=== PATIENT | male | born 1980 | race Caucasian/White ===

== ENCOUNTER 2022-01-25 00:34 | Observation (INO) | payer MEDICAID, SELFPAY ==
[2022-01-25] VITALS (7 sets, daily range): BP systolic 93–127; BP diastolic 48–79; PULSE 82–114; RESP 15–26; TEMP 36.2–37.5; O2SAT 93–98; BMI 56.1; BMI 56.0
[2022-01-25] MEDS: 0.9% Normal Saline 1,000 ML 1000 ML IV (01:03)
[2022-01-25 01:12] LABS: Absolute Lymphocyte Count 1.44 X10^3/uL (0.83-4.51); Basophil# 0.04 X10^3/uL; Basophil% 0.2 % (0-1); Eosinophil# 0.11 X10^3/uL; Eosinophils% 0.4 % (0-5); Hemoglobin 13.3 g/dL (13.0-16.5); Lymphocyte # 1.44 X10^3/ul (0.83-4.51); Lymphocyte % 5.8 % (19-41); Mean Corp Hgb Conc 31.7 g/dL (32-36); Mean Corpuscular Volume 82.2 fL (80-94); Mean Platelet Vol. 10.1 fl (6.2-12.0); Monocyte% 3.2 % (0-10); NRBC Flagged by Analyzer 0 % (0-5); Neutrophil # 22.03 X10^3/uL (2.7-7.7); Neutrophil % 88.3 % (47-70); POSITIVE DIFFERENTIAL YES; Platelet Count 278 K/mm3 (150-450); RBC Distribution Width CV 14.2 % (11.6-14.6); RBC Distribution Width SD 42.6 fl (35.1-43.9); Red Blood Count 5.11 M/mm3 (4.6-6.2); White Blood Count 24.9 K/mm3 (4.4-11.0)
[2022-01-25 01:17] LABS: Differential Indicated SCAN CRITERIA MET
[2022-01-25] MEDS: Ondansetron 4 MG/2 ML Vial IV (01:21)
[2022-01-25 01:28] LABS: AST(SGOT) 38 U/L (15-37); Alanine Aminotransfer ALT/SGPT 21 U/L (16-61); Albumin, Serum 2.4 g/dL (3.2-5.0); Alkaline Phosphatase 170 U/L (45-117); Anion Gap 9 (5-15); BUN 15 mg/dL (7-18); BUN/Creat Ratio 11.4 RATIO (10-20); Bilirubin, Direct 0.18 mg/dL (0.00-0.30); Calcium,Total 8.5 mg/dL (8.5-10.1); Chloride 96 mmol/L (98-107); Creatinine, Serum 1.32 mg/dL (0.70-1.30); EST Glomerular Filtration Rate 64 mL/min (>60); Est Glom Filt Rate - Afr Amer 77 mL/min (>60); Estimated Creatinine Clearance 80.02 ml/min; Globulin 5.3 g/dL (2.2-4.2); Glucose 154 mg/dL (74-106); Protein, Total 7.7 g/dL (6.4-8.2); Sodium Level 131 mmol/L (136-145)
[2022-01-25 01:37] LABS: Differential Comment SCANNED
[2022-01-25] MEDS: 0.9% Normal Saline 1,000 ML 150 ML IV ×4 (02:15→21:08)
[2022-01-25 05:21] LABS: Color, Urine Yellow (Yellow); Glucose, Dipstick Normal (Normal); Ketone-Dipstick Negative (Negative); Leukocyte Esterase-Dipstick 25 /ul (Negative); Mucous, Urine 0 SEEN /hpf (<or=2+); Nitrite-Dipstick Negative (Negative); Occult Blood-Urine 10 /ul (Negative); Protein-Dipstick 30 mg/dl (Negative); Specific Gravity, Urine 1.015 (1.002-1.030); Urine Clarity Clear (Clear); Urine Urobilinogen 1 mg/dl (Normal)
[2022-01-25 05:23] LABS: Urine Bilirubin Dipstick 1 mg/dL (Negative)
[2022-01-25 05:43] LABS: Bacteria 2+ /hpf (None Seen); Red Blood Cells-Urine 0-5 SEEN /hpf (0-5); Squamous Epithelial Cells - UA 0-5 SEEN /hpf (0-5); White Blood Cells 0-5 SEEN /hpf (0-5)
[2022-01-25] MEDS: 0.9% Saline Lock 10 ML Syringe IV (05:59)
[2022-01-25] MEDS: Acetaminophen 325 MG Tablet 650 MG PO ×2 (05:59→17:59)
[2022-01-25] MEDS: proCHLORPERazine 10 MG/2 ML Vial 5 MG IV (05:59)
[2022-01-25] MEDS: Menthol/Lanolin/Calamine/Znox 113 GM Tube 1 APPLIC TOPICAL ×2 (06:21→21:19)
[2022-01-25] MEDS: Nystatin Powder 15gm Bottle 1 APPLIC TOPICAL ×2 (06:21→21:19)
[2022-01-25 08:20] LABS: Absolute Neutrophil Count 17.9 X10^3/uL (2.0-7.7); Basophil# 0.05 X10^3/uL; Basophil% 0.2 % (0-1); Eosinophil# 0.14 X10^3/uL; Eosinophils% 0.6 % (0-5); Hematocrit 38.8 % (40-54); Hemoglobin 12.1 g/dL (13.0-16.5); Lymphocyte % 11.7 % (19-41); Mean Corp Hgb Conc 31.2 g/dL (32-36); Mean Corpuscular Hgb 25.5 pg (27.0-32.0); Mean Corpuscular Volume 81.9 fL (80-94); Mean Platelet Vol. 9.9 fl (6.2-12.0); Monocyte# 1.27 X10^3/uL; Monocyte% 5.7 % (0-10); NRBC Flagged by Analyzer 0 % (0-5); Neutrophil # 17.94 X10^3/uL (2.7-7.7); Neutrophil % 80.5 % (47-70); Platelet Count 263 K/mm3 (150-450); RBC Distribution Width CV 14.3 % (11.6-14.6); RBC Distribution Width SD 42.7 fl (35.1-43.9); Red Blood Count 4.74 M/mm3 (4.6-6.2); White Blood Count 22.3 K/mm3 (4.4-11.0)
[2022-01-25 08:26] LABS: Anion Gap 6 (5-15); BUN 13 mg/dL (7-18); BUN/Creat Ratio 15.3 RATIO (10-20); Chloride 102 mmol/L (98-107); Creatinine, Serum 0.85 mg/dL (0.70-1.30); EST Glomerular Filtration Rate 106 mL/min (>60); Est Glom Filt Rate - Afr Amer 129 mL/min (>60); Estimated Creatinine Clearance 120.47 ml/min; Glucose 146 mg/dL (74-106); Potassium 3.2 mmol/L (3.5-5.1); Sodium Level 135 mmol/L (136-145)
[2022-01-25] MEDS: Enoxaparin 40 MG/0.4 ML Syringe SC ×2 (08:56→21:28)
[2022-01-26 02:37] VITALS: BP 111/59; PULSE 98; RESP 16; TEMP 37.4; O2SAT 93
[2022-01-26] MEDS: 0.9% Normal Saline 1,000 ML 150 ML IV ×4 (03:34→22:02)
[2022-01-26 06:19] LABS: Absolute Lymphocyte Count 2.37 X10^3/uL (0.83-4.51); Basophil# 0.02 X10^3/uL; Basophil% 0.2 % (0-1); Eosinophil# 0.19 X10^3/uL; Eosinophils% 1.5 % (0-5); Hematocrit 39.2 % (40-54); Lymphocyte # 2.37 X10^3/ul (0.83-4.51); Lymphocyte % 18.7 % (19-41); Mean Corp Hgb Conc 30.6 g/dL (32-36); Mean Corpuscular Hgb 24.9 pg (27.0-32.0); Mean Corpuscular Volume 81.3 fL (80-94); Mean Platelet Vol. 10.3 fl (6.2-12.0); Monocyte# 0.93 X10^3/uL; Monocyte% 7.4 % (0-10); NRBC Flagged by Analyzer 0 % (0-5); Neutrophil # 9.03 X10^3/uL (2.7-7.7); Neutrophil % 71.3 % (47-70); Platelet Count 236 K/mm3 (150-450); RBC Distribution Width CV 14.5 % (11.6-14.6); RBC Distribution Width SD 42.8 fl (35.1-43.9); Red Blood Count 4.82 M/mm3 (4.6-6.2); White Blood Count 12.7 K/mm3 (4.4-11.0)
[2022-01-26 06:50] LABS: Anion Gap 3 (5-15); BUN 12 mg/dL (7-18); BUN/Creat Ratio 18.1 RATIO (10-20); Calcium,Total 7.8 mg/dL (8.5-10.1); Chloride 106 mmol/L (98-107); Creatinine, Serum 0.66 mg/dL (0.70-1.30); EST Glomerular Filtration Rate 142 mL/min (>60); Est Glom Filt Rate - Afr Amer 171 mL/min (>60); Estimated Creatinine Clearance 160.04 ml/min; Glucose 115 mg/dL (74-106); Potassium 3.6 mmol/L (3.5-5.1); Sodium Level 136 mmol/L (136-145)
[2022-01-26 08:05] VITALS: BP 114/68; PULSE 85; RESP 18; TEMP 36.7; O2SAT 98
[2022-01-26] MEDS: Acetaminophen 325 MG Tablet 650 MG PO (08:08)
[2022-01-26] MEDS: Nystatin Powder 15gm Bottle 1 APPLIC TOPICAL ×2 (09:40→20:31)
[2022-01-26] MEDS: Enoxaparin 40 MG/0.4 ML Syringe SC ×2 (09:40→20:31)
[2022-01-26] MEDS: Menthol/Lanolin/Calamine/Znox 113 GM Tube 1 APPLIC TOPICAL ×2 (09:41→20:32)
[2022-01-26 14:26] VITALS: BP 92/57; PULSE 77; RESP 18; TEMP 36.5; O2SAT 95
[2022-01-26 20:15] VITALS: BP 123/84; PULSE 82; RESP 18; TEMP 37.1; O2SAT 94
[2022-01-26] MEDS: Ondansetron 4 MG/2 ML Vial IV (20:31)
[2022-01-26] MEDS: 0.9% Saline Lock 10 ML Syringe IV (20:31)
[2022-01-27 03:01] VITALS: BP 101/58; PULSE 83; RESP 18; TEMP 36.6; O2SAT 95
[2022-01-27] MEDS: 0.9% Normal Saline 1,000 ML 150 ML IV (03:06)
[2022-01-27] MEDS: 0.9% Saline Lock 10 ML Syringe IV (03:06)
[2022-01-27] MEDS: proCHLORPERazine 10 MG/2 ML Vial 5 MG IV (03:06)
[2022-01-27 06:26] LABS: Absolute Lymphocyte Count 2.71 X10^3/uL (0.83-4.51); Absolute Neutrophil Count 4.8 X10^3/uL (2.0-7.7); Basophil# 0.03 X10^3/uL; Basophil% 0.4 % (0-1); Eosinophil# 0.22 X10^3/uL; Eosinophils% 2.6 % (0-5); Hematocrit 41.4 % (40-54); Hemoglobin 12.2 g/dL (13.0-16.5); Lymphocyte # 2.71 X10^3/ul (0.83-4.51); Lymphocyte % 32.2 % (19-41); Mean Corp Hgb Conc 29.5 g/dL (32-36); Mean Corpuscular Hgb 25.1 pg (27.0-32.0); Mean Corpuscular Volume 85.2 fL (80-94); Mean Platelet Vol. 10.8 fl (6.2-12.0); Monocyte# 0.61 X10^3/uL; Monocyte% 7.3 % (0-10); NRBC Flagged by Analyzer 0 % (0-5); Neutrophil # 4.76 X10^3/uL (2.7-7.7); Neutrophil % 56.5 % (47-70); Platelet Count 240 K/mm3 (150-450); RBC Distribution Width CV 14.7 % (11.6-14.6); RBC Distribution Width SD 45.8 fl (35.1-43.9); Red Blood Count 4.86 M/mm3 (4.6-6.2); White Blood Count 8.4 K/mm3 (4.4-11.0)
[2022-01-27 06:41] LABS: Anion Gap 6 (5-15); BUN 8 mg/dL (7-18); BUN/Creat Ratio 13.7 RATIO (10-20); Calcium,Total 7.6 mg/dL (8.5-10.1); Chloride 108 mmol/L (98-107); Creatinine, Serum 0.58 mg/dL (0.70-1.30); EST Glomerular Filtration Rate 164 mL/min (>60); Est Glom Filt Rate - Afr Amer 198 mL/min (>60); Estimated Creatinine Clearance 182.12 ml/min; Glucose 97 mg/dL (74-106); Magnesium 2.3 mg/dL (1.6-2.6); Potassium 3.7 mmol/L (3.5-5.1); Sodium Level 139 mmol/L (136-145)
[2022-01-27 09:00] VITALS: BP 104/67; PULSE 88; RESP 16; TEMP 36.8; O2SAT 92
[2022-01-27] MEDS: Enoxaparin 40 MG/0.4 ML Syringe SC ×2 (10:09→21:59)
[2022-01-27] MEDS: Nystatin Powder 15gm Bottle 1 APPLIC TOPICAL ×2 (10:10→22:01)
[2022-01-27] MEDS: Menthol/Lanolin/Calamine/Znox 113 GM Tube 1 APPLIC TOPICAL ×2 (10:10→22:00)
[2022-01-27 15:53] VITALS: BP 101/71; PULSE 81; RESP 18; TEMP 36.6; O2SAT 92
[2022-01-27 21:56] VITALS: BP 109/62; PULSE 71; RESP 18; TEMP 36.5; O2SAT 97
[2022-01-28 03:09] VITALS: BP 120/82; PULSE 87; RESP 18; TEMP 36.8; O2SAT 99
[2022-01-28] MEDS: 0.9% Saline Lock 10 ML Syringe IV (06:21)
[2022-01-28 07:07] LABS: Absolute Lymphocyte Count 3.07 X10^3/uL (0.83-4.51); Absolute Neutrophil Count 3.6 X10^3/uL (2.0-7.7); Basophil# 0.03 X10^3/uL; Basophil% 0.4 % (0-1); Eosinophil# 0.33 X10^3/uL; Eosinophils% 4.3 % (0-5); Hematocrit 41.4 % (40-54); Hemoglobin 12.6 g/dL (13.0-16.5); Lymphocyte # 3.07 X10^3/ul (0.83-4.51); Lymphocyte % 39.9 % (19-41); Mean Corp Hgb Conc 30.4 g/dL (32-36); Mean Corpuscular Hgb 25.6 pg (27.0-32.0); Monocyte# 0.54 X10^3/uL; NRBC Flagged by Analyzer 0 % (0-5); Neutrophil # 3.64 X10^3/uL (2.7-7.7); Neutrophil % 47.4 % (47-70); Platelet Count 285 K/mm3 (150-450); RBC Distribution Width CV 14.9 % (11.6-14.6); RBC Distribution Width SD 45.3 fl (35.1-43.9); Red Blood Count 4.93 M/mm3 (4.6-6.2); White Blood Count 7.7 K/mm3 (4.4-11.0)
[2022-01-28 07:45] LABS: Anion Gap 5 (5-15); BUN 6 mg/dL (7-18); BUN/Creat Ratio 13.6 RATIO (10-20); Calcium,Total 8.1 mg/dL (8.5-10.1); Chloride 105 mmol/L (98-107); Creatinine, Serum 0.44 mg/dL (0.70-1.30); EST Glomerular Filtration Rate 226 mL/min (>60); Est Glom Filt Rate - Afr Amer 274 mL/min (>60); Estimated Creatinine Clearance 240.07 ml/min; Glucose 91 mg/dL (74-106); Potassium 3.6 mmol/L (3.5-5.1); Sodium Level 140 mmol/L (136-145)
[2022-01-28 08:00] VITALS: BP 128/80; PULSE 89; RESP 16; TEMP 36.7; O2SAT 90
[2022-01-28] MEDS: Menthol/Lanolin/Calamine/Znox 113 GM Tube 1 APPLIC TOPICAL (10:06)
[2022-01-28] MEDS: Nystatin Powder 15gm Bottle 1 APPLIC TOPICAL (10:07)
[2022-01-28] MEDS: Enoxaparin 40 MG/0.4 ML Syringe SC (10:07)
== END 2022-01-28 14:32 | disposition home or self-care (01) ==
LOC: ED 02:26 → MS3 03:40
PROVIDERS: Family Medicine; Internal Medicine; Admitting Provider Hospitalist; Emergency Provider Emergency Medicine; Visit Provider Internal Medicine
DX: L03.115 Cellulitis of right lower limb (principal); Z68.43 Body mass index [BMI] 50.0-59.9, adult; E66.01 Morbid (severe) obesity due to excess calories; L03.116 Cellulitis of left lower limb; B87.0 Cutaneous myiasis; B96.89 Other specified bacterial agents as the cause of diseases classified elsewhere; N28.9 Disorder of kidney and ureter, unspecified
CPT/HCPCS: 36415; 80048; 80076; 81001; 83735; 85025; 87040; 87077; 93005; 96361; 96365; 96366; 96372; 96375; 96376; 97802; 99221; 99283; A4216; G0378; J0295; J2405

== ENCOUNTER 2023-09-23 09:26 | Inpatient (IN) | payer SELFPAY ==
[2023-09-23 09:28] VITALS: BP 151/85; PULSE 100; RESP 22; TEMP 36.2; O2SAT 90
--- NOTE | 2023-09-23 10:09 | VDLE_ITS ---
Reason For Study: Left leg swelling RIGHT LEFT CFV is compressible, spontaneous, phasic, GSV is normal. competent and demonstrates normal CFV is compressible, spontaneous, phasic, augmentation. competent, and demonstrates normal Procedure augmentation. This is a venous duplex using B-mode, color FV is compressible, spontaneous, phasic, flow and spectral Doppler. competent and demonstrates normal Exam performed portable in ED. augmentation. Technically difficult exam due to pt body POP V is compressible, spontaneous, phasic, habitus. competent and demonstrates normal Calfs veins visualized at distal calf. augmentation. A preliminary report was called and/or faxed T/P Trunk is compressible. to Iva TORO. PTV is compressible. FV distal visualized with color only appears patent. PeroV not well visualized. VL/Venous Duplex US, Unilateral Interpretation Summary Deep veins of the left lower extremity are patent and compressible segmentally. There is no evidence of left lower extremity deep vein thrombosis. The left great saphenous vein isrrael ears patent and compressible segmentally. Limited study Ordering Physician: Julisa Storm Performed By: Lay Marie RVT
--- NOTE | 2023-09-23 10:10 | EX.ED.DYSGE1 ---
HPI History of Present Illness Chief Complaint: Edema Informant: patient Onset/Context/Timing Onset: Today Narrative Narrative: Patient presents secondary to increased swelling of the left lower extremity. He has a history of lymphedema but states today he has had increased swelling of the left leg with some difficulty ambulating. He has noted some watery drainage from his leg. No fever or chills. He denies history of DVT or PE. [facility] Medical History Morbid obesity Home Medications amoxicillin 875 mg-potassium clavulanate 125 mg tablet 1 tab PO BID #10 tabs 01/28/22 [Rx Last Taken Unknown] apixaban 2.5 mg tablet (Eliquis) 2.5 mg PO BID #30 tabs 01/28/22 [Rx Last Taken Unknown] Allergy/AdvReac Type Severity Reaction Status Date / Time No Known Allergies Allergy Verified 09/23/23 09:27 Family History Other Obesity Social History Smoking Status: Never smoker ROS ROS ED Constitutional Constitutional ED: Denies chills or fever(s) Eyes Eyes: Denies discharge from eye(s) ENT ENT ED: Denies discharge from eye(s), rhinorrhea or sore throat Cardiovascular Cardiovascular: Denies chest pain or palpitations Respiratory/Chest Respiratory/Chest: Denies cough or dyspnea Gastrointestinal Gastrointestinal: Denies abdominal pain, nausea or vomiting Musculoskeletal Musculoskeletal: Reports extremity pain; Denies back pain Integumentary Reports other Details: Lymphedema changes bilateral lower extremities. ; Denies Abrasions or rash Neurologic Neurologic: Denies headache(s) or weakness Psychiatric Psychiatric: Denies anxiety or depression Allergic/Immunologic Allergic/Immunologic ED: Denies lip swelling or urticaria EXAM Physical Exam Const Vital Signs: 09/23/23 09:28 09/23/23 09:26 Temperature 97.2 F L Temperature Source Temporal Pulse Rate 100 Respiratory Rate 22 H Respiratory Effort Normal Non-Labored Respiratory Pattern Normal Blood Pressure 151/85 H Blood Pressure Mean 107 Pulse Ox 90 Oxygen Delivery Method Room Air Positive obese Nutritional Appearance: obese Eyes EOMs intact bilaterally Chest Wall inspection of chest normal and palpation of chest normal Resp normal respiratory effort and clear to auscultation bilaterally Cardio regular rate and regular rhythm GI non-tender Palpation: soft Extremity Extremity Narrative: Lymphedema bilateral lower extremities. Chronic venous skin changes to the lower extremities with small area of skin sloughing on the left leg with some clear watery discharge. Erythema of the medial left thigh with slight tenderness. No crepitus. Neuro oriented x3 Psych mental status grossly normal MDM MDM MDM Narrative Medical decision making narrative: IV line initiated. Blood cultures will be obtained. Labwork obtained to evaluate for leukocytosis, anemia, and electrolyte derangement. Venous ultrasound of the left lower extremity obtained to evaluate for potential DVT. History & Record Review Discussion w/independent historian: Patient Additional record(s) reviewed:: Prior inpatient record, Prior ED visit and Prior labs Lab Data Attestation: I reviewed the patient's lab results. Labs: Laboratory Results - last 24 hr 09/23/23 10:25 WBC 15.0 H RBC 6.36 H Hgb 15.3 Hct 53.7 MCV 84.4 MCH 24.1 L MCHC 28.5 L RDW Std Deviation 50.3 H RDW Coeff of Benedicto 17.4 H Plt Count 226 MPV 10.5 Immature Gran % (Auto) 1.300 H Neut % (Auto) 77.6 H Lymph % (Auto) 12.4 L [place] % (Auto) 8.3 Eos % (Auto) 0.1 Baso % (Auto) 0.3 Absolute Neuts (auto) 11.6 H Absolute Lymphs (auto) 1.86 Nucleated RBC % 0 Sodium 128 L Potassium 4.3 Chloride 96 L Carbon Dioxide 24.0 Anion Gap 8 BUN 12 Creatinine 0.91 Est GFR (MDRD) Af Amer 118 Est GFR (MDRD) Non-Af 97 BUN/Creatinine Ratio 13.2 Glucose 195 H Calcium 8.7 Treatment and Re-Evaluation :: White blood cell count is elevated at 15.0 with 77% neutrophils. Hemoglobin normal at 15.3. Chemistry studies significant for a sodium of 128. Last lab work available is from 2021 and at that time was normal. Blood cultures have been obtained. Venous ultrasound of the left lower extremity reveals no evidence of DVT. IV fluids initiated. Patient given a dose of Zosyn and I will speak with hospitalist regarding admission for both treatment of his cellulitis as well as his hyponatremia. Discharge Plan Triage Chief Complaint: Edema ED Provider: Julisa Storm Dx/Rx/DC Orders Clinical Impression: Cellulitis, Hyponatremia Prescriptions: No Action amoxicillin-pot clavulanate 875-125 mg tablet 1 tab PO BID Qty: 10 0RF Eliquis 2.5 mg tablet 2.5 mg PO BID Qty: 30 0RF Rx Instructions: for DVT prophylaxis Primary Care Provider: Care Physician,No Primary Referrals: Care Physician,No Primary [Primary Care Provider] - Disposition Disposition: Acute Care Hospital [facility]
[2023-09-23 10:36] LABS: Absolute Lymphocyte Count 1.86 X10^3/uL (0.83-4.51); Absolute Neutrophil Count 11.6 X10^3/uL (2.0-7.7); Basophil# 0.04 X10^3/uL; Basophil% 0.3 % (0-1); Eosinophil# 0.01 X10^3/uL; Eosinophils% 0.1 % (0-5); Hematocrit 53.7 % (40-54); Hemoglobin 15.3 g/dL (13.0-16.5); Lymphocyte # 1.86 X10^3/ul (0.83-4.51); Lymphocyte % 12.4 % (19-41); Mean Corp Hgb Conc 28.5 g/dL (32-36); Mean Corpuscular Hgb 24.1 pg (27.0-32.0); Mean Corpuscular Volume 84.4 fL (80-94); Mean Platelet Vol. 10.5 fl (6.2-12.0); Monocyte# 1.25 X10^3/uL; Monocyte% 8.3 % (0-10); NRBC Flagged by Analyzer 0 % (0-5); Neutrophil # 11.64 X10^3/uL (2.7-7.7); Neutrophil % 77.6 % (47-70); Platelet Count 226 K/mm3 (150-450); RBC Distribution Width CV 17.4 % (11.6-14.6); RBC Distribution Width SD 50.3 fl (35.1-43.9); Red Blood Count 6.36 M/mm3 (4.6-6.2)
[2023-09-23 10:53] LABS: Anion Gap 8 (5-15); BUN 12 mg/dL (7-18); BUN/Creat Ratio 13.2 RATIO (10-20); Calcium,Total 8.7 mg/dL (8.5-10.1); Chloride 96 mmol/L (98-107); Creatinine, Serum 0.91 mg/dL (0.70-1.30); EST Glomerular Filtration Rate 97 mL/min (>60); Est Glom Filt Rate - Afr Amer 118 mL/min (>60); Glucose 195 mg/dL (74-106); Potassium 4.3 mmol/L (3.5-5.1); Sodium Level 128 mmol/L (136-145)
[2023-09-23 11:26] VITALS: BP 135/74; PULSE 95; RESP 20; O2SAT 93
--- NOTE | 2023-09-23 11:26 | PCM.HP.STD ---
HPI - General General Date of Admission: 09/23/23 Date of Service: 09/23/23 Chief Complaint: swelling and redness of LLE HPI Narrative PHILL DWYER, is a 43 M with a PMH as outlined including lymphedema of the lower extremities who presents via ED on 09/23/2023 with a complaint of worsening lower extremity swelling as well as pain with ambulation. He got a GI infection a few days ago, and says he had been drinking a lot of water. He subsequently noted that his lower extremities were much more swollen than usual. He also noted some redness on his left inner thigh that streaked upwards. He denied any fever or chills or palpitations, dizziness, nausea or vomiting or any other symptoms. Review of systems otherwise negative. Vitals in the ED were blood pressure 151/85, pulse rate of 100, respiratory rate of 22 and temperature of 97.2 Fahrenheit. He was saturating at 90% on room air. CBC showed hemoglobin of 15.3 with WBC of 15 and platelets of 226. Chemistry shows sodium of 128 with potassium of 4.3 and bicarb of 24. He has been admitted to be managed for cellulitis of the left lower extremity. [facility] Medical History Morbid obesity Home Medications NK 09/23/23 [History Last Taken Unknown] Allergy/AdvReac Type Severity Reaction Status Date / Time No Known Allergies Allergy Verified 09/23/23 09:27 Family History Other Obesity Social History Smoking Status: Never smoker ROS Review of Systems ROS Unobtainable: Denies due to encephalopathy Constitutional Constitutional: Denies anorexia, chills, fatigue, fever(s), malaise or weakness ENT HEENT: Denies dysphagia, headache(s), sore throat or throat swelling Cardiovascular Cardiovascular: Denies chest pain, edema, orthopnea or paroxysmal nocturnal dyspnea Respiratory/Chest Respiratory/Chest: Denies cough, shortness of breath at rest, shortness of breath with exertion or wheezing Gastrointestinal Gastrointestinal: Denies abdominal pain, diarrhea, nausea or vomiting Musculoskeletal Musculoskeletal: Reports extremity pain Integumentary Integumentary: Reports wounds Neurologic Neurologic: Denies confusion, dizziness or focal weakness Psychiatric Psychiatric: Denies anxiety or depression Endocrine Endocrinology: Denies change in body appearance Vital Signs Vital Signs Vital Signs: 09/23/23 09:28 09/23/23 09:26 Temperature 97.2 F L Temperature Source Temporal Pulse Rate 100 Respiratory Rate 22 H Respiratory Effort Normal Non-Labored Respiratory Pattern Normal Blood Pressure 151/85 H Blood Pressure Mean 107 Pulse Ox 90 Oxygen Delivery Method Room Air Physical Exam Const alert, oriented x3, no apparent distress and well nourished Constitutional Narrative: super morbid obesity General Appearance: cooperative HEENT normocephalic, head/scalp atraumatic, moist oral mucous membranes and oropharynx normal Eyes PERRL and EOMs intact bilaterally Neck no lymphadenopathy and supple Lymph Lymphatic: no lymphadenopathy noted and lymphedema Resp normal respiratory effort, normal air movement and clear to auscultation bilaterally Cardio regular rate, regular rhythm, S1 normal heart sound, S2 normal heart sound and no murmurs GI normal to inspection, nondistended, normoactive bowel sounds, soft to palpation and non-distended Extremity Extremity Narrative: bilateral LE edema; LLE more edematous, marked erythema extending from the foot up to just below the knee, with the erythema streaking up the thigh into the groin. superficial ulcerations on the LLE blackmon, minimal pus General Extremity: no tenderness to palpation of joints or extremities Skin Skin Narrative: as under extremity Neuro CN's II-XII intact bilaterally, no focal motor deficits, no sensory deficits noted and deep tendon reflexes 2+ bilaterally Motor Exam: strength 5/5 throughout and general weakness Psych thought process normal, cooperative and affect normal Appearance: appropriate Results Lab / Micro Data 09/23/23 10:25 09/23/23 10:25 Labs: Laboratory Results - last 24 hr 09/23/23 10:25: WBC 15.0 H, RBC 6.36 H, Hgb 15.3, Hct 53.7, MCV 84.4, MCH 24.1 L, MCHC 28.5 L, RDW Std Deviation 50.3 H, RDW Coeff of Benedicto 17.4 H, Plt Count 226, MPV 10.5, Immature Gran % (Auto) 1.300 H, Neut % (Auto) 77.6 H, Lymph % (Auto) 12.4 L, [place] % (Auto) 8.3, Eos % (Auto) 0.1, Baso % (Auto) 0.3, Absolute Neuts (auto) 11.6 H, Absolute Lymphs (auto) 1.86, Nucleated RBC % 0, Sodium 128 L, Potassium 4.3, Chloride 96 L, Carbon Dioxide 24.0, Anion Gap 8, BUN 12, Creatinine 0.91, Est GFR (MDRD) Af Amer 118, Est GFR (MDRD) Non-Af 97, BUN/Creatinine Ratio 13.2, Glucose 195 H, Calcium 8.7 Assessment & Plan Assessment/Plan (1) Cellulitis: (2) Hyponatremia: PLAN: Plan #Cellulitis of the LLE Admit to PCU. WBC is 15. He has bilateral lower extremity lymphedema but noted that the swelling in his lower legs had worsened recently. He denies any trauma to his leg or any insect bites or scratches. WBC is 15. Started on IV vancomycin and Zosyn as he is noted to have a pocket of pus on the blackmon of the left lower extremity. Consult wound care. Get blood and wound cultures. Check A1c. #Hyponatremia: Sodium is 128. States he has not been eating or drinking well and he also had a GI infection recently and had some diarrhea which could contribute to his symptoms. Hydrate with IV fluids and trend. #History of bilateral lower extremity lymphedema: Does not follow with any PCP or office services specialist about this. Will benefit from referral to wound care on outpatient basis. DVT prophylaxis: Lovenox 40 mg twice daily. Charges/Coding Visit Charges Inpatient E&M: 04799 Init Hosp L3
[2023-09-23 12:18] VITALS: BMI 62.5
[2023-09-23] MEDS: Piperacil/Tazobactam 3.375 GM in 0.9% Normal Saline (50mL MB+) 50 ML IV ×2 (12:19→20:31)
[2023-09-23] MEDS: 0.9% Normal Saline (1000mL) 1,000 ML 150 ML IV (12:19)
[2023-09-23 12:37] VITALS: BP 118/63; PULSE 75; RESP 20; TEMP 36.4; O2SAT 92
[2023-09-23 12:54] VITALS: BMI 62.7
[2023-09-23] MEDS: Vancomycin HCl 2,000 MG in 0.9% Normal Saline (500mL Bag) 500 ML 175 MG IV (14:25)
[2023-09-23] MEDS: 0.9% Normal Saline (1000mL) 1,000 ML 100 ML IV (14:28)
--- NOTE | 2023-09-23 14:32 | PHA.PHARE_ITS ---
Consult Antibiotic Management Pharmacy has been consulted to manage selected antibiotic: Vancomycin Type of Intervention Type of Consult: New start Suspected Infection Suspected Infection: Skin/Soft tissue Prior Doses of Antibiotics Prior Doses of Antibiotics Received/Current Regimen: Vancomycin 2000 mg IV x 1 given 09/23/23 @ 1425, patient is also on piperacillin/ tazobactam 3.375 grams Q8H Labs Labs: Sodium 128 mmol/L (136-145) L 09/23/23 10:25 Potassium 4.3 mmol/L (3.5-5.1) 09/23/23 10:25 Chloride 96 mmol/L (98-107) L 09/23/23 10:25 Carbon Dioxide 24.0 mmol/L (21.0-32.0) 09/23/23 10:25 Anion Gap 8 (5-15) 09/23/23 10:25 BUN 12 mg/dL (7-18) 09/23/23 10:25 Creatinine 0.91 mg/dL (0.70-1.30) 09/23/23 10:25 Est GFR (MDRD) Af Amer 118 mL/min (>60) 09/23/23 10:25 Est GFR (MDRD) Non-Af 97 mL/min (>60) 09/23/23 10:25 BUN/Creatinine Ratio 13.2 RATIO (10-20) 09/23/23 10:25 Glucose 195 mg/dL (74-106) H 09/23/23 10:25 Dosing Weight Weight used for dosin kg Estimated Creatinine Clearance Estimated Creatinine Clearance: ~190 Goal Trough Goal Trough: 15-20 mcg/mL Pharmacy Plan for Drug Dosing Pharmacy Plan for Drug Dosing: Vancomycin 2000 mg IV loading dose x 1, followed by 1500 mg IV Q8H with a trough prior to the 4th total dose. Pharmacy Service will continue to monitor and adjust dosing as required. Follow-Up Labs Follow-Up Labs: Trough: Vancomycin Date/Time Labs Ordered Labs to be done on [date and time ordered]: 09/24/23 @ 1430
--- NOTE | 2023-09-23 14:49 | WOUNDNOTE ---
wound photo: left lower leg
--- NOTE | 2023-09-23 14:49 | WOUNDNOTE ---
wound photo: left lateral lower leg
--- NOTE | 2023-09-23 14:50 | WOUNDNOTE ---
wound photo: bilateral lower legs
[2023-09-23 15:00] VITALS: BP 130/76; PULSE 100; RESP 18; TEMP 37.8; O2SAT 96
[2023-09-23] MEDS: oxyCODONE 5 MG Tablet 10 MG PO (16:37)
[2023-09-23] MEDS: Acetaminophen 325 MG Tablet 650 MG PO (16:38)
[2023-09-23 21:15] VITALS: BP 117/74; PULSE 110; RESP 18; TEMP 36.8; O2SAT 98
[2023-09-23] MEDS: Enoxaparin 40 MG/0.4 ML Syringe SC (21:21)
[2023-09-23 22:25] VITALS: O2SAT 96
[2023-09-24] MEDS: Vancomycin HCl 1,500 MG in 0.9% Normal Saline (500mL Bag) 500 ML 250 MG IV ×3 (01:13→16:10)
[2023-09-24 03:30] VITALS: BP 131/60; PULSE 100; RESP 20; TEMP 37.1; O2SAT 96
[2023-09-24] MEDS: Acetaminophen 325 MG Tablet 650 MG PO (03:34)
[2023-09-24] MEDS: oxyCODONE 5 MG Tablet 10 MG PO ×2 (03:34→09:46)
[2023-09-24] MEDS: 0.9% Normal Saline (1000mL) 1,000 ML 100 ML IV (06:00)
[2023-09-24] MEDS: Piperacil/Tazobactam 3.375 GM in 0.9% Normal Saline (50mL MB+) 50 ML IV ×3 (06:00→21:18)
[2023-09-24 08:04] LABS: Absolute Lymphocyte Count 2.57 X10^3/uL (0.83-4.51); Basophil# 0.09 X10^3/uL; Basophil% 0.5 % (0-1); Eosinophil# 0.01 X10^3/uL; Eosinophils% 0.1 % (0-5); Hemoglobin 15.4 g/dL (13.0-16.5); Lymphocyte # 2.57 X10^3/ul (0.83-4.51); Mean Corpuscular Hgb 23.8 pg (27.0-32.0); Mean Platelet Vol. 10.6 fl (6.2-12.0); Monocyte# 1.51 X10^3/uL; Monocyte% 8.2 % (0-10); NRBC Flagged by Analyzer 0 % (0-5); Neutrophil # 13.97 X10^3/uL (2.7-7.7); Neutrophil % 76.1 % (47-70); POSITIVE DIFFERENTIAL YES; Platelet Count 245 K/mm3 (150-450); RBC Distribution Width CV 17.7 % (11.6-14.6); RBC Distribution Width SD 50.6 fl (35.1-43.9); Red Blood Count 6.47 M/mm3 (4.6-6.2); White Blood Count 18.4 K/mm3 (4.4-11.0)
[2023-09-24 08:17] LABS: Differential Indicated SCAN CRITERIA MET
[2023-09-24 08:31] LABS: Anion Gap 7 (5-15); BUN 16 mg/dL (7-18); BUN/Creat Ratio 13.6 RATIO (10-20); Calcium,Total 8.7 mg/dL (8.5-10.1); Chloride 96 mmol/L (98-107); Creatinine, Serum 1.18 mg/dL (0.70-1.30); EST Glomerular Filtration Rate 72 mL/min (>60); Est Glom Filt Rate - Afr Amer 87 mL/min (>60); Estimated Creatinine Clearance 147.74 ml/min; Glucose 203 mg/dL (74-106); Potassium 4.2 mmol/L (3.5-5.1); Sodium Level 129 mmol/L (136-145)
[2023-09-24 09:30] VITALS: BP 109/66; PULSE 89; RESP 16; TEMP 36.6; O2SAT 93
[2023-09-24] MEDS: Enoxaparin 40 MG/0.4 ML Syringe SC ×2 (09:46→21:18)
--- NOTE | 2023-09-24 09:56 | PN_ITS ---
Subjective Subjective Patient seen and examined. He had no active complaints. He denied any pain in his lower extremity. He denied any fever or chills or any other symptoms. Review of systems otherwise negative. Objective Data Objective Data Vital Signs: Vital Signs Temp Pulse Resp BP Pulse Ox O2 Del Method O2 Flow Rate 98.7 F 100 20 H 131/60 H 96 Nasal Cannula 2 09/24/23 03:30 09/24/23 03:30 09/24/23 03:30 09/24/23 03:30 09/24/23 03:30 09/24/23 07:00 09/24/23 07:00 Oxygen Flow Rate (L/min) 2 Oxygen Delivery Method Nasal Cannula Weight: 449 lb 12.8 oz Body Mass Index (BMI) 62.7 Intake & Output: Intake and Output for Last 24 Hours 09/22/23 09/23/23 09/24/23 23:59 23:59 23:59 Intake Total 1939 1166.67 / 1166.67 Balance 1939 1166.67 / 1166.67 Lab / Micro Data 09/24/23 07:14 09/24/23 07:14 Labs: Laboratory Results - last 24 hr 09/23/23 10:25: WBC 15.0 H, RBC 6.36 H, Hgb 15.3, Hct 53.7, MCV 84.4, MCH 24.1 L , MCHC 28.5 L, RDW Std Deviation 50.3 H, RDW Coeff of Benedicto 17.4 H, Plt Count 226, MPV 10.5, Immature Gran % (Auto) 1.300 H, Neut % (Auto) 77.6 H, Lymph % (Auto) 12.4 L, [place] % (Auto) 8.3, Eos % (Auto) 0.1, Baso % (Auto) 0.3, Absolute Neuts (auto) 11.6 H, Absolute Lymphs (auto) 1.86, Nucleated RBC % 0, Sodium 128 L, Potassium 4.3, Chloride 96 L, Carbon Dioxide 24.0, Anion Gap 8, BUN 12, Creatinine 0.91, Est GFR (MDRD) Af Amer 118, Est GFR (MDRD) Non-Af 97, BUN/Creatinine Ratio 13.2, Glucose 195 H, Calcium 8.7 09/24/23 07:14: WBC 18.4 H, RBC 6.47 H, Hgb 15.4, Hct 55.0 H, MCV 85.0, MCH 23.8 L, MCHC 28.0 L, RDW Std Deviation 50.6 H, RDW Coeff of Benedicto 17.7 H, Plt Count 245, MPV 10.6, Immature Gran % (Auto) 1.100 H, Neut % (Auto) 76.1 H, Lymph % (Auto) 14.0 L, [place] % (Auto) 8.2, Eos % (Auto) 0.1, Baso % (Auto) 0.5, Absolute Neuts (auto) 14.0 H, Absolute Lymphs (auto) 2.57, Nucleated RBC % 0, Sodium 129 L, Potassium 4.2, Chloride 96 L, Carbon Dioxide 26.0, Anion Gap 7, BUN 16, Creatinine 1.18, Estim Creat Clear Calc 147.74, Est GFR (MDRD) Af Amer 87, Est GFR (MDRD) Non-Af 72, BUN/Creatinine Ratio 13.6, Glucose 203 H, Calcium 8.7 Radiography Diagnostic Testing: Radiology Impression Venous Doppler Study 09/23/23 10:09 Interpretation Summary Deep veins of the left lower extremity are patent and compressible segmentally. There is no evidence of left lower extremity deep vein thrombosis. The left great saphenous vein appears patent and compressible segmentally. Limited study Ordering Physician: Julisa Storm Performed By: Lay Marie RVT Physical Exam Const alert, oriented x3, no apparent distress and well nourished Constitutional Narrative: super morbid obesity General Appearance: cooperative HEENT normocephalic, head/scalp atraumatic, moist oral mucous membranes and oropharynx normal Eyes PERRL and EOMs intact bilaterally Neck no lymphadenopathy and supple Lymph Lymphatic: no lymphadenopathy noted and lymphedema Resp Resp Narrative: Mildly diminished breath sounds bibasilarly. No wheezes or crackles. On 2 L of oxygen. Cardio regular rate, regular rhythm, S1 normal heart sound, S2 normal heart sound and no murmurs GI normal to inspection, nondistended, normoactive bowel sounds, soft to palpation and non-distended Extremity Extremity Narrative: Both lower extremities wrapped in bandage. General Extremity: no tenderness to palpation of joints or extremities Skin Skin Narrative: as under extremity Neuro CN's II-XII intact bilaterally, no focal motor deficits, no sensory deficits noted and deep tendon reflexes 2+ bilaterally Motor Exam: strength 5/5 throughout and general weakness Psych thought process normal, cooperative and affect normal Appearance: appropriate Assessment & Plan Assessment/Plan (1) Cellulitis: (2) Hyponatremia: PLAN: Plan #Cellulitis of the LLE * WBC is up to 18.4 today. He has bilateral lower extremity lymphedema but noted that the swelling in his lower legs had worsened recently. * He denies any trauma to his leg or any insect bites or scratches. WBC is 15. * on IV vancomycin and Zosyn as he is noted to have a pocket of pus on the blackmon of the left lower extremity. * Consult wound care. Get blood and wound cultures. * Check A1c. * Duplex was negative for any evidence of DVT. * #Hyponatremia: * Sodium is up to 129 today from 128 yesterday * continue gentle hydration with IVF and monitor. . States he has not been eating or drinking well and he also had a GI infection recently and had some diarrhea which could contribute to his symptoms. * * #History of bilateral lower extremity lymphedema: Does not follow with any PCP or systems software specialist about this. Will benefit from referral to wound care on outpatient basis. DVT prophylaxis: Lovenox 40 mg twice daily. Charges/Coding Visit Charges Inpatient E&M: 83506 Subs Hosp L2
[2023-09-24 10:23] VITALS: O2SAT 85
--- NOTE | 2023-09-24 10:30 | CASEMGMT ---
RN?CM?COLOR SPECIALIST?CM?to room to meet with patient for initial transition planning/care coordination?assessment.?RN?CM?introduced self and role at [facility].? Pt voices understanding and consents to?assessment?at this time.? Pt sitting up in chair in no distress at this time.? Pt is A/O at this time and answers all questions appropriately.?? Care providers, pharmacy, and demographics verified/updated at this time. PCP: No PCP Specialists: none [facility]erred [facility] Insurance: No insurance. Prescription Benefit:?none Living Will/HPOA:?Pt does not currently have LW/HCPOA and declines info at this time.? Pt made aware that he can contact as an out-pt and make appt in the future if he decides he would like to talk with someone about this or would like to utilize [facility] social work for advanced directive completion.? LNOK: 2 half-sisters. One of them is Mindy Walker. Pt has no children and parents are not living. Living Arrangements: Lives alone in one-story home w/2 steps to enter. Pt states when he is at his baseline, he has no difficulty w/stairs, but with the infection and pain to LLE, it will be more difficult. Pt is independent w/ADL's, IADL's, manages his own medications, and works full-time. Transportation:?Pt states drives self and states no transportation concerns at this time. He states he is not sure who will be available to take him home @ discharge but states he has people he can call and will be able to find someone. DME: ? Denies using any DME and denies needs.? Noted WW in pt's room and he states therapy had him use a WW this morning when working w/him. He states it did help alleviate the pain some when he used it. Pt states he does not have a walker at home, but he does not want one and does not want CM to get one for him to have @ discharge. He states, If I need one, I'm pretty sure I can get one. Offered to get a quote/vazquez-check for a WW and declines even wanting to know how much they cost. HHC/SNF: No hx of either. Pt denies wanting/needing HHC. Pt wishes to return home and states the only help he may need is for someone to wrap my leg. He states he has friends that he can ask to do this. RN CM inquired if he would have someone available every day and he states, probably. CM?to follow for any further discharge planning/needs.? Pt voices no further concerns/needs at this time.? Advised pt to ask for?CM?if any further questions/concerns/needs arise.? Voices understanding. PLAN:??Home CM to follow. Pt to be provided w[facility]financial resources and [facility] Ruthie MARROQUINN?RN?CM
[2023-09-24 10:42] LABS: Differential Comment SCANNED
--- NOTE | 2023-09-24 11:03 | CASEMGMT ---
Provided pt printed information on [facility] as well as a local healthcare directory pamphlet. Pt denies any further needs currently.
[2023-09-24] MEDS: Ondansetron 4 MG/2 ML Vial IV (14:38)
[2023-09-24 15:00] VITALS: BP 121/76; PULSE 88; RESP 18; TEMP 36.3; O2SAT 93
--- NOTE | 2023-09-24 15:10 | CASEMGMT ---
Social Work SW gave pt resources, as pt is listed as self pay. SW gave pt information on [employer], [facility] assist, 211, em[employer] R[employer] card, and prescription assistance programs. Pt did see Terri from [employer] today, and CM gave pt information on [facility]. No further social service needs anticipated at this time. ALEKSANDR Terry
--- NOTE | 2023-09-24 15:50 | PCM.RX.CS ---
Consult Antibiotic Management Pharmacy has been consulted to manage selected antibiotic: Vancomycin Type of Intervention Type of Consult: Follow-up Labs Labs: Sodium 129 mmol/L (136-145) L 09/24/23 07:14 Potassium 4.2 mmol/L (3.5-5.1) 09/24/23 07:14 Chloride 96 mmol/L (98-107) L 09/24/23 07:14 Carbon Dioxide 26.0 mmol/L (21.0-32.0) 09/24/23 07:14 Anion Gap 7 (5-15) 09/24/23 07:14 BUN 16 mg/dL (7-18) 09/24/23 07:14 Creatinine 1.18 mg/dL (0.70-1.30) 09/24/23 07:14 Est GFR (MDRD) Af Amer 87 mL/min (>60) 09/24/23 07:14 Est GFR (MDRD) Non-Af 72 mL/min (>60) 09/24/23 07:14 BUN/Creatinine Ratio 13.6 RATIO (10-20) 09/24/23 07:14 Glucose 203 mg/dL (74-106) H 09/24/23 07:14 Microbiology Microbiology: Microbiology 09/23/23 14:00 Wound - Leg, Left Gram Stain - Final 09/23/23 14:00 Wound - Leg, Left Wound Culture - Preliminary Beta streptococcus Gram negative mo Gram negative mo#2 Staphylococcus species Goal Trough Goal Trough: 15-20 mcg/mL Pharmacy Plan for Drug Dosing Pharmacy Plan for Drug Dosing: DAILY ASSESSMENT Current Vancomycin Dose: 1500mg IV Q8h Number of Doses Received: loading dose of 2g, 1 dose of 1500mg Current Renal Function: 1.18 Renal Function Trend: stable Lab/Micro: wcx growing multiple organisms, including staph spp Any Change in Vanc Plan: While patient was getting 1500mg IV dose early this morning, patient lost IV access. Discussed case with nursing, it is estimated patient got maybe 1/2 of that dose. Patient had to get a PICC line placed today. Vancomycin 1500mg IV Q8h is now able to be started. Will retime regimen to start 09/24/23 @1600, now that pt has regained IV access. Pending Level: 09/25/23 @1530. Timing this after patient gets 3 doses of retimed regimen since patient has not gotten a full dose of vancomycin in ~15hrs due to lack of IV access. This will allow us to mechanics supervisor if this regimen is adequate. Pharmacy Service will continue to monitor and adjust dosing as required.
--- NOTE | 2023-09-24 16:24 | PRO.PCM_ITS ---
Procedure Report Date of Procedure: 09/24/23 Assessment & Plan Assessment/Plan (1) Cellulitis: QUALIFIERS: Site of cellulitis: unspecified site Qualified Code(s): L03.90 - Cellulitis, unspecified Procedures Radiology Radiology Access Procedures: PICC Procedure Time Out Time Out Informed consent given: Yes Consent signed: Yes Time out checklist: patient, procedure, site marked/identified, positioning of patient, supplies available and allergies confirmed Time out verified: Yes Time out date: 09/24/23 Time out time: 13:35 PICC Line Consent Screening tool completed:: Yes Consent obtained:: Yes Consent given by (patient or responsible libertarian):: patient Line successful (if no, document why in comments):: Yes Insertion Reason for Insertion: Poor Venous Access Date of Insertion: 09/24/23 Ok to use: Yes Type of PICC inserted: Single Power PICC PICC Lot #: [id number] PICC Reference #: [id number] Microintroducer Used: Yes (in kit) Ultrasound/Equipment Used: Probe Cover Kit Trimmed Length (cm): 48 Insertion Length (cm): 0 Exposed Length (cm): 39 Tip Placement: Caval Atrial Junction Placement Confirmation: 3CG Insertion Vein: Right Basilic Insertion Attempts: 1 Local Anesthesia Used: Lidocaine 1% (in kit) Dressing Applied: Statlock and Tegaderm CHG Arm Measurement above site (in cm): 39 Patient Tolerated Procedure: Well Threading Difficulties: No Comments Comment: Patient identity was verified with two patient identifiers. Informed consent was obtained and time-out was completed. Hands were sanitized. The patient was positioned supine with right arm at 90 degrees. The patient's upper arm vasculature was assessed using ultrasound. Patency of the right basilic vein was confirmed and the vein was externally marked. An external measurement was obtained of 48 cm. External leads were applied to the patient's right upper chest and laterally and inferior of the umbilicus on the mid axillary line. Cap, mask, and prep gloves were donned. The underdrape was placed under the patient's arm. The site was prepped with chlorhexidine, and tourniquet was l oosely applied. Prep gloves were discarded, and hands were sanitized. The sterile kit was opened with additional supplies dropped in. Sterile gown and gloves were donned, and the patient was draped. The sterile kit was assembled with needle, introducer, needless connector, and catheter lumen flushed with sterile normal saline. The marked site of insertion was anesthetized with 1% lidocaine from the kit. Patient tolerated well. The right basilic vein was then accessed using ultrasound guidance and guidewire was inserted to safety devin. The tourniquet was released. The access needle was removed while securing the guidewire in place. The site was again anesthetized with 1% lidocaine, prior to insertion of introducer sheath and dilator. Patient tolerated the insertion well. The catheter was trimmed to a length of 48 cm. Using 3C guidance, the catheter was then inserted through the introducer sheath, slowly. There was no resistance on insertion. The catheter followed the expected course of the vessel using 3CG tracking. The introducer sheath was retracted and peeled away, incrementally, while keeping the catheter secured. Maximal p-wave, without deflection, confirming placement in the cavoatrial junction, was obtained at an insertion length of 48 cm, leaving 0 cm external. The stylet was removed. A flushed needleless connector was attached to the lumen. Aspiration of the lumen was performed to remove any air and confirm blood return. Blood return was verified and the lumen was flushed with 10 ml of sterile normal saline in a pulsatile fashion. The lumen was clamped with the last pulsed flush. Total sterile flushes used for the insertion was 6 10 ml syringes, 2 from the kit. Finally, the insertion site was cleaned with chlorhexidine, and the catheter was secured using a StatLock. The site was covered with a Tegaderm CHG Dressing and disinfecting caps were applied. Baseline arm circumference was obtained at the insertion site and measured 39 cm. The patient was provided with a patient education handout on PICC line care and verbalized understanding of infection prevention, heavy lifting restriction, maintaining mobility, and watching for any signs of infection. The charge nurse is aware that the PICC line is ready for use.
[2023-09-24 17:54] LABS: Hemoglobin A1c 10.1 % (3.8-5.6)
[2023-09-24] MEDS: LORazepam 1 MG Tablet PO (18:08)
[2023-09-24 21:00] VITALS: BP 146/90; PULSE 92; RESP 18; TEMP 36.6; O2SAT 93
[2023-09-24 22:00] VITALS: RESP 18; O2SAT 79
[2023-09-25] VITALS (13 sets, daily range): BP systolic 113–131; BP diastolic 69–99; PULSE 73–93; RESP 14–20; TEMP 36.2–36.8; O2SAT 76–97
[2023-09-25] MEDS: Vancomycin HCl 1,500 MG in 0.9% Normal Saline (500mL Bag) 500 ML 250 MG IV ×2 (00:34→08:25)
[2023-09-25] MEDS: Piperacil/Tazobactam 3.375 GM in 0.9% Normal Saline (50mL MB+) 50 ML IV ×3 (06:04→21:38)
[2023-09-25 06:24] LABS: Absolute Lymphocyte Count 1.11 X10^3/uL (0.83-4.51); Absolute Neutrophil Count 19.6 X10^3/uL (2.0-7.7); Basophil# 0.19 X10^3/uL; Basophil% 0.8 % (0-1); Eosinophil# 0.01 X10^3/uL; Hemoglobin 15.3 g/dL (13.0-16.5); Lymphocyte # 1.11 X10^3/ul (0.83-4.51); Lymphocyte % 4.9 % (19-41); Mean Corpuscular Hgb 23.6 pg (27.0-32.0); Mean Corpuscular Volume 90.6 fL (80-94); Mean Platelet Vol. 10.7 fl (6.2-12.0); Monocyte# 1.29 X10^3/uL; Monocyte% 5.7 % (0-10); NRBC Flagged by Analyzer 0.1 % (0-5); Neutrophil # 19.56 X10^3/uL (2.7-7.7); Neutrophil % 86.7 % (47-70); Platelet Count 241 K/mm3 (150-450); RBC Distribution Width CV 17.3 % (11.6-14.6); RBC Distribution Width SD 54.6 fl (35.1-43.9); Red Blood Count 6.49 M/mm3 (4.6-6.2); White Blood Count 22.6 K/mm3 (4.4-11.0)
[2023-09-25 06:29] LABS: Hematocrit 58.8 % (40-54)
[2023-09-25] MEDS: Enoxaparin 40 MG/0.4 ML Syringe SC ×2 (08:27→21:37)
[2023-09-25 08:30] LABS: Anion Gap 6 (5-15); BUN 27 mg/dL (7-18); BUN/Creat Ratio 12.4 RATIO (10-20); Calcium,Total 8.6 mg/dL (8.5-10.1); Chloride 94 mmol/L (98-107); Creatinine, Serum 2.18 mg/dL (0.70-1.30); EST Glomerular Filtration Rate 36 mL/min (>60); Est Glom Filt Rate - Afr Amer 43 mL/min (>60); Estimated Creatinine Clearance 79.97 ml/min; Glucose 203 mg/dL (74-106); Potassium 5.3 mmol/L (3.5-5.1); Sodium Level 126 mmol/L (136-145)
--- NOTE | 2023-09-25 12:42 | CT_ITS ---
EXAM: CT Left Lower Extremity Without Intravenous Contrast, Tibia and Fibula CLINICAL INDICATION: 43 years old, Male; LLE swelling -- Please do WITHOUT contrast only TECHNIQUE: Helically acquired images were obtained of the left tibia and fibula without intravenous contrast. 2-D reformats were performed by the technologist. This CT exam was performed using one or more of the following dose reduction techniques: automated exposure control, adjustment of the mA and/or kV according to patient size, and/or use of iterative reconstruction technique. RADIATION DOSE: CTDIvol = 16.09 mGy, DLP = 974.04 mGy-cm COMPARISON: No relevant prior studies available. FINDINGS: Bones/joints: No evidence of acute fracture. Mild to moderate degenerative arthrosis of the left knee. No sclerotic or destructive changes. Soft tissues: Diffuse soft tissue swelling and edema extending from the distal thigh to the foot. Mild fluid on the medial aspect of the ankle. No evidence of abnormal fluid collection or drainable abscess. No evidence of gas in the soft tissues. No demonstrated foreign body. CT/Extremity Lower without Contra IMPRESSION: 1. Diffuse soft tissue swelling and edema of the left lower leg. 2. No evidence of gas in the soft tissues or drainable abscess. 3. No evidence of destructive bony process or acute fracture. Electronically Signed: Eric Dumont MD at 14:38 EDT ,
--- NOTE | 2023-09-25 12:46 | PN_ITS ---
Subjective Subjective Patient seen and examined. He had no active complaints. Review of systems is otherwise negative. He has remained hemodynamically stable. WBC is up to 22.6 and hb is 15.3 and platelets of 241. Cr has also trended upwards to 2.18. Objective Data Objective Data Vital Signs: Vital Signs Temp Pulse Resp BP Pulse Ox O2 Del Method O2 Flow Rate 97.5 F L 83 18 127/69 H 87 Nasal Cannula 2 09/25/23 08:23 09/25/23 08:23 09/25/23 08:23 09/25/23 08:23 09/25/23 10:28 09/25/23 10:08 09/25/23 10:08 Oxygen Flow Rate (L/min) 2 Oxygen Delivery Method Nasal Cannula Weight: 449 lb 12.8 oz Body Mass Index (BMI) 62.7 Intake & Output: Intake and Output for Last 24 Hours 09/23/23 09/24/23 09/25/23 23:59 23:59 23:59 Intake Total 1939 2246.67 / 2296.67 1160 / 1160 Balance 1939 / 1939 2246.67 / 2296.67 1160 / 1160 Lab / Micro Data 09/25/23 06:17 09/25/23 08:10 Labs: Laboratory Results - last 24 hr 09/24/23 07:14: Hemoglobin A1c 10.1 H 09/25/23 06:17: WBC 22.6 H, RBC 6.49 H, Hgb 15.3, Hct 58.8 H, MCV 90.6 D, MCH 23.6 L, MCHC 26.0 L D, RDW Std Deviation 54.6 H, RDW Coeff of Benedicto 17.3 H, Plt Co unt 241, MPV 10.7, Immature Gran % (Auto) 1.900 H, Neut % (Auto) 86.7 H, Lymph % (Auto) 4.9 L, Lawrence % (Auto) 5.7, Eos % (Auto) 0.0, Baso % (Auto) 0.8, Absolute Neuts (auto) 19.6 H, Absolute Lymphs (auto) 1.11, Nucleated RBC % 0.1, Sodium Cancelled, Potassium Cancelled, Chloride Cancelled, Carbon Dioxide Cancelled, Anion Gap Cancelled, BUN Cancelled, Creatinine Cancelled, Estim Creat Clear Calc Cancelled, Est GFR (MDRD) Af Amer Cancelled, Est GFR (MDRD) Non-Af Cancelled, BUN/Creatinine Ratio Cancelled, Glucose Cancelled, Calcium Cancelled 09/25/23 07:40: Sodium Cancelled, Potassium Cancelled, Chloride Cancelled, Carbon Dioxide Cancelled, Anion Gap Cancelled, BUN Cancelled, Creatinine Cancelled, Estim Creat Clear Calc Cancelled, Est GFR (MDRD) Af Amer Cancelled, Est GFR (MDRD) Non-Af Cancelled, BUN/Creatinine Ratio Cancelled, Glucose Cancelled, Calcium Cancelled 09/25/23 08:10: Sodium 126 L, Potassium 5.3 H, Chloride 94 L, Carbon Dioxide 26.0, Anion Gap 6, BUN 27 H, Creatinine 2.18 H, Estim Creat Clear Calc 79.97, Est GFR (MDRD) Af Amer 43 L, Est GFR (MDRD) Non-Af 36 L, BUN/Creatinine Ratio 12.4, Glucose 203 H, Calcium 8.6 Micro: Microbiology 09/23/23 14:00 Wound - Leg, Left Gram Stain - Final 09/23/23 14:00 Wound - Leg, Left Wound Culture - Preliminary Beta streptococcus Gram negative mo Gram negative mo#2 Staphylococcus aureus Physical Exam Const alert, oriented x3, no apparent distress and well nourished Constitutional Narrative: super morbid obesity General Appearance: cooperative HEENT normocephalic, head/scalp atraumatic, moist oral mucous membranes and oropharynx normal Eyes PERRL and EOMs intact bilaterally Neck no lymphadenopathy and supple Lymph Lymphatic: no lymphadenopathy noted and lymphedema Resp normal respiratory effort, normal air movement and clear to auscultation bilaterally Resp Narrative: Mildly diminished breath sounds bibasilarly. No wheezes or crackles. On 2 L of oxygen. Cardio regular rate, regular rhythm, S1 normal heart sound, S2 normal heart sound and no murmurs GI normal to inspection, nondistended, normoactive bowel sounds, soft to palpation and non-distended Extremity Extremity Narrative: Both lower extremities wrapped in bandage. General Extremity: no tenderness to palpation of joints or extremities Skin Skin Narrative: as under extremity Neuro CN's II-XII intact bilaterally, no focal motor deficits, no sensory deficits noted and deep tendon reflexes 2+ bilaterally Motor Exam: strength 5/5 throughout and general weakness Psych thought process normal, cooperative and affect normal Appearance: appropriate Assessment & Plan Assessment/Plan (1) Cellulitis: QUALIFIERS: Site of cellulitis: unspecified site Qualified Code(s): L03.90 - Cellulitis, unspecified (2) Hyponatremia: PLAN: Plan #Cellulitis of the LLE * WBC continues to trend up and is 22.8. He has bilateral lower extremity lymphedema but noted that the swelling in his lower legs had worsened recently. * on IV vancomycin and zosyn * will get CT of the LLE to rule out an abscess as his wbc is persistently high * wound care on baord * Wound cultures growing beta Streptococcus, gram-negative mo and Staphylococcus aureus. Speciation is pending for the gram-negative rods. * Continue IV vancomycin and Zosyn. Blood cultures pending. * A1c is 10.1. * Duplex was negative for any evidence of DVT. * #Hyponatremia: * Sodium today is 126. Will continue hydration with IV fluids. Check serum osmolality and urine osmolality as well as urine sodium. * continue gentle hydration with IVF and monitor. . States he has not been e ating or drinking well and he also had a GI infection recently and had some diarrhea which could contribute to his symptoms. * #Hyperkalemia: Potassium was 5.3. Will hold all nephrotoxic meds and give Kayexalate 30 mg x 1. Trend potassium #Type 2 diabetes mellitus: A1c is 10.1. Not a known diabetic. Will start patient on Lantus 10 units twice daily. Insulin sliding scale. Accu-Cheks ACHS. Sart on metformin when kidney function improves * #History of bilateral lower extremity lymphedema: Does not follow with any PCP or home staging specialist about this. Will benefit from referral to wound care on outpatient basis. DVT prophylaxis: Lovenox 40 mg twice daily. Charges/Coding Visit Charges Inpatient E&M: [id number] [facility] Hosp L3
[2023-09-25 13:18] LABS: CPK Total, Creatine Kinase 46 U/L (39-308)
[2023-09-25] MEDS: 0.9% Normal Saline (1000mL) 1,000 ML 150 ML IV ×2 (14:31→22:53)
[2023-09-25] MEDS: Sodium Polystyrene Sulfonate 15 GM/60 ML UDC 30 GM PO (14:38)
[2023-09-25] MEDS: Insulin Glargine-YFGN 100 UNIT/ML Pen 10 UNIT SC (14:46)
[2023-09-25 15:08] LABS: Bedside Glucose 236 mg/dL (74-106)
[2023-09-25 15:40] LABS: Vancomycin, Trough Level 42.1 ug/mL (5.0-15.0)
--- NOTE | 2023-09-25 15:48 | PCM.RX.CS ---
Consult Antibiotic Management Pharmacy has been consulted to manage selected antibiotic: Vancomycin Type of Intervention Type of Consult: Follow-up Suspected Infection Suspected Infection: Skin/Soft tissue Prior Doses of Antibiotics Prior Doses of Antibiotics Received/Current Regimen: current dose is vanc 1500mg IV q8h Labs Labs: Sodium 126 mmol/L (136-145) L 09/25/23 08:10 Potassium 5.3 mmol/L (3.5-5.1) H 09/25/23 08:10 Chloride 94 mmol/L (98-107) L 09/25/23 08:10 Carbon Dioxide 26.0 mmol/L (21.0-32.0) 09/25/23 08:10 Anion Gap 6 (5-15) 09/25/23 08:10 BUN 27 mg/dL (7-18) H 09/25/23 08:10 Creatinine 2.18 mg/dL (0.70-1.30) H 09/25/23 08:10 Est GFR (MDRD) Af Amer 43 mL/min (>60) L 09/25/23 08:10 Est GFR (MDRD) Non-Af 36 mL/min (>60) L 09/25/23 08:10 BUN/Creatinine Ratio 12.4 RATIO (10-20) 09/25/23 08:10 Glucose 203 mg/dL (74-106) H 09/25/23 08:10 Vancomycin Trough 42.1 ug/mL (5.0-15.0) H 09/25/23 15:00 Microbiology Microbiology: Microbiology 09/23/23 13:45 Blood Culture (Wb) - Anticubital Right Blood Culture - Preliminary No growth in 48 hours. 09/23/23 11:40 Blood Culture (Wb) - Anticubital Right Blood Culture - Preliminary No growth in 48 hours. 09/23/23 10:25 Blood Culture (Wb) - Arm Left Blood Culture - Preliminary No growth in 48 hours. 09/23/23 14:00 Wound - Leg, Left Gram Stain - Final 09/23/23 14:00 Wound - Leg, Left Wound Culture - Preliminary Beta streptococcus Gram negative mo Gram negative mo#2 Staphylococcus aureus Dosing Weight Weight used for dosin kg Estimated Creatinine Clearance Estimated Creatinine Clearance: 80ml/min Goal Trough Goal Trough: 15-20 mcg/mL Pharmacy Plan for Drug Dosing Pharmacy Plan for Drug Dosing: The vanc trough drawn at 15:00 today was 42.1. It was drawn at only 6.5 hours after the previous dose and would have been a little lower if drawn closer to the 7.5-8 hour devin after the previous dose. However, since it is very high at 42.1, will discontinue the current dose. Will hold further dosing pending the result of a vanc random level that will be ordered to be drawn tomorrow 24 hours after the level today. Of note, the patient's SCr increased to 2.18 today from 1.18 yesterday and 0.91 two days ago so renal function is unstable at this time. Pharmacy Service will continue to monitor and adjust dosing as required. Follow-Up Labs Follow-Up Labs: Trough: Vancomycin (random) Date/Time Labs Ordered Labs to be done on [date and time ordered]: 09/26/23 15:00
[2023-09-25] MEDS: Insulin Lispro 100 UNIT/ML INSULN.PEN SC ×2 (16:04→21:44)
[2023-09-25 16:19] LABS: Osmolality, Serum 291 mOsm/KG (275-295)
[2023-09-25 16:46] LABS: Bedside Glucose 262 mg/dL (74-106)
[2023-09-25 22:05] LABS: Bedside Glucose 253 mg/dL (74-106)
--- NOTE | 2023-09-25 22:44 | PCM.HOSP.N ---
Hospitalist Note Staff is reporting that patient is a little bit more lethargic although still interactive, to be cautious will obtain ABG. Patient currently with set up for trending pulse ox given suspected underlying sleep apnea.
[2023-09-25 23:40] LABS: Urine Sodium 38 mmol/L (Not Establ.)
[2023-09-26] VITALS (42 sets, daily range): BP systolic 77–115; BP diastolic 47–79; PULSE 58–85; RESP 12–25; TEMP 36.9–37.6; O2SAT 90–100
[2023-09-26] MEDS: Ondansetron 4 MG/2 ML Vial IV (00:08)
[2023-09-26 00:10] LABS: Allen Test Positive; Base Excess -4 mmol/L (-2 to +2); Bicarbonate 25.7 mmol/L (22-26); Blood Gas Specimen Type ART; Mode Not entered; O2 Delivery Device Cannula; PO2 64 mmHG (75-100); SITE L Radial; SO2 81 % (95-99); Total Carbon Dioxide 28 mmol/L; pCO2 86.1 mmHg (35-45); pH 7.08 (7.35-7.45)
[2023-09-26 00:27] LABS: Osmolality, Urine 311 mOsm/KG
--- NOTE | 2023-09-26 01:47 | NURSING ---
Pt took his bipap off. When i got to his room. Po 68% on ra. Bipap mask reappilied.
[2023-09-26 02:23] LABS: Allen Test Positive; Base Excess -4 mmol/L (-2 to +2); Bicarbonate 25.2 mmol/L (22-26); Blood Gas Specimen Type ART; Mode Not entered; O2 Delivery Device BiPAP; PEEP 10; PO2 63 mmHG (75-100); RR 12; SITE L Radial; SO2 81 % (95-99); Total Carbon Dioxide 28 mmol/L; pCO2 79.7 mmHg (35-45); pH 7.11 (7.35-7.45)
--- NOTE | 2023-09-26 03:08 | CPS ---
After repeat ABG results still reflect hypercarbia BIPAP rate increased to 20
--- NOTE | 2023-09-26 03:23 | NURSING ---
0250: new order rcvd from Dr Pastrana to transfer patient to ICU #3. repeat ABG's are not reflecting much improvement on bipap x 2 hours.
[2023-09-26] MEDS: 0.9% Normal Saline (1000mL) 1,000 ML 150 ML IV (03:46)
[2023-09-26 04:26] LABS: Anion Gap 9 (5-15); BUN 39 mg/dL (7-18); BUN/Creat Ratio 10.9 RATIO (10-20); Calcium,Total 7.9 mg/dL (8.5-10.1); Chloride 92 mmol/L (98-107); Creatinine, Serum 3.57 mg/dL (0.70-1.30); EST Glomerular Filtration Rate 20 mL/min (>60); Est Glom Filt Rate - Afr Amer 24 mL/min (>60); Estimated Creatinine Clearance 48.83 ml/min; Glucose 236 mg/dL (74-106); Potassium 5.1 mmol/L (3.5-5.1); Sodium Level 126 mmol/L (136-145)
[2023-09-26 04:35] LABS: Absolute Neutrophil Count 17.1 X10^3/uL (2.0-7.7); Basophil# 0.09 X10^3/uL; Basophil% 0.4 % (0-1); Hematocrit 52.2 % (40-54); Hemoglobin 14.3 g/dL (13.0-16.5); Lymphocyte % 7.4 % (19-41); Mean Corp Hgb Conc 27.4 g/dL (32-36); Mean Corpuscular Hgb 24.1 pg (27.0-32.0); Mean Platelet Vol. 10.5 fl (6.2-12.0); Monocyte# 1.12 X10^3/uL; Monocyte% 5.5 % (0-10); NRBC Flagged by Analyzer 0.1 % (0-5); Neutrophil # 17.09 X10^3/uL (2.7-7.7); Neutrophil % 84.1 % (47-70); Platelet Count 309 K/mm3 (150-450); RBC Distribution Width CV 16.4 % (11.6-14.6); RBC Distribution Width SD 52.5 fl (35.1-43.9); Red Blood Count 5.93 M/mm3 (4.6-6.2); White Blood Count 20.3 K/mm3 (4.4-11.0)
[2023-09-26] MEDS: Nystatin Powder 15gm Bottle 1 APPLIC TOPICAL ×3 (05:11→20:17)
[2023-09-26] MEDS: Piperacil/Tazobactam 3.375 GM in 0.9% Normal Saline (50mL MB+) 50 ML IV (05:12)
[2023-09-26 05:15] LABS: Allen Test Positive; Base Excess -4 mmol/L (-2 to +2); Blood Gas Specimen Type ART; Mode Not entered; O2 Delivery Device BiPAP; PEEP 10; PO2 64 mmHG (75-100); RR 20; SITE L Radial; SO2 82 % (95-99); Total Carbon Dioxide 27 mmol/L; pCO2 77.3 mmHg (35-45); pH 7.12 (7.35-7.45)
--- NOTE | 2023-09-26 05:21 | RAD_ITS ---
INDICATION: To confirm ET placement -- Call wet read to MD EXAMINATION/TECHNIQUE: X-RAY - XR Chest 1 View COMPARISON: None. FINDINGS: Exam significantly limited due to underpenetration, likely secondary to portable technique and patient''s body habitus. LINES/DEVICES: Endotracheal tube tip approximately 2.4 cm from the shamir. Enteric tube side-port and distal tip are distal to the GE junction likely within the proximal stomach. LUNGS: No evidence of consolidation. No evidence of a pleural effusion or a pneumothorax. MEDIASTINUM AND CARDIOVASCULAR STRUCTURES: Cardiac silhouette not well-visualized. Mediastinum is unremarkable. BONES AND SOFT TISSUES: No acute abnormality. RAD/Chest 1 View (Portable) IMPRESSION: 1. Limited exam due to underpenetration, likely secondary to portable technique and patient''s body habitus. No evidence of acute cardiopulmonary disease. Evaluation is limited for evaluation of interstitial edema or a subtle pneumothorax. 2. Endotracheal tube tip approximately 2.4 cm from the shamir. Electronically Signed: Jonathan Davies DO at 7:12 EDT ,
--- NOTE | 2023-09-26 05:23 | PN.HOSP_ITS ---
Hospitalist Note Despite BiPAP setting changes patient has had minimal ABG improvements and is more encephalopathic, frequently attempting to pull off the BiPAP. Intubation Note: Patient with evidence of worsening respiratory status. Medications administered: Versed, etomidate, succinylcholine. ETT size: 8.0 Patient intubated in standard fashion with visualization of the vocal cords and passage of the ETT. Positioning verified with auscultation. Post-intubation CXR requested. Will initiate on IV propofol and fentanyl drip. [employer] Technician team consulted. Procedures Hospitalists Procedures: [id number] Insert Emergency Airway
[2023-09-26] MEDS: Midazolam 5 MG/ML Syringe 4 MG IV (05:38)
[2023-09-26] MEDS: Etomidate 20 MG/10 ML Vial IV (05:39)
[2023-09-26] MEDS: Succinylcholine Chloride 200 MG/10 ML SYRINGE 100 MG IV (05:40)
[2023-09-26] MEDS: fentaNYL drip 100 ML 2.5 MCG CONT INF (05:45)
[2023-09-26] MEDS: Propofol 10MG/Ml 1,000 MG/100 ML Bottle 12.2 MG CONT INF (05:45)
[2023-09-26] MEDS: 0.9% Normal Saline (1000mL) 1,000 ML 60 ML IV (05:59)
--- NOTE | 2023-09-26 06:00 | RAD_ITS ---
INDICATION: Confirm OG placement -- Prior to admin of any med,fluid,flush,enteral feed EXAMINATION/TECHNIQUE: X-RAY - Supine AP view of the upper abdomen. COMPARISON: None FINDINGS/ RAD/Abdomen Single View (Portable) IMPRESSION: Enteric tube side-port and distal tip are not well visualized secondary to underpenetration from portable technique and patient''s body habitus. The side-port and distal tip are distal to the GE junction. Electronically Signed: Jonathan Davies DO at 7:13 EDT ,
--- NOTE | 2023-09-26 06:50 | PCM.HOSP.N ---
Hospitalist Note BP decreased, MAP < 65, will attempt to decrease sedation as able otherwise will start levophed.
[2023-09-26] MEDS: Albuterol 2.5 MG/3 ML VIAL.NEB. INHALATION (07:15)
[2023-09-26] MEDS: Budesonide Respules 0.5 MG/2 ML AMPUL.NEB. INHALATION ×2 (07:15→19:13)
[2023-09-26 07:17] LABS: Bedside Glucose 217 mg/dL (74-106)
[2023-09-26 07:23] LABS: Allen Test Positive; Base Excess -3 mmol/L (-2 to +2); Bicarbonate 23.9 mmol/L (22-26); Blood Gas Specimen Type ART; Mode AC; O2 Delivery Device Adult Vent; PEEP 5; PO2 114 mmHG (75-100); RR 16; SITE L Radial; SO2 98 % (95-99); Total Carbon Dioxide 26 mmol/L; pH 7.25 (7.35-7.45)
[2023-09-26] MEDS: Norepinephrine 8 MG in 0.9% Normal Saline (250mL Bag) 242 ML 9.4 MG CONT INF (07:28)
[2023-09-26] MEDS: Insulin Lispro 100 UNIT/ML INSULN.PEN SC ×3 (07:29→17:15)
--- NOTE | 2023-09-26 07:41 | NURSING ---
0530- Dr. Pastrana is at bedside assessing patient. Due to patient's ABG not improving the decision was made to intubate. RT and RN at bedside preparing for intubation. 0538- Versed 2mg IVP given 0539- Etomidate 20mg IVP given 0540- Succ 100mg IVP given 0542- Patient successfully intubated. 8.0mm ETT, 24cm @ the lip. Positive color change noted and bilateral breath sounds auscultated. OG placed. Chest x-ray ordered for confirmation.
[2023-09-26] MEDS: Chlorhexidine 15 ML PO ×2 (07:50→20:06)
--- NOTE | 2023-09-26 07:53 | NURSING ---
0745- This RN called and spoke with patient's sister Mindy. This RN updated her on the patient's change in condition and how he needed intubated this morning. Consent was also obtained for central line placement.
[2023-09-26 08:17] LABS: CPK Total, Creatine Kinase 42 U/L (39-308); Triglycerides 162 mg/dL
--- NOTE | 2023-09-26 09:15 | PCMCONS.TICU ---
HPI Consult Data Date of Consult: 09/26/23 HPI Narrative Reason for Consultation: Septic shock; respiratory failure HPI Narrative: 43M PMH super morbid obesity (BMI >60) and chronic lymphedema of the lower extremities who was initially admitted on 09/22 with worsening lower extremity swelling as well as pain with ambulation. He was admitted for cellulitis and started on treatment with IV Abx but his hospital course cb worsening leukocytosis despite treatment, WINDY & hyponatremia. CT LE with diffuse soft tissue swelling and edema but no evidence of gas or drainable abscess. LE US limited study but neg for DVT. Overnight patient also developed worsening encephalopathy with findings of hypercapnic acidosis on blood gas prompting transfer to the ICU for NIV +/- Precedex but ultimately he required intubation for on-going support. Pulmonary/Critical care consult requested this morning for additional recommendations and management. Prop @ 20 Fent @ 125 NEpi @ 5 NS @ 60 16 500 5 50 [facility] Medical History (Updated 09/26/23 @ 13:[address] Harvey Leung MD) Cellulitis Lymphedema Morbid obesity Home Medications NK 09/23/23 [History Last Taken Unknown] Allergy/AdvReac Type Severity Reaction Status Date / Time No Known Allergies Allergy Verified 09/23/23 09:27 Family History Other Obesity Surgical History no surgical history Social History Smoking Status: Never smoker ROS ROS Narrative Unable to obtain due to clinical condition. Objective Data Objective Data Vital Signs: Vital Signs Last response Temperature 36.9 C 09/26/23 05:00 Temperature Source Temporal 09/26/23 05:00 Pulse Rate 67 09/26/23 08:00 Pulse Strength Normal (2+) 09/26/23 07:43 Respiratory Rate 16 09/26/23 08:00 Respiratory Effort Short of Breath 09/26/23 04:00 Respiratory Depth Shallow 09/26/23 04:00 Respiratory Pattern Normal 09/26/23 07:35 Blood Pressure 107/63 09/26/23 08:45 Blood Pressure Mean 77 09/26/23 08:45 Blood Pressure Source Monitor 09/26/23 04:00 Blood Pressure Position Semi-Fowlers 09/26/23 04:00 Blood Pressure Location Left Arm 09/26/23 04:00 Pulse Ox 98 09/26/23 08:00 Oxygen Delivery Method Mechanical Ventilator 09/26/23 08:00 Oxygen Flow Rate (L/min) 3 09/26/23 00:01 Fraction of Inspired Oxygen (FIO2) 50 09/26/23 08:00 I&O: I&O Last 24 Hours 09/25/23 09/25/23 09/26/23 11:59 23:59 11:59 Intake Total 1160 / 3310 2150 / 3310 1132.87 / 1132.87 Balance 1160 / 3310 2150 / 3310 1132.87 / 1132.87 I&O: Total Stay 09/23/23 09:26 thru 09/26/23 08:45 Intake Total 8629.54 Balance 8629.54 Current Meds Ordered / Administered: Current meds ordered / Administered Generic Name Dose Route Start Last Admin Trade Name Freq PRN Reason Stop Dose Admin Acetaminophen 650 mg 09/23/23 13:14 09/24/23 03:34 Acetaminophen 325 Mg Tablet PO 650 mg Q6H PRN PRN Administration Pain 1-10 Or Fever >100.7 Albuterol Sulfate 2.5 mg 09/26/23 05:21 09/26/23 07:15 Albuterol 2.5 Mg/3 Ml Vial.Neb. INHALATION 2.5 mg Q2H PRN PRN Administration Dyspnea, wheezing Budesonide 0.5 mg 09/26/23 05:30 09/26/23 07:15 Budesonide Respules 0.5 Mg/2 Ml Ampul.Neb. INHALATION 0.5 mg BID.RT TRENT Administration Chlorhexidine Gluconate 15 ml 09/26/23 10:00 09/26/23 07:50 Chlorhexidine 15 Ml PO 15 ml BID TRENT Administration Dextrose 0 gm 09/25/23 12:51 Dextrose 50%-Water 25 Gm/50 Ml Disp.Syrin IV X1 PRN Hypoglycemia Protocol Enoxaparin Sodium 40 mg 09/23/23 22:00 09/25/23 21:37 Enoxaparin 40 Mg/0.4 Ml Syringe SC 40 mg BID TRENT Administration Glucagon 1 mg 09/25/23 12:51 Glucagon 1 Mg/Ml Syringe IM X1 PRN Hypoglycemia Vancomycin IV-PHARMACY TO DOSE 500 mls @ 250 mls/hr 09/23/23 13:14 1 each/ Sodium Chloride IV PRN PRN Rx to Dose Protocol Piperacillin Sod/Tazobactam 50 mls @ 100 mls/hr 09/24/23 15:00 09/26/23 05:12 Sod 3.375 gm/ Sodium Chloride IV 12.5 mls/hr Q8 TRENT Administration Propofol 1,000 mg in 100 mls @ 12.242 mls/hr 09/26/23 05:20 09/26/23 08:30 Diprivan CONT INF 20 mcg/kg/min .[id number] TRENT 24.5 mls/hr Titration Protocol 10 MCG/KG/MIN Fentanyl 100 mls @ 2.5 mls/hr 09/26/23 05:20 09/26/23 08:30 CONT INF 125 mcg/hr UD TRENT 12.5 mls/hr Titration Protocol 25 MCG/HR Sodium Chloride 1,000 mls @ 60 mls/hr 09/26/23 05:25 09/26/23 05:59 IV 60 mls/hr .[id number] TRENT Administration Norepinephrine Bitartrate 8 mg 250 mls @ 9.375 mls/hr 09/26/23 07:00 09/26/23 08:45 / Sodium Chloride CONT INF 5 mcg/min .[id number] TRENT 9.4 mls/hr Titration Protocol 5 MCG/MIN Insulin Glargine 10 unit 09/25/23 13:00 09/25/23 14:46 Insulin Glargine-Yfgn 100 Unit/Ml Pen SC 10 unit DAILY TRENT Administration Insulin Human Lispro 0 unit 09/26/23 06:00 09/26/23 07:29 Insulin Lispro 100 Unit/Ml Insuln.Pen SC 2 units Q6 TRENT Administration Protocol Morphine Sulfate 2 - 4 mg 09/23/23 13:14 Morphine 2 Mg/Ml Syringe IV Q3H PRN PRN Pain Score 6-10 Nystatin 1 applic 09/25/23 22:00 09/26/23 05:11 Nystatin Powder 15gm Bottle TOPICAL 1 applic TID TRENT Administration Protocol Ondansetron HCl 4 mg 09/23/23 13:14 09/26/23 00:08 Ondansetron 4 Mg/2 Ml Vial IV 4 mg Q8H PRN PRN Administration NAUSEA/VOMITING Oxycodone HCl 10 mg 09/23/23 13:14 09/24/23 09:46 Oxycodone 5 Mg Tablet PO 10 mg Q4H PRN PRN Administration Pain Score 4-10 Sodium Chloride 5 ml 09/26/23 05:20 Sodium Cl For Inhalation 15 Ml Vial.Neb. INHALATION Q5M PRN Suctioning Vancomycin Protocol 1 lab 09/26/23 13:00 Vancomycin Trough/Random Due MC 09/26/23 17:00 DAILY [facility] Lab / Micro Data 09/26/23 04:30 09/26/23 03:45 Labs: Laboratory Results - last 24 hr 09/25/23 08:10: Total Creatine Kinase 46 09/25/23 14:45: POC Glucose 236 H 09/25/23 15:00: Serum Osmolality 291, Vancomycin Trough 42.1 H 09/25/23 16:01: POC Glucose 262 H 09/25/23 21:43: POC Glucose 253 H 09/25/23 23:20: Urine Osmolality 311, Ur Random Sodium 38 09/26/23 03:45: WBC Cancelled, Corrected WBC Cancelled, RBC Cancelled, Hgb Cancelled, Hct Cancelled, MCV Cancelled, MCH Cancelled, MCHC Cancelled, RDW Std Deviation Cancelled, RDW Coeff of Benedicto Cancelled, Plt Count Cancelled, MPV Cancelled, Immature Gran % (Auto) Cancelled, Neut % (Auto) Cancelled, Lymph % (Auto) Cancelled, [place] % (Auto) Cancelled, Eos % (Auto) Cancelled, Baso % (Auto) Cancelled, Absolute Neuts (auto) Cancelled, Absolute Lymphs (auto) Cancelled, Total Counted Cancelled, Neutrophils % (Manual) Cancelled, Band Neutrophils % Cancelled, Lymphocytes % (Manual) Cancelled, Monocytes % (Manual) Cancelled, Eosinophils % (Manual) Cancelled, Basophils % (Manual) Cancelled, Metamyelocytes % Cancelled, Myelocytes % Cancelled, Promyelocytes % Cancelled, Blast Cells % Cancelled, Plasma Cell % (Manual) Cancelled, Other Cells % Cancelled, Nucleated RBC % Cancelled, Nucleated RBCs/100 WBC Cancelled, Differential Comment Cancelled, Diff Path Review Cancelled, Hypersegmented Neuts Cancelled, Atypical Lymphocytes Cancelled, Reactive Lymphocytes Cancelled, Smudge Cells Cancelled, Toxic Granulation Cancelled, Toxic Vacuolation Cancelled, Dohle Bodies Cancelled, Erinn Rods Cancelled, Platelet Estimate Cancelled, Plt Morphology Comment Cancelled, RBC Morphology Cancelled 09/26/23 03:45: RBC Morphology Cancelled, Polychromasia Cancelled, Hypochromasia Cancelled, Basophilic Stippling Cancelled, Anisocytosis Cancelled, Microcytosis Cancelled, Macrocytosis Cancelled, Spherocytes Cancelled, Sickle Cells Cancelled, Target Cells Cancelled, Tear Drop Cells Cancelled, Ovalocytes Cancelled, Stomatocytes Cancelled, [place] Addition Bodies Cancelled, Lucero Cells Cancelled, Bite Cells Cancelled, Crenated Cell Cancelled, Acanthocytes (Spur) Cancelled, Rouleaux Cancelled, Schistocytes Cancelled, Sodium 126 L, Potassium 5.1, Chloride 92 L, Carbon Dioxide 25.0, Anion Gap 9, BUN 39 H, Creatinine 3.57 H, Estim Creat Clear Calc 48.83, Est GFR (MDRD) Af Amer 24 L, Est GFR (MDRD) Non-Af 20 L, BUN/Creatinine Ratio 10.9, Glucose 236 H, Calcium 7.9 L, Total Creatine Kinase 42, Triglycerides 162 09/26/23 04:30: WBC 20.3 H, RBC 5.93, Hgb 14.3, Hct 52.2, MCV 88.0, MCH 24.1 L, MCHC 27.4 L D, RDW Std Deviation 52.5 H, RDW Coeff of Benedicto 16.4 H, Plt Count 309, MPV 10.5, Immature Gran % (Auto) 2.600 H, Neut % (Auto) 84.1 H, Lymph % (Auto) 7.4 L, [place] % (Auto) 5.5, Eos % (Auto) 0.0, Baso % (Auto) 0.4, Absolute Neuts (auto) 17.1 H, Absolute Lymphs (auto) 1.50, Nucleated RBC % 0.1 09/26/23 06:55: POC Glucose 217 H Micro: Microbiology 09/23/23 13:45 Blood Culture (Wb) - Anticubital Right Blood Culture - Preliminary No growth in 48 hours. 09/23/23 11:40 Blood Culture (Wb) - Anticubital Right Blood Culture - Preliminary No growth in 48 hours. 09/23/23 10:25 Blood Culture (Wb) - Arm Left Blood Culture - Preliminary No growth in 48 hours. 09/23/23 14:00 Wound - Leg, Left Gram Stain - Final 09/23/23 14:00 Wound - Leg, Left Wound Culture - Preliminary Beta streptococcus Gram negative mo Gram negative mo#2 Staphylococcus aureus ABG Data ABG results: ABG 09/26/23 09/26/23 09/26/23 00:02 02:18 05:10 Specimen Type ART ART ART Sample Site L Radial L Radial L Radial pH 7.08 L* 7.11 L* 7.12 L* Bicarbonate Actual 25.7 25.2 25.0 Total CO2 28 28 27 Base Excess -4 L -4 L -4 L O2 Saturation 81 L 81 L 82 L O2 % 3.0 30.0 30.0 ABG pCO2 86.1 H* 79.7 H* 77.3 H* ABG pO2 64 L 63 L 64 L Cleve Test Positive Positive Positive Respiration Rate 12 20 O2 Delivery Device Cannula BiPAP BiPAP Vent Mode Not entered Not entered Not entered Tidal Volume 500.0 500.0 POC PEEP 10 10 Crit Call To/Read Back Yes Yes Yes Blood Gas Notified Whom dr marita kirkland Blood Gas Notified Time 00:04:51 02:20:27 05:12:14 09/26/23 07:19 Specimen Type ART Sample Site L Radial pH 7.25 L Bicarbonate Actual 23.9 Total CO2 26 Base Excess -3 L O2 Saturation 98 O2 % 50.0 ABG pCO2 55.0 H ABG pO2 114 H Cleve Test Positive Respiration Rate 16 O2 Delivery Device Adult Vent Vent Mode AC Tidal Volume 500.0 POC PEEP 5 Crit Call To/Read Back Blood Gas Notified Whom Blood Gas Notified Time Imaging Radiology Impression Lower Extremity CT 09/25/23 12:42 IMPRESSION: 1. Diffuse soft tissue swelling and edema of the left lower leg. 2. No evidence of gas in the soft tissues or drainable abscess. 3. No evidence of destructive bony process or acute fracture. Electronically Signed: Eric Dumont MD at 14:38 EDT , Chest X-Ray 09/26/23 05:21 IMPRESSION: 1. Limited exam due to underpenetration, likely secondary to portable technique and patient''s body habitus. No evidence of acute cardiopulmonary disease. Evaluation is limited for evaluation of interstitial edema or a subtle pneumothorax. 2. Endotracheal tube tip approximately 2.4 cm from the shamir. Electronically Signed: Jonathan Davies DO at 7:12 EDT , KUB X-Ray 09/26/23 06:00 IMPRESSION: Enteric tube side-port and distal tip are not well visualized secondary to underpenetration from portable technique and patient''s body habitus. The side-port and distal tip are distal to the GE junction. Electronically Signed: Jonathan Davies DO at 7:13 EDT , Assessment and Plan . Assessment and plan: PE: General: Well developed, super morbid obesity, + MV HEENT: anicteric Sclera; + ETT, nl nose; supple neck, no masses Cardiovascular: Regular Rate and Rhythm; No murmurs, rubs, gallops; no displaced PMI Respiratory: diminished; no crackles, wheezes, or rhonchi Abdominal: Non-tender; Non distended; hypoBS x 4; No Hepatosplenomegaly Extremities: Warm, erythematous LEs; No clubbing, cyanosis; capillary refill > 2 sec Neurological: sedated A/P: #Acute hypoxmic hypercapnic respiratory failure #Septic shock #BL cellulitis #WINDY #Hyponatremia #Acute encephalopathy -Cont MV; settings reviewed/adjusted; F/U CXR/ABG -Cont NEpi to keep MAP > 65; F/U TTE -Cont broad emp IV ABx- vanc/Merrem; WBC trending down; monitor temp curve/bandemia + F/U Cx -Cont strict I/Os, IVF, nephrology consulted -Monitor Na per nephro NPO LMWH Poor prognosis CCT: 60 min The entirety of the encounter was completed via telemedicine Critical Care Time: 60 min The entirety of this encounter was done via Telemedicine
[2023-09-26] MEDS: fentaNYL drip 100 ML 12.5 MCG CONT INF ×2 (12:16→20:19)
[2023-09-26] MEDS: Propofol 10MG/Ml 1,000 MG/100 ML Bottle 24.5 MG CONT INF ×2 (12:30→16:46)
--- NOTE | 2023-09-26 13:37 | PN_ITS ---
Subjective Subjective Patient seen and examined. Patient became acutely confused last night and ABG done showed hypercapnia. Due to concerns about patient being able to maintain his airway he was urgently intubated after being transferred to the ICU. Patient seen and examined this morning. He remains intubated. RASS score was - 4. He has remained hemodynamically stable on the ventilator. Objective Data Objective Data Vital Signs: Vital Signs Temp Pulse Resp BP Pulse Ox O2 Del Method O2 Flow Rate 98.6 F 70 16 103/55 L 98 Mechanical Ventilator 3 09/26/23 12:00 09/26/23 12:00 09/26/23 12:00 09/26/23 12:00 09/26/23 12:00 09/26/23 12:00 09/26/23 00:01 FiO2 50 09/26/23 12:00 Oxygen Flow Rate (L/min) 3 Oxygen Delivery Method Mechanical Ventilator Weight: 449 lb 12.8 oz Body Mass Index (BMI) 62.7 Intake & Output: Intake and Output for Last 24 Hours 09/24/23 09/25/23 09/26/23 23:59 23:59 23:59 Intake Total 2246.67 / 2296.67 3310 / 3310 1377.53 / 1377.53 Output Total 5 / 5 Balance 2246.67 / 2296.67 3310 / 3310 1372.53 / 1372.53 Lab / Micro Data 09/26/23 04:30 09/26/23 03:45 Labs: Laboratory Results - last 24 hr 09/25/23 14:45: POC Glucose 236 H 09/25/23 15:00: Serum Osmolality 291, Vancomycin Trough 42.1 H 09/25/23 16:01: POC Glucose 262 H 09/25/23 21:43: POC Glucose 253 H 09/25/23 23:20: Urine Osmolality 311, Ur Random Sodium 38 09/26/23 03:45: WBC Cancelled, Corrected WBC Cancelled, RBC Cancelled, Hgb Cancelled, Hct Cancelled, MCV Cancelled, MCH Cancelled, MCHC Cancelled, RDW Std Deviation Cancelled, RDW Coeff of Benedicto Cancelled, Plt Count Cancelled, MPV Cancelled, Immature Gran % (Auto) Cancelled, Neut % (Auto) Cancelled, Lymph % (Auto) Cancelled, [place] % (Auto) Cancelled, Eos % (Auto) Cancelled, Baso % (Auto) Cancelled, Absolute Neuts (auto) Cancelled, Absolute Lymphs (auto) Cancelled, Total Counted Cancelled, Neutrophils % (Manual) Cancelled, Band Neutrophils % Cancelled, Lymphocytes % (Manual) Cancelled, Monocytes % (Manual) Cancelled, Eosinophils % (Manual) Cancelled, Basophils % (Manual) Cancelled, Metamyelocytes % Cancelled, Myelocytes % Cancelled, Promyelocytes % Cancelled, Blast Cells % Cancelled, Plasma Cell % (Manual) Cancelled, Other Cells % Cancelled, Nucleated RBC % Cancelled, Nucleated RBCs/100 WBC Cancelled, Differential Comment Cancelled, Diff Path Review Cancelled, Hypersegmented Neuts Cancelled, Atypical Lymphocytes Cancelled, Reactive Lymphocytes Cancelled, Smudge Cells Cancelled, Toxic Granulation Cancelled, Toxic Vacuolation Cancelled, Dohle Bodies Canc elled, Erinn Rods Cancelled, Platelet Estimate Cancelled, Plt Morphology Comment Cancelled, RBC Morphology Cancelled 09/26/23 03:45: RBC Morphology Cancelled, Polychromasia Cancelled, Hypochromasia Cancelled, Basophilic Stippling Cancelled, Anisocytosis Cancelled, Microcytosis Cancelled, Macrocytosis Cancelled, Spherocytes Cancelled, Sickle Cells Cancelled, Target Cells Cancelled, Tear Drop Cells Cancelled, Ovalocytes Cancelled, Stomatocytes Cancelled, [place] Bodies Cancelled, Lucero Cells Cancelled, Bite Cells Cancelled, Crenated Cell Cancelled, Acanthocytes (Spur) C ancelled, Rouleaux Cancelled, Schistocytes Cancelled, Sodium 126 L, Potassium 5.1, Chloride 92 L, Carbon Dioxide 25.0, Anion Gap 9, BUN 39 H, Creatinine 3.57 H, Estim Creat Clear Calc 48.83, Est GFR (MDRD) Af Amer 24 L, Est GFR (MDRD) Non-Af 20 L, BUN/Creatinine Ratio 10.9, Glucose 236 H, Calcium 7.9 L, Total Creatine Kinase 42, Triglycerides 162 09/26/23 04:30: WBC 20.3 H, RBC 5.93, Hgb 14.3, Hct 52.2, MCV 88.0, MCH 24.1 L, MCHC 27.4 L D, RDW Std Deviation 52.5 H, RDW Coeff of Benedicto 16.4 H, Plt Count 309, MPV 10.5, Immature Gran % (Auto) 2.600 H, Neut % (Auto) 84.1 H, Lymph % (Auto) 7.4 L, [place] % (Auto) 5.5, Eos % (Auto) 0.0, Baso % (Auto) 0.4, Absolute Neuts (auto) 17.1 H, Absolute Lymphs (auto) 1.50, Nucleated RBC % 0.1 09/26/23 06:55: POC Glucose 217 H Micro: Microbiology 09/23/23 14:00 Wound - Leg, Left Gram Stain - Final 09/23/23 14:00 Wound - Leg, Left Wound Culture - Preliminary Streptococcus dysgalactiae equ Proteus hauseri Alcaligenes faecalis ssp faeca Staphylococcus aureus 09/23/23 13:45 Blood Culture (Wb) - Anticubital Right Blood Culture - Preliminary No growth in 48 hours. 09/23/23 11:40 Blood Culture (Wb) - Anticubital Right Blood Culture - Preliminary No growth in 48 hours. 09/23/23 10:25 Blood Culture (Wb) - Arm Left Blood Culture - Preliminary No growth in 48 hours. ABG Data ABG results: ABG 09/26/23 09/26/23 09/26/23 00:02 02:18 05:10 Specimen Type ART ART ART Sample Site L Radial L Radial L Radial pH 7.08 L* 7.11 L* 7.12 L* Bicarbonate Actual 25.7 25.2 25.0 Total CO2 28 28 27 Base Excess -4 L -4 L -4 L O2 Saturation 81 L 81 L 82 L O2 % 3.0 30.0 30.0 ABG pCO2 86.1 H* 79.7 H* 77.3 H* ABG pO2 64 L 63 L 64 L Cleve Test Positive Positive Positive Respiration Rate 12 20 O2 Delivery Device Cannula BiPAP BiPAP Vent Mode Not entered Not entered Not entered Tidal Volume 500.0 500.0 POC PEEP 10 10 Crit Call To/Read Back Yes Yes Yes Blood Gas Notified Whom dr marita kirkland Blood Gas Notified Time 00:04:51 02:20:27 05:12:14 09/26/23 07:19 Specimen Type ART Sample Site L Radial pH 7.25 L Bicarbonate Actual 23.9 Total CO2 26 Base Excess -3 L O2 Saturation 98 O2 % 50.0 ABG pCO2 55.0 H ABG pO2 114 H Cleve Test Positive Respiration Rate 16 O2 Delivery Device Adult Vent Vent Mode AC Tidal Volume 500.0 POC PEEP 5 Crit Call To/Read Back Blood Gas Notified Whom Blood Gas Notified Time Radiography Diagnostic Testing: Radiology Impression Lower Extremity CT 09/25/23 12:42 IMPRESSION: 1. Diffuse soft tissue swelling and edema of the left lower leg. 2. No evidence of gas in the soft tissues or drainable abscess. 3. No evidence of destructive bony process or acute fracture. Electronically Signed: Eric Dumont MD at 14:38 EDT , Chest X-Ray 09/26/23 05:21 IMPRESSION: 1. Limited exam due to underpenetration, likely secondary to portable technique and patient''s body habitus. No evidence of acute cardiopulmonary disease. Evaluation is limited for evaluation of interstitial edema or a subtle pneumothorax. 2. Endotracheal tube tip approximately 2.4 cm from the shamir. Electronically Signed: Jonathan Davies DO at 7:12 EDT , KUB X-Ray 09/26/23 06:00 IMPRESSION: Enteric tube side-port and distal tip are not well visualized secondary to underpenetration from portable technique and patient''s body habitus. The side-port and distal tip are distal to the GE junction. Electronically Signed: Jonathan Davies DO at 7:13 EDT , Physical Exam Const Constitutional Narrative: Intubated, sedated. HEENT normocephalic, head/scalp atraumatic, moist oral mucous membranes and oropharynx normal Eyes PERRL and EOMs intact bilaterally Neck no lymphadenopathy and supple Lymph Lymphatic: no lymphadenopathy noted and lymphedema Resp Resp Narrative: Intubated, sedated, RASS goal is -4 Cardio regular rate, regular rhythm, S1 normal heart sound, S2 normal heart sound and no murmurs GI normal to inspection, nondistended, normoactive bowel sounds, soft to palpation and non-distended Extremity Extremity Narrative: Both lower extremities wrapped in bandage. General Extremity: no tenderness to palpation of joints or extremities Skin Skin Narrative: as under extremity Neuro CN's II-XII intact bilaterally, no focal motor deficits, no sensory deficits noted and deep tendon reflexes 2+ bilaterally Motor Exam: general weakness Psych Psych Narrative: Intubated and sedated. Assessment & Plan Assessment/Plan (1) Cellulitis: QUALIFIERS: Site of cellulitis: unspecified site Qualified Code(s): L03.90 - Cellulitis, unspecified (2) Hyponatremia: PLAN: Plan #Acute hypercapnic respiratory failure * Likely due to OHS and SUNG. Patient not compliant with CPAP at home. * ABG done overnight on account of patient being acutely confused showed hypercapnia. Patient was emergently intubated and sedated. * Critical care on board. * Vent management as per critical care. #Cellulitis of the LLE * WBC today slightly down to 20. * CT Of the LLE was negative for any evidence of abscess * wound care on board. * on IV zosyn; vancomycin was discontinued due to WINDY and elevated vanc trough * Wound cultures growing beta Streptococcus, Proteus hauseri, Alcaligenes faecalis and Staphylococcus aureus. * Continue IV vancomycin and Zosyn. blood cultures negative after 48 hours * ID consulted; will see tomorrow * A1c is 10.1. * Duplex was negative for any evidence of DVT. * #Septic shock due to cellulitis of the left lower extremity * WBC is trending downwards but patient had to be started on norepinephrine. Titrate to maintain MAP more than 65 * ID consulted and critical care on board. * Continue IV Zosyn. Vancomycin on hold due to WINDY and elevated vanc trough. * will broaden antibiotics to IV meropenem * #Hyponatremia: * Sodium continues to remain low at 126. Hyponatremia was thought to be due to recent diarrhea. However the hyponatremia has persisted. This may also be related to his worsening kidney function. * Nephrology consulted. Await recs. Continue gentle hydration with IV fluids. * #WINDY: * Creatinine is up to 3.57 from 2.18 on admission. * Baseline is around 0.9. * Vanc trough markedly elevated so vancomycin discontinued. * WINDY is likely due to nephrotoxicity from vancomycin. Nephrology consulted. Await recs. * #Hyperkalemia: Improving. Potassium is down to 5.1. #Type 2 diabetes mellitus: * A1c is 10.1. Not a known diabetic. * patient started on Lantus 10 units twice daily. Insulin sliding scale. Accu- Cheks ACHS. * Consider starting on metformin when kidney function improves * #History of bilateral lower extremity lymphedema: * Does not follow with any PCP or engine specialist about this. * Will benefit from referral to wound care on outpatient basis. DVT prophylaxis: Lovenox 40 mg twice daily. Charges/Coding Visit Charges Inpatient E&M: [id number] [facility] L3
[2023-09-26] MEDS: Enoxaparin 40 MG/0.4 ML Syringe SC ×2 (13:45→20:06)
[2023-09-26] MEDS: Insulin Glargine-YFGN 100 UNIT/ML Pen 10 UNIT SC (13:46)
--- NOTE | 2023-09-26 13:56 | CON.PCM.RE_ITS ---
Assessment & Plan Assessment/Plan (1) WINDY (acute kidney injury): PLAN: Baseline creatinine was normal but that was before admission. Worsening creatinine. Anuric. Unable to obtain urine analysis. Waters catheter indwelling, signs of obstruction are low. Currently hypotensive despite IV fluids, low-dose pressors. Was on vancomycin, levels are on higher side. Most likely ATN in the setting of sepsis. No acute indications for renal replacement therapy today. Continue low-dose IV fluids. Discussed with primary hospitalist HPI Consult Data Date of Consult: 09/26/23 HPI Narrative HPI Narrative: PHILL DWYER, is a 43 M who presents to the hospital with extremity cellulitis. Nephrology on consultation in view of acute renal failure. Previous baseline creatinine was normal. Overnight he had respiratory decompensation, worsening encephalopathy. Blood gas was consistent with respiratory acidosis, intubated this morning. Creatinine has been worsening and now up to 3.5. Urine output has been minimal since this morning. Currently he is in ICU, intubated, hypotensive on low-dose pressors. Received IV fluid boluses. Currently on normal saline at 60 cc/h. Chest x-ray without any evidence of fluid overload. Unable to obtain review of systems [facility] Medical History (Updated 09/26/23 @ 13:[address] Harvey Leung MD) Cellulitis Lymphedema Morbid obesity Home Medications NK 09/23/23 [History Last Taken Unknown] Allergy/AdvReac Type Severity Reaction Status Date / Time No Known Allergies Allergy Verified 09/23/23 09:27 Family History Other Obesity Surgical History no surgical history Social History Smoking Status: Never smoker Physical Exam Narrative Intubated, sedated Pallor present S1-S2 Bilateral air entry Abdomen is nondistended Extensive erythema over the lower extremities extending into the thighs and groin area, likely chronic lymphedema as well Waters catheter indwelling Lab / Micro Data 09/26/23 04:30 09/26/23 03:45 Labs: Laboratory Results - last 24 hr 09/25/23 14:45: POC Glucose 236 H 09/25/23 15:00: Serum Osmolality 291, Vancomycin Trough 42.1 H 09/25/23 16:01: POC Glucose 262 H 09/25/23 21:43: POC Glucose 253 H 09/25/23 23:20: Urine Osmolality 311, Ur Random Sodium 38 09/26/23 03:45: WBC Cancelled, Corrected WBC Cancelled, RBC Cancelled, Hgb Cancelled, Hct Cancelled, MCV Cancelled, MCH Cancelled, MCHC Cancelled, RDW Std Deviation Cancelled, RDW Coeff of Benedicto Cancelled, Plt Count Cancelled, MPV Cancelled, Immature Gran % (Auto) Cancelled, Neut % (Auto) Cancelled, Lymph % (Auto) Cancelled, [place]ver[place] % (Auto) Cancelled, Eos % (Auto) Cancelled, Baso % (Auto) Cancelled, Absolute Neuts (auto) Cancelled, Absolute Lymphs (auto) Cancelled, Total Counted Cancelled, Neutrophils % (Manual) Cancelled, Band Neutrophils % Cancelled, Lymphocytes % (Manual) Cancelled, Monocytes % (Manual) Cancelled, Eosinophils % (Manual) Cancelled, Basophils % (Manual) Cancelled, Metamyelocytes % Cancelled, Myelocytes % Cancelled, Promyelocytes % Cancelled, Blast Cells % Cancelled, Plasma Cell % (Manual) Cancelled, Other Cells % Cancelled, Nucleated RBC % Cancelled, Nucleated RBCs/100 WBC Cancelled, Differential Comment Cancelled, Diff Path Review Cancelled, Hypersegmented Neuts Cancelled, Atypical Lymphocytes Cancelled, Reactive Lymphocytes Cancelled, Smudge Cells Cancelled, Toxic Granulation Cancelled, Toxic Vacuolation Cancelled, Dohle Bodies Cancelled, Erinn Rods Cancelled, Platelet Estimate Cancelled, Plt Morphology Comment Cancelled, RBC Morphology Cancelled 09/26/23 03:45: RBC Morphology Cancelled, Polychromasia Cancelled, Hypochromasia Cancelled, Basophilic Stippling Cancelled, Anisocytosis Cancelled, Microcytosis Cancelled, Macrocytosis Cancelled, Spherocytes Cancelled, Sickle Cells Cancelled, Target Cells Cancelled, Tear Drop Cells Cancelled, Ovalocytes Cancell ed, Stomatocytes Cancelled, [place] Bodies Cancelled, Lucero Cells Cancelled, Bite Cells Cancelled, Crenated Cell Cancelled, Acanthocytes (Spur) Cancelled, Rouleaux Cancelled, Schistocytes Cancelled, Sodium 126 L, Potassium 5.1, Chloride 92 L, Carbon Dioxide 25.0, Anion Gap 9, BUN 39 H, Creatinine 3.57 H, Estim Creat Clear Calc 48.83, Est GFR (MDRD) Af Amer 24 L, Est GFR (MDRD) Non-Af 20 L, BUN/Creatinine Ratio 10.9, Glucose 236 H, Calcium 7.9 L, Total Creatine Kinase 42, Triglycerides 162 09/26/23 04:30: WBC 20.3 H, RBC 5.93, Hgb 14.3, Hct 52.2, MCV 88.0, MCH 24.1 L, MCHC 27.4 L D, RDW Std Deviation 52.5 H, RDW Coeff of Benedicto 16.4 H, Plt Count 309, MPV 10.5, Immature Gran % (Auto) 2.600 H, Neut % (Auto) 84.1 H, Lymph % (Auto) 7.4 L, [place] % (Auto) 5.5, Eos % (Auto) 0.0, Baso % (Auto) 0.4, Absolute Neuts (auto) 17.1 H, Absolute Lymphs (auto) 1.50, Nucleated RBC % 0.1 09/26/23 06:55: POC Glucose 217 H Micro: Microbiology 09/23/23 14:00 Wound - Leg, Left Gram Stain - Final 09/23/23 14:00 Wound - Leg, Left Wound Culture - Preliminary Streptococcus dysgalactiae equ Proteus hauseri Alcaligenes faecalis ssp faeca Staphylococcus aureus 09/23/23 13:45 Blood Culture (Wb) - Anticubital Right Blood Culture - Preliminary No growth in 48 hours. 09/23/23 11:40 Blood Culture (Wb) - Anticubital Right Blood Culture - Preliminary No growth in 48 hours. 09/23/23 10:25 Blood Culture (Wb) - Arm Left Blood Culture - Preliminary No growth in 48 hours. ABG Data ABG results: ABG 09/26/23 09/26/23 09/26/23 00:02 02:18 05:10 Specimen Type ART ART ART Sample Site L Radial L Radial L Radial pH 7.08 L* 7.11 L* 7.12 L* Bicarbonate Actual 25.7 25.2 25.0 Total CO2 28 28 27 Base Excess -4 L -4 L -4 L O2 Saturation 81 L 81 L 82 L O2 % 3.0 30.0 30.0 ABG pCO2 86.1 H* 79.7 H* 77.3 H* ABG pO2 64 L 63 L 64 L Cleve Test Positive Positive Positive Respiration Rate 12 20 O2 Delivery Device Cannula BiPAP BiPAP Vent Mode Not entered Not entered Not entered Tidal Volume 500.0 500.0 POC PEEP 10 10 Crit Call To/Read Back Yes Yes Yes Blood Gas Notified Whom dr marita kirkland Blood Gas Notified Time 00:04:51 02:20:27 05:12:14 09/26/23 07:19 Specimen Type ART Sample Site L Radial pH 7.25 L Bicarbonate Actual 23.9 Total CO2 26 Base Excess -3 L O2 Saturation 98 O2 % 50.0 ABG pCO2 55.0 H ABG pO2 114 H Cleve Test Positive Respiration Rate 16 O2 Delivery Device Adult Vent Vent Mode AC Tidal Volume 500.0 POC PEEP 5 Crit Call To/Read Back Blood Gas Notified Whom Blood Gas Notified Time Imaging Radiology Impression Lower Extremity CT 09/25/23 12:42 IMPRESSION: 1. Diffuse soft tissue swelling and edema of the left lower leg. 2. No evidence of gas in the soft tissues or drainable abscess. 3. No evidence of destructive bony process or acute fracture. Electronically Signed: Eric Dumont MD at 14:38 EDT , Chest X-Ray 09/26/23 05:21 IMPRESSION: 1. Limited exam due to underpenetration, likely secondary to portable technique and patient''s body habitus. No evidence of acute cardiopulmonary disease. Evaluation is limited for evaluation of interstitial edema or a subtle pneumothorax. 2. Endotracheal tube tip approximately 2.4 cm from the shamir. Electronically Signed: Jonathan Davies DO at 7:12 EDT , KUB X-Ray 09/26/23 06:00 IMPRESSION: Enteric tube side-port and distal tip are not well visualized secondary to underpenetration from portable technique and patient''s body habitus. The side-port and distal tip are distal to the GE junction. Electronically Signed: Jonathan Davies DO at 7:13 EDT ,
[2023-09-26] MEDS: Vancomycin Trough/Random Due 1 LAB MC (14:03)
[2023-09-26 14:57] LABS: Bedside Glucose 183 mg/dL (74-106)
[2023-09-26] MEDS: Meropenem 1 GM in 0.9% Normal Saline (100mL MB+) 100 ML IV ×2 (15:19→20:06)
[2023-09-26 17:37] LABS: Bedside Glucose 194 mg/dL (74-106)
[2023-09-26 18:27] LABS: Vancomycin, Random Level 30.5 ug/mL (0.0-15.0)
--- NOTE | 2023-09-26 18:36 | PCM.RX.CS ---
Consult Antibiotic Management Pharmacy has been consulted to manage selected antibiotic: Vancomycin Type of Intervention Type of Consult: Follow-up Prior Doses of Antibiotics Prior Doses of Antibiotics Received/Current Regimen: no current scheduled dose Labs Labs: Sodium 126 mmol/L (136-145) L 09/26/23 03:45 Potassium 5.1 mmol/L (3.5-5.1) 09/26/23 03:45 Chloride 92 mmol/L (98-107) L 09/26/23 03:45 Carbon Dioxide 25.0 mmol/L (21.0-32.0) 09/26/23 03:45 Anion Gap 9 (5-15) 09/26/23 03:45 BUN 39 mg/dL (7-18) H 09/26/23 03:45 Creatinine 3.57 mg/dL (0.70-1.30) H 09/26/23 03:45 Est GFR (MDRD) Af Amer 24 mL/min (>60) L 09/26/23 03:45 Est GFR (MDRD) Non-Af 20 mL/min (>60) L 09/26/23 03:45 BUN/Creatinine Ratio 10.9 RATIO (10-20) 09/26/23 03:45 Glucose 236 mg/dL (74-106) H 09/26/23 03:45 Vancomycin Trough 42.1 ug/mL (5.0-15.0) H 09/25/23 15:00 Random Vancomycin 30.5 ug/mL (0.0-15.0) H 09/26/23 18:00 Microbiology Microbiology: Microbiology 09/23/23 14:00 Wound - Leg, Left Gram Stain - Final 09/23/23 14:00 Wound - Leg, Left Wound Culture - Preliminary Streptococcus dysgalactiae equ Proteus hauseri Alcaligenes faecalis ssp faeca Staphylococcus aureus 09/23/23 13:45 Blood Culture (Wb) - Anticubital Right Blood Culture - Preliminary No growth in 48 hours. 09/23/23 11:40 Blood Culture (Wb) - Anticubital Right Blood Culture - Preliminary No growth in 48 hours. 09/23/23 10:25 Blood Culture (Wb) - Arm Left Blood Culture - Preliminary No growth in 48 hours. Dosing Weight Weight used for dosin kg Estimated Creatinine Clearance Estimated Creatinine Clearance: 49 ml/min Goal Trough Goal Trough: 15-20 mcg/mL Pharmacy Plan for Drug Dosing Pharmacy Plan for Drug Dosing: The vanc random level drawn at 18:00 tonight was 30.5. Since it is still way above 20, no dose will be given today. Will repeat a random level in approx 36 hours with AM labs on 09/28/23. Of note, the patient's SCr taisha to 3.57 today from 2.18 yesterday and 1.18 two days ago Pharmacy Service will continue to monitor and adjust dosing as required. Follow-Up Labs Follow-Up Labs: Trough: Vancomycin (RANDOM) Date/Time Labs Ordered Labs to be done on [date and time ordered]: 09/28/23 06:00
[2023-09-26] MEDS: Propofol 10MG/Ml 1,000 MG/100 ML Bottle 36.7 MG CONT INF ×2 (20:20→22:18)
[2023-09-27] VITALS (56 sets, daily range): BP systolic 87–116; BP diastolic 50–72; PULSE 56–84; RESP 12–22; TEMP 36.6–37.3; O2SAT 91–98; BMI 66.3
[2023-09-27] MEDS: Propofol 10MG/Ml 1,000 MG/100 ML Bottle 36.7 MG CONT INF ×3 (00:37→07:52)
[2023-09-27] MEDS: Insulin Lispro 100 UNIT/ML INSULN.PEN SC ×6 (00:53→22:24)
[2023-09-27] MEDS: 0.9% Normal Saline (1000mL) 1,000 ML 60 ML IV (03:28)
[2023-09-27 03:37] LABS: Absolute Lymphocyte Count 2.55 X10^3/uL (0.83-4.51); Absolute Neutrophil Count 9.2 X10^3/uL (2.0-7.7); Basophil# 0.08 X10^3/uL; Basophil% 0.6 % (0-1); Eosinophil# 0.11 X10^3/uL; Eosinophils% 0.8 % (0-5); Hematocrit 43.8 % (40-54); Hemoglobin 13.5 g/dL (13.0-16.5); Lymphocyte # 2.55 X10^3/ul (0.83-4.51); Lymphocyte % 19.1 % (19-41); Mean Corp Hgb Conc 30.8 g/dL (32-36); Mean Corpuscular Hgb 24.2 pg (27.0-32.0); Mean Corpuscular Volume 78.6 fL (80-94); Mean Platelet Vol. 9.8 fl (6.2-12.0); Monocyte# 0.83 X10^3/uL; Monocyte% 6.2 % (0-10); NRBC Flagged by Analyzer 0 % (0-5); Neutrophil # 9.16 X10^3/uL (2.7-7.7); Neutrophil % 68.5 % (47-70); Platelet Count 351 K/mm3 (150-450); RBC Distribution Width CV 16.3 % (11.6-14.6); RBC Distribution Width SD 45.6 fl (35.1-43.9); Red Blood Count 5.57 M/mm3 (4.6-6.2); White Blood Count 13.4 K/mm3 (4.4-11.0)
[2023-09-27 03:57] LABS: Anion Gap 12 (5-15); BUN 53 mg/dL (7-18); BUN/Creat Ratio 10.6 RATIO (10-20); Calcium,Total 7.7 mg/dL (8.5-10.1); Chloride 94 mmol/L (98-107); Creatinine, Serum 5.01 mg/dL (0.70-1.30); EST Glomerular Filtration Rate 14 mL/min (>60); Est Glom Filt Rate - Afr Amer 16 mL/min (>60); Glucose 170 mg/dL (74-106); Potassium 3.8 mmol/L (3.5-5.1); Sodium Level 129 mmol/L (136-145)
[2023-09-27 04:57] LABS: Bedside Glucose 168 mg/dL (74-106)
[2023-09-27] MEDS: Heparin Injection (Vial) 5,000 UNIT/ML VIAL 5000 UNIT SC (05:14)
[2023-09-27] MEDS: Nystatin Powder 15gm Bottle 1 APPLIC TOPICAL ×3 (05:14→20:36)
[2023-09-27 06:41] LABS: Base Excess -4 mmol/L (-2 to +2); Bicarbonate 23.2 mmol/L (22-26); Blood Gas Specimen Type ART; Mode AC/PC; O2 Delivery Device Adult Vent; PO2 85 mmHG (75-100); SITE L Radial; SO2 95 % (95-99); Total Carbon Dioxide 25 mmol/L; pCO2 51.4 mmHg (35-45); pH 7.26 (7.35-7.45)
[2023-09-27] MEDS: Budesonide Respules 0.5 MG/2 ML AMPUL.NEB. INHALATION ×2 (06:52→18:51)
--- NOTE | 2023-09-27 06:53 | CPS ---
Per Dr. Duarte , ABG was gone by this RT. Placed pt back on AC/VC and turned RR down to 14 Per
[2023-09-27] MEDS: fentaNYL drip 100 ML 12.5 MCG CONT INF ×2 (06:55→15:26)
--- NOTE | 2023-09-27 07:32 | PCM.PN.INT ---
Assessment & Plan Assessment/Plan (1) Cellulitis: QUALIFIERS: Site of cellulitis: unspecified site Qualified Code(s): L03.90 - Cellulitis, unspecified (2) Septic shock: (3) WINDY (acute kidney injury): (4) Acute on chronic respiratory failure with hypoxia and hypercapnia: PLAN: Plan RECOMMENDATIONS: 1. Reinitiate mechanical ventilation 2. Hold heparin pending nephrology evaluation 3. Continue empiric antibiotics. Await ID recommendations 4. Decrease respiratory rate 5. Aggressive control of blood sugars IMPRESSIONS: 1. Acute on chronic combined respiratory failure Unclear etiology. Patient may have an element of OHS at baseline and has been noncompliant with CPAP therapy. Patient with continued CO2 retention and acidosis on ABG this morning following spontaneous breathing trial. Patient does not have wheezing on exam. Unclear if patient truly has obstructive lung disease. Will hold off on systemic steroids at this time as this could exacerbate patient's blood sugar control. Will attempt to address kidney function and see if respiratory status improves. Room air ABG without opiate would be necessary to confirm suspicion of obesity hypoventilation. 2. Septic shock secondary to cellulitis of left lower extremity Patient significantly acidotic on ABG. Renal function continues to worsen and patient is currently in oliguric renal failure. Patient was seen by nephrology yesterday and was given low IV fluids. Patient does not appear to be responding appropriately. Await nephrology evaluation, but will hold heparin as patient may require intervention for dialysis line. 3. Acute kidney injury secondary to problem #2 and vancomycin Clinical suspicion for multifactorial etiology. Patient likely has a prerenal etiology secondary to hypotension. Patient also has supratherapeutic vancomycin levels noted. Patient does have an element of diabetes that appears to be poorly controlled given elevated hemoglobin A1c. Patient does have a Waters in place, so postobstructive etiology would be unlikely. Patient's BUN to creatinine ratio is suggestive of ATN. Patient may require CVVHD 4. Diabetes mellitus type 2 Patient with poor control prior to presentation. Patient appears to be doing okay at this time. Okay to continue with tube feeds. Will have to watch blood sugars closely. If patient is initiated on steroids, this will likely require an increase in basal insulin. 5. Morbid obesity/poor compliance/poor insight Complicates care, management, recovery and prognosis. Patient's hemoglobin A1c was significantly elevated. Patient with significant lower extremity changes consistent with chronic lymphedema. Patient is a full code. TIME: 35 minutes critical care time spent addressing patient's respiratory failure, septic shock, acute kidney injury, review of all data and collaboration with care team Subjective Subjective Patient did okay overnight and was able to be placed on a spontaneous breathing trial this morning. Patient was interactive during my evaluation as he was on a trial. Patient did not reported any dyspnea or pain. Patient was able to complete an hour and a spontaneous breathing trial, but ABG showed continued CO2 retention. Patient does remain on Levophed. Patient was transitioned from Lovenox to heparin yesterday, but no bleeding complications have been reported. Urine output has been marginal overnight. Objective Data Objective Data Vital Signs: Vital Signs Temp Pulse Resp BP Pulse Ox O2 Del Method O2 Flow Rate 36.7 C 70 14 109/67 98 Mechanical Ventilator 3 09/27/23 07:00 09/27/23 07:00 09/27/23 07:00 09/27/23 07:00 09/27/23 07:00 09/27/23 07:00 09/26/23 00:01 FiO2 30 09/27/23 07:00 Oxygen Flow Rate (L/min) 3 Oxygen Delivery Method Mechanical Ventilator Weight: 215.8 kg Body Mass Index (BMI) 66.3 Intake & Output: Intake and Output for Last 24 Hours 09/25/23 09/26/23 09/27/23 23:59 23:59 23:59 Intake Total 3310 / 3310 2163.91 / 2214.06 1138.86 / 1138.86 Output Total 255 / 255 430 / 430 Balance 3310 / 3310 1908.91 / 1959.06 708.86 / 708.86 Lab / Micro Data Attestation: I reviewed the patient's lab results. 09/27/23 03:25 09/27/23 03:25 Labs: Laboratory Results - last 24 hr 09/26/23 03:45: Total Creatine Kinase 42, Triglycerides 162 09/26/23 13:44: POC Glucose 183 H 09/26/23 17:14: POC Glucose 194 H 09/26/23 18:00: Random Vancomycin 30.5 H 09/27/23 00:21: POC Glucose 168 H 09/27/23 03:25: WBC 13.4 H, RBC 5.57, Hgb 13.5, Hct 43.8, MCV 78.6 L D, MCH 24.2 L, MCHC 30.8 L D, RDW Std Deviation 45.6 H, RDW Coeff of Benedicto 16.3 H, Plt Count 351, MPV 9.8, Immature Gran % (Auto) 4.800 H, Neut % (Auto) 68.5, Lymph % (Auto) 19.1, [place] % (Auto) 6.2, Eos % (Auto) 0.8, Baso % (Auto) 0.6, Absolute Neuts (auto) 9.2 H, Absolute Lymphs (auto) 2.55, Nucleated RBC % 0, Sodium 129 L, Potassium 3.8, Chloride 94 L, Carbon Dioxide 23.0, Anion Gap 12, BUN 53 H, Creatinine 5.01 H, Estim Creat Clear Calc 34.80, Est GFR (MDRD) Af Amer 16 L, Est GFR (MDRD) Non-Af 14 L, BUN/Creatinine Ratio 10.6, Glucose 170 H, Calcium 7.7 L Micro: Microbiology 09/23/23 14:00 Wound - Leg, Left Gram Stain - Final 09/23/23 14:00 Wound - Leg, Left Wound Culture - Preliminary Streptococcus dysgalactiae equ Proteus hauseri Alcaligenes faecalis ssp faeca Staphylococcus aureus 09/23/23 13:45 Blood Culture (Wb) - Anticubital Right Blood Culture - Preliminary No growth in 48 hours. 09/23/23 11:40 Blood Culture (Wb) - Anticubital Right Blood Culture - Preliminary No growth in 48 hours. 09/23/23 10:25 Blood Culture (Wb) - Arm Left Blood Culture - Preliminary No growth in 48 hours. ABG Data ABG results: ABG 09/27/23 06:38 Specimen Type ART Sample Site L Radial pH 7.26 L Bicarbonate Actual 23.2 Total CO2 25 Base Excess -4 L O2 Saturation 95 O2 % 35.0 ABG pCO2 51.4 H ABG pO2 85 O2 Delivery Device Adult Vent Vent Mode AC/PC Attestation: I personally reviewed and interpreted this ABG as follows: (Acute respiratory acidosis with increased AA gradient) Rhythm Strip Rhythm Strip: Sinus Rhythm Rate: 79 Physical Exam Const alert Constitutional Narrative: Morbidly obese General Appearance: patient mechanically ventilated HEENT normocephalic, head/scalp atraumatic and moist oral mucous membranes HEENT Narrative: Darker secretions noted from OG Mouth: endotracheal tube in place and OG tube in place Eyes PERRL and EOMs intact bilaterally Neck no lymphadenopathy and supple Lymph Lymphatic: lymphedema Resp Resp Narrative: Distant breath sounds given body habitus Auscultation: diminished lung sounds; Negative for rales, rhonchi or wheezes Cardio regular rate, regular rhythm, S1 normal heart sound, S2 normal heart sound and no murmurs Cardio Narrative: Distant heart sounds GI normal to inspection, nondistended, normoactive bowel sounds, soft to palpation and non-distended Extremity Extremity Narrative: Both lower extremities wrapped in bandage. General Extremity: no tenderness to palpation of joints or extremities Skin Skin Narrative: Significant erythema noted bilateral lower extremities Neuro CN's II-XII intact bilaterally, no focal motor deficits and no sensory deficits noted Psych Psych Narrative: Patient awake, calm and interactive during my evaluation on spontaneous breathing trial Charges/Coding Procedures Hospitalists Procedures: [id number] Critical Care 1st Hr
[2023-09-27] MEDS: Chlorhexidine 15 ML PO ×2 (08:04→20:34)
[2023-09-27] MEDS: Pantoprazole Sodium 40 MG in 0.9% Normal Saline (100mL MB+) 100 ML 330 MG IV (09:44)
[2023-09-27] MEDS: Meropenem 1 GM in 0.9% Normal Saline (100mL MB+) 100 ML IV ×2 (10:03→20:34)
[2023-09-27] MEDS: Propofol 10MG/Ml 1,000 MG/100 ML Bottle 32.4 MG CONT INF (10:03)
--- NOTE | 2023-09-27 11:28 | PCM.PN.REN ---
Subjective Subjective Remains intubated. Currently on low-dose of Levophed. Urine output still on the lower side. Creatinine significantly higher. Objective Data Objective Data Vital Signs: Vital Signs Temp Pulse Resp BP Pulse Ox O2 Del Method O2 Flow Rate 98.1 F 65 14 101/52 L 97 Mechanical Ventilator 3 09/27/23 10:00 09/27/23 11:00 09/27/23 11:00 09/27/23 11:00 09/27/23 11:00 09/27/23 11:00 09/26/23 00:01 FiO2 35 09/27/23 11:00 Oxygen Flow Rate (L/min) 3 Oxygen Delivery Method Mechanical Ventilator Weight: 215.8 kg Body Mass Index (BMI) 66.3 Intake & Output: Intake and Output for Last 24 Hours 09/25/23 09/26/23 09/27/23 23:59 23:59 23:59 Intake Total 3310 / 3310 2163.91 / 2214.06 1431.28 / 1431.28 Output Total 255 / 255 430 / 430 Balance 3310 / 3310 1908.91 / 1959.06 1001.28 / 1001.28 Lab / Micro Data 09/27/23 03:25 09/27/23 03:25 Labs: Laboratory Results - last 24 hr 09/26/23 13:44: POC Glucose 183 H 09/26/23 17:14: POC Glucose 194 H 09/26/23 18:00: Random Vancomycin 30.5 H 09/27/23 00:21: POC Glucose 168 H 09/27/23 03:25: WBC 13.4 H, RBC 5.57, Hgb 13.5, Hct 43.8, MCV 78.6 L D, MCH 24.2 L, MCHC 30.8 L D, RDW Std Deviation 45.6 H, RDW Coeff of Benedicto 16.3 H, Plt Count 351, MPV 9.8, Immature Gran % (Auto) 4.800 H, Neut % (Auto) 68.5, Lymph % (Auto) 19.1, [place] % (Auto) 6.2, Eos % (Auto) 0.8, Baso % (Auto) 0.6, Absolute Neuts (auto) 9.2 H, Absolute Lymphs (auto) 2.55, Nucleated RBC % 0, Sodium 129 L, Potassium 3.8, Chloride 94 L, Carbon Dioxide 23.0, Anion Gap 12, BUN 53 H, Creatinine 5.01 H, Estim Creat Clear Calc 34.80, Est GFR (MDRD) Af Amer 16 L, Est GFR (MDRD) Non-Af 14 L, BUN/Creatinine Ratio 10.6, Glucose 170 H, Calcium 7.7 L Micro: Microbiology 09/23/23 14:00 Wound - Leg, Left Gram Stain - Final 09/23/23 14:00 Wound - Leg, Left Wound Culture - Final Streptococcus dysgalactiae equ Proteus hauseri Alcaligenes faecalis ssp faeca Staphylococcus aureus 09/23/23 13:45 Blood Culture (Wb) - Anticubital Right Blood Culture - Preliminary No growth in 48 hours. 09/23/23 11:40 Blood Culture (Wb) - Anticubital Right Blood Culture - Preliminary No growth in 48 hours. 09/23/23 10:25 Blood Culture (Wb) - Arm Left Blood Culture - Preliminary No growth in 48 hours. ABG Data ABG results: ABG 09/27/23 06:38 Specimen Type ART Sample Site L Radial pH 7.26 L Bicarbonate Actual 23.2 Total CO2 25 Base Excess -4 L O2 Saturation 95 O2 % 35.0 ABG pCO2 51.4 H ABG pO2 85 O2 Delivery Device Adult Vent Vent Mode AC/PC Rhythm Strip Rhythm Strip: Sinus Rhythm Rate: 79 Physical Exam Narrative Intubated, sedated Pallor present S1-S2 Bilateral air entry Abdomen is nondistended Extensive erythema over the lower extremities extending into the thighs and groin area, likely chronic lymphedema as well Waters catheter indwelling Assessment & Plan Assessment/Plan (1) WINDY (acute kidney injury): PLAN: Baseline creatinine was normal but that was before admission. Urine analysis not impressive Vancomycin level was elevated Septic shock. Somewhat better clinically today. Fever spikes have improved. WBC is better. Pressor requirements are better. Some urine output. No acute indications for renal replacement therapy today. Continue supportive therapy 1 more day. If no improvement by tomorrow, he may need renal replacement therapy. Discussed with ICU attending. Overall he does have significant edema. Oxygenation is not an issue right now.
[2023-09-27] MEDS: Insulin Glargine-YFGN 100 UNIT/ML Pen 20 UNIT SC (11:36)
--- NOTE | 2023-09-27 11:41 | PCM.PN.HOSP ---
Reason for Visit Reason for Visit: Diagnoses Hypo-osmolality and hyponatremia (09/23/23) Cellulitis, unspecified (09/23/23) Acute kidney failure, unspecified (09/23/23) Subjective Subjective Patient initially presented on 09/22 with worsening left lower extremity swelling and pain with ambulation. Has history of super morbid obesity with BMI around 60, history of bilateral lower extremity lymphedema. Noted to have elevated WBC count on admission, otherwise was hemodynamically stable. Noted to have a pocket of pus on the blackmon of the left lower extremity; cultures were obtained and he was started on broad-spectrum antibiotics. Found to have an A1c of 10.1% consistent with newly diagnosed diabetes. Hospital course unfortunately was complicated by worsening leukocytosis despite treatment, WINDY and hyponatremia. Overnight on 09/24 patient developed worsening encephalopathy, was found to have hypercapnic acidosis and he ultimately required intubation for ongoing support. Patient currently intubated and sedated in the ICU. Helper Coordinator following, suspected that patient's worsened respiratory status was primarily due to SUNG with CPAP nonadherence plus or minus OHS in the setting of his super morbid obesity. Has low ventilation requirements. He unfortunately has now developed significantly worsening WINDY. Nephrology following, suspects WINDY secondary to ATN from shock and vancomycin. Patient noted to have significant edema, not urgently requiring renal replacement therapy but is being monitored closely for this. Patient seen at bedside this morning. Intubated and sedated, not following commands. Objective Data Objective Data Vital Signs: Vital Signs Temp Pulse Resp BP Pulse Ox O2 Del Method O2 Flow Rate 98.1 F 67 14 101/52 L 96 Mechanical Ventilator 3 09/27/23 10:00 09/27/23 11:31 09/27/23 11:31 09/27/23 11:00 09/27/23 11:31 09/27/23 11:00 09/26/23 00:01 FiO2 35 09/27/23 11:31 Oxygen Flow Rate (L/min) 3 Oxygen Delivery Method Mechanical Ventilator Weight: 215.8 kg Body Mass Index (BMI) 66.3 Intake & Output: Intake and Output for Last 24 Hours 09/25/23 09/26/23 09/27/23 23:59 23:59 23:59 Intake Total 3310 / 3310 2163.91 / 2214.06 1431.28 / 1431.28 Output Total 255 / 255 430 / 430 Balance 3310 / 3310 1908.91 / 1959.06 1001.28 / 1001.28 Lab / Micro Data 09/27/23 03:25 09/27/23 03:25 Labs: Laboratory Results - last 24 hr 09/26/23 13:44: POC Glucose 183 H 09/26/23 17:14: POC Glucose 194 H 09/26/23 18:00: Random Vancomycin 30.5 H 09/27/23 00:21: POC Glucose 168 H 09/27/23 03:25: WBC 13.4 H, RBC 5.57, Hgb 13.5, Hct 43.8, MCV 78.6 L D, MCH 24.2 L, MCHC 30.8 L D, RDW Std Deviation 45.6 H, RDW Coeff of Benedicto 16.3 H, Plt Count 351, MPV 9.8, Immature Gran % (Auto) 4.800 H, Neut % (Auto) 68.5, Lymph % (Auto) 19.1, Billings % (Auto) 6.2, Eos % (Auto) 0.8, Baso % (Auto) 0.6, Absolute Neuts (auto) 9.2 H, Absolute Lymphs (auto) 2.55, Nucleated RBC % 0, Sodium 129 L, Potassium 3.8, Chloride 94 L, Carbon Dioxide 23.0, Anion Gap 12, BUN 53 H, Creatinine 5.01 H, Estim Creat Clear Calc 34.80, Est GFR (MDRD) Af Amer 16 L, Est GFR (MDRD) Non-Af 14 L, BUN/Creatinine Ratio 10.6, Glucose 170 H, Calcium 7.7 L Micro: Microbiology 09/23/23 14:00 Wound - Leg, Left Gram Stain - Final 09/23/23 14:00 Wound - Leg, Left Wound Culture - Final Streptococcus dysgalactiae equ Proteus hauseri Alcaligenes faecalis ssp faeca Staphylococcus aureus 09/23/23 13:45 Blood Culture (Wb) - Anticubital Right Blood Culture - Preliminary No growth in 48 hours. 09/23/23 11:40 Blood Culture (Wb) - Anticubital Right Blood Culture - Preliminary No growth in 48 hours. 09/23/23 10:25 Blood Culture (Wb) - Arm Left Blood Culture - Preliminary No growth in 48 hours. ABG Data ABG results: ABG 09/27/23 06:38 Specimen Type ART Sample Site L Radial pH 7.26 L Bicarbonate Actual 23.2 Total CO2 25 Base Excess -4 L O2 Saturation 95 O2 % 35.0 ABG pCO2 51.4 H ABG pO2 85 O2 Delivery Device Adult Vent Vent Mode AC/PC Rhythm Strip Rhythm Strip: Sinus Rhythm Rate: 79 Physical Exam Const Constitutional Narrative: Super morbid obesity. Intubated and sedated. Not following commands. HEENT normocephalic, head/scalp atraumatic and nasal mucous membranes and turbinates normal Chest inspection of chest normal Resp normal respiratory effort and no use of accessory muscles Resp Narrative: Mild to moderately decreased breath sounds throughout bilaterally, no wheezing or crackles noted but notably difficult to auscultate given body habitus. Cardio regular rate, regular rhythm, no murmurs and peripheral pulses 2+ throughout GI normal to inspection, nondistended, normoactive bowel sounds, soft to palpation, non-tender and non-distended Extremity Extremity Narrative: Bilateral lower extremities with Mono wrap up to the knees noted. Assessment & Plan Assessment/Plan (1) Acute on chronic respiratory failure with hypoxia and hypercapnia: (2) Septic shock: (3) WINDY (acute kidney injury): PLAN: Plan Patient is a 43-year-old male who presented to [facility] ED on 09/23/2023 with worsening left lower extremity swelling and pain with ambulation. 1. Acute on chronic combined respiratory failure, history of SUNG with CPAP nonadherence ? Helper Coordinator following. Has known history of SUNG with CPAP nonadherence. Suspected to have underlying OHS as well. Severe hypercapnia noted overnight on 09/24, did not improve much with and required intubation with mechanical ventilation. Currently intubated and sedated. Low vent settings. However, per time motion analyst we are holding on trial extubation given worsening volume overload in setting of severe WINDY as noted below. Further recs per time motion analyst. 2. Septic shock secondary to left lower extremity cellulitis, chronic lower extremity lipedema ? Helper Coordinator following as above. Infectious disease consulted. Wound cultures from left lower extremity on 09/22 grew Strep dysgalactiae, Proteus, Staph aureus and Alcalignenes. Initially treated with vancomycin and meropenem, however vancomycin discontinued due to elevated troughs and severe WINDY as noted below. Patient has had improvement in WBC count, he is hemodynamically stable and has been afebrile for last 24 hours or so. Blood cultures from 09/22 negative x 2, repeat blood cultures from 09/25 pending. Continue meropenem for now, appreciate ID recs. Wound care following for bilateral lower extremity wounds, worse on left. Currently on low-dose Levophed, wean as able. 3. Severe WINDY ? Nephrology following. Creatinine 0.91 on admission, likely baseline. Has now had significant uptrend of creatinine with minimal urine output, most recent creatinine 5.01 on 09/26. Does have significant edema but oxygenation not an issue at this point. No acute renal replacement therapy needs but if no improvement by tomorrow, per nephro he may need HEAVY EQUIPMENT OPERATOR/PAVER. Continue to monitor daily BMP and urine output. 4. Type 2 diabetes mellitus ? A1c 10.1% on admit. Not on any home diabetic medications. Unclear if patient was previously diagnosed with diabetes or not. Continue Lantus 20 units at night, sliding scale insulin with tube feeds every 4 hours as needed for now. 5. Hyponatremia ? Nephrology following as above. Sodium 128 on admit, has remained fairly steady between 126 and 129 despite attempts at fluid resuscitation with normal saline. Holding on further fluids for now, monitor daily sodium. 6. Super morbid obesity ? BMI 66 on admit. Complicates hospital course, care and prognosis. DVT prophylaxis: Heparin subcu CODE STATUS: Full code, verified Expected disposition: TBD Total clinical time spent by myself addressing the patient's medical issues, reviewing all the data, and collaborating with patient's care team: 50 minutes. Charges/Coding Visit Charges Inpatient E&M: 08897 [facility] Hosp L3
[2023-09-27] MEDS: Vital High Protein 1,000 ML 25 ML GT (11:44)
[2023-09-27 11:58] LABS: Bedside Glucose 186 mg/dL (74-106)
[2023-09-27] MEDS: Propofol 10MG/Ml 1,000 MG/100 ML Bottle 19.4 MG CONT INF (13:41)
--- NOTE | 2023-09-27 14:13 | CASEMGMT ---
Addendum entered by Doris Moncada 09/27/23 17:06: Social Work SW sent an email to [employer] inquiring about pt, to verify if pt had completed the Medicaid application last week, pt had informed SW spoke w/[employer] last week. SW will continue to follow. ALEKSANDR Terry Original Note: Social Work SW participated in ICU rounds this morning, pt remains on the ventilator. Pt's sister Mindy came in this afternoon, asked to speak w/OMI or CM. SW spoke w/Mindy who is by the bedside. Mindy and her sister are pt's only next of kin, their parents have , pt is not and does not have children. Mindy states that she is 15 years older than pt, and helped raise him for his first 3 years as their mother was a single parent and worked all the time. She states once she was 20 she moved out. Mindy explains their mother in 2008, she thinks pt could use some counseling around this. Mindy asked about resources for pt as she was concerned pt does not have insurance, especially around medication coverage and cost. SW explained did give pt resources, and will follow up w/pt again once extubated in regard to diabetic education, resources, and Medicaid. We also spoke about talking w/pt to complete LW/POA papers once off the ventilator. Pt's sister in agreement this may be a good idea. SW will continue to follow to assist w/discharge needs when appropriate. ALEKSANDR Terry
[2023-09-27 14:32] LABS: Bedside Glucose 162 mg/dL (74-106)
[2023-09-27] MEDS: Propofol 10MG/Ml 1,000 MG/100 ML Bottle 25.9 MG CONT INF ×2 (18:14→22:00)
[2023-09-27 18:27] LABS: Bedside Glucose 151 mg/dL (74-106)
[2023-09-27 22:45] LABS: Bedside Glucose 200 mg/dL (74-106)
[2023-09-27] MEDS: fentaNYL drip 100 ML 7.5 MCG CONT INF (23:30)
[2023-09-28] VITALS (51 sets, daily range): BP systolic 97–256; BP diastolic 56–80; PULSE 62–81; RESP 12–21; TEMP 36.4–37.1; O2SAT 86–100; BMI 66.9; BMI 67.1; BMI 66.3
[2023-09-28] MEDS: Albuterol 2.5 MG/3 ML VIAL.NEB. INHALATION (01:21)
[2023-09-28 03:56] LABS: Hematocrit 46.5 % (40-54); Hemoglobin 13.9 g/dL (13.0-16.5); Mean Corp Hgb Conc 29.9 g/dL (32-36); Mean Corpuscular Hgb 24.2 pg (27.0-32.0); Mean Corpuscular Volume 80.9 fL (80-94); Mean Platelet Vol. 9.5 fl (6.2-12.0); Platelet Count 325 K/mm3 (150-450); RBC Distribution Width CV 16.5 % (11.6-14.6); RBC Distribution Width SD 47.8 fl (35.1-43.9); Red Blood Count 5.75 M/mm3 (4.6-6.2)
[2023-09-28 04:20] LABS: Anion Gap 10 (5-15); BUN 63 mg/dL (7-18); BUN/Creat Ratio 9.8 RATIO (10-20); Calcium,Total 7.7 mg/dL (8.5-10.1); Chloride 96 mmol/L (98-107); Creatinine, Serum 6.41 mg/dL (0.70-1.30); EST Glomerular Filtration Rate 10 mL/min (>60); Est Glom Filt Rate - Afr Amer 12 mL/min (>60); Estimated Creatinine Clearance 28.21 ml/min; Glucose 182 mg/dL (74-106); Potassium 4.7 mmol/L (3.5-5.1); Sodium Level 129 mmol/L (136-145)
[2023-09-28 05:07] LABS: Allen Test Positive; Base Excess -6 mmol/L (-2 to +2); Bicarbonate 21.1 mmol/L (22-26); Blood Gas Specimen Type ART; Mode CPAP/PS; O2 Delivery Device Adult Vent; PEEP 5; PO2 72 mmHG (75-100); SITE R Radial; SO2 92 % (95-99); Total Carbon Dioxide 23 mmol/L; pCO2 47.1 mmHg (35-45); pH 7.26 (7.35-7.45)
[2023-09-28] MEDS: Propofol 10MG/Ml 1,000 MG/100 ML Bottle 12.9 MG CONT INF (05:33)
[2023-09-28] MEDS: Nystatin Powder 15gm Bottle 1 APPLIC TOPICAL ×3 (05:35→20:57)
[2023-09-28] MEDS: CHLORHEXIDINE GLUC 2% CLOTH 1 EACH TOWELETTE TOPICAL (05:35)
[2023-09-28] MEDS: Insulin Lispro 100 UNIT/ML INSULN.PEN SC ×2 (05:36→11:13)
[2023-09-28] MEDS: Budesonide Respules 0.5 MG/2 ML AMPUL.NEB. INHALATION ×2 (06:47→19:25)
--- NOTE | 2023-09-28 06:47 | PN.CC_ITS ---
Assessment & Plan Assessment/Plan (1) Cellulitis: QUALIFIERS: Site of cellulitis: unspecified site Qualified Code(s): L03.90 - Cellulitis, unspecified (2) Septic shock: (3) WINDY (acute kidney injury): (4) Acute on chronic respiratory failure with hypoxia and hypercapnia: PLAN: Plan RECOMMENDATIONS: 1. Reinitiate mechanical ventilation 2. Anticipate need for dialysis today. Defer to nephrology. 3. Continue empiric antibiotics. 4. Continue spontaneous breathing and awakening trials per protocol 5. Aggressive control of blood sugars IMPRESSIONS: 1. Acute on chronic combined respiratory failure Unclear etiology. Patient may have an element of OHS at baseline and has been noncompliant with CPAP therapy. Patient with continued CO2 retention and acidosis on ABG this morning following spontaneous breathing trial. Patient does not have wheezing on exam. Unclear if patient truly has obstructive lung disease. Will hold off on systemic steroids at this time as this could exacerbate patient's blood sugar control. Will attempt to address kidney function and see if respiratory status improves. ABG is showing a predominantly metabolic acidosis at this time. Patient may improve following dialysis 2. Septic shock secondary to cellulitis of left lower extremity Patient significantly acidotic on ABG. Patient off of pressors. Renal function continues to worsen and patient is currently in oliguric renal failure. Patient was seen by nephrology yesterday and elected to watch patient for another 24 hours. Patient does not appear to be responding appropriately. Clinical suspicion is patient will need a dialysis line, but may be able to tolerate conventional dialysis 3. Acute kidney injury secondary to problem #2 and vancomycin Clinical suspicion for multifactorial etiology. Patient likely has a prerenal etiology secondary to hypotension. Patient also has supratherapeutic vancomycin levels noted. Patient does have an element of diabetes that appears to be poorly controlled given elevated hemoglobin A1c. Patient does have a Waters in place, so postobstructive etiology would be unlikely. Patient's BUN to creatinine ratio is suggestive of ATN. Patient may actually tolerate conventional dialysis. Await nephrology recommendations. 4. Diabetes mellitus type 2 Patient with poor control prior to presentation. Patient blood sugars appears to be doing okay at this time. Okay to continue with tube feeds. Will have to watch blood sugars closely. If patient is initiated on steroids, this will likely require an increase in basal insulin. 5. Morbid obesity/poor compliance/poor insight Complicates care, management, recovery and prognosis. Patient's hemoglobin A1c was significantly elevated. Patient with significant lower extremity changes consistent with chronic lymphedema. Patient is a full code. TIME: 33 minutes critical care time spent addressing patient's respiratory failure, septic shock, acute kidney injury, review of all data and collaboration with care team Subjective Subjective Patient did okay overnight. Patient has been off of Levophed, but once again had to be placed back on mechanical ventilation secondary to persistent acidosi s. Patient with minimal urine output overnight. Objective Data Objective Data Vital Signs: Vital Signs Temp Pulse Resp BP Pulse Ox O2 Del Method O2 Flow Rate 36.8 C 71 14 102/63 94 Mechanical Ventilator 3 09/28/23 06:00 09/28/23 06:00 09/28/23 06:00 09/28/23 06:00 09/28/23 06:00 09/28/23 06:00 09/26/23 00:01 FiO2 30 09/28/23 06:00 Oxygen Flow Rate (L/min) 3 Oxygen Delivery Method Mechanical Ventilator Weight: 217.5 kg Body Mass Index (BMI) 66.9 Intake & Output: Intake and Output for Last 24 Hours 09/26/23 09/27/23 09/28/23 23:59 23:59 23:59 Intake Total 2163.91 / 2214.06 3096.31 / 3103.29 586.88 / 586.88 Output Total 255 / 255 468 / 468 2 / 2 Balance 1908.91 / 1959.06 2628.31 / 2635.29 584.88 / 584.88 Lab / Micro Data Attestation: I reviewed the patient's lab results. 09/28/23 03:45 09/28/23 03:45 Labs: Laboratory Results - last 24 hr 09/27/23 11:35: POC Glucose 186 H 09/27/23 14:10: POC Glucose 162 H 09/27/23 18:05: POC Glucose 151 H 09/27/23 22:23: POC Glucose 200 H 09/28/23 03:45: WBC 10.0, RBC 5.75, Hgb 13.9, Hct 46.5, MCV 80.9, MCH 24.2 L, MCHC 29.9 L, RDW Std Deviation 47.8 H, RDW Coeff of Benedicto 16.5 H, Plt Count 325, MPV 9.5, Sodium 129 L, Potassium 4.7, Chloride 96 L, Carbon Dioxide 23.0, Anion Gap 10, BUN 63 H, Creatinine 6.41 H, Estim Creat Clear Calc 28.21, Est GFR (MDRD) Af Amer 12 L, Est GFR (MDRD) Non-Af 10 L, BUN/Creatinine Ratio 9.8 L, Glucose 182 H, Calcium 7.7 L Micro: Microbiology 09/26/23 07:35 Sputum, Induced/Lukens Gram Stain - Final 09/23/23 14:00 Wound - Leg, Left Gram Stain - Final 09/23/23 14:00 Wound - Leg, Left Wound Culture - Final Streptococcus dysgalactiae equ Proteus hauseri Alcaligenes faecalis ssp faeca Staphylococcus aureus 09/23/23 13:45 Blood Culture (Wb) - Anticubital Right Blood Culture - Preliminary No growth in 48 hours. 09/23/23 11:40 Blood Culture (Wb) - Anticubital Right Blood Culture - Preliminary No growth in 48 hours. 09/23/23 10:25 Blood Culture (Wb) - Arm Left Blood Culture - Preliminary No growth in 48 hours. ABG Data ABG results: ABG 09/28/23 05:04 Specimen Type ART Sample Site R Radial pH 7.26 L Bicarbonate Actual 21.1 L Total CO2 23 Base Excess -6 L O2 Saturation 92 L O2 % 25.0 ABG pCO2 47.1 H ABG pO2 72 L Cleve Test Positive O2 Delivery Device Adult Vent Vent Mode CPAP/PS POC PEEP 5 Rhythm Strip Rhythm Strip: Sinus Rhythm Rate: 81 Physical Exam Const alert Constitutional Narrative: Morbidly obese. Tearful at need for continued mechanical ventilation General Appearance: patient mechanically ventilated HEENT normocephalic, head/scalp atraumatic and moist oral mucous membranes Mouth: endotracheal tube in place and OG tube in place Eyes PERRL and EOMs intact bilaterally Eyes Narrative: Slight injection noted. Neck no lymphadenopathy and supple Lymph Lymphatic: lymphedema Resp Resp Narrative: Distant breath sounds given body habitus Auscultation: diminished lung sounds; Negative for rales, rhonchi or wheezes Cardio regular rate, regular rhythm, S1 normal heart sound, S2 normal heart sound and no murmurs Cardio Narrative: Distant heart sounds GI normal to inspection, nondistended, normoactive bowel sounds, soft to palpation and non-distended Extremity Extremity Narrative: Both lower extremities wrapped in bandage. General Extremity: no tenderness to palpation of joints or extremities Skin Skin Narrative: Significant erythema noted bilateral lower extremities Neuro CN's II-XII intact bilaterally, no focal motor deficits and no sensory deficits noted Psych Mood & Affect: flat affect Charges/Coding Procedures Hospitalists Procedures: 39148 Critical Care 1st Hr
[2023-09-28] MEDS: Chlorhexidine 15 ML PO ×2 (07:43→20:56)
[2023-09-28] MEDS: Pantoprazole Sodium 40 MG in 0.9% Normal Saline (100mL MB+) 100 ML 330 MG IV (07:48)
[2023-09-28 09:23] LABS: Pathologist Review Reviewed
[2023-09-28] MEDS: Meropenem 1 GM in 0.9% Normal Saline (100mL MB+) 100 ML IV ×2 (09:24→20:56)
--- NOTE | 2023-09-28 10:18 | CASEMGMT ---
Social Work SW reached out to [employer] regarding pt's Medicaid application. Pt was over income, but now that pt is still here and not able to work he may qualify. SW will follow up w/pt in regard to this once extubated. SW participated in ICU rounds this morning, pt is still on the ventilator. Pt's sisters Alanna and Mindy here, SW and CM spoke with pt's sisters after rounds. We spoke about options at discharge, including possible SNF, vs outpt therapies for pt's wounds. We also spoke about assisting w/medications through the hospital program if pt is able to go home, explained pt can get assist from the hospital just one time per year. SW explained that if pt does qualify for Medicaid, it would be pending at this time and it would be difficult to get home health. Should pt need to go to a fpc however, there are facilities that would take someone w/pending Medicaid. Pt's sister Alanna also asked about housing and the free clinic, asked about income guidelines. SW explained can get them additional information on both. SW did bring them information on [employer] and [employer] along with information on the income guidelines. SW explained will continue to follow along w/CM, will work to get pt what he needs for an appropriate discharge. ALEKSANDR Terry
[2023-09-28] MEDS: Senna/Docusate Sodium 1 Tablet 2 TABLET GT ×2 (10:28→20:57)
[2023-09-28] MEDS: Insulin Glargine-YFGN 100 UNIT/ML Pen 20 UNIT SC (11:13)
[2023-09-28] MEDS: Propofol 10MG/Ml 1,000 MG/100 ML Bottle 13.1 MG CONT INF ×3 (11:13→23:47)
[2023-09-28] MEDS: Vital High Protein 1,000 ML 40 ML GT (11:13)
--- NOTE | 2023-09-28 11:42 | PCM.PN.HOSP ---
Reason for Visit Reason for Visit: Diagnoses Sepsis, unspecified organism (09/23/23) Hypo-osmolality and hyponatremia (09/23/23) Acute and chronic respiratory failure with hypoxia (09/23/23) Acute and chronic respiratory failure with hypercapnia (09/23/23) Cellulitis, unspecified (09/23/23) Acute kidney failure, unspecified (09/23/23) Severe sepsis with septic shock (09/23/23) Subjective Subjective No acute events overnight. Patient seen at bedside this morning, 2 sisters present. Patient remains intubated and sedated, not following commands. ICU team had just rounded with the sisters shortly before my arrival and they noted that their primary questions were answered at that time. Objective Data Objective Data Vital Signs: Vital Signs Temp Pulse Resp BP Pulse Ox O2 Del Method O2 Flow Rate 98.7 F 69 14 99/63 99 Mechanical Ventilator 65 09/28/23 10:00 09/28/23 11:00 09/28/23 11:00 09/28/23 11:00 09/28/23 11:00 09/28/23 11:00 09/28/23 10:26 FiO2 30 09/28/23 11:00 Oxygen Flow Rate (L/min) 65 Oxygen Delivery Method Mechanical Ventilator Weight: 217.5 kg Body Mass Index (BMI) 66.9 Intake & Output: Intake and Output for Last 24 Hours 09/26/23 09/27/23 09/28/23 23:59 23:59 23:59 Intake Total 2163.91 / 2214.06 3096.31 / 3103.29 1103.32 / 1103.32 Output Total 255 / 255 468 / 468 72 / 72 Balance 1908.91 / 1959.06 2628.31 / 2635.29 1031.32 / 1031.32 Lab / Micro Data 09/28/23 03:45 09/28/23 03:45 Labs: Laboratory Results - last 24 hr 09/24/23 07:14: Diff Path Review Reviewed 09/27/23 11:35: POC Glucose 186 H 09/27/23 14:10: POC Glucose 162 H 09/27/23 18:05: POC Glucose 151 H 09/27/23 22:23: POC Glucose 200 H 09/28/23 03:45: WBC 10.0, RBC 5.75, Hgb 13.9, Hct 46.5, MCV 80.9, MCH 24.2 L, MCHC 29.9 L, RDW Std Deviation 47.8 H, RDW Coeff of Benedicto 16.5 H, Plt Count 325, MPV 9.5, Sodium 129 L, Potassium 4.7, Chloride 96 L, Carbon Dioxide 23.0, Anion Gap 10, BUN 63 H, Creatinine 6.41 H, Estim Creat Clear Calc 28.21, Est GFR (MDRD) Af Amer 12 L, Est GFR (MDRD) Non-Af 10 L, BUN/Creatinine Ratio 9.8 L, Glucose 182 H, Calcium 7.7 L Micro: Microbiology 09/23/23 10:25 Blood Culture (Wb) - Arm Left Blood Culture - Final No growth in 5 days. 09/26/23 14:55 Blood Culture (Wb) - Pic Blood Culture - Preliminary No growth in 48 hours. 09/26/23 14:55 Blood Culture (Wb) - Pic Blood Culture - Preliminary No growth in 48 hours. 09/26/23 07:35 Sputum, Induced/Lukens Gram Stain - Final 09/26/23 07:35 Sputum, Induced/Lukens Respiratory Culture - Final Culture exhibits no growth. 09/23/23 14:00 Wound - Leg, Left Gram Stain - Final 09/23/23 14:00 Wound - Leg, Left Wound Culture - Final Streptococcus dysgalactiae equ Proteus hauseri Alcaligenes faecalis ssp faeca Staphylococcus aureus 09/23/23 13:45 Blood Culture (Wb) - Anticubital Right Blood Culture - Preliminary No growth in 48 hours. 09/23/23 11:40 Blood Culture (Wb) - Anticubital Right Blood Culture - Preliminary No growth in 48 hours. ABG Data ABG results: ABG 09/28/23 05:04 Specimen Type ART Sample Site R Radial pH 7.26 L Bicarbonate Actual 21.1 L Total CO2 23 Base Excess -6 L O2 Saturation 92 L O2 % 25.0 ABG pCO2 47.1 H ABG pO2 72 L Cleve Test Positive O2 Delivery Device Adult Vent Vent Mode CPAP/PS POC PEEP 5 Rhythm Strip Rhythm Strip: Sinus Rhythm Rate: 81 Physical Exam Const Constitutional Narrative: Super morbid obesity. Intubated and sedated. Not following commands. HEENT normocephalic, head/scalp atraumatic and nasal mucous membranes and turbinates normal Chest inspection of chest normal Resp normal respiratory effort and no use of accessory muscles Resp Narrative: Mild to moderately decreased breath sounds throughout bilaterally, no wheezing or crackles noted but notably difficult to auscultate given body habitus. Cardio regular rate, regular rhythm, no murmurs and peripheral pulses 2+ throughout GI normal to inspection, nondistended, normoactive bowel sounds, soft to palpation, non-tender and non-distended Extremity Extremity Narrative: Bilateral lower extremities with Mono wrap up to the knees noted. Significant lower extremity edema noted. Assessment & Plan Assessment/Plan (1) Acute on chronic respiratory failure with hypoxia and hypercapnia: (2) Septic shock: (3) WINDY (acute kidney injury): PLAN: Plan Patient is a 43-year-old male who presented to [facility] ED on 09/23/2023 with worsening left lower extremity swelling and pain with ambulation. 1. Acute on chronic combined respiratory failure, history of SUNG with CPAP nonadherence ? [employer] following. Has known history of SUNG with CPAP nonadherence. Suspected to have underlying OHS as well. Severe hypercapnia noted overnight on 09/24, did not improve much with and required intubation with mechanical ventilation. Currently intubated and sedated. Low vent settings. However, per casing crew we are holding on trial extubation given worsening volume overload in setting of severe WINDY as noted below. Further recs per casing crew. 2. Septic shock secondary to left lower extremity cellulitis, chronic lower extremity lipedema ? [employer] following as above. Infectious disease consulted. Wound cultures from left lower extremity on 09/22 grew Strep dysgalactiae, Proteus, Staph aureus and Alcalignenes. Initially treated with vancomycin and meropenem, however vancomycin discontinued due to elevated troughs and severe WINDY as noted below. Patient has had improvement in WBC count, he is hemodynamically stable and has been afebrile for last 24 hours or so. Blood cultures from 09/22 negative x 2, repeat blood cultures from 09/25 again with no growth after 48 hours. Continue meropenem for now, appreciate ID recs. Wound care following for bilateral lower extremity wounds, worse on left. Continue Levophed as needed to maintain MAP greater than 65. 3. Severe WINDY ? Nephrology following. Creatinine 0.91 on admission, likely baseline. Has now had significant uptrend of creatinine with minimal urine output, most recent creatinine 6.41 on 09/27. Does have significant edema but oxygenation not an issue at this point. However, given worsening renal function and very minimal urine output, likely planning to initiate either HD versus CRRT this afternoon. Appreciate further recommendations from nephrology. 4. Type 2 diabetes mellitus ? A1c 10.1% on admit. Not on any home diabetic medications. Unclear if patient was previously diagnosed with diabetes or not. Continue Lantus 20 units at night, sliding scale insulin with tube feeds every 4 hours as needed for now. 5. Hyponatremia, stable ? Nephrology following as above. Sodium 128 on admit, has remained fairly steady between 126 and 129 despite attempts at fluid resuscitation with normal saline. Monitor daily sodium. 6. Super morbid obesity ? BMI 66 on admit. Complicates hospital course, care and prognosis. DVT prophylaxis: Heparin subcu CODE STATUS: Full code, verified Expected disposition: TBD Total clinical time spent by myself addressing the patient's medical issues, reviewing all the data, and collaborating with patient's care team: 35 minutes. Charges/Coding Visit Charges Inpatient E&M: 95583 Subs Hosp L2
[2023-09-28 11:46] LABS: Bedside Glucose 160 mg/dL (74-106)
[2023-09-28] MEDS: Heparin 10,000 UNITS/10 ML Vial 2600 UNITS IV (12:36)
--- NOTE | 2023-09-28 12:40 | RAD_ITS ---
STUDY: X-RAY CHEST REASON FOR EXAM: Male, 43 years old. Line placement TECHNIQUE: Single AP portable view of the chest. COMPARISON: Comparison is made with prior study dated September 26, 2023. FINDINGS: An endotracheal tube is in situ. The tip is at 3.4 cm proximal to the shamir. Endogastric tube is seen with the tip below the left hemidiaphragm. A right-sided internal jugular venous catheter has been placed with the tip in the right atrium. Mild vascular congestion. There is no demonstrated pleural abnormality. There is borderline cardiomegaly. Normal mediastinum and cirilo. Normal visualized pulmonary arteries. Normal visualized aortic arch and descending thoracic aorta. Normal visualized thoracic spine. Normal visualized ribs, clavicles, and shoulders. There is no demonstrated abnormality of the visualized soft tissue structures of the upper abdomen. RAD/CXR for Line Placement IMPRESSION: The tip of the right internal jugular venous catheter is in the right atrium. The endotracheal tube is at 3.4 cm proximal to the shamir. Findings suggestive of mild vascular congestion. Electronically Signed: Gregg Allen MD at 12:57 EDT ,
[2023-09-28] MEDS: fentaNYL drip 100 ML 7.5 MCG CONT INF (13:25)
[2023-09-28] MEDS: PureFlow B 2K Dialysis Soln 1 BAG 6 BAG PF (14:26)
[2023-09-28] MEDS: 0.9% Normal Saline 1,000 ML IV.SOLN. 1000 ML OPERA.SITE (14:26)
--- NOTE | 2023-09-28 15:17 | PCM.CONS.GEN ---
Assessment & Plan Assessment/Plan (1) Septic shock: PLAN: Wbc improved, BP improved. Remains on vent. Now on HD. Wound cx with strep, MSSA, proteus, alcaligenes. Cont sheila. Will follow, thank you (2) WINDY (acute kidney injury): (3) Cellulitis: QUALIFIERS: Site of cellulitis: unspecified site Qualified Code(s): L03.90 - Cellulitis, unspecified (4) Acute on chronic respiratory failure with hypoxia and hypercapnia: HPI Consult Data Date of Consult: 09/28/23 HPI Narrative Reason for Consultation: septic shock HPI Narrative: PHILL DWYER, is a 43 M with chronic lymphedema, presented to ED 09/22 with several days worsening BLE swelling, redness, warmth. Pain worse with walking. LLE worse than R. Admitted on vanc/zosyn, required transfer to icu, pressors, intubation. Now with WINDY starting HD. Abx now with meropenem. Feeling ok, awake on vent. C/o pain in legs. Full ROS performed and neg except as noted above. [facility] Medical History Cellulitis Lymphedema Morbid obesity Home Medications NK 09/23/23 [History Last Taken Unknown] Allergy/AdvReac Type Severity Reaction Status Date / Time No Known Allergies Allergy Verified 09/23/23 09:27 Family History Other Obesity Surgical History no surgical history Social History Smoking Status: Never smoker Physical Exam Const alert and no apparent distress Constitutional Narrative: on vent General Appearance: cooperative HEENT normocephalic and head/scalp atraumatic HEENT Narrative: ETT in place Eyes PERRL and EOMs intact bilaterally Neck supple and No nodes Resp normal air movement and clear to auscultation bilaterally Cardio Rate: tachycardic GI soft to palpation, non-tender and non-distended Extremity General Extremity: edema Skin Skin Narrative: BLE redness, warmth, tenderness Neuro CN's II-XII intact bilaterally Lab / Micro Data Attestation: I reviewed the patient's lab results. 09/28/23 03:45 09/28/23 03:45 Labs: Laboratory Results - last 24 hr 09/24/23 07:14: Diff Path Review Reviewed 09/27/23 18:05: POC Glucose 151 H 09/27/23 22:23: POC Glucose 200 H 09/28/23 03:45: WBC 10.0, RBC 5.75, Hgb 13.9, Hct 46.5, MCV 80.9, MCH 24.2 L, MCHC 29.9 L, RDW Std Deviation 47.8 H, RDW Coeff of Benedicto 16.5 H, Plt Count 325, MPV 9.5, Sodium 129 L, Potassium 4.7, Chloride 96 L, Carbon Dioxide 23.0, Anion Gap 10, BUN 63 H, Creatinine 6.41 H, Estim Creat Clear Calc 28.21, Est GFR (MDRD) Af Amer 12 L, Est GFR (MDRD) Non-Af 10 L, BUN/Creatinine Ratio 9.8 L, Glucose 182 H, Calcium 7.7 L 09/28/23 11:12: POC Glucose 160 H Micro: Microbiology 09/23/23 13:45 Blood Culture (Wb) - Anticubital Right Blood Culture - Final No growth in 5 days. 09/23/23 11:40 Blood Culture (Wb) - Anticubital Right Blood Culture - Final No growth in 5 days. 09/23/23 10:25 Blood Culture (Wb) - Arm Left Blood Culture - Final No growth in 5 days. 09/26/23 14:55 Blood Culture (Wb) - Pic Blood Culture - Preliminary No growth in 48 hours. 09/26/23 14:55 Blood Culture (Wb) - Pic Blood Culture - Preliminary No growth in 48 hours. 09/26/23 07:35 Sputum, Induced/Lukens Gram Stain - Final 09/26/23 07:35 Sputum, Induced/Lukens Respiratory Culture - Final Culture exhibits no growth. ABG Data ABG results: ABG 09/28/23 05:04 Specimen Type ART Sample Site R Radial pH 7.26 L Bicarbonate Actual 21.1 L Total CO2 23 Base Excess -6 L O2 Saturation 92 L O2 % 25.0 ABG pCO2 47.1 H ABG pO2 72 L Cleve Test Positive O2 Delivery Device Adult Vent Vent Mode CPAP/PS POC PEEP 5 Rhythm Strip Rhythm Strip: Sinus Rhythm Rate: 81 Imaging Radiology Impression Chest X-Ray 09/28/23 12:40 IMPRESSION: The tip of the right internal jugular venous catheter is in the right atrium. The endotracheal tube is at 3.4 cm proximal to the shamir. Findings suggestive of mild vascular congestion. Electronically Signed: Gregg Allen MD at 12:57 EDT ,
--- NOTE | 2023-09-28 15:36 | NUR.TO.PHY ---
Discussed this dialysis session w/ Dr. Leung & Dr. Duarte. Dr. Duarte discussed hopeful to remove pt from mechanical ventilation if acidosis can be corrected with dialysis. Dr. Leung amended order to 3 hours, 300 blood flow, 8L therapy fluid. This RN discussed that pt is tolerating fluid removal so well in 1st hour, so fluid rate increased per nephrology
[2023-09-28 16:48] LABS: Hepatitis B Surface Antigen Non-Reactive (Nonreactive)
[2023-09-28] MEDS: Heparin 10,000 UNITS/10 ML Vial IV (16:49)
[2023-09-28 17:42] LABS: Bedside Glucose 139 mg/dL (74-106)
--- NOTE | 2023-09-28 18:00 | PCM.PN.REN ---
Subjective Subjective Intubated. At the time of my examination, he was off sedation, able to answer all questions. Urine output remains low. Significantly volume overloaded. I asked him about dialysis and he said okay for it. Objective Data Objective Data Vital Signs: Vital Signs Temp Pulse Resp BP Pulse Ox O2 Del Method O2 Flow Rate 97.7 F L 67 15 117/70 93 Mechanical Ventilator 65 09/28/23 17:00 09/28/23 17:28 09/28/23 17:28 09/28/23 17:00 09/28/23 17:28 09/28/23 17:00 09/28/23 10:26 FiO2 30 09/28/23 17:28 Oxygen Flow Rate (L/min) 65 Oxygen Delivery Method Mechanical Ventilator Weight: 215 kg Body Mass Index (BMI) 66.3 Intake & Output: Intake and Output for Last 24 Hours 09/26/23 09/27/23 09/28/23 23:59 23:59 23:59 Intake Total 2163.91 / 2214.06 3096.31 / 3103.29 1551.61 / 1551.61 Output Total 255 / 255 468 / 468 2632 / 2632 Balance 1908.91 / 1959.06 2628.31 / 2635.29 -1080.39 / -1080.39 Lab / Micro Data 09/28/23 03:45 09/28/23 03:45 Labs: Laboratory Results - last 24 hr 09/24/23 07:14: Diff Path Review Reviewed 09/27/23 18:05: POC Glucose 151 H 09/27/23 22:23: POC Glucose 200 H 09/28/23 03:45: WBC 10.0, RBC 5.75, Hgb 13.9, Hct 46.5, MCV 80.9, MCH 24.2 L, MCHC 29.9 L, RDW Std Deviation 47.8 H, RDW Coeff of Benedicto 16.5 H, Plt Count 325, MPV 9.5, Sodium 129 L, Potassium 4.7, Chloride 96 L, Carbon Dioxide 23.0, Anion Gap 10, BUN 63 H, Creatinine 6.41 H, Estim Creat Clear Calc 28.21, Est GFR (MDRD) Af Amer 12 L, Est GFR (MDRD) Non-Af 10 L, BUN/Creatinine Ratio 9.8 L, Glucose 182 H, Calcium 7.7 L 09/28/23 11:12: POC Glucose 160 H 09/28/23 17:03: POC Glucose 139 H 09/28/23 : Hep Bs Antigen Non-Reactive Micro: Microbiology 09/23/23 13:45 Blood Culture (Wb) - Anticubital Right Blood Culture - Final No growth in 5 days. 09/23/23 11:40 Blood Culture (Wb) - Anticubital Right Blood Culture - Final No growth in 5 days. 09/23/23 10:25 Blood Culture (Wb) - Arm Left Blood Culture - Final No growth in 5 days. 09/26/23 14:55 Blood Culture (Wb) - Pic Blood Culture - Preliminary No growth in 48 hours. 09/26/23 14:55 Blood Culture (Wb) - Pic Blood Culture - Preliminary No growth in 48 hours. 09/26/23 07:35 Sputum, Induced/Lukens Gram Stain - Final 09/26/23 07:35 Sputum, Induced/Lukens Respiratory Culture - Final Culture exhibits no growth. 09/23/23 14:00 Wound - Leg, Left Gram Stain - Final 09/23/23 14:00 Wound - Leg, Left Wound Culture - Final Streptococcus dysgalactiae equ Proteus hauseri Alcaligenes faecalis ssp faeca Staphylococcus aureus ABG Data ABG results: ABG 09/28/23 05:04 Specimen Type ART Sample Site R Radial pH 7.26 L Bicarbonate Actual 21.1 L Total CO2 23 Base Excess -6 L O2 Saturation 92 L O2 % 25.0 ABG pCO2 47.1 H ABG pO2 72 L Cleve Test Positive O2 Delivery Device Adult Vent Vent Mode CPAP/PS POC PEEP 5 Radiography Diagnostic Testing: Radiology Impression Chest X-Ray 09/28/23 12:40 IMPRESSION: The tip of the right internal jugular venous catheter is in the right atrium. The endotracheal tube is at 3.4 cm proximal to the shamir. Findings suggestive of mild vascular congestion. Electronically Signed: Gregg Allen MD at 12:57 EDT , Rhythm Strip Rhythm Strip: Sinus Rhythm Rate: 81 Physical Exam Narrative Intubated, sedated Pallor present S1-S2 Bilateral air entry Abdomen is nondistended Extensive erythema over the lower extremities extending into the thighs and groin area, likely chronic lymphedema as well Waters catheter indwelling Assessment & Plan Assessment/Plan (1) WINDY (acute kidney injury): PLAN: Baseline creatinine was normal but that was before admission. Urine analysis not impressive Vancomycin level was elevated Septic shock. Oliguric. Significantly volume overloaded. Acidosis. Hyponatremia which is hypervolemic. Needs dialysis. Discussed with ICU attending. Patient also consented for dialysis orally. Dialysis catheter placed at bedside. See procedure note separately. We will plan for dialysis today. Currently he is on 1 mcg of Levophed. Should tolerate dialysis without need for CRRT.
--- NOTE | 2023-09-28 18:02 | PRO.PCM_ITS ---
Procedure Report Date of Procedure: 09/28/23 Dialysis catheter placement. Under ultrasound guidance, right IJ was visualized, compressible. Under sterile precautions, local site was prepared. Local anesthesia obtained with 1% lidocaine. He was already on sedation for ventilator status. Under ultrasound guidance, right IJ was cannulated. Initially there was some difficulty advancing the guidewire, second attempt was made. Able to successfully cannulate the IJ in advance serial dilators. 16 cm, 12 Armenian, 2 lumen curved tip dialysis catheter was placed. Sutures applied. Sterile dressing applied. Postprocedure x-ray reviewed. Plan for dialysis today and likely tomorrow.
[2023-09-28] MEDS: Heparin Injection (Vial) 5,000 UNIT/ML VIAL 5000 UNIT SC (20:57)
[2023-09-28] MEDS: fentaNYL drip 100 ML 10 MCG CONT INF (23:54)
[2023-09-29] VITALS (41 sets, daily range): BP systolic 91–269; BP diastolic 46–77; PULSE 57–94; RESP 11–18; TEMP 36.9–37.3; O2SAT 88–98; BMI 67.1; BMI 66.0
[2023-09-29 00:10] LABS: Bedside Glucose 137 mg/dL (74-106)
[2023-09-29 03:43] LABS: Hematocrit 46.2 % (40-54); Hemoglobin 13.4 g/dL (13.0-16.5); Mean Corpuscular Hgb 23.7 pg (27.0-32.0); Mean Corpuscular Volume 81.6 fL (80-94); Mean Platelet Vol. 9.8 fl (6.2-12.0); Platelet Count 288 K/mm3 (150-450); RBC Distribution Width CV 16.2 % (11.6-14.6); RBC Distribution Width SD 47.9 fl (35.1-43.9); Red Blood Count 5.66 M/mm3 (4.6-6.2); White Blood Count 10.3 K/mm3 (4.4-11.0)
[2023-09-29] MEDS: CHLORHEXIDINE GLUC 2% CLOTH 1 EACH TOWELETTE TOPICAL (04:15)
[2023-09-29] MEDS: TITRATION PARAMETER CHANGE 1 EACH IV (04:15)
[2023-09-29] MEDS: Nystatin Powder 15gm Bottle 1 APPLIC TOPICAL ×3 (04:15→20:33)
[2023-09-29 04:16] LABS: Anion Gap 11 (5-15); BUN 64 mg/dL (7-18); BUN/Creat Ratio 9.7 RATIO (10-20); Calcium,Total 7.6 mg/dL (8.5-10.1); Chloride 97 mmol/L (98-107); Creatinine, Serum 6.62 mg/dL (0.70-1.30); EST Glomerular Filtration Rate 10 mL/min (>60); Est Glom Filt Rate - Afr Amer 12 mL/min (>60); Estimated Creatinine Clearance 27.45 ml/min; Glucose 150 mg/dL (74-106); Potassium 4.5 mmol/L (3.5-5.1); Sodium Level 130 mmol/L (136-145)
[2023-09-29] MEDS: Heparin Injection (Vial) 5,000 UNIT/ML VIAL 5000 UNIT SC ×3 (04:22→20:22)
[2023-09-29] MEDS: 0.9% Saline Lock 10 ML Syringe IV (05:02)
[2023-09-29] MEDS: Insulin Lispro 100 UNIT/ML INSULN.PEN SC (05:02)
[2023-09-29 05:24] LABS: Bedside Glucose 160 mg/dL (74-106)
[2023-09-29 06:09] LABS: Allen Test Positive; Base Excess -4 mmol/L (-2 to +2); Bicarbonate 22.7 mmol/L (22-26); Blood Gas Specimen Type ART; Mode CPAP/PS; O2 Delivery Device Adult Vent; PEEP 5; PO2 148 mmHG (75-100); SITE L Radial; SO2 99 % (95-99); Total Carbon Dioxide 24 mmol/L; pCO2 49.4 mmHg (35-45); pH 7.27 (7.35-7.45)
[2023-09-29] MEDS: Vital High Protein 1,000 ML 55 ML GT (06:28)
--- NOTE | 2023-09-29 06:28 | NURSING ---
Per Dr. Duarte, pt failed SBT due to persistent acidosis. Respiratory switched vent back to AC, propofol restarted for pt comfort.
[2023-09-29] MEDS: Budesonide Respules 0.5 MG/2 ML AMPUL.NEB. INHALATION ×2 (06:40→19:13)
--- NOTE | 2023-09-29 07:15 | PCM.PN.INT ---
Assessment & Plan Assessment/Plan (1) Cellulitis: QUALIFIERS: Site of cellulitis: unspecified site Qualified Code(s): L03.90 - Cellulitis, unspecified (2) Septic shock: (3) WINDY (acute kidney injury): (4) Acute on chronic respiratory failure with hypoxia and hypercapnia: PLAN: Plan RECOMMENDATIONS: 1. Reinitiate mechanical ventilation. Continue spontaneous breathing and awakening trials with ABG 2. Anticipate need for dialysis today. Defer to nephrology. 3. Continue antibiotics per ID. 4. Continue spontaneous breathing and awakening trials per protocol 5. Aggressive control of blood sugars IMPRESSIONS: 1. Acute on chronic combined respiratory failure Unclear etiology. Patient may have an element of OHS at baseline and has been noncompliant with CPAP therapy. Patient with continued CO2 retention and acidosis on ABG this morning following spontaneous breathing trial. Clinical suspicion is patient is volume overloaded, but oxygenation is not an issue. Patient has baseline OHS and not able to tolerate. Will continue with dialysis to help with metabolic acidosis. 2. Septic shock secondary to cellulitis of left lower extremity Patient still significantly acidotic on ABG. Patient off of pressors. Renal function continues to worsen and patient is currently in oliguric renal failure, requiring dialysis. Blood pressures have been doing well at this time. 3. Acute kidney injury secondary to problem #2 and vancomycin Clinical suspicion for multifactorial etiology. Patient likely has a prerenal etiology secondary to hypotension. Patient also has supratherapeutic vancomycin levels noted. Patient does have an element of diabetes that appears to be poorly controlled given elevated hemoglobin A1c. Patient does have a Waters in place, so postobstructive etiology would be unlikely. Patient's BUN to creatinine ratio is suggestive of ATN. Patient able to tolerate conventional dialysis. Anticipate daily dialysis in the short-term 4. Diabetes mellitus type 2 Patient with poor control prior to presentation. Patient blood sugars appears to be doing okay at this time. Okay to continue with tube feeds. Will have to watch blood sugars closely. If patient is initiated on steroids, this will likely require an increase in basal insulin. 5. Morbid obesity/poor compliance/poor insight Complicates care, management, recovery and prognosis. Patient's hemoglobin A1c was significantly elevated. Patient with significant lower extremity changes consistent with chronic lymphedema. Patient is a full code. Patient has not had a bowel movement in some time. Aggressive bowel measures will be taken. TIME: 32 minutes critical care time spent addressing patient's respiratory failure, septic shock, acute kidney injury, review of all data and collaboration with care team Subjective Subjective Patient did well overnight from a hemodynamic standpoint. Patient once again tolerate a spontaneous breathing trial this morning, but remains significantly acidotic. Patient did have dialysis yesterday with removal of 2.5 L of fluid and tolerated this well. No hypotension has been noted, subsequently pressors or boluses were not needed. Objective Data Objective Data Vital Signs: Vital Signs Temp Pulse Resp BP Pulse Ox O2 Del Method O2 Flow Rate 36.9 C 59 L 14 105/67 93 Mechanical Ventilator 65 09/29/23 06:00 09/29/23 06:41 09/29/23 06:41 09/29/23 06:00 09/29/23 06:41 09/29/23 06:41 09/28/23 10:26 FiO2 55 09/29/23 06:41 Oxygen Flow Rate (L/min) 65 Oxygen Delivery Method Mechanical Ventilator Weight: 217.5 kg Body Mass Index (BMI) 67.1 Intake & Output: Intake and Output for Last 24 Hours 09/27/23 09/28/23 09/29/23 23:59 23:59 23:59 Intake Total 3096.31 / 3103.29 1782.94 / 1861.78 1233.85 / 1233.85 Output Total 468 / 468 2682 / 2682 50 / 50 Balance 2628.31 / 2635.29 -899.06 / -820.22 1183.85 / 1183.85 Lab / Micro Data Attestation: I reviewed the patient's lab results. 09/29/23 03:35 09/29/23 03:35 Labs: Laboratory Results - last 24 hr 09/24/23 07:14: Diff Path Review Reviewed 09/28/23 11:12: POC Glucose 160 H 09/28/23 17:03: POC Glucose 139 H 09/28/23 23:44: POC Glucose 137 H 09/28/23 : Hep Bs Antigen Non-Reactive 09/29/23 03:35: WBC 10.3, RBC 5.66, Hgb 13.4, Hct 46.2, MCV 81.6, MCH 23.7 L, MCHC 29.0 L, RDW Std Deviation 47.9 H, RDW Coeff of Benedicto 16.2 H, Plt Count 288, MPV 9.8, Sodium 130 L, Potassium 4.5, Chloride 97 L, Carbon Dioxide 22.0, Anion Gap 11, BUN 64 H, Creatinine 6.62 H, Estim Creat Clear Calc 27.45, Est GFR (MDRD) Af Amer 12 L, Est GFR (MDRD) Non-Af 10 L, BUN/Creatinine Ratio 9.7 L, Glucose 150 H, Calcium 7.6 L 09/29/23 05:01: POC Glucose 160 H Micro: Microbiology 09/23/23 13:45 Blood Culture (Wb) - Anticubital Right Blood Culture - Final No growth in 5 days. 09/23/23 11:40 Blood Culture (Wb) - Anticubital Right Blood Culture - Final No growth in 5 days. 09/23/23 10:25 Blood Culture (Wb) - Arm Left Blood Culture - Final No growth in 5 days. 09/26/23 14:55 Blood Culture (Wb) - Pic Blood Culture - Preliminary No growth in 48 hours. 09/26/23 14:55 Blood Culture (Wb) - Pic Blood Culture - Preliminary No growth in 48 hours. 09/26/23 07:35 Sputum, Induced/Lukens Gram Stain - Final 09/26/23 07:35 Sputum, Induced/Lukens Respiratory Culture - Final Culture exhibits no growth. 09/23/23 14:00 Wound - Leg, Left Gram Stain - Final 09/23/23 14:00 Wound - Leg, Left Wound Culture - Final Streptococcus dysgalactiae equ Proteus hauseri Alcaligenes faecalis ssp faeca Staphylococcus aureus ABG Data ABG results: ABG 09/29/23 06:05 Specimen Type ART Sample Site L Radial pH 7.27 L Bicarbonate Actual 22.7 Total CO2 24 Base Excess -4 L O2 Saturation 99 O2 % 40.0 ABG pCO2 49.4 H ABG pO2 148 H Cleve Test Positive O2 Delivery Device Adult Vent Vent Mode CPAP/PS POC PEEP 5 Attestation: I personally reviewed and interpreted this ABG as follows: (Acute on chronic respiratory acidosis with increased AA gradient) Radiography Diagnostic Testing: Radiology Impression Chest X-Ray 09/28/23 12:40 IMPRESSION: The tip of the right internal jugular venous catheter is in the right atrium. The endotracheal tube is at 3.4 cm proximal to the shamir. Findings suggestive of mild vascular congestion. Electronically Signed: Gregg Allen MD at 12:57 EDT , Rhythm Strip Rhythm Strip: Sinus Rhythm Rate: 73 Physical Exam Const alert, oriented x3 and no apparent distress Constitutional Narrative: Morbidly obese. Good ventilator synchrony General Appearance: patient mechanically ventilated HEENT normocephalic, head/scalp atraumatic and moist oral mucous membranes Mouth: endotracheal tube in place and OG tube in place Eyes PERRL and EOMs intact bilaterally Eyes Narrative: Slight injection noted. Neck no lymphadenopathy and supple Lymph Lymphatic: lymphedema Resp Resp Narrative: Distant breath sounds given body habitus Auscultation: diminished lung sounds; Negative for rales, rhonchi or wheezes Cardio regular rate, regular rhythm, S1 normal heart sound, S2 normal heart sound and no murmurs Cardio Narrative: Distant heart sounds GI normal to inspection, nondistended, normoactive bowel sounds, soft to palpation and non-distended Extremity Extremity Narrative: Both lower extremities wrapped in bandage. General Extremity: no tenderness to palpation of joints or extremities Skin Skin Narrative: Significant erythema noted bilateral lower extremities appears to be improving slowly Neuro CN's II-XII intact bilaterally, no focal motor deficits and no sensory deficits noted Psych Mood & Affect: flat affect Charges/Coding Procedures Hospitalists Procedures: 63431 Critical Care 1st Hr
[2023-09-29] MEDS: Propofol 10MG/Ml 1,000 MG/100 ML Bottle 13.1 MG CONT INF ×3 (08:33→18:54)
[2023-09-29] MEDS: Senna/Docusate Sodium 1 Tablet 2 TABLET GT ×2 (09:57→20:22)
[2023-09-29] MEDS: Polyethylene Glycol 3350 17 GM PACKET GT (09:57)
[2023-09-29] MEDS: Pantoprazole Sodium 40 MG in 0.9% Normal Saline (100mL MB+) 100 ML 330 MG IV (09:58)
[2023-09-29] MEDS: Chlorhexidine 15 ML PO ×2 (09:58→20:22)
--- NOTE | 2023-09-29 11:24 | PCM.PN.HOSP ---
Reason for Visit Reason for Visit: Diagnoses Sepsis, unspecified organism (09/23/23) Hypo-osmolality and hyponatremia (09/23/23) Acute and chronic respiratory failure with hypoxia (09/23/23) Acute and chronic respiratory failure with hypercapnia (09/23/23) Cellulitis, unspecified (09/23/23) Acute kidney failure, unspecified (09/23/23) Severe sepsis with septic shock (09/23/23) Subjective Subjective Patient had first HD session done yesterday and tolerated this without issue. Has been on low sedation requirements since yesterday, following commands and appears to be understanding conversation. Shakes his head no when asked about having any acute pain or discomfort. No other acute concerns this morning. Objective Data Objective Data Vital Signs: Vital Signs Temp Pulse Resp BP Pulse Ox O2 Del Method O2 Flow Rate 98.9 F 71 14 109/68 91 Mechanical Ventilator 65 09/29/23 09:00 09/29/23 09:34 09/29/23 09:34 09/29/23 09:00 09/29/23 09:34 09/29/23 09:00 09/28/23 10:26 FiO2 45 09/29/23 09:34 Oxygen Flow Rate (L/min) 65 Oxygen Delivery Method Mechanical Ventilator Weight: 217.5 kg Body Mass Index (BMI) 67.1 Intake & Output: Intake and Output for Last 24 Hours 09/27/23 09/28/23 09/29/23 23:59 23:59 23:59 Intake Total 3096.31 / 3103.29 1782.94 / 1861.78 1445.71 / 1445.71 Output Total 468 / 468 2682 / 2682 50 / 50 Balance 2628.31 / 2635.29 -899.06 / -820.22 1395.71 / 1395.71 Lab / Micro Data 09/29/23 03:35 09/29/23 03:35 Labs: Laboratory Results - last 24 hr 09/28/23 11:12: POC Glucose 160 H 09/28/23 17:03: POC Glucose 139 H 09/28/23 23:44: POC Glucose 137 H 09/28/23 : Hep Bs Antigen Non-Reactive 09/29/23 03:35: WBC 10.3, RBC 5.66, Hgb 13.4, Hct 46.2, MCV 81.6, MCH 23.7 L, MCHC 29.0 L, RDW Std Deviation 47.9 H, RDW Coeff of Benedicto 16.2 H, Plt Count 288, MPV 9.8, Sodium 130 L, Potassium 4.5, Chloride 97 L, Carbon Dioxide 22.0, Anion Gap 11, BUN 64 H, Creatinine 6.62 H, Estim Creat Clear Calc 27.45, Est GFR (MDRD) Af Amer 12 L, Est GFR (MDRD) Non-Af 10 L, BUN/Creatinine Ratio 9.7 L, Glucose 150 H, Calcium 7.6 L 09/29/23 05:01: POC Glucose 160 H Micro: Microbiology 09/23/23 13:45 Blood Culture (Wb) - Anticubital Right Blood Culture - Final No growth in 5 days. 09/23/23 11:40 Blood Culture (Wb) - Anticubital Right Blood Culture - Final No growth in 5 days. 09/23/23 10:25 Blood Culture (Wb) - Arm Left Blood Culture - Final No growth in 5 days. 09/26/23 14:55 Blood Culture (Wb) - Pic Blood Culture - Preliminary No growth in 48 hours. 09/26/23 14:55 Blood Culture (Wb) - Pic Blood Culture - Preliminary No growth in 48 hours. 09/26/23 07:35 Sputum, Induced/Lukens Gram Stain - Final 09/26/23 07:35 Sputum, Induced/Lukens Respiratory Culture - Final Culture exhibits no growth. 09/23/23 14:00 Wound - Leg, Left Gram Stain - Final 09/23/23 14:00 Wound - Leg, Left Wound Culture - Final Streptococcus dysgalactiae equ Proteus hauseri Alcaligenes faecalis ssp faeca Staphylococcus aureus ABG Data ABG results: ABG 09/29/23 06:05 Specimen Type ART Sample Site L Radial pH 7.27 L Bicarbonate Actual 22.7 Total CO2 24 Base Excess -4 L O2 Saturation 99 O2 % 40.0 ABG pCO2 49.4 H ABG pO2 148 H Cleve Test Positive O2 Delivery Device Adult Vent Vent Mode CPAP/PS POC PEEP 5 Radiography Diagnostic Testing: Radiology Impression Chest X-Ray 09/28/23 12:40 IMPRESSION: The tip of the right internal jugular venous catheter is in the right atrium. The endotracheal tube is at 3.4 cm proximal to the shamir. Findings suggestive of mild vascular congestion. Electronically Signed: Gregg Allen MD at 12:57 EDT , Rhythm Strip Rhythm Strip: Sinus Rhythm Rate: 73 Physical Exam Const Constitutional Narrative: Super morbid obesity. Intubated and mildly sedated. Following commands and appears to be understanding conversation with him. HEENT normocephalic, head/scalp atraumatic and nasal mucous membranes and turbinates normal Eyes PERRL, EOMs intact bilaterally and conjunctivae normal Chest inspection of chest normal Resp normal respiratory effort and no use of accessory muscles Resp Narrative: Mild to moderately decreased breath sounds throughout bilaterally, no wheezing or crackles noted but notably difficult to auscultate given body habitus. Cardio regular rate, regular rhythm, no murmurs and peripheral pulses 2+ throughout GI normal to inspection, nondistended, normoactive bowel sounds, soft to palpation, non-tender and non-distended Extremity Extremity Narrative: Bilateral lower extremities with Mono wrap up to the knees noted. Significant lower extremity edema noted. Neuro moves all extremities Sensorium / Orientation: awake and alert Assessment & Plan Assessment/Plan (1) Acute on chronic respiratory failure with hypoxia and hypercapnia: (2) Septic shock: (3) WINDY (acute kidney injury): PLAN: Plan Patient is a 43-year-old male who presented to [facility] ED on 09/23/2023 with worsening left lower extremity swelling and pain with ambulation. 1. Acute on chronic combined respiratory failure, history of SUNG with CPAP nonadherence ? Industrial Relations Manager following. Has known history of SUNG with CPAP nonadherence. Suspected to have underlying OHS as well. Severe hypercapnia noted overnight on 09/24, did not improve much with and required intubation with mechanical ventilation. Currently intubated and mildly sedated, following commands and understanding conversation as of 09/27. Low vent settings. However on 09/28, failed SBT due to continued CO2 retention and acidosis on ABG. Planning to complete third dialysis session tomorrow, hopeful that removing volume will assist in his being able to effectively breathe off CO2. Appreciate leather cutter recs for further SAT/SBT trials. 2. Septic shock secondary to left lower extremity cellulitis, chronic lower extremity lipedema ? Industrial Relations Manager following as above. Infectious disease consulted. Wound cultures from left lower extremity on 09/22 grew Strep dysgalactiae, Proteus, Staph aureus and Alcalignenes. Initially treated with vancomycin and meropenem, however vancomycin discontinued due to elevated troughs and severe WINDY as noted below. Patient has had improvement in WBC count, he is hemodynamically stable and has been afebrile. Blood cultures from 09/22 negative x 2, repeat blood cultures from 09/25 again with no growth after 48 hours. Continue meropenem for now, appreciate ID recs. Wound care following for bilateral lower extremity wounds, worse on left. Continue Levophed as needed to maintain MAP greater than 65. 3. Severe WINDY ? Nephrology following. Creatinine 0.91 on admission, likely baseline. Had significant uptrend in creatinine with very minimal urine output for first several days admission. Given patient's worsening volume overload and minimal urine output, decision was made to initiate dialysis on 09/27. Completed first HD session on 09/27, second session scheduled for 09/28 and third session for 09/29. Monitoring daily labs. Appreciate further nephrology recs. 4. Type 2 diabetes mellitus ? A1c 10.1% on admit. Not on any home diabetic medications. Unclear if patient was previously diagnosed with diabetes or not. Continue Lantus 20 units at night, sliding scale insulin with tube feeds every 4 hours as needed for now. 5. Hyponatremia, stable ? Nephrology following as above. Sodium 128 on admit, has remained fairly steady between 126 and 129 despite attempts at fluid resuscitation with normal saline. Monitor daily sodium. 6. Super morbid obesity ? BMI 66 on admit. Complicates hospital course, care and prognosis. DVT prophylaxis: Heparin subcu CODE STATUS: Full code, verified Expected disposition: TBD Total clinical time spent by myself addressing the patient's medical issues, reviewing all the data, and collaborating with patient's care team: 35 minutes. Charges/Coding Visit Charges Inpatient E&M: 32057 Subs Hosp L2
[2023-09-29] MEDS: Alteplase 2 MG/2 ML Vial IV (11:54)
--- NOTE | 2023-09-29 11:54 | NUR.TO.PHY ---
temp dialysis line has difficult pull. push easy bilat. attempted dialysis after multiple attempts to reposition pt. could not achieve blood flow greater than 200ml/min from either port. blood returned at 1145 & order received from nephrology to give cathflo. will attempt dialysis once cathflo has dwelled for 45min
[2023-09-29] MEDS: Insulin Glargine-YFGN 100 UNIT/ML Pen 20 UNIT SC (12:52)
--- NOTE | 2023-09-29 13:00 | RAD_ITS ---
STUDY: X-RAY CHEST REASON FOR EXAM: Male, 43 years old. Dialysis catheter placement TECHNIQUE: Single AP portable view of the chest. COMPARISON: Comparison is made with prior study dated September 28, 2023. FINDINGS: An endotracheal tube is in situ with the tip at 2.8 cm proximal to the shamir. A right-sided central venous catheter has been placed with the tip in the midportion of the superior vena cava. An orogastric tube is seen with the tip below the left hemidiaphragm. The lungs are clear and expanded. There is no demonstrated pleural abnormality. Normal size heart. Normal mediastinum and cirilo. Normal visualized pulmonary arteries. Normal visualized aortic arch and descending thoracic aorta. Normal visualized thoracic spine. Normal visualized ribs, clavicles, and shoulders. There is no demonstrated abnormality of the visualized soft tissue structures of the upper abdomen. RAD/CXR for Line Placement IMPRESSION: A right-sided internal jugular venous catheter has been placed with the tip in the midportion of the superior vena cava. The remainder of the examination is unchanged. Electronically Signed: Gregg Allen MD at 13:17 EDT ,
[2023-09-29 13:04] LABS: Bedside Glucose 144 mg/dL (74-106)
--- NOTE | 2023-09-29 13:07 | NUR.TO.PHY ---
Withdrew cathflo after 1hr dwell time. neither side of cath has adequate pull. notified Dr. Leung & discussed with automation qa lead. chest xray ordered by Dr. Duarte
--- NOTE | 2023-09-29 13:14 | PCM.PN.REN ---
Subjective Subjective Intubated, off sedation is alert awake responds to all questions. Blood pressure is low normal but better than before. No pressors today. Some urine output, better than before. Tolerated dialysis well yesterday. Objective Data Objective Data Vital Signs: Vital Signs Temp Pulse Resp BP Pulse Ox O2 Del Method O2 Flow Rate 99.0 F 64 14 104/60 91 Mechanical Ventilator 65 09/29/23 11:00 09/29/23 12:07 09/29/23 12:07 09/29/23 11:00 09/29/23 12:07 09/29/23 11:00 09/28/23 10:26 FiO2 50 09/29/23 12:07 Oxygen Flow Rate (L/min) 65 Oxygen Delivery Method Mechanical Ventilator Weight: 217.5 kg Body Mass Index (BMI) 67.1 Intake & Output: Intake and Output for Last 24 Hours 09/27/23 09/28/23 09/29/23 23:59 23:59 23:59 Intake Total 3096.31 / 3103.29 1782.94 / 1861.78 1502.82 / 1502.82 Output Total 468 / 468 2682 / 2682 50 / 50 Balance 2628.31 / 2635.29 -899.06 / -820.22 1452.82 / 1452.82 Lab / Micro Data 09/29/23 03:35 09/29/23 03:35 Labs: Laboratory Results - last 24 hr 09/28/23 17:03: POC Glucose 139 H 09/28/23 23:44: POC Glucose 137 H 09/28/23 : Hep Bs Antigen Non-Reactive 09/29/23 03:35: WBC 10.3, RBC 5.66, Hgb 13.4, Hct 46.2, MCV 81.6, MCH 23.7 L, MCHC 29.0 L, RDW Std Deviation 47.9 H, RDW Coeff of Benedicto 16.2 H, Plt Count 288, MPV 9.8, Sodium 130 L, Potassium 4.5, Chloride 97 L, Carbon Dioxide 22.0, Anion Gap 11, BUN 64 H, Creatinine 6.62 H, Estim Creat Clear Calc 27.45, Est GFR (MDRD) Af Amer 12 L, Est GFR (MDRD) Non-Af 10 L, BUN/Creatinine Ratio 9.7 L, Glucose 150 H, Calcium 7.6 L 09/29/23 05:01: POC Glucose 160 H 09/29/23 12:45: POC Glucose 144 H Micro: Microbiology 09/23/23 13:45 Blood Culture (Wb) - Anticubital Right Blood Culture - Final No growth in 5 days. 09/23/23 11:40 Blood Culture (Wb) - Anticubital Right Blood Culture - Final No growth in 5 days. 09/23/23 10:25 Blood Culture (Wb) - Arm Left Blood Culture - Final No growth in 5 days. 09/26/23 14:55 Blood Culture (Wb) - Pic Blood Culture - Preliminary No growth in 48 hours. 09/26/23 14:55 Blood Culture (Wb) - Pic Blood Culture - Preliminary No growth in 48 hours. 09/26/23 07:35 Sputum, Induced/Lukens Gram Stain - Final 09/26/23 07:35 Sputum, Induced/Lukens Respiratory Culture - Final Culture exhibits no growth. 09/23/23 14:00 Wound - Leg, Left Gram Stain - Final 09/23/23 14:00 Wound - Leg, Left Wound Culture - Final Streptococcus dysgalactiae equ Proteus hauseri Alcaligenes faecalis ssp faeca Staphylococcus aureus ABG Data ABG results: ABG 09/29/23 06:05 Specimen Type ART Sample Site L Radial pH 7.27 L Bicarbonate Actual 22.7 Total CO2 24 Base Excess -4 L O2 Saturation 99 O2 % 40.0 ABG pCO2 49.4 H ABG pO2 148 H Cleve Test Positive O2 Delivery Device Adult Vent Vent Mode CPAP/PS POC PEEP 5 Rhythm Strip Rhythm Strip: Sinus Rhythm Rate: 73 Physical Exam Narrative Intubated, sedated Pallor present S1-S2 Bilateral air entry Abdomen is nondistended Extensive erythema over the lower extremities extending into the thighs and groin area, likely chronic lymphedema as well Waters catheter indwelling Assessment & Plan Assessment/Plan (1) WINDY (acute kidney injury): PLAN: Baseline creatinine was normal but that was before admission. Urine analysis not impressive Vancomycin level was elevated Septic shock. Started on dialysis yesterday. Repeat dialysis today. We will aim for fluid removal again. Discussed with family friend at bedside. Discussed with ICU team.
--- NOTE | 2023-09-29 13:45 | RAD_ITS ---
STUDY: X-RAY CHEST REASON FOR EXAM: Male, 43 years old. Dialysis catheter replaced TECHNIQUE: Single AP portable view of the chest. COMPARISON: Comparison is made with prior study done earlier today at 12:56 PM. FINDINGS: The right-sided dialysis catheter is at the junction of the superior vena cava and right atrium. The tip of the endotracheal tube is at 2.5 cm proximal to the shamir. RAD/Chest 1 View (Portable) IMPRESSION: The right-sided dialysis catheter is at the junction of the superior vena cava and right atrium. The tip of the endotracheal tube is at 2.5 cm proximal to the shamir. Electronically Signed: Gregg Allen MD at 14:11 EDT ,
[2023-09-29] MEDS: PureFlow B 2K Dialysis Soln 1 BAG 6 BAG PF (15:32)
--- NOTE | 2023-09-29 15:43 | NUR.TO.PHY ---
new temp dialysis cath placed & attempted to use for dialysis today. adequate pull was intermittent from both lumens. both lumens pushed with ease. pt received @1.5hrs of dialysis with multiple alarms. multiple attempts to flush lumens & reposition patient did not resolve adequacy. at 1530, unable to get adequate pull from either lumen, blood returned & dialysis treatment discontinued. Was able to remove 1400ml of fluid during treatment. financial recruiter & splitter tender notified.
--- NOTE | 2023-09-29 16:05 | PCM.PN.ID ---
Physical Exam Narrative HD today, no fever Const no apparent distress Resp normal air movement and clear to auscultation bilaterally Cardio regular rate and regular rhythm GI soft to palpation, non-tender and non-distended Skin Skin Narrative: LLE less red ID ID: Route of nutrition/ use of supplements: [] Nutritional Intake: [] IV Site: [] Waters Catheter: [] Assessment & Plan Assessment/Plan (1) Septic shock: PLAN: Wbc improved, BP improved. Remains on vent. Now on HD. Wound cx with strep, MSSA, proteus, alcaligenes. Cont sheila. Leg less red. Will follow (2) WINDY (acute kidney injury): (3) Cellulitis: QUALIFIERS: Site of cellulitis: unspecified site Qualified Code(s): L03.90 - Cellulitis, unspecified (4) Acute on chronic respiratory failure with hypoxia and hypercapnia:
[2023-09-29] MEDS: Meropenem 1 GM in 0.9% Normal Saline (100mL MB+) 100 ML IV (16:36)
[2023-09-29] MEDS: fentaNYL drip 100 ML 5 MCG CONT INF (16:36)
[2023-09-29 20:05] LABS: Bedside Glucose 137 mg/dL (74-106)
[2023-09-29] MEDS: Propofol 10MG/Ml 1,000 MG/100 ML Bottle 26.1 MG CONT INF (22:50)
[2023-09-29 23:11] LABS: Bedside Glucose 146 mg/dL (74-106)
[2023-09-30] VITALS (46 sets, daily range): BP systolic 96–298; BP diastolic 48–82; PULSE 40–80; RESP 14–20; TEMP 36.4–37.3; O2SAT 92–100; BMI 67.3; BMI 66.3
[2023-09-30] MEDS: Vital High Protein 1,000 ML 55 ML GT ×2 (00:48→18:15)
[2023-09-30] MEDS: Propofol 10MG/Ml 1,000 MG/100 ML Bottle 26.1 MG CONT INF (02:19)
[2023-09-30 03:12] LABS: Hemoglobin 13.5 g/dL (13.0-16.5); Mean Corp Hgb Conc 29.3 g/dL (32-36); Mean Corpuscular Hgb 23.9 pg (27.0-32.0); Mean Corpuscular Volume 81.3 fL (80-94); Mean Platelet Vol. 9.4 fl (6.2-12.0); Platelet Count 305 K/mm3 (150-450); RBC Distribution Width CV 16.3 % (11.6-14.6); Red Blood Count 5.66 M/mm3 (4.6-6.2); White Blood Count 10.8 K/mm3 (4.4-11.0)
[2023-09-30 03:37] LABS: Anion Gap 13 (5-15); BUN 74 mg/dL (7-18); BUN/Creat Ratio 9.9 RATIO (10-20); Calcium,Total 7.6 mg/dL (8.5-10.1); Chloride 96 mmol/L (98-107); Creatinine, Serum 7.45 mg/dL (0.70-1.30); EST Glomerular Filtration Rate 9 mL/min (>60); Est Glom Filt Rate - Afr Amer 10 mL/min (>60); Estimated Creatinine Clearance 24.14 ml/min; Glucose 129 mg/dL (74-106); Potassium 4.3 mmol/L (3.5-5.1); Sodium Level 131 mmol/L (136-145)
[2023-09-30 05:03] LABS: Bedside Glucose 140 mg/dL (74-106)
[2023-09-30] MEDS: Menthol/Lanolin/Calamine/Znox 113 GM Tube 1 APPLIC TOPICAL ×3 (05:37→22:16)
[2023-09-30] MEDS: CHLORHEXIDINE GLUC 2% CLOTH 1 EACH TOWELETTE TOPICAL (05:37)
[2023-09-30] MEDS: Nystatin Powder 15gm Bottle 1 APPLIC TOPICAL ×3 (05:38→22:17)
[2023-09-30] MEDS: Heparin Injection (Vial) 5,000 UNIT/ML VIAL 5000 UNIT SC ×3 (05:38→22:17)
[2023-09-30] MEDS: 0.9% Saline Lock 10 ML Syringe IV (05:38)
[2023-09-30] MEDS: TITRATION PARAMETER CHANGE 1 EACH IV (05:38)
--- NOTE | 2023-09-30 05:42 | PCM.OP.PRO ---
Procedure Report Date of Procedure: 09/29/23 Late entry -patient having difficulty with dialysis catheter working. A chest x-ray was obtained showing significant retraction into the SVC. Examination of the skin showed that it was still intact and the skin. The decision was made to change it over a guidewire. The patient was prepped in a sterile fashion. The right IJ line was then removed over a guidewire. A new line was placed without difficulty and sutured in place. Chest x-ray showed appropriate position without complication following the procedure. Estimated blood loss of 30 cc. Assessment & Plan Assessment/Plan (1) WINDY (acute kidney injury): Procedures Hospitalists Procedures: 22128 Insert Non-tunnel CV Cath
[2023-09-30] MEDS: fentaNYL drip 100 ML 7.5 MCG CONT INF ×2 (06:00→18:15)
[2023-09-30] MEDS: Propofol 10MG/Ml 1,000 MG/100 ML Bottle 26.2 MG CONT INF ×5 (06:02→20:00)
[2023-09-30] MEDS: Budesonide Respules 0.5 MG/2 ML AMPUL.NEB. INHALATION ×2 (06:59→19:32)
--- NOTE | 2023-09-30 07:41 | PCM.PN.INT ---
Assessment & Plan Assessment/Plan (1) Cellulitis: QUALIFIERS: Site of cellulitis: unspecified site Qualified Code(s): L03.90 - Cellulitis, unspecified (2) Septic shock: (3) WINDY (acute kidney injury): (4) Acute on chronic respiratory failure with hypoxia and hypercapnia: PLAN: Plan RECOMMENDATIONS: 1. Continue mechanical ventilation. Continue spontaneous breathing and awakening trials with ABG 2. Anticipate need for dialysis today. Defer to nephrology. 3. Continue antibiotics per ID. 4. Continue spontaneous breathing and awakening trials per protocol 5. Discontinue old hemodialysis line. Reinsert line later today IMPRESSIONS: 1. Acute on chronic combined respiratory failure Unclear etiology. Patient may have an element of OHS at baseline and has been noncompliant with CPAP therapy. Patient unable to have spontaneous breathing trial this morning, likely secondary to volume overload. Clinical suspicion is patient is volume overloaded, but oxygenation is not an issue. Patient has baseline OHS and not able to tolerate. Will replace hemodialysis line to help with volume removal 2. Septic shock secondary to cellulitis of left lower extremity Patient still significantly acidotic on ABG. Patient off of pressors. Renal function continues to worsen and patient is currently in oliguric renal failure, requiring dialysis. Blood pressures have been doing well at this time. Infectious diseases following 3. Acute kidney injury secondary to problem #2 and vancomycin Clinical suspicion for multifactorial etiology. Patient likely has a prerenal etiology secondary to hypotension. Patient also has supratherapeutic vancomycin levels noted. Patient does have an element of diabetes that appears to be poorly controlled given elevated hemoglobin A1c. Patient does have a Waters in place, so postobstructive etiology would be unlikely. Patient's BUN to creatinine ratio is suggestive of ATN. Patient able to tolerate conventional dialysis. Anticipate daily dialysis in the short-term 4. Diabetes mellitus type 2 Patient with poor control prior to presentation. Patient blood sugars appears to be doing okay at this time. Okay to continue with tube feeds. Will have to watch blood sugars closely. 5. Morbid obesity/poor compliance/poor insight Complicates care, management, recovery and prognosis. Patient's hemoglobin A1c was significantly elevated. Patient with significant lower extremity changes consistent with chronic lymphedema. Patient is a full code. Patient has had multiple bowel movements. Aggressive bowel measures will be taken. TIME: 34 minutes critical care time spent addressing patient's respiratory failure, septic shock, acute kidney injury, review of all data and collaboration with care team Subjective Subjective Patient did okay overnight. No acute issues were reported. Patient has had 3 bowel movements over the last 24 hours. Patient had trouble with dialysis yesterday. Catheter exchange was unsuccessful as he continued to have flow issues and only had 1.4 L removed. Patient was unable to have a spontaneous breathing trial this morning secondary to oxygen demands. Objective Data Objective Data Vital Signs: Vital Signs Temp Pulse Resp BP Pulse Ox O2 Del Method O2 Flow Rate 37.0 C 69 14 101/59 L 92 Mechanical Ventilator 65 09/30/23 07:00 09/30/23 07:00 09/30/23 07:00 09/30/23 07:00 09/30/23 07:00 09/30/23 07:00 09/28/23 10:26 FiO2 55 09/30/23 07:00 Oxygen Flow Rate (L/min) 65 Oxygen Delivery Method Mechanical Ventilator Weight: 218.4 kg Body Mass Index (BMI) 67.3 Intake & Output: Intake and Output for Last 24 Hours 09/28/23 09/29/23 09/30/23 23:59 23:59 23:59 Intake Total 1782.94 / 1861.78 2212.51 / 2246.11 1344.00 / 1344.00 Output Total 2682 / 2682 1700 / 1700 125 / 125 Balance -899.06 / -820.22 512.51 / 546.11 1219.00 / 1219.00 Lab / Micro Data Attestation: I reviewed the patient's lab results. 09/30/23 03:05 09/30/23 03:05 Labs: Laboratory Results - last 24 hr 09/29/23 12:45: POC Glucose 144 H 09/29/23 18:51: POC Glucose 137 H 09/29/23 22:53: POC Glucose 146 H 09/30/23 03:05: WBC 10.8, RBC 5.66, Hgb 13.5, Hct 46.0, MCV 81.3, MCH 23.9 L, MCHC 29.3 L, RDW Std Deviation 48.0 H, RDW Coeff of Benedicto 16.3 H, Plt Count 305, MPV 9.4, Sodium 131 L, Potassium 4.3, Chloride 96 L, Carbon Dioxide 22.0, Anion Gap 13, BUN 74 H, Creatinine 7.45 H*, Estim Creat Clear Calc 24.14, Est GFR (MDRD) Af Amer 10 L, Est GFR (MDRD) Non-Af 9 L, BUN/Creatinine Ratio 9.9 L, Glucose 129 H, Calcium 7.6 L 09/30/23 04:44: POC Glucose 140 H Micro: Microbiology 09/23/23 13:45 Blood Culture (Wb) - Anticubital Right Blood Culture - Final No growth in 5 days. 09/23/23 11:40 Blood Culture (Wb) - Anticubital Right Blood Culture - Final No growth in 5 days. 09/23/23 10:25 Blood Culture (Wb) - Arm Left Blood Culture - Final No growth in 5 days. 09/26/23 14:55 Blood Culture (Wb) - Pic Blood Culture - Preliminary No growth in 48 hours. 09/26/23 14:55 Blood Culture (Wb) - Pic Blood Culture - Preliminary No growth in 48 hours. 09/26/23 07:35 Sputum, Induced/Lukens Gram Stain - Final 09/26/23 07:35 Sputum, Induced/Lukens Respiratory Culture - Final Culture exhibits no growth. 09/23/23 14:00 Wound - Leg, Left Gram Stain - Final 09/23/23 14:00 Wound - Leg, Left Wound Culture - Final Streptococcus dysgalactiae equ Proteus hauseri Alcaligenes faecalis ssp faeca Staphylococcus aureus Radiography Diagnostic Testing: Radiology Impression Chest X-Ray 09/29/23 13:00 IMPRESSION: A right-sided internal jugular venous catheter has been placed with the tip in the midportion of the superior vena cava. The remainder of the examination is unchanged. Electronically Signed: Gregg Allen MD at 13:17 EDT , Chest X-Ray 09/29/23 13:45 IMPRESSION: The right-sided dialysis catheter is at the junction of the superior vena cava and right atrium. The tip of the endotracheal tube is at 2.5 cm proximal to the shamir. Electronically Signed: Gregg Allen MD at 14:11 EDT , Rhythm Strip Rhythm Strip: Sinus Rhythm Rate: 79 Physical Exam Const alert, oriented x3 and no apparent distress Constitutional Narrative: Morbidly obese. Good ventilator synchrony General Appearance: patient mechanically ventilated HEENT normocephalic, head/scalp atraumatic and moist oral mucous membranes Mouth: endotracheal tube in place and OG tube in place Eyes PERRL and EOMs intact bilaterally Neck no lymphadenopathy and supple Lymph Lymphatic: lymphedema Resp Resp Narrative: Distant breath sounds given body habitus Auscultation: diminished lung sounds; Negative for rales, rhonchi or wheezes Cardio regular rate, regular rhythm, S1 normal heart sound, S2 normal heart sound and no murmurs Cardio Narrative: Distant heart sounds GI normal to inspection, nondistended, normoactive bowel sounds, soft to palpation and non-distended Extremity Extremity Narrative: Both lower extremities wrapped in bandage. General Extremity: no tenderness to palpation of joints or extremities Skin Skin Narrative: Significant erythema noted bilateral lower extremities appears to be improving slowly Neuro CN's II-XII intact bilaterally, no focal motor deficits and no sensory deficits noted Psych Mood & Affect: flat affect Charges/Coding Procedures Hospitalists Procedures: 57755 Critical Care 1st Hr
[2023-09-30] MEDS: Chlorhexidine 15 ML PO ×2 (08:04→22:17)
[2023-09-30] MEDS: Pantoprazole Sodium 40 MG in 0.9% Normal Saline (100mL MB+) 100 ML 330 MG IV (09:19)
[2023-09-30 10:26] LABS: International Normalized Ratio 1.1; Prothrombin Time (Protime)PT. 14.1 SECONDS (11.7-14.9)
[2023-09-30 10:27] LABS: Partial Thromboplast Time 29.7 Seconds (24.1-36.2)
--- NOTE | 2023-09-30 10:44 | PCM.PN.ID ---
Physical Exam Narrative On vent, no fever Const no apparent distress Resp normal air movement and clear to auscultation bilaterally Cardio regular rate and regular rhythm GI soft to palpation, non-tender and non-distended Skin Skin Narrative: LLE less red ID ID: Route of nutrition/ use of supplements: [] Nutritional Intake: [] IV Site: [] Waters Catheter: [] Assessment & Plan Assessment/Plan (1) Septic shock: PLAN: Wbc improved, BP improved. Remains on vent. Now on HD. Wound cx with strep, MSSA, proteus, alcaligenes. Cont sheila. Leg cont to improve Will follow (2) WINDY (acute kidney injury): (3) Cellulitis: QUALIFIERS: Site of cellulitis: unspecified site Qualified Code(s): L03.90 - Cellulitis, unspecified (4) Acute on chronic respiratory failure with hypoxia and hypercapnia:
[2023-09-30] MEDS: Insulin Glargine-YFGN 100 UNIT/ML Pen 20 UNIT SC (10:54)
--- NOTE | 2023-09-30 10:55 | PN.RENAL_ITS ---
Subjective Subjective Intubated. No overnight events. Objective Data Objective Data Vital Signs: Vital Signs Temp Pulse Resp BP Pulse Ox O2 Del Method O2 Flow Rate 98.3 F 72 14 103/59 L 95 Mechanical Ventilator 65 09/30/23 10:00 09/30/23 10:00 09/30/23 10:00 09/30/23 10:00 09/30/23 10:00 09/30/23 10:00 09/28/23 10:26 FiO2 55 09/30/23 10:00 Oxygen Flow Rate (L/min) 65 Oxygen Delivery Method Mechanical Ventilator Weight: 218.4 kg Body Mass Index (BMI) 67.3 Intake & Output: Intake and Output for Last 24 Hours 09/28/23 09/29/23 09/30/23 23:59 23:59 23:59 Intake Total 1782.94 / 1861.78 2212.51 / 2246.11 1628.35 / 1628.35 Output Total 2682 / 2682 1700 / 1700 125 / 125 Balance -899.06 / -820.22 512.51 / 546.11 1503.35 / 1503.35 Lab / Micro Data 09/30/23 03:05 09/30/23 03:05 Labs: Laboratory Results - last 24 hr 09/29/23 12:45: POC Glucose 144 H 09/29/23 18:51: POC Glucose 137 H 09/29/23 22:53: POC Glucose 146 H 09/30/23 03:05: WBC 10.8, RBC 5.66, Hgb 13.5, Hct 46.0, MCV 81.3, MCH 23.9 L, MCHC 29.3 L, RDW Std Deviation 48.0 H, RDW Coeff of Benedicto 16.3 H, Plt Count 305, MPV 9.4, Sodium 131 L, Potassium 4.3, Chloride 96 L, Carbon Dioxide 22.0, Anion Gap 13, BUN 74 H, Creatinine 7.45 H*, Estim Creat Clear Calc 24.14, Est GFR (MDRD) Af Amer 10 L, Est GFR (MDRD) Non-Af 9 L, BUN/Creatinine Ratio 9.9 L, Glucose 129 H, Calcium 7.6 L 09/30/23 04:44: POC Glucose 140 H 09/30/23 09:52: PT 14.1, INR 1.1, APTT 29.7 Micro: Microbiology 09/23/23 13:45 Blood Culture (Wb) - Anticubital Right Blood Culture - Final No growth in 5 days. 09/23/23 11:40 Blood Culture (Wb) - Anticubital Right Blood Culture - Final No growth in 5 days. 09/23/23 10:25 Blood Culture (Wb) - Arm Left Blood Culture - Final No growth in 5 days. 09/26/23 14:55 Blood Culture (Wb) - Pic Blood Culture - Preliminary No growth in 48 hours. 09/26/23 14:55 Blood Culture (Wb) - Pic Blood Culture - Preliminary No growth in 48 hours. 09/26/23 07:35 Sputum, Induced/Lukens Gram Stain - Final 09/26/23 07:35 Sputum, Induced/Lukens Respiratory Culture - Final Culture exhibits no growth. 09/23/23 14:00 Wound - Leg, Left Gram Stain - Final 09/23/23 14:00 Wound - Leg, Left Wound Culture - Final Streptococcus dysgalactiae equ Proteus hauseri Alcaligenes faecalis ssp faeca Staphylococcus aureus Radiography Diagnostic Testing: Radiology Impression Chest X-Ray 09/29/23 13:00 IMPRESSION: A right-sided internal jugular venous catheter has been placed with the tip in the midportion of the superior vena cava. The remainder of the examination is unchanged. Electronically Signed: Gregg Allen MD at 13:17 EDT , Chest X-Ray 09/29/23 13:45 IMPRESSION: The right-sided dialysis catheter is at the junction of the superior vena cava and right atrium. The tip of the endotracheal tube is at 2.5 cm proximal to the shamir. Electronically Signed: Gregg Allen MD at 14:11 EDT , Rhythm Strip Rhythm Strip: Sinus Rhythm Rate: 79 Physical Exam Narrative Intubated, sedated Pallor present S1-S2 Lung sounds clear anteriorly Abdomen is nondistended Extensive erythema over the lower extremities extending into the thighs and groin area, likely chronic lymphedema Waters catheter indwelling with scant urine in bag Assessment & Plan Assessment/Plan (1) WINDY (acute kidney injury): PLAN: 43-year-old male with past medical history significant for morbid obesity, lymphedema who presented to [place] emergency room on 09/22 with complaints of worsening swelling and redness to his lower extremities. Admitted for cellulitis. Nephrology consulted for rising serum creatinine. - WINDY likely now ischemic ATN secondary to sepsis, shock, and possible component from supratherapeutic vanco levels. Baseline creatinine was normal before admission. Urine analysis not impressive. Serum creatinine rising daily. Patient started hemodialysis via non-tunneled temporary HD catheter on 09/27 for 3hrs. Underwent HD again 09/28 for only about 2 hours as had issues with temporary HD catheter. Temporary line has been pulled. New line placed which was pulled this morning and apparently had some kinking at end of catheter. Today SCr 7.45mg/dl, potassium and bicarb normal today, urine output 125ml. No n oted renal recovery and therefore will continue with dialysis. Patient likely will need a tunneled HD catheter. discussed with surgery. Weight 218kg - Acute respiratory failure; patient had been on BiPAP, then intubated 09/25. Oxygenation requirements increased overnight. Discussed with ICU team.
[2023-09-30 11:12] LABS: Bedside Glucose 140 mg/dL (74-106)
--- NOTE | 2023-09-30 11:39 | CON.PCM.SX_ITS ---
Assessment & Plan Assessment/Plan (1) WINDY (acute kidney injury): (2) Acute on chronic respiratory failure with hypoxia and hypercapnia: (3) Cellulitis: QUALIFIERS: Site of cellulitis: unspecified site Qualified Code(s): L03.90 - Cellulitis, unspecified (4) Morbid obesity: PLAN: Plan Discussed with nephrology recommend patient have another temporary line placed as he is 481 pounds currently still on the vent, last blood pressure 98/56-will discuss with Dr. Duarte as well. Will plan to place a tunneled line once aziza pimentel is more stable/off the vent in the OR. Mary Jane Hunter M.D. Pager: [phone] [facility] [address] [place] [address], [facility], [address] [place] [address] Office: [phone] HPI Consult Data Date of Consult: 09/30/23 HPI Narrative Reason for Consultation: Tunneled dialysis catheter HPI Narrative: PHILL DWYER, is a 43 M who admitted due to respiratory failure, cellulitis bilateral lower extremities, hypotension, acute kidney injury. Patient is currently on the ventilator. Patient did have dialysis catheter temporary placed in the right IJ this did end up in the SVC and did not work well thus it was changed over a wire however that one did not work as well either thus it was removed and found to have a kink at the end. Nephrology thinks patient may need tunneled dialysis catheter prior to discharge. [facility] Medical History (Updated 09/30/23 @ 11:[address] Mary Jane Hunter MD) Cellulitis Lymphedema Morbid obesity Home Medications NK 09/23/23 [History Last Taken Unknown] Allergy/AdvReac Type Severity Reaction Status Date / Time No Known Allergies Allergy Verified 09/23/23 09:27 Family History Other Obesity Surgical History no surgical history Social History Smoking Status: Never smoker ROS Review of Systems ROS Unobtainable: due to endotracheal tube Physical Exam Narrative Intubated/sedated on a ventilator HEENT HEENT Narrative: ET tube in place Neck supple Cardio Rate: regular rate GI soft to palpation Inspection: central obesity Bladder / Kidney Exam: catheter in place Extremity Extremity Narrative: Erythema of the lower extremities bilaterally, below the knees Mono wrapped bilaterally, erythema is improved from previous marked line on the right upper thigh Lab / Micro Data 09/30/23 03:05 09/30/23 03:05 Labs: Laboratory Results - last 24 hr 09/29/23 12:45: POC Glucose 144 H 09/29/23 18:51: POC Glucose 137 H 09/29/23 22:53: POC Glucose 146 H 09/30/23 03:05: WBC 10.8, RBC 5.66, Hgb 13.5, Hct 46.0, MCV 81.3, MCH 23.9 L, MCHC 29.3 L, RDW Std Deviation 48.0 H, RDW Coeff of Benedicto 16.3 H, Plt Count 305, MPV 9.4, Sodium 131 L, Potassium 4.3, Chloride 96 L, Carbon Dioxide 22.0, Anion Gap 13, BUN 74 H, Creatinine 7.45 H*, Estim Creat Clear Calc 24.14, Est GFR (MDRD) Af Amer 10 L, Est GFR (MDRD) Non-Af 9 L, BUN/Creatinine Ratio 9.9 L, Glucose 129 H, Calcium 7.6 L 09/30/23 04:44: POC Glucose 140 H 09/30/23 09:52: PT 14.1, INR 1.1, APTT 29.7 09/30/23 10:53: POC Glucose 140 H Rhythm Strip Rhythm Strip: Sinus Rhythm Rate: 79 Imaging Radiology Impression Chest X-Ray 09/29/23 13:00 IMPRESSION: A right-sided internal jugular venous catheter has been placed with the tip in the midportion of the superior vena cava. The remainder of the examination is unchanged. Electronically Signed: Gregg Allen MD at 13:17 EDT , Chest X-Ray 09/29/23 13:45 IMPRESSION: The right-sided dialysis catheter is at the junction of the superior vena cava and right atrium. The tip of the endotracheal tube is at 2.5 cm proximal to the shamir. Electronically Signed: Gregg Allen MD at 14:11 EDT , Charges/Coding Visit Charges Inpatient E&M: 72581 Init Hosp L3
--- NOTE | 2023-09-30 13:21 | PN.HOSP_ITS ---
Reason for Visit Reason for Visit: Diagnoses Sepsis, unspecified organism (09/23/23) Hypo-osmolality and hyponatremia (09/23/23) Acute and chronic respiratory failure with hypoxia (09/23/23) Acute and chronic respiratory failure with hypercapnia (09/23/23) Cellulitis, unspecified (09/23/23) Acute kidney failure, unspecified (09/23/23) Severe sepsis with septic shock (09/23/23) Subjective Subjective No acute events overnight. Patient seen at bedside this morning. Remains intubated and mildly sedated but opening eyes and following commands similar to yesterday. Shakes his head when asked if he has any pain or discomfort. Objective Data Objective Data Vital Signs: Vital Signs Temp Pulse Resp BP Pulse Ox O2 Del Method O2 Flow Rate 98.5 F 70 14 102/55 L 95 Mechanical Ventilator 65 09/30/23 12:00 09/30/23 12:00 09/30/23 12:00 09/30/23 12:00 09/30/23 12:00 09/30/23 12:00 09/28/23 10:26 FiO2 30 09/30/23 12:00 Oxygen Flow Rate (L/min) 65 Oxygen Delivery Method Mechanical Ventilator Weight: 218.4 kg Body Mass Index (BMI) 67.3 Intake & Output: Intake and Output for Last 24 Hours 09/28/23 09/29/23 09/30/23 23:59 23:59 23:59 Intake Total 1782.94 / 1861.78 2212.51 / 2246.11 1737.05 / 1737.05 Output Total 2682 / 2682 1700 / 1700 125 / 125 Balance -899.06 / -820.22 512.51 / 546.11 1612.05 / 1612.05 Lab / Micro Data 09/30/23 03:05 09/30/23 03:05 Labs: Laboratory Results - last 24 hr 09/29/23 18:51: POC Glucose 137 H 09/29/23 22:53: POC Glucose 146 H 09/30/23 03:05: WBC 10.8, RBC 5.66, Hgb 13.5, Hct 46.0, MCV 81.3, MCH 23.9 L, MCHC 29.3 L, RDW Std Deviation 48.0 H, RDW Coeff of Benedicto 16.3 H, Plt Count 305, MPV 9.4, Sodium 131 L, Potassium 4.3, Chloride 96 L, Carbon Dioxide 22.0, Anion Gap 13, BUN 74 H, Creatinine 7.45 H*, Estim Creat Clear Calc 24.14, Est GFR (MDRD) Af Amer 10 L, Est GFR (MDRD) Non-Af 9 L, BUN/Creatinine Ratio 9.9 L, Glucose 129 H, Calcium 7.6 L 09/30/23 04:44: POC Glucose 140 H 09/30/23 09:52: PT 14.1, INR 1.1, APTT 29.7 09/30/23 10:53: POC Glucose 140 H Micro: Microbiology 09/23/23 13:45 Blood Culture (Wb) - Anticubital Right Blood Culture - Final No growth in 5 days. 09/23/23 11:40 Blood Culture (Wb) - Anticubital Right Blood Culture - Final No growth in 5 days. 09/23/23 10:25 Blood Culture (Wb) - Arm Left Blood Culture - Final No growth in 5 days. 09/26/23 14:55 Blood Culture (Wb) - Pic Blood Culture - Preliminary No growth in 48 hours. 09/26/23 14:55 Blood Culture (Wb) - Pic Blood Culture - Preliminary No growth in 48 hours. 09/26/23 07:35 Sputum, Induced/Lukens Gram Stain - Final 09/26/23 07:35 Sputum, Induced/Lukens Respiratory Culture - Final Culture exhibits no growth. 09/23/23 14:00 Wound - Leg, Left Gram Stain - Final 09/23/23 14:00 Wound - Leg, Left Wound Culture - Final Streptococcus dysgalactiae equ Proteus hauseri Alcaligenes faecalis ssp faeca Staphylococcus aureus Radiography Diagnostic Testing: Radiology Impression Chest X-Ray 09/29/23 13:45 IMPRESSION: The right-sided dialysis catheter is at the junction of the superior vena cava and right atrium. The tip of the endotracheal tube is at 2.5 cm proximal to the shamir. Electronically Signed: Gregg Allen MD at 14:11 EDT , Rhythm Strip Rhythm Strip: Sinus Rhythm Rate: 79 Physical Exam Const Constitutional Narrative: Super morbid obesity. Intubated and mildly sedated. Following commands and understanding conversation. HEENT normocephalic, head/scalp atraumatic and nasal mucous membranes and turbinates normal Eyes PERRL, EOMs intact bilaterally and conjunctivae normal Chest inspection of chest normal Resp normal respiratory effort and no use of accessory muscles Resp Narrative: Mild to moderately decreased breath sounds throughout bilaterally, no wheezing or crackles noted but notably difficult to auscultate given body habitus. Cardio regular rate, regular rhythm, no murmurs and peripheral pulses 2+ throughout GI normal to inspection, nondistended, normoactive bowel sounds, soft to palpation, non-tender and non-distended Extremity Extremity Narrative: Bilateral lower extremities with Mono wrap up to the knees noted. Lower extremity edema improving and erythema of left leg much improved from admission. Neuro moves all extremities Sensorium / Orientation: awake and alert Assessment & Plan Assessment/Plan (1) Acute on chronic respiratory failure with hypoxia and hypercapnia: (2) Septic shock: (3) WINDY (acute kidney injury): PLAN: Plan Patient is a 43-year-old male who presented to [facility] ED on 09/23/2023 with worsening left lower extremity swelling and pain with ambulation. 1. Acute on chronic combined respiratory failure, history of SUNG with CPAP nonadherence ? Has known history of SUNG with CPAP nonadherence. Suspected to have underlying OHS as well. Severe hypercapnia noted overnight on 09/24, did not improve much with and required intubation with mechanical ventilation. ? Cloth Trimmer Hand following. Remains intubated and mildly sedated but following commands and understanding conversation as of 09/27. Low vent settings. However, has failed SBT for last few days due to CO2 retention and acidosis. ? Will complete third HD session on 09/29. Hopeful for extubation in the next few days, appreciate machine molder squeeze recs. 2. Septic shock secondary to left lower extremity cellulitis, chronic lower e xtremity lipedema ? Cloth Trimmer Hand and infectious disease following. Wound care following. ? Wound cultures from left lower extremity on 09/22 grew Strep dysgalactiae, Proteus, Staph aureus and Alcalignenes. Blood cultures from 09/22 negative x 2, repeat blood cultures from 09/25 again with no growth after 48 hours. ? Initially treated with vancomycin and meropenem, however vancomycin discontinued due to elevated troughs and severe WINDY as noted below. Continue meropenem for now, appreciate ID recs. Patient notably has had significant improvement in left lower extremity cellulitis. ? Has now been stable off pressors since 09/27. 3. Severe WINDY ? Creatinine 0.91 on admission, likely baseline. Had significant uptrend in creatinine with very minimal urine output for first several days admission. Given patient's worsening volume overload and minimal urine output, decision was made to initiate dialysis on 09/27. ? Completed HD sessions on 09/27 and 09/28. Third HD session planned for 09/29. HD being run through right IJ HD catheter currently. ? Surgery consulted. Plan is for tunneled HD catheter placement prior to discharge. ? Nephrology following. Appreciate recs. 4. Type 2 diabetes mellitus ? A1c 10.1% on admit. Not on any home diabetic medications. Unclear if patient was previously diagnosed with diabetes or not. Continue Lantus 20 units at night, sliding scale insulin with tube feeds every 4 hours as needed for now. 5. Hyponatremia, stable ? Nephrology following as above. Sodium 128 on admit, remained stable around 126-129 for several days. Now slowly improving with volume removal with hemodialysis. Continue to monitor BMP daily. 6. Super morbid obesity ? BMI 66 on admit. Complicates hospital course, care and prognosis. DVT prophylaxis: Heparin subcu CODE STATUS: Full code, verified Expected disposition: TBD Total clinical time spent by myself addressing the patient's medical issues, reviewing all the data, and collaborating with patient's care team: 35 minutes. Charges/Coding Visit Charges Inpatient E&M: 04795 Subs Hosp L2
[2023-09-30] MEDS: Meropenem 1 GM in 0.9% Normal Saline (100mL MB+) 100 ML IV (14:32)
--- NOTE | 2023-09-30 15:35 | RAD_ITS ---
STUDY: X-RAY CHEST REASON FOR EXAM: Male, 43 years old. line placement TECHNIQUE: AP portable COMPARISON: September 29, 2023 FINDINGS: Diffuse bilateral perihilar infiltrates or pulmonary edema.. There is no demonstrated pleural abnormality. Central line placement on the right with tip in distal 3 vena cava without evidence for pneumothorax [Cardiomegaly. Normal mediastinum and cirilo. Normal visualized pulmonary arteries. Normal visualized aortic arch and descending thoracic aorta. Endotracheal tube noted with tip approximately 4.8 cm proximal to shamir. Dorsal spine demonstrates degenerative change. Normal visualized ribs, clavicles, and shoulders. Nasogastric tube is observed below the diaphragm although the tip is not visualized. There is no demonstrated abnormality of the visualized soft tissue structures of the upper abdomen. RAD/Chest 1 View (Portable) IMPRESSION: Bilateral perihilar interstitial infiltrates or pulmonary edema. . No evidence for pneumothorax status post right central line placement with tip in distal superior vena cava Electronically Signed: Jonathan Perdue MD at 16:53 EDT ,
--- NOTE | 2023-09-30 15:50 | PCM.OP.BLANK ---
Problems Associated Problem List Diagnoses (1) WINDY (acute kidney injury): (2) Septic shock: Operative Report Date of Procedure: 09/30/23 Temporary hemodialysis catheter line placement procedure note Indication: Hemodialysis Procedure: A time-out was completed to verify correct patient, indication, medication allergies, procedure, coagulation studies, informed consent signed, and equipment needed. The patient was placed in the supine position for a central line placement to the rt IJ vein. The patients rt neck was prepped using chlorhexidine and a full body sterile drape was applied. 1% lidocaine was used to anesthetize the surrounding skin. A 12fr 16 cm temporary hemodialysis catheter introduced into the internal jugular femoral vein using the modified seldinger technique with the assistance of ultrasound. The site was dilated up twice in a stepwise fashion. The catheter was threaded smoothly over the guidewire, the guidewire was removed easily, nonpulsatile blood returned. All ports were aspirated of air and flushed with sterile saline, hemodialysis nurse here to begin hemodialysis immediately after chest x-ray confirmation. Therefore, did not lock with heparin. The catheter was sutured in place and covered with an occlusive dressing impregnated with chlorhexidine. Post-procedure: The patient tolerated the procedure well. Vital signs remained stable. EBL 7 cc. No complications. Chest X Ray confirmed tip placement and the absence of pneumothorax. Procedures Hospitalists Procedures: 65124 Insert Non-tunnel CV Cath
[2023-09-30] MEDS: 0.9 % NaCl (Sterile) Posiflush 10 mL IV ×2 (16:09→18:31)
[2023-09-30] MEDS: PureFlow B 2K Dialysis Soln 1 BAG 6 BAG PF (16:09)
[2023-09-30] MEDS: 0.9% Normal Saline 1,000 ML IV.SOLN. 1000 ML OPERA.SITE (16:09)
[2023-09-30 18:13] LABS: Bedside Glucose 102 mg/dL (74-106)
[2023-09-30] MEDS: Heparin 10,000 UNITS/10 ML Vial IV (18:31)
[2023-10-01] VITALS (46 sets, daily range): BP systolic 54–256; BP diastolic 46–78; PULSE 69–91; RESP 12–22; TEMP 37.1–37.6; O2SAT 88–100; BMI 66.4; BMI 65.2
[2023-10-01] MEDS: Propofol 10MG/Ml 1,000 MG/100 ML Bottle 13.1 MG CONT INF ×3 (00:51→18:48)
[2023-10-01 01:11] LABS: Bedside Glucose 124 mg/dL (74-106)
[2023-10-01 03:07] LABS: Hematocrit 42.9 % (40-54); Hemoglobin 13.1 g/dL (13.0-16.5); Mean Corp Hgb Conc 30.5 g/dL (32-36); Mean Corpuscular Volume 81.7 fL (80-94); Mean Platelet Vol. 9.5 fl (6.2-12.0); Platelet Count 310 K/mm3 (150-450); RBC Distribution Width CV 16.4 % (11.6-14.6); RBC Distribution Width SD 48.4 fl (35.1-43.9); Red Blood Count 5.25 M/mm3 (4.6-6.2); White Blood Count 10.9 K/mm3 (4.4-11.0)
[2023-10-01 03:28] LABS: Anion Gap 11 (5-15); BUN 71 mg/dL (7-18); BUN/Creat Ratio 9.5 RATIO (10-20); Calcium,Total 7.8 mg/dL (8.5-10.1); Chloride 97 mmol/L (98-107); Creatinine, Serum 7.45 mg/dL (0.70-1.30); EST Glomerular Filtration Rate 9 mL/min (>60); Est Glom Filt Rate - Afr Amer 10 mL/min (>60); Glucose 145 mg/dL (74-106); Potassium 4.5 mmol/L (3.5-5.1); Sodium Level 130 mmol/L (136-145)
[2023-10-01] MEDS: Nystatin Powder 15gm Bottle 1 APPLIC TOPICAL ×3 (06:15→21:45)
[2023-10-01] MEDS: 0.9% Saline Lock 10 ML Syringe IV (06:15)
[2023-10-01] MEDS: Heparin Injection (Vial) 5,000 UNIT/ML VIAL 5000 UNIT SC ×3 (06:15→21:47)
[2023-10-01] MEDS: Budesonide Respules 0.5 MG/2 ML AMPUL.NEB. INHALATION ×2 (06:56→19:02)
--- NOTE | 2023-10-01 07:18 | PCM.PN.INT ---
Assessment & Plan Assessment/Plan (1) Cellulitis: QUALIFIERS: Site of cellulitis: unspecified site Qualified Code(s): L03.90 - Cellulitis, unspecified (2) Septic shock: (3) WINDY (acute kidney injury): (4) Acute on chronic respiratory failure with hypoxia and hypercapnia: PLAN: Plan RECOMMENDATIONS: 1. Continue mechanical ventilation. Continue spontaneous breathing and awakening trials with ABG 2. Anticipate need for dialysis today. Defer to nephrology. 3. Continue antibiotics per ID. 4. Potential extubation pending blood gas 5. Patient will need a tunneled hemodialysis line if current line fails IMPRESSIONS: 1. Acute on chronic combined respiratory failure Unclear etiology. Patient may have an element of OHS at baseline and has been noncompliant with CPAP therapy. Patient unable to have spontaneous breathing trial this morning, likely secondary to volume overload. Clinical suspicion is patient is volume overloaded, but oxygenation is not an issue. Patient has baseline OHS and not able to tolerate. Patient with significant volume removal yesterday. Patient tolerating spontaneous breathing trial, but remains acidotic previously. Patient has had some slightly increased secretions, but may proceed with extubation as he does have a strong cough 2. Septic shock secondary to cellulitis of left lower extremity Patient still significantly acidotic on ABG. Patient off of pressors. Renal function continues to worsen and patient is currently in oliguric renal failure, requiring dialysis. Blood pressures have been doing well at this time. Infectious diseases following 3. Acute kidney injury secondary to problem #2 and vancomycin Clinical suspicion for multifactorial etiology. Patient likely has a prerenal etiology secondary to hypotension. Patient also has supratherapeutic vancomycin levels noted. Patient does have an element of diabetes that appears to be poorly controlled given elevated hemoglobin A1c. Patient does have a Waters in place, so postobstructive etiology would be unlikely. Patient's BUN to creatinine ratio is suggestive of ATN. Patient able to tolerate conventional dialysis. Patient has had significant difficulties with temporary hemodialysis line migration secondary to body habitus. If current temporary dialysis line fails, evaluation for tunneled hemodialysis line will need to be made. Continue bowel regimen 4. Diabetes mellitus type 2 Patient with poor control prior to presentation. Patient blood sugars appears to be doing okay at this time. Okay to continue with tube feeds. Will have to watch blood sugars closely. 5. Morbid obesity/poor compliance/poor insight Complicates care, management, recovery and prognosis. Patient's hemoglobin A1c was significantly elevated. Patient with significant lower extremity changes consistent with chronic lymphedema. Patient is a full code. Patient has had multiple bowel movements. Continue bowel regimen TIME: 32 minutes critical care time spent addressing patient's respiratory failure, septic shock, acute kidney injury, review of all data and collaboration with care team Subjective Subjective Patient did well overnight. Patient did have to have a new hemodialysis line placed yesterday and successfully had almost 4 L removed with dialysis. Nursing and respiratory have reported increased secretions overnight. Patient tolerating spontaneous breathing trial at this time, but ABG is still pending. Patient tolerating tube feeds. Patient has had bowel movements. Objective Data Objective Data Vital Signs: Vital Signs Temp Pulse Resp BP Pulse Ox O2 Del Method O2 Flow Rate 37.3 C H 80 17 105/63 96 Mechanical Ventilator 65 10/01/23 06:00 10/01/23 07:00 10/01/23 07:00 10/01/23 07:00 10/01/23 07:00 10/01/23 07:00 09/28/23 10:26 FiO2 40 10/01/23 07:00 Oxygen Flow Rate (L/min) 65 Oxygen Delivery Method Mechanical Ventilator Weight: 215.4 kg Body Mass Index (BMI) 66.4 Intake & Output: Intake and Output for Last 24 Hours 09/29/23 09/30/23 10/01/23 23:59 23:59 23:59 Intake Total 2212.51 / 2246.11 3643.56 / 3735.89 456.99 / 456.99 Output Total 1700 / 1700 4225 / 4225 100 / 100 Balance 512.51 / 546.11 -581.44 / -489.11 356.99 / 356.99 Lab / Micro Data Attestation: I reviewed the patient's lab results. 10/01/23 03:00 10/01/23 03:00 Labs: Laboratory Results - last 24 hr 09/30/23 09:52: PT 14.1, INR 1.1, APTT 29.7 09/30/23 10:53: POC Glucose 140 H 09/30/23 17:55: POC Glucose 102 10/01/23 00:50: POC Glucose 124 H 10/01/23 03:00: WBC 10.9, RBC 5.25, Hgb 13.1, Hct 42.9, MCV 81.7, MCH 25.0 L, MCHC 30.5 L, RDW Std Deviation 48.4 H, RDW Coeff of Benedicto 16.4 H, Plt Count 310, MPV 9.5, Sodium 130 L, Potassium 4.5, Chloride 97 L, Carbon Dioxide 22.0, Anion Gap 11, BUN 71 H, Creatinine 7.45 H*, Estim Creat Clear Calc 24.20, Est GFR (MDRD) Af Amer 10 L, Est GFR (MDRD) Non-Af 9 L, BUN/Creatinine Ratio 9.5 L, Glucose 145 H, Calcium 7.8 L Micro: Microbiology 09/23/23 13:45 Blood Culture (Wb) - Anticubital Right Blood Culture - Final No growth in 5 days. 09/23/23 11:40 Blood Culture (Wb) - Anticubital Right Blood Culture - Final No growth in 5 days. 09/23/23 10:25 Blood Culture (Wb) - Arm Left Blood Culture - Final No growth in 5 days. 09/26/23 14:55 Blood Culture (Wb) - Pic Blood Culture - Preliminary No growth in 48 hours. 09/26/23 14:55 Blood Culture (Wb) - Pic Blood Culture - Preliminary No growth in 48 hours. 09/26/23 07:35 Sputum, Induced/Lukens Gram Stain - Final 09/26/23 07:35 Sputum, Induced/Lukens Respiratory Culture - Final Culture exhibits no growth. 09/23/23 14:00 Wound - Leg, Left Gram Stain - Final 09/23/23 14:00 Wound - Leg, Left Wound Culture - Final Streptococcus dysgalactiae equ Proteus hauseri Alcaligenes faecalis ssp faeca Staphylococcus aureus Radiography Diagnostic Testing: Radiology Impression Chest X-Ray 09/30/23 15:35 IMPRESSION: Bilateral perihilar interstitial infiltrates or pulmonary edema. . No evidence for pneumothorax status post right central line placement with tip in distal superior vena cava Electronically Signed: Jonathan Perdue MD at 16:53 EDT , Rhythm Strip Rhythm Strip: Sinus Rhythm Rate: 78 Physical Exam Const alert, oriented x3 and no apparent distress Constitutional Narrative: Morbidly obese. Good ventilator synchrony General Appearance: patient mechanically ventilated HEENT normocephalic, head/scalp atraumatic and moist oral mucous membranes Mouth: endotracheal tube in place and OG tube in place Eyes PERRL and EOMs intact bilaterally Neck no lymphadenopathy and supple Lymph Lymphatic: lymphedema Resp Resp Narrative: Distant breath sounds given body habitus Auscultation: diminished lung sounds; Negative for rales, rhonchi or wheezes Cardio regular rate, regular rhythm, S1 normal heart sound, S2 normal heart sound and no murmurs Cardio Narrative: Distant heart sounds GI normal to inspection, nondistended, normoactive bowel sounds, soft to palpation and non-distended Extremity Extremity Narrative: Both lower extremities wrapped in bandage. General Extremity: no tenderness to palpation of joints or extremities Skin Skin Narrative: Significant erythema noted bilateral lower extremities appears to be improving slowly Neuro CN's II-XII intact bilaterally, no focal motor deficits and no sensory deficits noted Psych Mood & Affect: flat affect Charges/Coding Procedures Hospitalists Procedures: 63208 Critical Care 1st Hr
[2023-10-01 07:33] LABS: Allen Test Positive; Base Excess -5 mmol/L (-2 to +2); Bicarbonate 22.6 mmol/L (22-26); Blood Gas Specimen Type ART; Mode CPAP/PS; O2 Delivery Device Adult Vent; PEEP 5; PO2 100 mmHG (75-100); SITE R Radial; SO2 96 % (95-99); Total Carbon Dioxide 24 mmol/L; pCO2 53.9 mmHg (35-45); pH 7.23 (7.35-7.45)
--- NOTE | 2023-10-01 09:37 | WOUNDNOTE ---
RADHA wraps intact to bilateral lower legs. will leave dressing in place. orders for every other day changes and this nurse changed the dressings yesterday.
[2023-10-01] MEDS: Pantoprazole Sodium 40 MG in 0.9% Normal Saline (100mL MB+) 100 ML 330 MG IV (10:03)
[2023-10-01] MEDS: Chlorhexidine 15 ML PO ×2 (10:03→21:45)
[2023-10-01] MEDS: Insulin Glargine-YFGN 100 UNIT/ML Pen 20 UNIT SC (10:04)
[2023-10-01] MEDS: Menthol/Lanolin/Calamine/Znox 113 GM Tube 1 APPLIC TOPICAL ×2 (10:04→21:46)
[2023-10-01] MEDS: CHLORHEXIDINE GLUC 2% CLOTH 1 EACH TOWELETTE TOPICAL (10:04)
[2023-10-01 12:52] LABS: Bedside Glucose 135 mg/dL (74-106)
[2023-10-01] MEDS: PureFlow B 2K Dialysis Soln 1 BAG 6 BAG PF (12:54)
[2023-10-01] MEDS: 0.9% Normal Saline 1,000 ML IV.SOLN. 1000 ML OPERA.SITE (12:54)
[2023-10-01] MEDS: 0.9 % NaCl (Sterile) Posiflush 10 mL IV (12:56)
--- NOTE | 2023-10-01 13:06 | PCM.PN.REN ---
Subjective Subjective Intubated but currently alert, does respond to questions. Off sedation. Objective Data Objective Data Vital Signs: Vital Signs Temp Pulse Resp BP Pulse Ox O2 Del Method O2 Flow Rate 99.5 F H 78 14 113/66 91 Mechanical Ventilator 65 10/01/23 11:15 10/01/23 12:45 10/01/23 12:45 10/01/23 12:45 10/01/23 12:45 10/01/23 12:45 09/28/23 10:26 FiO2 40 10/01/23 12:45 Oxygen Flow Rate (L/min) 65 Oxygen Delivery Method Mechanical Ventilator Weight: 215.4 kg Body Mass Index (BMI) 66.4 Intake & Output: Intake and Output for Last 24 Hours 09/29/23 09/30/23 10/01/23 23:59 23:59 23:59 Intake Total 2212.51 / 2246.11 3643.56 / 3735.89 611.62 / 611.62 Output Total 1700 / 1700 4225 / 4225 100 / 100 Balance 512.51 / 546.11 -581.44 / -489.11 511.62 / 511.62 Lab / Micro Data 10/01/23 03:00 10/01/23 03:00 Labs: Laboratory Results - last 24 hr 09/30/23 17:55: POC Glucose 102 10/01/23 00:50: POC Glucose 124 H 10/01/23 03:00: WBC 10.9, RBC 5.25, Hgb 13.1, Hct 42.9, MCV 81.7, MCH 25.0 L, MCHC 30.5 L, RDW Std Deviation 48.4 H, RDW Coeff of Benedicto 16.4 H, Plt Count 310, MPV 9.5, Sodium 130 L, Potassium 4.5, Chloride 97 L, Carbon Dioxide 22.0, Anion Gap 11, BUN 71 H, Creatinine 7.45 H*, Estim Creat Clear Calc 24.20, Est GFR (MDRD) Af Amer 10 L, Est GFR (MDRD) Non-Af 9 L, BUN/Creatinine Ratio 9.5 L, Glucose 145 H, Calcium 7.8 L 10/01/23 12:32: POC Glucose 135 H Micro: Microbiology 09/23/23 13:45 Blood Culture (Wb) - Anticubital Right Blood Culture - Final No growth in 5 days. 09/23/23 11:40 Blood Culture (Wb) - Anticubital Right Blood Culture - Final No growth in 5 days. 09/23/23 10:25 Blood Culture (Wb) - Arm Left Blood Culture - Final No growth in 5 days. 09/26/23 14:55 Blood Culture (Wb) - Pic Blood Culture - Preliminary No growth in 48 hours. 09/26/23 14:55 Blood Culture (Wb) - Pic Blood Culture - Preliminary No growth in 48 hours. 09/26/23 07:35 Sputum, Induced/Lukens Gram Stain - Final 09/26/23 07:35 Sputum, Induced/Lukens Respiratory Culture - Final Culture exhibits no growth. 09/23/23 14:00 Wound - Leg, Left Gram Stain - Final 09/23/23 14:00 Wound - Leg, Left Wound Culture - Final Streptococcus dysgalactiae equ Proteus hauseri Alcaligenes faecalis ssp faeca Staphylococcus aureus ABG Data ABG results: ABG 10/01/23 07:29 Specimen Type ART Sample Site R Radial pH 7.23 L Bicarbonate Actual 22.6 Total CO2 24 Base Excess -5 L O2 Saturation 96 O2 % 40.0 ABG pCO2 53.9 H ABG pO2 100 Cleve Test Positive O2 Delivery Device Adult Vent Vent Mode CPAP/PS POC PEEP 5 Radiography Diagnostic Testing: Radiology Impression Chest X-Ray 09/30/23 15:35 IMPRESSION: Bilateral perihilar interstitial infiltrates or pulmonary edema. . No evidence for pneumothorax status post right central line placement with tip in distal superior vena cava Electronically Signed: Jonathan Perdue MD at 16:53 EDT , Rhythm Strip Rhythm Strip: Sinus Rhythm Rate: 78 Physical Exam Narrative Intubated, sedated Pallor present S1-S2 Lung sounds clear anteriorly Abdomen is nondistended Extensive erythema over the lower extremities extending into the thighs and groin area, likely chronic lymphedema Waters catheter indwelling with scant urine in bag Assessment & Plan Assessment/Plan (1) WINDY (acute kidney injury): PLAN: 43-year-old male with past medical history significant for morbid obesity, lymphedema who presented to [place] emergency room on 09/22 with complaints of worsening swelling and redness to his lower extremities. Admitted for cellulitis. Nephrology consulted for rising serum creatinine. - WINDY likely now ischemic ATN secondary to sepsis, shock, and possible component from supratherapeutic vanco levels. Baseline creatinine was normal before admission. Urine analysis not impressive. Started on dialysis 09/27. Issues with dialysis catheter. Currently has third catheter, 3 catheters in 3 days. I think issue might be his body habitus. Femoral lines are likely to be even worse. Fortunately urine output is better. We will plan for dialysis today with current catheter. If he still needs dialysis by next week, he might benefit from a tunneled dialysis catheter. Fluid removal as tolerated in dialysis. - Acute respiratory failure; patient had been on BiPAP, then intubated 09/25.
[2023-10-01] MEDS: Heparin 10,000 UNITS/10 ML Vial IV (14:57)
--- NOTE | 2023-10-01 15:01 | PCM.PN.ID ---
Physical Exam Narrative Feeling better, awake, communicating on vent, leg less sore, no fever Const alert and no apparent distress Resp normal air movement and clear to auscultation bilaterally Cardio regular rate and regular rhythm GI soft to palpation, non-tender and non-distended Skin Skin Narrative: fading LLE redness ID ID: Route of nutrition/ use of supplements: [] Nutritional Intake: [] IV Site: [] Waters Catheter: [] Assessment & Plan Assessment/Plan (1) Septic shock: PLAN: Wbc improved, BP improved. Remains on vent. Now on HD. Wound cx with strep, MSSA, proteus, alcaligenes. Cont sheila. Leg cont to improve. Plan on stopping abx tomorrow to complete 10 days total of abx. Will follow (2) WINDY (acute kidney injury): (3) Cellulitis: QUALIFIERS: Site of cellulitis: unspecified site Qualified Code(s): L03.90 - Cellulitis, unspecified (4) Acute on chronic respiratory failure with hypoxia and hypercapnia:
[2023-10-01] MEDS: Meropenem 1 GM in 0.9% Normal Saline (100mL MB+) 100 ML IV (15:10)
--- NOTE | 2023-10-01 15:50 | PCM.PN.SRG ---
Subjective Subjective Pt currently getting dialysis- temp. line occasionally being an issue, maybe extubated tomorrow. Objective Data Objective Data Vital Signs: Vital Signs Temp Pulse Resp BP Pulse Ox O2 Del Method O2 Flow Rate 99.2 F H 79 14 109/60 93 Mechanical Ventilator 65 10/01/23 15:00 10/01/23 15:48 10/01/23 15:48 10/01/23 15:01 10/01/23 15:48 10/01/23 15:01 09/28/23 10:26 FiO2 40 10/01/23 15:00 Oxygen Flow Rate (L/min) 65 Oxygen Delivery Method Mechanical Ventilator Weight: 466 lb 7.97 oz Body Mass Index (BMI) 65.2 Intake & Output: Intake and Output for Last 24 Hours 09/29/23 09/30/23 10/01/23 23:59 23:59 23:59 Intake Total 2212.51 / 2246.11 3643.56 / 3735.89 652.51 / 652.51 Output Total 1700 / 1700 4225 / 4225 4100 / 4100 Balance 512.51 / 546.11 -581.44 / -489.11 -3447.49 / -3447.49 Lab / Micro Data 10/01/23 03:00 10/01/23 03:00 Labs: Laboratory Results - last 24 hr 09/30/23 17:55: POC Glucose 102 10/01/23 00:50: POC Glucose 124 H 10/01/23 03:00: WBC 10.9, RBC 5.25, Hgb 13.1, Hct 42.9, MCV 81.7, MCH 25.0 L, MCHC 30.5 L, RDW Std Deviation 48.4 H, RDW Coeff of Benedicto 16.4 H, Plt Count 310, MPV 9.5, Sodium 130 L, Potassium 4.5, Chloride 97 L, Carbon Dioxide 22.0, Anion Gap 11, BUN 71 H, Creatinine 7.45 H*, Estim Creat Clear Calc 24.20, Est GFR (MDRD) Af Amer 10 L, Est GFR (MDRD) Non-Af 9 L, BUN/Creatinine Ratio 9.5 L, Glucose 145 H, Calcium 7.8 L 10/01/23 12:32: POC Glucose 135 H Micro: Microbiology 09/26/23 14:55 Blood Culture (Wb) - Pic Blood Culture - Final No growth in 5 days. 09/26/23 14:55 Blood Culture (Wb) - Pic Blood Culture - Final No growth in 5 days. 09/23/23 13:45 Blood Culture (Wb) - Anticubital Right Blood Culture - Final No growth in 5 days. 09/23/23 11:40 Blood Culture (Wb) - Anticubital Right Blood Culture - Final No growth in 5 days. 09/23/23 10:25 Blood Culture (Wb) - Arm Left Blood Culture - Final No growth in 5 days. 09/26/23 07:35 Sputum, Induced/Lukens Gram Stain - Final 09/26/23 07:35 Sputum, Induced/Lukens Respiratory Culture - Final Culture exhibits no growth. 09/23/23 14:00 Wound - Leg, Left Gram Stain - Final 09/23/23 14:00 Wound - Leg, Left Wound Culture - Final Streptococcus dysgalactiae equ Proteus hauseri Alcaligenes faecalis ssp faeca Staphylococcus aureus ABG Data ABG results: ABG 10/01/23 07:29 Specimen Type ART Sample Site R Radial pH 7.23 L Bicarbonate Actual 22.6 Total CO2 24 Base Excess -5 L O2 Saturation 96 O2 % 40.0 ABG pCO2 53.9 H ABG pO2 100 Cleve Test Positive O2 Delivery Device Adult Vent Vent Mode CPAP/PS POC PEEP 5 Radiography Diagnostic Testing: Radiology Impression Chest X-Ray 09/30/23 15:35 IMPRESSION: Bilateral perihilar interstitial infiltrates or pulmonary edema. . No evidence for pneumothorax status post right central line placement with tip in distal superior vena cava Electronically Signed: Jonathan Perdue MD at 16:53 EDT , Rhythm Strip Rhythm Strip: Sinus Rhythm Rate: 78 Physical Exam Narrative right temp IJ dialysis catheter in place Const Constitutional Narrative: alert, nodds appropriately- ETT in place Assessment & Plan Assessment/Plan (1) WINDY (acute kidney injury): (2) Acute on chronic respiratory failure with hypoxia and hypercapnia: (3) Cellulitis: QUALIFIERS: Site of cellulitis: unspecified site Qualified Code(s): L03.90 - Cellulitis, unspecified (4) Morbid obesity: PLAN: Plan Pt is on OR schedule for Wednesday afternoon for tunnelled dialysis catheter RIJ possible left-- will plan to pull temp on Wednesday. Dr. Maradiaga will be covering the weekend. Mary Jane Hunter M.D. Pager: [phone] [facility] [address] [place] [address], [address] [place] [address] Office: [phone]
[2023-10-01] MEDS: fentaNYL drip 100 ML 2.5 MCG CONT INF (16:28)
[2023-10-01 18:31] LABS: Bedside Glucose 116 mg/dL (74-106)
--- NOTE | 2023-10-01 18:55 | PN.HOSP_ITS ---
Reason for Visit Reason for Visit: Diagnoses Sepsis, unspecified organism (09/23/23) Morbid (severe) obesity due to excess calories (09/23/23) Hypo-osmolality and hyponatremia (09/23/23) Acute and chronic respiratory failure with hypoxia (09/23/23) Acute and chronic respiratory failure with hypercapnia (09/23/23) Cellulitis, unspecified (09/23/23) Acute kidney failure, unspecified (09/23/23) Severe sepsis with septic shock (09/23/23) Subjective Subjective Seen and examined today, he remains sedated on the ventilator. Patient's white blood cell count today was 10.9., Creatinine was 7.45 and BUN was 71. Objective Data Objective Data Vital Signs: Vital Signs Temp Pulse Resp BP Pulse Ox O2 Del Method O2 Flow Rate 99.2 F H 75 14 107/59 L 91 Mechanical Ventilator 65 10/01/23 15:00 10/01/23 16:00 10/01/23 16:00 10/01/23 16:00 10/01/23 16:00 10/01/23 16:00 09/28/23 10:26 FiO2 40 10/01/23 16:00 Oxygen Flow Rate (L/min) 65 Oxygen Delivery Method Mechanical Ventilator Weight: 211.6 kg Body Mass Index (BMI) 65.2 Intake & Output: Intake and Output for Last 24 Hours 09/29/23 09/30/23 10/01/23 23:59 23:59 23:59 Intake Total 2212.51 / 2246.11 3643.56 / 3735.89 825.41 / 825.41 Output Total 1700 / 1700 4225 / 4225 4100 / 4100 Balance 512.51 / 546.11 -581.44 / -489.11 -3274.59 / -3274.59 Lab / Micro Data 10/01/23 03:00 10/01/23 03:00 Labs: Laboratory Results - last 24 hr 10/01/23 00:50: POC Glucose 124 H 10/01/23 03:00: WBC 10.9, RBC 5.25, Hgb 13.1, Hct 42.9, MCV 81.7, MCH 25.0 L, MCHC 30.5 L, RDW Std Deviation 48.4 H, RDW Coeff of Benedicto 16.4 H, Plt Count 310, MPV 9.5, Sodium 130 L, Potassium 4.5, Chloride 97 L, Carbon Dioxide 22.0, Anion Gap 11, BUN 71 H, Creatinine 7.45 H*, Estim Creat Clear Calc 24.20, Est GFR (MDRD) Af Amer 10 L, Est GFR (MDRD) Non-Af 9 L, BUN/Creatinine Ratio 9.5 L, Glucose 145 H, Calcium 7.8 L 10/01/23 12:32: POC Glucose 135 H 10/01/23 18:13: POC Glucose 116 H Micro: Microbiology 09/26/23 14:55 Blood Culture (Wb) - Pic Blood Culture - Final No growth in 5 days. 09/26/23 14:55 Blood Culture (Wb) - Pic Blood Culture - Final No growth in 5 days. 09/23/23 13:45 Blood Culture (Wb) - Anticubital Right Blood Culture - Final No growth in 5 days. 09/23/23 11:40 Blood Culture (Wb) - Anticubital Right Blood Culture - Final No growth in 5 days. 09/23/23 10:25 Blood Culture (Wb) - Arm Left Blood Culture - Final No growth in 5 days. 09/26/23 07:35 Sputum, Induced/Lukens Gram Stain - Final 09/26/23 07:35 Sputum, Induced/Lukens Respiratory Culture - Final Culture exhibits no growth. 09/23/23 14:00 Wound - Leg, Left Gram Stain - Final 09/23/23 14:00 Wound - Leg, Left Wound Culture - Final Streptococcus dysgalactiae equ Proteus hauseri Alcaligenes faecalis ssp faeca Staphylococcus aureus ABG Data ABG results: ABG 10/01/23 07:29 Specimen Type ART Sample Site R Radial pH 7.23 L Bicarbonate Actual 22.6 Total CO2 24 Base Excess -5 L O2 Saturation 96 O2 % 40.0 ABG pCO2 53.9 H ABG pO2 100 Cleve Test Positive O2 Delivery Device Adult Vent Vent Mode CPAP/PS POC PEEP 5 Rhythm Strip Rhythm Strip: Sinus Rhythm Rate: 78 Physical Exam Const Constitutional Narrative: Patient is morbidly obese, he appears older than his stated age HEENT normocephalic, head/scalp atraumatic and moist oral mucous membranes Eyes conjunctivae normal Neck no JVD and thyroid normal General: trachea midline Resp normal respiratory effort, no retractions, no use of accessory muscles and clear to auscultation bilaterally Auscultation: Negative for rales, rhonchi or wheezes Cardio regular rate, regular rhythm, S1 normal heart sound, S2 normal heart sound, no murmurs, no rub and no gallops GI normal to inspection, nondistended, normoactive bowel sounds, soft to palpation, non-tender and non-distended Extremity no clubbing, cyanosis or edema Skin no rashes or lesions noted General Skin Exam: no breakdown Neuro Neuro Narrative: Patient is sedated and on the ventilator Psych Psych Narrative: Patient is sedated and on the ventilator Assessment & Plan Assessment/Plan (1) Acute on chronic respiratory failure with hypoxia and hypercapnia: PLAN: Plan 1. Acute on chronic combined respiratory failure-etiology unclear, critical care is participating in his care, patient remains on the ventilator at this time and under sedation #2 acute kidney injury-most likely secondary to ischemic ATN secondary to sepsis shock and vancomycin administration-patient is being seen by nephrology and is undergoing dialysis #3 sepsis secondary to acute cellulitis of the left lower extremity-patient's antibiotics are being managed by infectious diseases #4 type 2 diabetes-blood sugars will be monitored, sliding scale insulin will be administered as needed #5 morbid obesity-complicates care, management, recovery, and prognosis Total clinical time spent by myself addressing the patient's medical issues, reviewing all of his data, and collaborating with patient's care team: 50 minutes Charges/Coding Visit Charges Inpatient E&M: [id number] [place] [id number]
[2023-10-01] MEDS: Vital High Protein 1,000 ML 55 ML GT (18:56)
[2023-10-02] VITALS (35 sets, daily range): BP systolic 95–120; BP diastolic 52–80; PULSE 69–82; RESP 11–19; TEMP 36.8–37.6; O2SAT 90–100; BMI 67.3
[2023-10-02 01:20] LABS: Bedside Glucose 121 mg/dL (74-106)
[2023-10-02] MEDS: Propofol 10MG/Ml 1,000 MG/100 ML Bottle 13.1 MG CONT INF ×2 (02:15→13:03)
[2023-10-02] MEDS: Heparin Injection (Vial) 5,000 UNIT/ML VIAL 5000 UNIT SC ×3 (05:34→21:04)
[2023-10-02] MEDS: Nystatin Powder 15gm Bottle 1 APPLIC TOPICAL ×3 (05:34→21:04)
[2023-10-02] MEDS: Budesonide Respules 0.5 MG/2 ML AMPUL.NEB. INHALATION ×2 (07:05→19:23)
--- NOTE | 2023-10-02 09:14 | PCM.PN.BLA ---
Progress Note No changes overnight. Plan is for Dr. Hunter to take the patient on Wednesday for a tunneled dialysis catheter. I have asked the ICU staff to remove the temporary catheter either today or tomorrow depending on if they are going to dialyze again.
[2023-10-02] MEDS: Menthol/Lanolin/Calamine/Znox 113 GM Tube 1 APPLIC TOPICAL ×2 (10:48→21:04)
[2023-10-02] MEDS: Pantoprazole Sodium 40 MG in 0.9% Normal Saline (100mL MB+) 100 ML 330 MG IV (10:48)
[2023-10-02] MEDS: CHLORHEXIDINE GLUC 2% CLOTH 1 EACH TOWELETTE TOPICAL (10:48)
[2023-10-02] MEDS: Chlorhexidine 15 ML PO ×2 (10:53→21:04)
--- NOTE | 2023-10-02 11:06 | PCM.PN.HOSP ---
Reason for Visit Reason for Visit: Diagnoses Sepsis, unspecified organism (09/23/23) Morbid (severe) obesity due to excess calories (09/23/23) Hypo-osmolality and hyponatremia (09/23/23) Acute and chronic respiratory failure with hypoxia (09/23/23) Acute and chronic respiratory failure with hypercapnia (09/23/23) Cellulitis, unspecified (09/23/23) Acute kidney failure, unspecified (09/23/23) Severe sepsis with septic shock (09/23/23) Subjective Subjective Patient was seen and examined today, he is under light sedation, I reviewed his CBC and a BMP on him today, it is unknown whether he is going to be dialyzed today. Patient does follow commands according to nursing. Objective Data Objective Data Vital Signs: Vital Signs Temp Pulse Resp BP Pulse Ox O2 Del Method O2 Flow Rate 98.8 F 70 11 L 115/74 98 Mechanical Ventilator 65 10/02/23 09:00 10/02/23 09:11 10/02/23 09:11 10/02/23 09:00 10/02/23 09:11 10/02/23 09:00 09/28/23 10:26 FiO2 40 10/02/23 09:00 Oxygen Flow Rate (L/min) 65 Oxygen Delivery Method Mechanical Ventilator Weight: 218.4 kg Body Mass Index (BMI) 67.3 Intake & Output: Intake and Output for Last 24 Hours 09/30/23 10/01/23 10/02/23 23:59 23:59 23:59 Intake Total 3643.56 / 3735.89 1559.35 / 1579.95 920.16 / 920.16 Output Total 4225 / 4225 4500 / 4500 250 / 250 Balance -581.44 / -489.11 -2940.65 / -2920.05 670.16 / 670.16 Lab / Micro Data 10/01/23 03:00 10/01/23 03:00 Labs: Laboratory Results - last 24 hr 10/01/23 12:32: POC Glucose 135 H 10/01/23 18:13: POC Glucose 116 H 10/02/23 01:03: POC Glucose 121 H Micro: Microbiology 09/26/23 14:55 Blood Culture (Wb) - Pic Blood Culture - Final No growth in 5 days. 09/26/23 14:55 Blood Culture (Wb) - Pic Blood Culture - Final No growth in 5 days. 09/23/23 13:45 Blood Culture (Wb) - Anticubital Right Blood Culture - Final No growth in 5 days. 09/23/23 11:40 Blood Culture (Wb) - Anticubital Right Blood Culture - Final No growth in 5 days. 09/23/23 10:25 Blood Culture (Wb) - Arm Left Blood Culture - Final No growth in 5 days. 09/26/23 07:35 Sputum, Induced/Lukens Gram Stain - Final 09/26/23 07:35 Sputum, Induced/Lukens Respiratory Culture - Final Culture exhibits no growth. 09/23/23 14:00 Wound - Leg, Left Gram Stain - Final 09/23/23 14:00 Wound - Leg, Left Wound Culture - Final Streptococcus dysgalactiae equ Proteus hauseri Alcaligenes faecalis ssp faeca Staphylococcus aureus Rhythm Strip Rhythm Strip: Sinus Rhythm Rate: 78 Physical Exam Narrative Constitutional Narrative: Patient is morbidly obese, he appears older than his stated age HEENT normocephalic, head/scalp atraumatic and moist oral mucous membranes Eyes conjunctivae normal Neck no JVD and thyroid normal General: trachea midline Resp normal respiratory effort, no retractions, no use of accessory muscles and clear to auscultation bilaterally Auscultation: Negative for rales, rhonchi or wheezes Cardio regular rate, regular rhythm, S1 normal heart sound, S2 normal heart sound, no murmurs, no rub and no gallops GI normal to inspection, nondistended, normoactive bowel sounds, soft to palpation, non-tender and non-distended Extremity no clubbing, cyanosis or edema Skin no rashes or lesions noted General Skin Exam: no breakdown Neuro Neuro Narrative: Patient is under light sedation on the ventilator, he does follow commands Psych Psych Narrative: Patient is under light sedation and on the ventilator, patient follows commands Assessment & Plan Assessment/Plan (1) Acute on chronic respiratory failure with hypoxia and hypercapnia: PLAN: Plan 1. Acute on chronic combined respiratory failure-etiology unclear, critical care is participating in his care, patient remains on the ventilator at this time, the telemetry any commodity sales deliverer service has not seen him today yet #2 acute kidney injury-most likely secondary to ischemic ATN secondary to sepsis shock and vancomycin administration-patient is being seen by nephrology and may undergo dialysis today #3 sepsis secondary to acute cellulitis of the left lower extremity-patient's antibiotics are being managed by infectious diseases #4 type 2 diabetes-blood sugars will be monitored, sliding scale insulin will be administered as needed #5 morbid obesity-complicates care, management, recovery, and prognosis Total clinical time spent by myself addressing the patient's medical issues, reviewing all of his data, and collaborating with patient's care team: 35 minutes Charges/Coding Visit Charges Inpatient E&M: [id number] Subs Hosp L2
--- NOTE | 2023-10-02 11:27 | PCM.PN.TICU ---
Objective Data Objective Data Vital Signs: Vital Signs Last response Temperature 37.1 C 10/02/23 09:00 Temperature Source Core 10/02/23 09:00 Pulse Rate 78 10/02/23 11:21 Pulse Strength Weak (1+) 10/01/23 20:09 Respiratory Rate 18 10/02/23 11:21 Respiratory Effort Mechanically Ventilated 10/02/23 08:00 Respiratory Depth Normal 10/02/23 08:00 Respiratory Pattern Normal 10/02/23 11:21 Blood Pressure 115/74 10/02/23 09:00 Blood Pressure Mean 87 10/02/23 09:00 Blood Pressure Source Monitor 10/02/23 09:00 Blood Pressure Position Semi-Fowlers 10/02/23 09:00 Blood Pressure Location Right Forearm 10/02/23 09:00 Pulse Ox 92 10/02/23 11:21 Oxygen Delivery Method Mechanical Ventilator 10/02/23 09:00 Oxygen Flow Rate (L/min) 65 09/28/23 10:26 Fraction of Inspired Oxygen (FIO2) 40 10/02/23 09:00 I&O: I&O Last 24 Hours 10/01/23 10/01/23 10/02/23 11:59 23:59 11:59 Intake Total 590.11 / 1579.95 969.24 / 1579.95 920.16 / 920.16 Output Total 100 / 4500 4400 / 4500 250 / 250 Balance 490.11 / -2920.05 -3430.76 / -2920.05 670.16 / 670.16 I&O: Total Stay 09/23/23 09:26 thru 10/02/23 09:12 Intake Total 01802.41 Output Total 51617 Balance 8795.41 Current Meds Ordered / Administered: Current meds ordered / Administered Generic Name Dose Route Start Last Admin Trade Name Freq PRN Reason Stop Dose Admin Acetaminophen 650 mg 09/23/23 13:14 09/24/23 03:34 Acetaminophen 325 Mg Tablet PO 650 mg Q6H PRN PRN Administration Pain 1-10 Or Fever >100.7 Albuterol Sulfate 2.5 mg 09/26/23 05:21 09/28/23 01:21 Albuterol 2.5 Mg/3 Ml Vial.Neb. INHALATION 2.5 mg Q2H PRN PRN Administration Dyspnea, wheezing Budesonide 0.5 mg 09/26/23 05:30 10/02/23 07:05 Budesonide Respules 0.5 Mg/2 Ml Ampul.Neb. INHALATION 0.5 mg BID.RT TRENT Administration Calamine/Phenol 1 applic 09/30/23 10:00 10/02/23 10:48 Menthol/Lanolin/Calamine/Znox 113 Gm Tube TOPICAL 1 applic BID TRENT Administration Protocol Chlorhexidine Gluconate 15 ml 09/26/23 10:00 10/02/23 10:53 Chlorhexidine 15 Ml PO 15 ml BID TRENT Administration Chlorhexidine Gluconate 1 each 09/27/23 10:00 10/02/23 10:48 Chlorhexidine Gluc 2% Cloth 1 Each Towelette TOPICAL 1 each DAILY TRENT Administration Dextrose 0 gm 09/25/23 12:51 Dextrose 50%-Water 25 Gm/50 Ml Disp.Syrin IV X1 PRN Hypoglycemia Protocol Glucagon 1 mg 09/25/23 12:51 Glucagon 1 Mg/Ml Syringe IM X1 PRN Hypoglycemia Heparin Sodium (Beef Lung) 50 units 09/29/23 04:17 Heparin Pf Lock 10 Units/Ml 50 Units/5 Ml Syringe IV UD PRN PICC Line Heparin Flush Heparin Sodium (Porcine) 5,000 unit 09/27/23 06:00 10/02/23 05:34 Heparin Injection (Vial) 5,000 Unit/Ml Vial SC 5,000 unit Q8 TRENT Administration Propofol 1,000 mg in 100 mls @ 13.104 mls/hr 09/26/23 05:20 10/02/23 09:34 Diprivan CONT INF Not Given .[id number] TRENT Protocol 10 MCG/KG/MIN Fentanyl 100 mls @ 2.5 mls/hr 09/26/23 05:20 10/02/23 09:28 CONT INF Not Given UD TRENT Protocol 25 MCG/HR Pantoprazole Sodium 40 mg/ 110 mls @ 330 mls/hr 09/27/23 10:00 10/02/23 10:48 Sodium Chloride IV 330 mls/hr Q24 TRENT Administration Enteral Nutritional Formula 1,000 mls @ 55 mls/hr 09/27/23 10:45 10/02/23 05:53 Vital High Protein GT 55 mls/hr .[id number] TRENT Infusion Sodium Chloride 250 mls @ 15 mls/hr 09/29/23 04:17 IV .[id number] PRN Additional IVPB Infusion Sodium Chloride 250 mls @ 15 mls/hr 09/29/23 04:17 IV .[id number] PRN Saline Flush Meropenem 1 gm/ Sodium 120 mls @ 33 mls/hr 09/29/23 14:00 10/01/23 18:50 Chloride IV 10/02/23 12:00 Infused Q24H TRENT Infusion Insulin Glargine 20 unit 09/27/23 10:00 10/01/23 10:04 Insulin Glargine-Yfgn 100 Unit/Ml Pen SC 20 unit DAILY TRENT Administration Insulin Human Lispro 0 unit 09/28/23 06:00 10/02/23 05:34 Insulin Lispro 100 Unit/Ml Insuln.Pen SC Not Given Q6H [facility] Protocol Nystatin 1 applic 09/25/23 22:00 10/02/23 05:34 Nystatin Powder 15gm Bottle TOPICAL 1 applic TID TRENT Administration Protocol Ondansetron HCl 4 mg 09/23/23 13:14 09/26/23 00:08 Ondansetron 4 Mg/2 Ml Vial IV 4 mg Q8H PRN PRN Administration NAUSEA/VOMITING Polyethylene Glycol 17 gm 10/01/23 10:00 10/02/23 09:28 Polyethylene Glycol 3350 17 Gm Packet GT Not Given DAILY TRENT Senna/Docusate Sodium 2 tablet 10/01/23 10:00 10/02/23 09:28 Senna/Docusate Sodium 1 Tablet GT Not Given DAILY TRENT Sodium Chloride 5 ml 09/26/23 05:20 Sodium Cl For Inhalation 15 Ml Vial.Neb. INHALATION Q5M PRN Suctioning Sodium Chloride 10 - 40 ml 09/29/23 04:17 10/01/23 12:56 0.9 % Nacl (Sterile) Posiflush 10 Ml IV 20 ml UD PRN Administration Port access or dressing change Sodium Chloride 10 - 40 ml 09/29/23 04:17 10/01/23 06:15 0.9% Saline Lock 10 Ml Syringe IV 20 ml UD PRN Administration Open End PICC Flush Sodium Chloride 10 - 40 ml 09/29/23 04:17 0.9% Saline Lock 10 Ml Syringe IV UD PRN SALINE FLUSH Lab / Micro Data 10/02/23 11:45 10/02/23 11:45 Labs: Laboratory Results - last 24 hr 10/01/23 12:32: POC Glucose 135 H 10/01/23 18:13: POC Glucose 116 H 10/02/23 01:03: POC Glucose 121 H Micro: Microbiology 09/26/23 14:55 Blood Culture (Wb) - Pic Blood Culture - Final No growth in 5 days. 09/26/23 14:55 Blood Culture (Wb) - Pic Blood Culture - Final No growth in 5 days. Rhythm Strip Rhythm Strip: Sinus Rhythm Rate: 78 Assessment and Plan . Assessment and plan: Patient seen and examined Chart and data reviewed He is awake and responsive despite sedatives MV 8-9 LPM on PSV, O2 0.4, RR 10-12 BPM HD yesterday - I am told he will not receive DJANGO DEVELOPER until at least Wednesday No lab or ABG done today Recent ABG reveals pH 7.23 w/ pCO2 54 EXAM GEN NAD VS as above HEENT BRIGITTE NECK obese COR RRR CHEST decreased ABD obese EXT pitting edema SKIN w/d APRIL NF ASSESSMENT 1. Acute and chronic respiratory failure requiring MV support 2. Morbid obesity w/ likely Pickwickian syndrome 3. Renal insufficiency requiring DJANGO DEVELOPER 4. (?) LE cellulitis TREATMENT PLAN -MV support -sedation -enteral nutrition -receiving ABX -needs DJANGO DEVELOPER w/ serum HCO3- much higher to compensate for his obligate and chronic respiratory acidosis related to habitus -I would not extubate him until he is able to receive DJANGO DEVELOPER and has appropriate metabolic compensation Critical Care Time: 50 min The entirety of this encounter was done via Telemedicine
[2023-10-02] MEDS: Insulin Glargine-YFGN 100 UNIT/ML Pen 20 UNIT SC (11:45)
[2023-10-02 12:01] LABS: Absolute Lymphocyte Count 1.22 X10^3/uL (0.83-4.51); Absolute Neutrophil Count 9.6 X10^3/uL (2.0-7.7); Basophil# 0.03 X10^3/uL; Basophil% 0.2 % (0-1); Eosinophil# 0.17 X10^3/uL; Eosinophils% 1.4 % (0-5); Hematocrit 41.5 % (40-54); Hemoglobin 12.8 g/dL (13.0-16.5); Lymphocyte # 1.22 X10^3/ul (0.83-4.51); Lymphocyte % 9.9 % (19-41); Mean Corp Hgb Conc 30.8 g/dL (32-36); Mean Corpuscular Hgb 24.7 pg (27.0-32.0); Mean Platelet Vol. 9.3 fl (6.2-12.0); Monocyte# 1.09 X10^3/uL; Monocyte% 8.8 % (0-10); NRBC Flagged by Analyzer 0 % (0-5); Neutrophil # 9.55 X10^3/uL (2.7-7.7); Neutrophil % 77.5 % (47-70); Platelet Count 287 K/mm3 (150-450); RBC Distribution Width CV 16.2 % (11.6-14.6); RBC Distribution Width SD 46.9 fl (35.1-43.9); Red Blood Count 5.19 M/mm3 (4.6-6.2); White Blood Count 12.3 K/mm3 (4.4-11.0)
[2023-10-02 12:20] LABS: Anion Gap 12 (5-15); BUN 81 mg/dL (7-18); BUN/Creat Ratio 9.7 RATIO (10-20); Calcium,Total 7.4 mg/dL (8.5-10.1); Chloride 98 mmol/L (98-107); Creatinine, Serum 8.34 mg/dL (0.70-1.30); EST Glomerular Filtration Rate 8 mL/min (>60); Est Glom Filt Rate - Afr Amer 9 mL/min (>60); Estimated Creatinine Clearance 21.85 ml/min; Glucose 132 mg/dL (74-106); Potassium 4.4 mmol/L (3.5-5.1); Sodium Level 131 mmol/L (136-145)
[2023-10-02] MEDS: fentaNYL drip 100 ML 5 MCG CONT INF (13:03)
[2023-10-02] MEDS: Vital High Protein 1,000 ML 55 ML GT (17:10)
[2023-10-02] MEDS: Propofol 10MG/Ml 1,000 MG/100 ML Bottle 19.7 MG CONT INF ×2 (17:12→22:27)
[2023-10-02 17:33] LABS: Bedside Glucose 130 mg/dL (74-106)
[2023-10-02 18:08] LABS: Bedside Glucose 125 mg/dL (74-106)
[2023-10-02] MEDS: Albuterol 2.5 MG/3 ML VIAL.NEB. INHALATION (19:23)
[2023-10-02] MEDS: 0.9 % NaCl (Sterile) Posiflush 10 mL IV (21:05)
[2023-10-02] MEDS: fentaNYL drip 100 ML 10 MCG CONT INF (23:39)
[2023-10-03] VITALS (34 sets, daily range): BP systolic 90–153; BP diastolic 48–128; PULSE 65–82; RESP 14–21; TEMP 36.7–37.4; O2SAT 87–100; BMI 65.6
[2023-10-03 00:02] LABS: Bedside Glucose 113 mg/dL (74-106)
[2023-10-03] MEDS: Propofol 10MG/Ml 1,000 MG/100 ML Bottle 19.7 MG CONT INF ×4 (03:00→18:50)
[2023-10-03] MEDS: CHLORHEXIDINE GLUC 2% CLOTH 1 EACH TOWELETTE TOPICAL (03:08)
[2023-10-03 05:14] LABS: Allen Test Positive; Base Excess -8 mmol/L (-2 to +2); Bicarbonate 19.3 mmol/L (22-26); Blood Gas Specimen Type ART; Mode AC; O2 Delivery Device Adult Vent; PEEP 5; PO2 113 mmHG (75-100); RR 14; SITE R Radial; SO2 98 % (95-99); Total Carbon Dioxide 21 mmol/L; pH 7.26 (7.35-7.45)
[2023-10-03] MEDS: Nystatin Powder 15gm Bottle 1 APPLIC TOPICAL ×3 (05:38→21:04)
[2023-10-03] MEDS: Heparin Injection (Vial) 5,000 UNIT/ML VIAL 5000 UNIT SC ×3 (05:38→21:03)
--- NOTE | 2023-10-03 05:42 | RAD_ITS ---
EXAM: XR CHEST, 1 VIEW CLINICAL INDICATION: arf TECHNIQUE: Frontal view of the chest. COMPARISON: 09.30.23 FINDINGS: LUNGS AND PLEURAL SPACES: Diffuse bilateral infiltrates worse in the left side. This may represent pulmonary edema. No pneumothorax. No effusion. HEART: Enlarged heart. MEDIASTINUM: Central airways and mediastinal contour are unremarkable. BONES/JOINTS: Unremarkable. No acute fracture. SOFT TISSUES: Unremarkable. VASCULATURE: Right internal jugular line. Tip in the superior vena cava. TUBES, LINES AND DEVICES: ET tube and NG tube remain in place. Left PICC line. Tip in the superior vena cava. UPPER ABDOMEN: Elevated right hemidiaphragm. RAD/Chest 1 View (Portable) IMPRESSION: Diffuse bilateral infiltrates worse in the left side. This may represent pulmonary edema. Electronically Signed: Devante Morales MD at 16:55 EDT ,
[2023-10-03 06:05] LABS: Absolute Lymphocyte Count 1.45 X10^3/uL (0.83-4.51); Absolute Neutrophil Count 8.1 X10^3/uL (2.0-7.7); Basophil# 0.03 X10^3/uL; Basophil% 0.3 % (0-1); Eosinophil# 0.19 X10^3/uL; Eosinophils% 1.7 % (0-5); Hematocrit 41.9 % (40-54); Hemoglobin 12.7 g/dL (13.0-16.5); Lymphocyte # 1.45 X10^3/ul (0.83-4.51); Lymphocyte % 13.2 % (19-41); Mean Corp Hgb Conc 30.3 g/dL (32-36); Mean Corpuscular Hgb 24.2 pg (27.0-32.0); Mean Platelet Vol. 9.2 fl (6.2-12.0); Monocyte# 1.04 X10^3/uL; Monocyte% 9.4 % (0-10); NRBC Flagged by Analyzer 0 % (0-5); Neutrophil # 8.06 X10^3/uL (2.7-7.7); Neutrophil % 73.1 % (47-70); Platelet Count 289 K/mm3 (150-450); RBC Distribution Width CV 16.2 % (11.6-14.6); RBC Distribution Width SD 47.3 fl (35.1-43.9); Red Blood Count 5.24 M/mm3 (4.6-6.2)
[2023-10-03 06:48] LABS: ALB/GLOB Ratio 0.3 RATIO (0.9-2.4); AST(SGOT) 42 U/L (15-37); Alanine Aminotransfer ALT/SGPT 12 U/L (16-61); Albumin, Serum 1.8 g/dL (3.2-5.0); Alkaline Phosphatase 96 U/L (45-117); Anion Gap 13 (5-15); BUN 94 mg/dL (7-18); BUN/Creat Ratio 10.6 RATIO (10-20); Calcium,Total 7.3 mg/dL (8.5-10.1); Chloride 98 mmol/L (98-107); EST Glomerular Filtration Rate 7 mL/min (>60); Est Glom Filt Rate - Afr Amer 9 mL/min (>60); Estimated Creatinine Clearance 20.12 ml/min; Globulin 5.6 g/dL (2.2-4.2); Glucose 147 mg/dL (74-106); Potassium 4.6 mmol/L (3.5-5.1); Protein, Total 7.4 g/dL (6.4-8.2); Sodium Level 131 mmol/L (136-145)
[2023-10-03] MEDS: Budesonide Respules 0.5 MG/2 ML AMPUL.NEB. INHALATION ×2 (07:14→19:23)
--- NOTE | 2023-10-03 07:42 | PN.HOSP_ITS ---
Reason for Visit Reason for Visit: Diagnoses Sepsis, unspecified organism (09/23/23) Morbid (severe) obesity due to excess calories (09/23/23) Hypo-osmolality and hyponatremia (09/23/23) Acute and chronic respiratory failure with hypoxia (09/23/23) Acute and chronic respiratory failure with hypercapnia (09/23/23) Cellulitis, unspecified (09/23/23) Acute kidney failure, unspecified (09/23/23) Severe sepsis with septic shock (09/23/23) Subjective Subjective Patient was seen and examined today, his temporary dialysis catheter will be removed today, he will have a tunneled dialysis catheter inserted tomorrow. Patient remains sedated and on the ventilator at this time. Objective Data Objective Data Vital Signs: Vital Signs Temp Pulse Resp BP Pulse Ox O2 Del Method O2 Flow Rate 99 F 80 14 102/54 L 93 Mechanical Ventilator 65 10/03/23 07:00 10/03/23 07:14 10/03/23 07:14 10/03/23 07:00 10/03/23 07:14 10/03/23 07:00 09/28/23 10:26 FiO2 40 10/03/23 07:14 Oxygen Flow Rate (L/min) 65 Oxygen Delivery Method Mechanical Ventilator Weight: 212.6 kg Body Mass Index (BMI) 65.6 Intake & Output: Intake and Output for Last 24 Hours 10/01/23 10/02/23 10/03/23 23:59 23:59 23:59 Intake Total 1559.35 / 1579.95 1893.27 / 1991.47 1089.85 / 1089.85 Output Total 4500 / 4500 600 / 850 550 / 550 Balance -2940.65 / -2920.05 1293.27 / 1141.47 539.85 / 539.85 Lab / Micro Data 10/03/23 05:50 10/03/23 05:50 Labs: Laboratory Results - last 24 hr 10/02/23 11:44: POC Glucose 130 H 10/02/23 11:45: WBC 12.3 H, RBC 5.19, Hgb 12.8 L, Hct 41.5, MCV 80.0, MCH 24.7 L , MCHC 30.8 L, RDW Std Deviation 46.9 H, RDW Coeff of Benedicto 16.2 H, Plt Count 287, MPV 9.3, Immature Gran % (Auto) 2.200 H, Neut % (Auto) 77.5 H, Lymph % (Auto) 9.9 L, [place] % (Auto) 8.8, Eos % (Auto) 1.4, Baso % (Auto) 0.2, Absolute Neuts (auto) 9.6 H, Absolute Lymphs (auto) 1.22, Nucleated RBC % 0, Sodium 131 L, Potassium 4.4, Chloride 98, Carbon Dioxide 21.0, Anion Gap 12, BUN 81 H, Creatinine 8.34 H*, Estim Creat Clear Calc 21.85, Est GFR (MDRD) Af Amer 9 L, Est GFR (MDRD) Non-Af 8 L, BUN/Creatinine Ratio 9.7 L, Glucose 132 H, Calcium 7.4 L 10/02/23 17:18: POC Glucose 125 H 10/02/23 23:41: POC Glucose 113 H 10/03/23 05:50: WBC 11.0, RBC 5.24, Hgb 12.7 L, Hct 41.9, MCV 80.0, MCH 24.2 L, MCHC 30.3 L, RDW Std Deviation 47.3 H, RDW Coeff of Benedicto 16.2 H, Plt Count 289, MPV 9.2, Immature Gran % (Auto) 2.300 H, Neut % (Auto) 73.1 H, Lymph % (Auto) 13.2 L, [place] % (Auto) 9.4, Eos % (Auto) 1.7, Baso % (Auto) 0.3, Absolute Neuts (auto) 8.1 H, Absolute Lymphs (auto) 1.45, Nucleated RBC % 0, Sodium 131 L, Potassium 4.6, Chloride 98, Carbon Dioxide 20.0 L, Anion Gap 13, BUN 94 H, Creatinine 8.90 H*, Estim Creat Clear Calc 20.12, Est GFR (MDRD) Af Amer 9 L, Est GFR (MDRD) Non-Af 7 L, BUN/Creatinine Ratio 10.6, Glucose 147 H, Calcium 7.3 L, Total Bilirubin 0.60, AST 42 H, ALT 12 L, Alkaline Phosphatase 96, Total Protein 7.4, Albumin 1.8 L, Globulin 5.6 H, Albumin/Globulin Ratio 0.3 L Micro: Microbiology 09/26/23 14:55 Blood Culture (Wb) - Pic Blood Culture - Final No growth in 5 days. 09/26/23 14:55 Blood Culture (Wb) - Pic Blood Culture - Final No growth in 5 days. 09/23/23 13:45 Blood Culture (Wb) - Anticubital Right Blood Culture - Final No growth in 5 days. 09/23/23 11:40 Blood Culture (Wb) - Anticubital Right Blood Culture - Final No growth in 5 days. 09/23/23 10:25 Blood Culture (Wb) - Arm Left Blood Culture - Final No growth in 5 days. 09/26/23 07:35 Sputum, Induced/Lukens Gram Stain - Final 09/26/23 07:35 Sputum, Induced/Lukens Respiratory Culture - Final Culture exhibits no growth. 09/23/23 14:00 Wound - Leg, Left Gram Stain - Final 09/23/23 14:00 Wound - Leg, Left Wound Culture - Final Streptococcus dysgalactiae equ Proteus hauseri Alcaligenes faecalis ssp faeca Staphylococcus aureus ABG Data ABG results: ABG 10/03/23 05:11 Specimen Type ART Sample Site R Radial pH 7.26 L Bicarbonate Actual 19.3 L Total CO2 21 Base Excess -8 L O2 Saturation 98 O2 % 40.0 ABG pCO2 43.0 ABG pO2 113 H Cleve Test Positive Respiration Rate 14 O2 Delivery Device Adult Vent Vent Mode AC Tidal Volume 500.0 POC PEEP 5 Rhythm Strip Rhythm Strip: Sinus Rhythm Rate: 78 Physical Exam Narrative Constitutional Narrative: Patient is morbidly obese, he appears older than his stated age HEENT normocephalic, head/scalp atraumatic and moist oral mucous membranes Eyes conjunctivae normal Neck no JVD and thyroid normal General: trachea midline Resp normal respiratory effort, no retractions, no use of accessory muscles and clear to auscultation bilaterally Auscultation: Negative for rales, rhonchi or wheezes Cardio regular rate, regular rhythm, S1 normal heart sound, S2 normal heart sound, no murmurs, no rub and no gallops GI normal to inspection, nondistended, normoactive bowel sounds, soft to palpation, non-tender and non-distended Extremity no clubbing, cyanosis or edema Skin no rashes or lesions noted General Skin Exam: no breakdown Neuro Neuro Narrative: Patient is under light sedation on the ventilator, he does follow commands Psych Psych Narrative: Patient is under light sedation and on the ventilator, patient follows commands Assessment & Plan Assessment/Plan (1) Acute on chronic respiratory failure with hypoxia and hypercapnia: PLAN: Plan 1. Acute on chronic combined respiratory failure-etiology unclear, critical care is participating in his care, patient remains on the ventilator at this time, the telemetry manager of human resources service has not seen him today yet #2 acute kidney injury-most likely secondary to ischemic ATN secondary to sepsis shock and vancomycin administration-patient is being seen by nephrology and may undergo dialysis today #3 sepsis secondary to acute cellulitis of the left lower extremity-patient's antibiotics are being managed by infectious diseases #4 type 2 diabetes-blood sugars will be monitored, sliding scale insulin will be administered as needed #5 morbid obesity-complicates care, management, recovery, and prognosis Total clinical time spent by myself addressing the patient's medical issues, reviewing all of his data, and collaborating with patient's care team: 35 minutes Charges/Coding Visit Charges Inpatient E&M: [id number] Subs Hosp L2
--- NOTE | 2023-10-03 08:33 | PCM.PN.BLA ---
Progress Note Patient was seen this morning. He is having a temporary dialysis catheter removed today. I have asked the ICU nurses to stop his tube feeds at midnight and hold his morning heparin. I spoke with the hospitalist team yesterday and they plan to keep him intubated for his procedure as I do not believe he will be able to lay flat without being intubated. Murray Maradiaga MD Pager: [facility] [address] [place] [address] [address] [place] [address] Office:
--- NOTE | 2023-10-03 10:08 | PN.RENAL_ITS ---
Subjective Subjective Follow-up on acute kidney injury secondary to ischemic ATN requiring renal replacement therapy. Currently has been experiencing issues with dialysis catheter with the poor flow. The dialysis catheter has been replaced, last dialysis session over the slow blood flow was day before yesterday. In spite of increasing creatinine his urine output has picked up, and fluid balance has been negative currently. Objective Data Objective Data Vital Signs: Vital Signs Temp Pulse Resp BP Pulse Ox O2 Del Method O2 Flow Rate 99.1 F 79 17 103/59 L 93 Mechanical Ventilator 65 10/03/23 09:00 10/03/23 09:14 10/03/23 09:14 10/03/23 09:00 10/03/23 09:14 10/03/23 09:00 09/28/23 10:26 FiO2 35 10/03/23 09:00 Oxygen Flow Rate (L/min) 65 Oxygen Delivery Method Mechanical Ventilator Weight: 212.6 kg Body Mass Index (BMI) 65.6 Intake & Output: Intake and Output for Last 24 Hours 10/01/23 10/02/23 10/03/23 23:59 23:59 23:59 Intake Total 1559.35 / 1579.95 1893.27 / 1991.47 1186.05 / 1186.05 Output Total 4500 / 4500 600 / 850 550 / 550 Balance -2940.65 / -2920.05 1293.27 / 1141.47 636.05 / 636.05 Lab / Micro Data Attestation: I reviewed the patient's lab results. 10/03/23 05:50 10/03/23 05:50 Labs: Laboratory Results - last 24 hr 10/02/23 11:44: POC Glucose 130 H 10/02/23 11:45: WBC 12.3 H, RBC 5.19, Hgb 12.8 L, Hct 41.5, MCV 80.0, MCH 24.7 L , MCHC 30.8 L, RDW Std Deviation 46.9 H, RDW Coeff of Benedicto 16.2 H, Plt Count 287, MPV 9.3, Immature Gran % (Auto) 2.200 H, Neut % (Auto) 77.5 H, Lymph % (Auto) 9.9 L, [place] % (Auto) 8.8, Eos % (Auto) 1.4, Baso % (Auto) 0.2, Absolute Neuts (auto) 9.6 H, Absolute Lymphs (auto) 1.22, Nucleated RBC % 0, Sodium 131 L, Potassium 4.4, Chloride 98, Carbon Dioxide 21.0, Anion Gap 12, BUN 81 H, Creatinine 8.34 H*, Estim Creat Clear Calc 21.85, Est GFR (MDRD) Af Amer 9 L, Est GFR (MDRD) Non-Af 8 L, BUN/Creatinine Ratio 9.7 L, Glucose 132 H, Calcium 7.4 L 10/02/23 17:18: POC Glucose 125 H 10/02/23 23:41: POC Glucose 113 H 10/03/23 05:50: WBC 11.0, RBC 5.24, Hgb 12.7 L, Hct 41.9, MCV 80.0, MCH 24.2 L, MCHC 30.3 L, RDW Std Deviation 47.3 H, RDW Coeff of Benedicto 16.2 H, Plt Count 289, MPV 9.2, Immature Gran % (Auto) 2.300 H, Neut % (Auto) 73.1 H, Lymph % (Auto) 13.2 L, [place] % (Auto) 9.4, Eos % (Auto) 1.7, Baso % (Auto) 0.3, Absolute Neuts (auto) 8.1 H, Absolute Lymphs (auto) 1.45, Nucleated RBC % 0, Sodium 131 L, Potassium 4.6, Chloride 98, Carbon Dioxide 20.0 L, Anion Gap 13, BUN 94 H, Creatinine 8.90 H*, Estim Creat Clear Calc 20.12, Est GFR (MDRD) Af Amer 9 L, Est GFR (MDRD) Non-Af 7 L, BUN/Creatinine Ratio 10.6, Glucose 147 H, Calcium 7.3 L, Total Bilirubin 0.60, AST 42 H, ALT 12 L, Alkaline Phosphatase 96, Total Protein 7.4, Albumin 1.8 L, Globulin 5.6 H, Albumin/Globulin Ratio 0.3 L Micro: Microbiology 09/26/23 14:55 Blood Culture (Wb) - Pic Blood Culture - Final No growth in 5 days. 09/26/23 14:55 Blood Culture (Wb) - Pic Blood Culture - Final No growth in 5 days. 09/23/23 13:45 Blood Culture (Wb) - Anticubital Right Blood Culture - Final No growth in 5 days. 09/23/23 11:40 Blood Culture (Wb) - Anticubital Right Blood Culture - Final No growth in 5 days. 09/23/23 10:25 Blood Culture (Wb) - Arm Left Blood Culture - Final No growth in 5 days. 09/26/23 07:35 Sputum, Induced/Lukens Gram Stain - Final 09/26/23 07:35 Sputum, Induced/Lukens Respiratory Culture - Final Culture exhibits no growth. 09/23/23 14:00 Wound - Leg, Left Gram Stain - Final 09/23/23 14:00 Wound - Leg, Left Wound Culture - Final Streptococcus dysgalactiae equ Proteus hauseri Alcaligenes faecalis ssp faeca Staphylococcus aureus ABG Data ABG results: ABG 10/03/23 05:11 Specimen Type ART Sample Site R Radial pH 7.26 L Bicarbonate Actual 19.3 L Total CO2 21 Base Excess -8 L O2 Saturation 98 O2 % 40.0 ABG pCO2 43.0 ABG pO2 113 H Cleve Test Positive Respiration Rate 14 O2 Delivery Device Adult Vent Vent Mode AC Tidal Volume 500.0 POC PEEP 5 Attestation: I personally reviewed and interpreted this ABG as follows: Rhythm Strip Rhythm Strip: Sinus Rhythm Rate: 78 Physical Exam Const General Appearance: patient mechanically ventilated Nutritional Appearance: morbidly obese HEENT normocephalic Head and Scalp: atraumatic Neck no lymphadenopathy Resp Auscultation: rhonchi Cardio regular rate and no murmurs GI non-tender Auscultation: normoactive bowel sounds Palpation: soft Bladder / Kidney Exam: catheter in place Skin no rashes or lesions noted Neuro Neuro Narrative: Wakes up and moves all 4 extremities Assessment & Plan Assessment/Plan (1) WINDY (acute kidney injury): PLAN: Patient has ischemic ATN and has been attempted to dialyze on several occasions with mild functional dialysis catheter, most likely due to body habitus. In spite of his increasing creatinine his urine output is picking up and I believe that his creatinine is probably reaching plateau. He is not requiring any pressors and blood pressure is soft, but stable. Minimal ventilatory support with FiO2 40% and 5 of PEEP. He is definitely fluid overloaded on physical exam Plan Will attempt to diurese
[2023-10-03] MEDS: Menthol/Lanolin/Calamine/Znox 113 GM Tube 1 APPLIC TOPICAL ×2 (11:01→21:03)
[2023-10-03] MEDS: fentaNYL drip 100 ML 10 MCG CONT INF ×2 (11:01→21:13)
[2023-10-03] MEDS: Pantoprazole Sodium 40 MG in 0.9% Normal Saline (100mL MB+) 100 ML 330 MG IV (11:01)
[2023-10-03] MEDS: Chlorhexidine 15 ML PO ×2 (11:02→21:03)
[2023-10-03] MEDS: Insulin Glargine-YFGN 100 UNIT/ML Pen 20 UNIT SC (11:16)
[2023-10-03 11:47] LABS: Bedside Glucose 119 mg/dL (74-106)
--- NOTE | 2023-10-03 11:52 | PN.CC_ITS ---
Objective Data Objective Data Vital Signs: Vital Signs Last response Temperature 37.3 C 10/03/23 09:00 Temperature Source Core 10/03/23 09:00 Pulse Rate 79 10/03/23 09:57 Pulse Strength Weak (1+) 10/02/23 22:00 Respiratory Rate 20 H 10/03/23 09:57 Respiratory Effort Mechanically Ventilated 10/03/23 08:00 Respiratory Depth Normal 10/03/23 08:00 Respiratory Pattern Normal 10/03/23 09:57 Blood Pressure 103/59 L 10/03/23 09:00 Blood Pressure Mean 73 10/03/23 09:00 Blood Pressure Source Monitor 10/03/23 09:00 Blood Pressure Position Semi-Fowlers 10/03/23 09:00 Blood Pressure Location Right Forearm 10/03/23 09:00 Pulse Ox 96 10/03/23 09:57 Oxygen Delivery Method Mechanical Ventilator 10/03/23 09:00 Oxygen Flow Rate (L/min) 65 09/28/23 10:26 Fraction of Inspired Oxygen (FIO2) 40 10/03/23 09:57 I&O: I&O Last 24 Hours 10/02/23 10/02/23 10/03/23 11:59 23:59 11:59 Intake Total 1159.00 / 1990.47 734.27 / 1991.47 1212.38 / 1212.38 Output Total 250 / 850 350 / 850 550 / 550 Balance 909.00 / 1141.47 384.27 / 1141.47 662.38 / 662.38 I&O: Total Stay 09/23/23 09:26 thru 10/03/23 11:01 Intake Total 90343.90 Output Total 15811 Balance 25226.90 Current Meds Ordered / Administered: Current meds ordered / Administered Generic Name Dose Route Start Last Admin Trade Name Freq PRN Reason Stop Dose Admin Acetaminophen 650 mg 09/23/23 13:14 09/24/23 03:34 Acetaminophen 325 Mg Tablet PO 650 mg Q6H PRN PRN Administration Pain 1-10 Or Fever >100.7 Albuterol Sulfate 2.5 mg 09/26/23 05:21 10/02/23 19:23 Albuterol 2.5 Mg/3 Ml Vial.Neb. INHALATION 2.5 mg Q2H PRN PRN Administration Dyspnea, wheezing Budesonide 0.5 mg 09/26/23 05:30 10/03/23 07:14 Budesonide Respules 0.5 Mg/2 Ml Ampul.Neb. INHALATION 0.5 mg BID.RT TRENT Administration Calamine/Phenol 1 applic 09/30/23 10:00 10/03/23 11:01 Menthol/Lanolin/Calamine/Znox 113 Gm Tube TOPICAL 1 applic BID TRENT Administration Protocol Chlorhexidine Gluconate 15 ml 09/26/23 10:00 10/03/23 11:02 Chlorhexidine 15 Ml PO 15 ml BID TRENT Administration Chlorhexidine Gluconate 1 each 09/27/23 10:00 10/03/23 03:08 Chlorhexidine Gluc 2% Cloth 1 Each Towelette TOPICAL 1 each DAILY TRENT Administration Dextrose 0 gm 09/25/23 12:51 Dextrose 50%-Water 25 Gm/50 Ml Disp.Syrin IV X1 PRN Hypoglycemia Protocol Furosemide 40 mg 10/03/23 14:00 Furosemide 40 Mg/4 Ml Vial IV Q8 TRENT Protocol Glucagon 1 mg 09/25/23 12:51 Glucagon 1 Mg/Ml Syringe IM X1 PRN Hypoglycemia Heparin Sodium (Beef Lung) 50 units 09/29/23 04:17 Heparin Pf Lock 10 Units/Ml 50 Units/5 Ml Syringe IV UD PRN PICC Line Heparin Flush Heparin Sodium (Porcine) 5,000 unit 09/27/23 06:00 10/03/23 05:38 Heparin Injection (Vial) 5,000 Unit/Ml Vial SC 5,000 unit Q8 TRENT Administration Propofol 1,000 mg in 100 mls @ 13.104 mls/hr 09/26/23 05:20 10/03/23 08:45 Diprivan CONT INF 15 mcg/kg/min .[id number] TRENT 19.7 mls/hr Administration Protocol 10 MCG/KG/MIN Fentanyl 100 mls @ 2.5 mls/hr 09/26/23 05:20 10/03/23 11:01 CONT INF 100 mcg/hr UD TRENT 10 mls/hr Administration Protocol 25 MCG/HR Pantoprazole Sodium 40 mg/ 110 mls @ 330 mls/hr 09/27/23 10:00 10/03/23 11:01 Sodium Chloride IV 330 mls/hr Q24 TRENT Administration Enteral Nutritional Formula 1,000 mls @ 55 mls/hr 09/27/23 10:45 10/03/23 06:03 Vital High Protein GT 55 mls/hr .[id number] TRENT Infusion Sodium Chloride 250 mls @ 15 mls/hr 09/29/23 04:17 IV .[id number] PRN Additional IVPB Infusion Sodium Chloride 250 mls @ 15 mls/hr 09/29/23 04:17 IV .[id number] PRN Saline Flush Insulin Glargine 20 unit 09/27/23 10:00 10/03/23 11:16 Insulin Glargine-Yfgn 100 Unit/Ml Pen SC 20 unit DAILY TRENT Administration Insulin Human Lispro 0 unit 09/28/23 06:00 10/03/23 11:17 Insulin Lispro 100 Unit/Ml Insuln.Pen SC Not Given Q6H [facility] Protocol Nystatin 1 applic 09/25/23 22:00 10/03/23 05:38 Nystatin Powder 15gm Bottle TOPICAL 1 applic TID TRENT Administration Protocol Ondansetron HCl 4 mg 09/23/23 13:14 09/26/23 00:08 Ondansetron 4 Mg/2 Ml Vial IV 4 mg Q8H PRN PRN Administration NAUSEA/VOMITING Polyethylene Glycol 17 gm 10/01/23 10:00 10/03/23 11:03 Polyethylene Glycol 3350 17 Gm Packet GT Not Given DAILY TRENT Senna/Docusate Sodium 2 tablet 10/01/23 10:00 10/03/23 11:03 Senna/Docusate Sodium 1 Tablet GT Not Given DAILY TRENT Sodium Chloride 5 ml 09/26/23 05:20 Sodium Cl For Inhalation 15 Ml Vial.Neb. INHALATION Q5M PRN Suctioning Sodium Chloride 10 - 40 ml 09/29/23 04:17 10/02/23 21:05 0.9 % Nacl (Sterile) Posiflush 10 Ml IV 30 ml UD PRN Administration Port access or dressing change Sodium Chloride 10 - 40 ml 09/29/23 04:17 10/01/23 06:15 0.9% Saline Lock 10 Ml Syringe IV 20 ml UD PRN Administration Open End PICC Flush Sodium Chloride 10 - 40 ml 09/29/23 04:17 0.9% Saline Lock 10 Ml Syringe IV UD PRN SALINE FLUSH Lab / Micro Data 10/04/23 04:25 10/04/23 04:25 Labs: Laboratory Results - last 24 hr 10/02/23 11:44: POC Glucose 130 H 10/02/23 11:45: WBC 12.3 H, RBC 5.19, Hgb 12.8 L, Hct 41.5, MCV 80.0, MCH 24.7 L , MCHC 30.8 L, RDW Std Deviation 46.9 H, RDW Coeff of Benedicto 16.2 H, Plt Count 287, MPV 9.3, Immature Gran % (Auto) 2.200 H, Neut % (Auto) 77.5 H, Lymph % (Auto) 9.9 L, [place] % (Auto) 8.8, Eos % (Auto) 1.4, Baso % (Auto) 0.2, Absolute Neuts (auto) 9.6 H, Absolute Lymphs (auto) 1.22, Nucleated RBC % 0, Sodium 131 L, Potassium 4.4, Chloride 98, Carbon Dioxide 21.0, Anion Gap 12, BUN 81 H, Creatinine 8.34 H*, Estim Creat Clear Calc 21.85, Est GFR (MDRD) Af Amer 9 L, Est GFR (MDRD) Non-Af 8 L, BUN/Creatinine Ratio 9.7 L, Glucose 132 H, Calcium 7.4 L 10/02/23 17:18: POC Glucose 125 H 10/02/23 23:41: POC Glucose 113 H 10/03/23 05:50: WBC 11.0, RBC 5.24, Hgb 12.7 L, Hct 41.9, MCV 80.0, MCH 24.2 L, MCHC 30.3 L, RDW Std Deviation 47.3 H, RDW Coeff of Benedicto 16.2 H, Plt Count 289, MPV 9.2, Immature Gran % (Auto) 2.300 H, Neut % (Auto) 73.1 H, Lymph % (Auto) 13.2 L, [place] % (Auto) 9.4, Eos % (Auto) 1.7, Baso % (Auto) 0.3, Absolute Neuts (auto) 8.1 H, Absolute Lymphs (auto) 1.45, Nucleated RBC % 0, Sodium 131 L, Potassium 4.6, Chloride 98, Carbon Dioxide 20.0 L, Anion Gap 13, BUN 94 H, Creatinine 8.90 H*, Estim Creat Clear Calc 20.12, Est GFR (MDRD) Af Amer 9 L, Est GFR (MDRD) Non-Af 7 L, BUN/Creatinine Ratio 10.6, Glucose 147 H, Calcium 7.3 L, Total Bilirubin 0.60, AST 42 H, ALT 12 L, Alkaline Phosphatase 96, Total Protein 7.4, Albumin 1.8 L, Globulin 5.6 H, Albumin/Globulin Ratio 0.3 L 10/03/23 11:15: POC Glucose 119 H ABG Data ABG results: ABG 10/03/23 05:11 Specimen Type ART Sample Site R Radial pH 7.26 L Bicarbonate Actual 19.3 L Total CO2 21 Base Excess -8 L O2 Saturation 98 O2 % 40.0 ABG pCO2 43.0 ABG pO2 113 H Cleve Test Positive Respiration Rate 14 O2 Delivery Device Adult Vent Vent Mode AC Tidal Volume 500.0 POC PEEP 5 Rhythm Strip Rhythm Strip: Sinus Rhythm Rate: 78 Assessment and Plan . Assessment and plan: Patient seen and examined Chart and data reviewed He is awake and responsive despite sedatives MV 8 LPM, O2 0.4 pH 7.26, pCXR and lab reviewed Plans for HD access Wednesday noted Would not extubate until metabolic compensation in place w/ HD EXAM GEN NAD VS as above HEENT BRIGITTE NECK obese COR RRR CHEST decreased ABD obese EXT pitting edema SKIN w/d APRIL NF ASSESSMENT 1. Acute and chronic respiratory failure requiring MV support 2. Morbid obesity w/ likely Pickwickian syndrome 3. Renal insufficiency requiring SPINNING FRAME CHANGER 4. (?) LE cellulitis 5. Difficult IV/HD vascular access TREATMENT PLAN -MV support -sedation as needed -enteral nutrition -receiving ABX -needs SPINNING FRAME CHANGER w/ serum HCO3- much higher to compensate for his obligate and chronic respiratory acidosis related to habitus -I would not extubate him until he is able to receive SPINNING FRAME CHANGER and has appropriate metabolic compensation Critical Care Time: 50 min The entirety of this encounter was done via Telemedicine
[2023-10-03] MEDS: Vital High Protein 1,000 ML 55 ML GT (14:48)
[2023-10-03] MEDS: Furosemide 40 MG/4 ML Vial IV ×2 (14:48→21:04)
[2023-10-03 19:13] LABS: Bedside Glucose 102 mg/dL (74-106)
[2023-10-03] MEDS: 0.9 % NaCl (Sterile) Posiflush 10 mL IV (21:03)
[2023-10-03] MEDS: Alteplase 2 MG/2 ML Vial IV ×2 (23:40)
[2023-10-04] VITALS (47 sets, daily range): BP systolic 84–282; BP diastolic 48–76; PULSE 62–86; RESP 10–23; TEMP 36.4–37.3; O2SAT 89–100; BMI 67.8; BMI 67.6; BMI 66.9
[2023-10-04 00:35] LABS: Bedside Glucose 105 mg/dL (74-106)
[2023-10-04] MEDS: Alteplase 2 MG/2 ML Vial IV (02:04)
[2023-10-04] MEDS: 0.9 % NaCl (Sterile) Posiflush 10 mL IV (02:05)
[2023-10-04] MEDS: Propofol 10MG/Ml 1,000 MG/100 ML Bottle 19.7 MG CONT INF ×2 (04:20)
[2023-10-04] MEDS: CHLORHEXIDINE GLUC 2% CLOTH 1 EACH TOWELETTE TOPICAL (04:21)
[2023-10-04 04:36] LABS: Absolute Lymphocyte Count 1.79 X10^3/uL (0.83-4.51); Absolute Neutrophil Count 10.2 X10^3/uL (2.0-7.7); Basophil# 0.04 X10^3/uL; Basophil% 0.3 % (0-1); Eosinophil# 0.32 X10^3/uL; Eosinophils% 2.3 % (0-5); Hemoglobin 12.5 g/dL (13.0-16.5); Lymphocyte # 1.79 X10^3/ul (0.83-4.51); Mean Corp Hgb Conc 29.8 g/dL (32-36); Mean Corpuscular Hgb 24.1 pg (27.0-32.0); Mean Corpuscular Volume 80.9 fL (80-94); Monocyte# 1.17 X10^3/uL; Monocyte% 8.5 % (0-10); NRBC Flagged by Analyzer 0 % (0-5); Neutrophil # 10.19 X10^3/uL (2.7-7.7); Neutrophil % 73.9 % (47-70); Platelet Count 370 K/mm3 (150-450); RBC Distribution Width CV 16.4 % (11.6-14.6); RBC Distribution Width SD 47.8 fl (35.1-43.9); Red Blood Count 5.19 M/mm3 (4.6-6.2); White Blood Count 13.8 K/mm3 (4.4-11.0)
[2023-10-04 05:01] LABS: Anion Gap 12 (5-15); BUN 105 mg/dL (7-18); BUN/Creat Ratio 10.9 RATIO (10-20); Calcium,Total 7.2 mg/dL (8.5-10.1); Chloride 98 mmol/L (98-107); Creatinine, Serum 9.61 mg/dL (0.70-1.30); EST Glomerular Filtration Rate 6 mL/min (>60); Est Glom Filt Rate - Afr Amer 8 mL/min (>60); Estimated Creatinine Clearance 18.63 ml/min; Glucose 114 mg/dL (74-106); Potassium 5.7 mmol/L (3.5-5.1); Sodium Level 129 mmol/L (136-145)
[2023-10-04] MEDS: Nystatin Powder 15gm Bottle 1 APPLIC TOPICAL ×3 (05:43→21:20)
[2023-10-04] MEDS: Furosemide 40 MG/4 ML Vial IV ×3 (05:43→21:21)
[2023-10-04] MEDS: TITRATION PARAMETER CHANGE 1 EACH IV (05:46)
--- NOTE | 2023-10-04 06:26 | PCM.PN.INT ---
Assessment & Plan Assessment/Plan (1) Cellulitis: QUALIFIERS: Site of cellulitis: unspecified site Qualified Code(s): L03.90 - Cellulitis, unspecified (2) Septic shock: (3) WINDY (acute kidney injury): (4) Acute on chronic respiratory failure with hypoxia and hypercapnia: PLAN: Plan RECOMMENDATIONS: 1. Continue assist-control mode of mechanical ventilation. 2. Possible extubation once dialysis line is placed and the patient receives hemodialysis. 3. Continue tube feeding as tolerated. 4. Continue appropriate ICU prophylaxis. IMPRESSIONS: 1. Acute on chronic combined respiratory failure Unclear etiology. The patient may have an element of OHS at baseline and has been noncompliant with CPAP therapy. Recommend proceeding with tunneled dialysis catheter placement with subsequent hemodialysis, prior to consideration for possible extubation. 2. Septic shock secondary to cellulitis of left lower extremity The patient has completed a treatment course of antimicrobials under the discretion of infectious diseases. 3. Acute kidney injury secondary to problem #2 and vancomycin Most likely secondary to ischemic ATN in the setting of #2. Nephrology is following to assist with hemodialysis needs. The patient will require tunneled dialysis catheter placement today. Recommend follow-up HD session prior to consideration for possible extubation. 4. Morbid obesity/poor compliance/poor insight/diabetes mellitus Complicates care, management, recovery and prognosis. Continue tube feeding as tolerated for now, along with basal and sliding scale insulin coverage. TIME: 32 minutes of critical care time, independent of procedures, was spent addressing the patient's acute on chronic combined respiratory failure, septic shock, acute kidney injury, review of all data and collaboration with care team. Subjective Subjective The patient was seen and examined at the bedside this morning. Events from the last 24 hours have been reviewed. The patient is currently afebrile, hemodynamically stable and maintaining appropriate oxygen saturations on assist-control mode mechanical ventilation with an FiO2 requirement of 40%. There are tentative plans for tunneled dialysis catheter placement today. The patient is currently documented to be overall net +10.8 L for the hospitalization. Sodium this morning was noted to be 129 with a potassium of 5.7, bicarbonate of 19 and creatinine of 9.61. Objective Data Objective Data The patient's most recent lab work, culture data and imaging studies have all been personally reviewed. Vital Signs: Vital Signs Temp Pulse Resp BP Pulse Ox O2 Del Method O2 Flow Rate 99.1 F 80 14 97/62 93 Mechanical Ventilator 65 10/04/23 06:00 10/04/23 06:00 10/04/23 06:00 10/04/23 06:00 10/04/23 06:00 10/04/23 06:00 09/28/23 10:26 FiO2 40 10/04/23 06:00 Oxygen Flow Rate (L/min) 65 Oxygen Delivery Method Mechanical Ventilator Weight: 485 lb 0.271 oz Body Mass Index (BMI) 67.8 Intake & Output: Intake and Output for Last 24 Hours 10/02/23 10/03/23 10/04/23 23:59 23:59 23:59 Intake Total 1893.27 / 1991.47 2223.93 / 2326.85 868.64 / 868.64 Output Total 600 / 850 1200 / 1400 475 / 475 Balance 1293.27 / 1141.47 1023.93 / 926.85 393.64 / 393.64 Lab / Micro Data Attestation: I reviewed the patient's lab results. 10/04/23 04:25 10/04/23 04:25 Labs: Laboratory Results - last 24 hr 10/03/23 05:50: Sodium 131 L, Potassium 4.6, Chloride 98, Carbon Dioxide 20.0 L, Anion Gap 13, BUN 94 H, Creatinine 8.90 H*, Estim Creat Clear Calc 20.12, Est GFR (MDRD) Af Amer 9 L, Est GFR (MDRD) Non-Af 7 L, BUN/Creatinine Ratio 10.6, Glucose 147 H, Calcium 7.3 L, Total Bilirubin 0.60, AST 42 H, ALT 12 L, Alkaline Phosphatase 96, Total Protein 7.4, Albumin 1.8 L, Globulin 5.6 H, Albumin/Globulin Ratio 0.3 L 10/03/23 11:15: POC Glucose 119 H 10/03/23 18:52: POC Glucose 102 10/03/23 23:27: POC Glucose 105 10/04/23 04:25: WBC 13.8 H, RBC 5.19, Hgb 12.5 L, Hct 42.0, MCV 80.9, MCH 24.1 L, MCHC 29.8 L, RDW Std Deviation 47.8 H, RDW Coeff of Benedicto 16.4 H, Plt Count 370, MPV 10.0, Immature Gran % (Auto) 2.000 H, Neut % (Auto) 73.9 H, Lymph % (Auto) 13.0 L, [place] % (Auto) 8.5, Eos % (Auto) 2.3, Baso % (Auto) 0.3, Absolute Neuts (auto) 10.2 H, Absolute Lymphs (auto) 1.79, Nucleated RBC % 0, Sodium 129 L, Potassium 5.7 H, Chloride 98, Carbon Dioxide 19.0 L, Anion Gap 12, BUN 105 H*, Creatinine 9.61 H*, Estim Creat Clear Calc 18.63, Est GFR (MDRD) Af Amer 8 L, Est GFR (MDRD) Non-Af 6 L, BUN/Creatinine Ratio 10.9, Glucose 114 H, Calcium 7.2 L Micro: Microbiology 09/26/23 14:55 Blood Culture (Wb) - Pic Blood Culture - Final No growth in 5 days. 09/26/23 14:55 Blood Culture (Wb) - Pic Blood Culture - Final No growth in 5 days. 09/23/23 13:45 Blood Culture (Wb) - Anticubital Right Blood Culture - Final No growth in 5 days. 09/23/23 11:40 Blood Culture (Wb) - Anticubital Right Blood Culture - Final No growth in 5 days. 09/23/23 10:25 Blood Culture (Wb) - Arm Left Blood Culture - Final No growth in 5 days. 09/26/23 07:35 Sputum, Induced/Lukens Gram Stain - Final 09/26/23 07:35 Sputum, Induced/Lukens Respiratory Culture - Final Culture exhibits no growth. 09/23/23 14:00 Wound - Leg, Left Gram Stain - Final 09/23/23 14:00 Wound - Leg, Left Wound Culture - Final Streptococcus dysgalactiae equ Proteus hauseri Alcaligenes faecalis ssp faeca Staphylococcus aureus Radiography Diagnostic Testing: Radiology Impression Chest X-Ray 10/03/23 05:42 IMPRESSION: Diffuse bilateral infiltrates worse in the left side. This may represent pulmonary edema. Electronically Signed: Devante Morales MD at 16:55 EDT , Rhythm Strip Rhythm Strip: Sinus Rhythm Rate: 78 Physical Exam Const Constitutional Narrative: Intubated, sedated mechanically ventilated. No ventilator dyssynchrony. Super morbidly obese. HEENT normocephalic and head/scalp atraumatic Mouth: endotracheal tube in place and OG tube in place Eyes PERRL, EOMs intact bilaterally and conjunctivae normal Neck supple Neck Narrative: Large neck circumference with redundant soft tissue General: trachea midline Resp normal respiratory effort Auscultation: diminished lung sounds Cardio regular rate, regular rhythm, S1 normal heart sound and S2 normal heart sound GI normal to inspection, nondistended, normoactive bowel sounds Extremity Extremity Narrative: Wrapped bilateral lower extremities Skin General Skin Exam: erythema Neuro Sensorium / Orientation: sedated on vent Charges/Coding Procedures Hospitalists Procedures: [id number] Critical Care 1st Hr
[2023-10-04] MEDS: Budesonide Respules 0.5 MG/2 ML AMPUL.NEB. INHALATION ×2 (06:27→19:20)
[2023-10-04] MEDS: fentaNYL drip 100 ML 10 MCG CONT INF ×2 (08:19→18:47)
[2023-10-04] MEDS: Menthol/Lanolin/Calamine/Znox 113 GM Tube 1 APPLIC TOPICAL ×2 (10:06→21:20)
[2023-10-04] MEDS: Chlorhexidine 15 ML PO ×2 (10:06→22:03)
[2023-10-04] MEDS: 0.9% Normal Saline (250mL Bag) 250 ML 15 ML IV (10:09)
[2023-10-04] MEDS: Pantoprazole Sodium 40 MG in 0.9% Normal Saline (100mL MB+) 100 ML 330 MG IV (10:13)
--- NOTE | 2023-10-04 10:25 | WOUNDNOTE ---
Wounds to the LLE remain healed. the redness and edema are greatly improved. will leave RADHA wraps off for now and will monitor the edema. washed legs and feet with soap and water. pat dry. applied petroleum to moisturize the legs and feet. patient tolerated well. see skin photos.
--- NOTE | 2023-10-04 11:39 | PCM.PN.REN ---
Subjective Subjective Resting in bed, awake, alert. Remains on ventilator, off sedation. Sister, Alanna at bedside. Objective Data Objective Data Vital Signs: Vital Signs Temp Pulse Resp BP Pulse Ox O2 Del Method O2 Flow Rate 99.0 F 85 15 100/56 L 95 Mechanical Ventilator 65 10/04/23 10:00 10/04/23 10:00 10/04/23 10:00 10/04/23 10:00 10/04/23 10:00 10/04/23 10:00 09/28/23 10:26 FiO2 40 10/04/23 10:00 Oxygen Flow Rate (L/min) 65 Oxygen Delivery Method Mechanical Ventilator Weight: 220 kg Body Mass Index (BMI) 67.8 Intake & Output: Intake and Output for Last 24 Hours 10/02/23 10/03/23 10/04/23 23:59 23:59 23:59 Intake Total 1893.27 / 1991.47 2223.93 / 2326.85 1069.69 / 1069.69 Output Total 600 / 850 1200 / 1400 475 / 475 Balance 1293.27 / 1141.47 1023.93 / 926.85 594.69 / 594.69 Lab / Micro Data 10/04/23 04:25 10/04/23 04:25 Labs: Laboratory Results - last 24 hr 10/03/23 11:15: POC Glucose 119 H 10/03/23 18:52: POC Glucose 102 10/03/23 23:27: POC Glucose 105 10/04/23 04:25: WBC 13.8 H, RBC 5.19, Hgb 12.5 L, Hct 42.0, MCV 80.9, MCH 24.1 L, MCHC 29.8 L, RDW Std Deviation 47.8 H, RDW Coeff of Benedicto 16.4 H, Plt Count 370, MPV 10.0, Immature Gran % (Auto) 2.000 H, Neut % (Auto) 73.9 H, Lymph % (Auto) 13.0 L, [place] % (Auto) 8.5, Eos % (Auto) 2.3, Baso % (Auto) 0.3, Absolute Neuts (auto) 10.2 H, Absolute Lymphs (auto) 1.79, Nucleated RBC % 0, Sodium 129 L, Potassium 5.7 H, Chloride 98, Carbon Dioxide 19.0 L, Anion Gap 12, BUN 105 H*, Creatinine 9.61 H*, Estim Creat Clear Calc 18.63, Est GFR (MDRD) Af Amer 8 L, Est GFR (MDRD) Non-Af 6 L, BUN/Creatinine Ratio 10.9, Glucose 114 H, Calcium 7.2 L Micro: Microbiology 09/26/23 14:55 Blood Culture (Wb) - Pic Blood Culture - Final No growth in 5 days. 09/26/23 14:55 Blood Culture (Wb) - Pic Blood Culture - Final No growth in 5 days. 09/23/23 13:45 Blood Culture (Wb) - Anticubital Right Blood Culture - Final No growth in 5 days. 09/23/23 11:40 Blood Culture (Wb) - Anticubital Right Blood Culture - Final No growth in 5 days. 09/23/23 10:25 Blood Culture (Wb) - Arm Left Blood Culture - Final No growth in 5 days. 09/26/23 07:35 Sputum, Induced/Lukens Gram Stain - Final 09/26/23 07:35 Sputum, Induced/Lukens Respiratory Culture - Final Culture exhibits no growth. 09/23/23 14:00 Wound - Leg, Left Gram Stain - Final 09/23/23 14:00 Wound - Leg, Left Wound Culture - Final Streptococcus dysgalactiae equ Proteus hauseri Alcaligenes faecalis ssp faeca Staphylococcus aureus Radiography Diagnostic Testing: Radiology Impression Chest X-Ray 10/03/23 05:42 IMPRESSION: Diffuse bilateral infiltrates worse in the left side. This may represent pulmonary edema. Electronically Signed: Devante Morales MD at 16:55 EDT Reading Location ID and State: [facility] / [place] , Service support , Rhythm Strip Rhythm Strip: Sinus Rhythm Rate: 78 Physical Exam Narrative Awake, alert S1-S2 Lung sounds clear anteriorly Abdomen is nondistended Extensive erythema over the lower extremities extending into the thighs and groin area, likely chronic lymphedema Waters catheter indwelling with scant yellow urine in bag Assessment & Plan Assessment/Plan (1) WINDY (acute kidney injury): PLAN: 43-year-old male with past medical history significant for morbid obesity, lymphedema who presented to [facility] emergency room on 09/22 with complaints of worsening swelling and redness to his lower extremities. Admitted for cellulitis. Nephrology consulted for rising serum creatinine. - WINDY with normal baseline creatinine, WINDY secondary to ischemic ATN from sepsis, hypotension, possible component from supratherapeutic Vanco levels. Has been attempted to dialyze on several occasions with mild functional dialysis catheter, most likely due to body habitus. First hemodialysis was 09/27 for 3 hours. Last attempt at hemodialysis was on Sunday 10/01 however temporary non-tunneled HD catheter sluggish with very low blood flow rates. Temporary HD catheter has been removed. Today creatinine is 9.61, potassium 5.7, bicarb 19. Urine output yesterday 1.2 L on Lasix 40 mg IV 3 times daily. Cumulative I&O + 11 L. Surgery team consulted for placement of tunneled hemodialysis catheter which is planned for today. Patient will dialyze afterward TDC placed. Likely plan for dialysis again tomorrow and possibly even Wednesday for clearance and fluid removal. Discussed nephrology plan with patient and his Sister Alanna. Questions were answered. -Septic shock secondary to cellulitis of lower extremity. Completed course of antibiotics per ID.
[2023-10-04] MEDS: Propofol 10MG/Ml 1,000 MG/100 ML Bottle 19.8 MG CONT INF ×3 (12:21→21:45)
--- NOTE | 2023-10-04 12:35 | PCM.PN.HOSP ---
Reason for Visit Reason for Visit: Diagnoses Sepsis, unspecified organism (09/23/23) Morbid (severe) obesity due to excess calories (09/23/23) Hypo-osmolality and hyponatremia (09/23/23) Acute and chronic respiratory failure with hypoxia (09/23/23) Acute and chronic respiratory failure with hypercapnia (09/23/23) Cellulitis, unspecified (09/23/23) Acute kidney failure, unspecified (09/23/23) Severe sepsis with septic shock (09/23/23) Subjective Subjective No acute events overnight. Patient seen bedside this morning. Patient was off of sedation for a spontaneous wakening trial when I saw him. He was making appropriate eye contact with me and shook his head no when asked if he had any pain at this time. No other acute concerns at this time. Objective Data Objective Data Vital Signs: Vital Signs Temp Pulse Resp BP Pulse Ox O2 Del Method O2 Flow Rate 99.0 F 85 15 100/56 L 95 Mechanical Ventilator 65 10/04/23 10:00 10/04/23 10:00 10/04/23 10:00 10/04/23 10:00 10/04/23 10:00 10/04/23 10:00 09/28/23 10:26 FiO2 40 10/04/23 10:00 Oxygen Flow Rate (L/min) 65 Oxygen Delivery Method Mechanical Ventilator Weight: 220 kg Body Mass Index (BMI) 67.8 Intake & Output: Intake and Output for Last 24 Hours 10/02/23 10/03/23 10/04/23 23:59 23:59 23:59 Intake Total 1893.27 / 1991.47 2223.93 / 2326.85 1069.69 / 1069.69 Output Total 600 / 850 1200 / 1400 975 / 975 Balance 1293.27 / 1141.47 1023.93 / 926.85 94.69 / 94.69 Lab / Micro Data 10/04/23 04:25 10/04/23 04:25 Labs: Laboratory Results - last 24 hr 10/03/23 18:52: POC Glucose 102 10/03/23 23:27: POC Glucose 105 10/04/23 04:25: WBC 13.8 H, RBC 5.19, Hgb 12.5 L, Hct 42.0, MCV 80.9, MCH 24.1 L, MCHC 29.8 L, RDW Std Deviation 47.8 H, RDW Coeff of Benedicto 16.4 H, Plt Count 370, MPV 10.0, Immature Gran % (Auto) 2.000 H, Neut % (Auto) 73.9 H, Lymph % (Auto) 13.0 L, [place] % (Auto) 8.5, Eos % (Auto) 2.3, Baso % (Auto) 0.3, Absolute Neuts (auto) 10.2 H, Absolute Lymphs (auto) 1.79, Nucleated RBC % 0, Sodium 129 L, Potassium 5.7 H, Chloride 98, Carbon Dioxide 19.0 L, Anion Gap 12, BUN 105 H*, Creatinine 9.61 H*, Estim Creat Clear Calc 18.63, Est GFR (MDRD) Af Amer 8 L, Est GFR (MDRD) Non-Af 6 L, BUN/Creatinine Ratio 10.9, Glucose 114 H, Calcium 7.2 L Micro: Microbiology 09/26/23 14:55 Blood Culture (Wb) - Pic Blood Culture - Final No growth in 5 days. 09/26/23 14:55 Blood Culture (Wb) - Pic Blood Culture - Final No growth in 5 days. 09/23/23 13:45 Blood Culture (Wb) - Anticubital Right Blood Culture - Final No growth in 5 days. 09/23/23 11:40 Blood Culture (Wb) - Anticubital Right Blood Culture - Final No growth in 5 days. 09/23/23 10:25 Blood Culture (Wb) - Arm Left Blood Culture - Final No growth in 5 days. 09/26/23 07:35 Sputum, Induced/Lukens Gram Stain - Final 09/26/23 07:35 Sputum, Induced/Lukens Respiratory Culture - Final Culture exhibits no growth. 09/23/23 14:00 Wound - Leg, Left Gram Stain - Final 09/23/23 14:00 Wound - Leg, Left Wound Culture - Final Streptococcus dysgalactiae equ Proteus hauseri Alcaligenes faecalis ssp faeca Staphylococcus aureus Radiography Diagnostic Testing: Radiology Impression Chest X-Ray 10/03/23 05:42 IMPRESSION: Diffuse bilateral infiltrates worse in the left side. This may represent pulmonary edema. Electronically Signed: Devante Morales MD at 16:55 EDT , Rhythm Strip Rhythm Strip: Sinus Rhythm Rate: 78 Physical Exam Const Constitutional Narrative: Super morbid obesity. Intubated, off sedation. Following commands and understanding conversation. HEENT normocephalic, head/scalp atraumatic and nasal mucous membranes and turbinates normal Eyes PERRL, EOMs intact bilaterally and conjunctivae normal Chest inspection of chest normal Resp normal respiratory effort and no use of accessory muscles Resp Narrative: Mild to moderately decreased breath sounds throughout bilaterally, no wheezing or crackles noted but notably difficult to auscultate given body habitus, similar to previous. Cardio regular rate, regular rhythm, no murmurs and peripheral pulses 2+ throughout GI normal to inspection, nondistended, normoactive bowel sounds, soft to palpation, non-tender and non-distended Extremity Extremity Narrative: Bilateral lower extremities with Mono wrap up to the knees noted. Lower extremity edema improving and erythema of left leg much improved from admission. Neuro moves all extremities Sensorium / Orientation: awake and alert Assessment & Plan Assessment/Plan (1) Acute on chronic respiratory failure with hypoxia and hypercapnia: (2) Septic shock: (3) WINDY (acute kidney injury): PLAN: Plan Patient is a 43-year-old male who presented to [facility] ED on 09/23/2023 with worsening left lower extremity swelling and pain with ambulation. 1. Acute on chronic combined respiratory failure, history of SUNG with CPAP nonadherence ? Has known history of SUNG with CPAP nonadherence. Suspected to have underlying OHS as well. Severe hypercapnia noted overnight on 09/24, did not improve much with and required intubation with mechanical ventilation. ? Patient remains intubated but has only required mild sedation and has been for following commands and understanding conversation as of 09/27. Has been on relatively low vent settings as well. However, the difficulties with dialysis as noted below and continued CO2 retention and acidosis have precluded any further trials at extubation. ? Gynecological Assistant following. Continue treatment of WINDY as noted below. Appreciate projector operator recs regarding timing of further trials of SBT and/or extubation. 2. Septic shock secondary to left lower extremity cellulitis, resolved; chronic lower extremity lipedema ? Wound cultures from left lower extremity on 09/22 grew Strep dysgalactiae, Proteus, Staph aureus and Alcalignenes. Blood cultures from 09/22 negative x 2, repeat blood cultures from 09/25 again with no growth after 48 hours. ? Initially treated with vancomycin and meropenem, however vancomycin discontinued due to elevated troughs and severe WINDY as noted below. Patient notably has had significant improvement in left lower extremity cellulitis. ? Stable off pressors since 09/27. ? Infectious disease followed. Wound care following. Completed course of antibiotics, remained stable. Continue wound care management. 3. Severe WINDY ? Creatinine 0.91 on admission, likely baseline. Had significant uptrend in creatinine with very minimal urine output for first several days admission. Given patient's worsening volume overload and minimal urine output, decision was made to initiate dialysis on 09/27. ? Completed 3 rounds of HD from 09/27 to 09/29. However, had difficulty with the right IJ HD line frequently becoming blocked. ? Surgery following. Temporary right IJ line removed on 10/02, plan is for placement of tunneled HD catheter on 10/03. ? Nephrology following. Planning for HD 10/03 after tunneled catheter placement. Likely planning for dialysis again tomorrow and possibly Wednesday for clearance and fluid removal. 4. Type 2 diabetes mellitus ? A1c 10.1% on admit. Not on any home diabetic medications. Unclear if patient was previously diagnosed with diabetes or not. Continue Lantus 20 units at night, sliding scale insulin with tube feeds every 4 hours as needed for now. 5. Hyponatremia, stable ? Nephrology following as above. Sodium 128 on admit, remained stable around 126-129 for several days. Now slowly improving with volume removal with hemodialysis. Continue to monitor BMP daily. 6. Super morbid obesity ? BMI 66 on admit. Complicates hospital course, care and prognosis. DVT prophylaxis: Heparin subcu CODE STATUS: Full code, verified Expected disposition: TBD Total clinical time spent by myself addressing the patient's medical issues, reviewing all the data, and collaborating with patient's care team: 35 minutes. Charges/Coding Visit Charges Inpatient E&M: 40554 Subs Hosp L2
[2023-10-04 13:27] LABS: Bedside Glucose 102 mg/dL (74-106)
--- NOTE | 2023-10-04 13:30 | NURSING ---
Patient left unit to the OR
[2023-10-04] MEDS: Cefazolin 3 GM in 0.9% Normal Saline (100mL Bag) 100 ML IV (13:39)
[2023-10-04] MEDS: Bupiv/Epi 0.25% 30 ML Vial INFILT (13:59)
[2023-10-04] MEDS: Lidocaine 1% (30 ml sdv) 30 ML Vial (13:59)
--- NOTE | 2023-10-04 14:01 | WOUNDNOTE ---
skin photo: left lower leg
--- NOTE | 2023-10-04 14:02 | WOUNDNOTE ---
skin photo: right lower leg
[2023-10-04] MEDS: Heparin 10,000 UNITS/10 ML Vial 10000 UNITS (14:11)
--- NOTE | 2023-10-04 14:25 | OP.PCM_ITS ---
Report of Operation Date of Procedure: 10/04/23 Pre-Operative Diagnosis: azam Post-Operative Diagnosis: same Surgery/Procedure Performed:: Placement of RIJ tunneled dialysis catheter use of US Use of fluoroscopy Surgeon: Mary Jane Hunter Type of Anesthesia: General/Supplemental Anesthesiologist: Jose Hernandez Special Medications: ancef 3 gram IV x 1 Estimated Blood Loss (mL): 20 cc Description of Procedure: After informed consent was given, the patient was brought to the operating room and placed in the supine position. Appropriate time out protocol was followed. Patient was sedated as he was still intubated from ICU. The patient's right upper chest and neck were then prepped with a surgical skin preparation and sterile surgical drapes were placed. After proper landmarks were ascertained, the skin at the upper right chest area was then infiltrated with 1:1 mixture of 1% lidocaine with epinephrine and 0.5% maricaine. A needle trocar was then inserted into the right internal jugular vein with ultrasound guidance-multiple vessels were viewed with u/s and the right IJ was chosen-- and there was good aspiration of venous blood. A wire was then threaded into the needle trocar and this was visualized under fluoroscopy to ensure that the wire was in the superior vena cava. Once this was done, then th e needle trocar was removed. A small incision was made with an 11 blade knife at the wire entrance site. The dilator x2 with the introducer sheath attached was then placed over the wire into the right internal jugular vein via the Seldinger technique and this was visualized under fluoroscopy. Next the introducer and sheath were in proper position as visualized by fluoroscopy. The location of the cuffed was estimated on the skin, an incision was made with a 15 blade scalpel. The 14.5 Fr x23 cm Palindrome dual lumen (Lot [id number] reference [id number]) was tunneled from the chest incision to the right neck incision. The sheath was removed. The catheter was placed through the introducer and was positioned with its tip at the junction of the superior vena cava and the right atrium as visualized under fluoroscopy. The cuff of the catheter was in the subcutaneous tissue. The catheter flushed and mayte well with saline. Catheter was also flushed with 1.6 cc of 1-10,000 of heparin. Hemostasis was assured. Silver dressing was placed at the catheter exit site. Catheter was sutured with 3-0 nylon sutures. The neck incision was sutured with interrupted 3-0 Vicryl interrupted sutures x2 and Steri-Strips were placed. A large OpSite was placed over the catheter site and a small OpSite over the neck incision. The patient tolerated the procedure well. Grafts/Implants Used: 14.5 Fr x23 cm Palindrome dual lumen (Lot [id number] reference [id number]) Complications none
--- NOTE | 2023-10-04 14:45 | NURSING ---
Patient returned from the OR- Fi02 increased to 70%. Patient saturation 85% on 40% Fi02.
--- NOTE | 2023-10-04 15:45 | RAD_ITS ---
INDICATION: DIALYSIS CATHETER -- PORTABLE iCU EXAMINATION/TECHNIQUE: X-RAY - XR Chest 1 View COMPARISON: October 03, 2023. FINDINGS: LINES/DEVICES: Endotracheal tube 4.6 cm above the shamir. Enteric tube projects subdiaphragmatic in the stomach. Right internal jugular line tip projects at the distal superior vena cava.. LUNGS: Low lung volumes. Linear atelectasis in the left lower lung. No consolidation, edema or effusion. No pneumothorax. MEDIASTINUM AND CARDIOVASCULAR STRUCTURES: Cardiac silhouette not enlarged. BONES AND SOFT TISSUES: Unremarkable. RAD/Chest 1 View (Portable) IMPRESSION: Support apparatus as above Linear atelectasis in the left lung base. Electronically Signed: Deangelo Oh MD at 17:33 EDT ,
[2023-10-04] MEDS: 0.9% Normal Saline 1,000 ML IV.SOLN. 1000 ML OPERA.SITE (16:13)
[2023-10-04] MEDS: PureFlow B 2K Dialysis Soln 1 BAG 6 BAG PF (16:13)
[2023-10-04 18:07] LABS: Bedside Glucose 89 mg/dL (74-106)
[2023-10-04] MEDS: Heparin 10,000 UNITS/10 ML Vial IV (19:02)
[2023-10-04] MEDS: 0.9% Saline Lock 10 ML Syringe IV (19:02)
[2023-10-04] MEDS: Vital High Protein 1,000 ML 25 ML GT (19:30)
[2023-10-04 23:53] LABS: Bedside Glucose 89 mg/dL (74-106)
[2023-10-05] VITALS (47 sets, daily range): BP systolic 85–288; BP diastolic 50–89; PULSE 67–90; RESP 10–23; TEMP 36.9–37.7; O2SAT 89–100; BMI 67.1; BMI 65.8
[2023-10-05] MEDS: Propofol 10MG/Ml 1,000 MG/100 ML Bottle 19.8 MG CONT INF (03:05)
[2023-10-05] MEDS: Ondansetron 4 MG/2 ML Vial IV (04:53)
[2023-10-05] MEDS: 0.9% Saline Lock 10 ML Syringe IV ×4 (04:55→21:28)
[2023-10-05 04:57] LABS: Hemoglobin 11.9 g/dL (13.0-16.5); Mean Corp Hgb Conc 29.8 g/dL (32-36); Mean Corpuscular Hgb 23.9 pg (27.0-32.0); Mean Corpuscular Volume 80.3 fL (80-94); Mean Platelet Vol. 9.2 fl (6.2-12.0); Platelet Count 332 K/mm3 (150-450); RBC Distribution Width CV 16.2 % (11.6-14.6); RBC Distribution Width SD 47.5 fl (35.1-43.9); Red Blood Count 4.98 M/mm3 (4.6-6.2); White Blood Count 10.8 K/mm3 (4.4-11.0)
[2023-10-05] MEDS: fentaNYL drip 100 ML 5 MCG CONT INF (05:00)
[2023-10-05] MEDS: Furosemide 40 MG/4 ML Vial IV ×3 (05:01→21:29)
[2023-10-05] MEDS: Nystatin Powder 15gm Bottle 1 APPLIC TOPICAL ×3 (05:02→21:27)
[2023-10-05 05:18] LABS: CPK Total, Creatine Kinase 161 U/L (39-308); Triglycerides 300 mg/dL
[2023-10-05 05:52] LABS: Anion Gap 14 (5-15); BUN 91 mg/dL (7-18); BUN/Creat Ratio 10.6 RATIO (10-20); Calcium,Total 7.2 mg/dL (8.5-10.1); Chloride 98 mmol/L (98-107); Creatinine, Serum 8.57 mg/dL (0.70-1.30); EST Glomerular Filtration Rate 7 mL/min (>60); Est Glom Filt Rate - Afr Amer 9 mL/min (>60); Estimated Creatinine Clearance 21.21 ml/min; Glucose 124 mg/dL (74-106); Potassium 4.7 mmol/L (3.5-5.1); Sodium Level 131 mmol/L (136-145)
[2023-10-05] MEDS: Budesonide Respules 0.5 MG/2 ML AMPUL.NEB. INHALATION ×2 (07:00→19:05)
--- NOTE | 2023-10-05 07:25 | PCM.PN.INT ---
Assessment & Plan Assessment/Plan (1) Cellulitis: QUALIFIERS: Site of cellulitis: unspecified site Qualified Code(s): L03.90 - Cellulitis, unspecified (2) Septic shock: (3) WINDY (acute kidney injury): (4) Acute on chronic respiratory failure with hypoxia and hypercapnia: PLAN: Plan RECOMMENDATIONS: 1. Proceed with a trial of extubation this morning. 2. Initiate AVAPS therapy with naps and nightly. 3. Swallow evaluation prior to advancing diet. 4. Wean supplemental oxygen to maintain saturations at or above 90%. 5. Ongoing Lasix therapy as tolerated by hemodynamics and renal function. 6. Dialysis support per nephrology recommendations. IMPRESSIONS: 1. Acute on chronic combined respiratory failure Unclear etiology. The patient may have an element of OHS at baseline and has been noncompliant with CPAP therapy. The patient has improved from a respiratory perspective and was able to be extubated on the morning of October 2. Plan to initiate AVAPS therapy with naps and nightly. Otherwise, wean supplemental oxygen to maintain saturations at or above 90%. Encourage incentive spirometer use and mobilize patient as tolerated. 2. Septic shock secondary to cellulitis of left lower extremity Resolved. The patient has completed a treatment course of antimicrobials under the discretion of infectious diseases. 3. Acute kidney injury secondary to problem #2 and vancomycin Most likely secondary to ischemic ATN in the setting of #2. Nephrology is following to assist with hemodialysis needs. 4. Morbid obesity/poor compliance/poor insight/diabetes mellitus Complicates care, management, recovery and prognosis. Continue sliding scale insulin regimen. TIME: 34 minutes of critical care time, independent of procedures, was spent addressing the patient's acute on chronic combined respiratory failure, septic shock, acute kidney injury, review of all data and collaboration with care team. Subjective Subjective The patient was seen and examined at the bedside this morning. Events from the last 24 hours have been reviewed. The patient is currently afebrile, hemodynamically stable and maintaining appropriate oxygen saturations on spontaneous mode of mechanical ventilation. The patient underwent successful placement of a tunneled dialysis catheter yesterday. He then received dialysis with 3.2 L of fluid removed. The patient has done well this morning on his spontaneous breathing trial. The patient does have a cuff leak. He is alert and appropriately interactive. The patient is able to follow simple commands. He is currently documented to be overall net +7.8 L for the hospitalization. The patient's white blood cell count has normalized. Hemoglobin is stable this morning. Sodium was noted to be 131 with a bicarbonate of 19. Objective Data Objective Data The patient's most recent lab work, culture data and imaging studies have all been personally reviewed. Vital Signs: Vital Signs Temp Pulse Resp BP Pulse Ox O2 Del Method O2 Flow Rate 98.9 F 82 14 102/52 L 92 Mechanical Ventilator 70 10/05/23 06:00 10/05/23 06:00 10/05/23 06:00 10/05/23 06:00 10/05/23 06:00 10/05/23 06:00 10/04/23 15:30 FiO2 40 10/05/23 06:00 Oxygen Flow Rate (L/min) 70 Oxygen Delivery Method Mechanical Ventilator Weight: 479 lb 8.086 oz Body Mass Index (BMI) 67.1 Intake & Output: Intake and Output for Last 24 Hours 10/03/23 10/04/23 10/05/23 23:59 23:59 23:59 Intake Total 2223.93 / 2326.85 1607.46 / 1620.76 679.53 / 679.53 Output Total 1200 / 1400 4525 / 4725 350 / 350 Balance 1023.93 / 926.85 -2917.54 / -3104.24 329.53 / 329.53 Lab / Micro Data Attestation: I reviewed the patient's lab results. 10/05/23 04:50 10/05/23 04:50 Labs: Laboratory Results - last 24 hr 10/04/23 13:02: POC Glucose 102 10/04/23 17:48: POC Glucose 89 10/04/23 23:34: POC Glucose 89 10/05/23 04:50: WBC 10.8, RBC 4.98, Hgb 11.9 L, Hct 40.0, MCV 80.3, MCH 23.9 L, MCHC 29.8 L, RDW Std Deviation 47.5 H, RDW Coeff of Benedicto 16.2 H, Plt Count 332, MPV 9.2, Sodium 131 L, Potassium 4.7, Chloride 98, Carbon Dioxide 19.0 L, Anion Gap 14, BUN 91 H, Creatinine 8.57 H*, Estim Creat Clear Calc 21.21, Est GFR (MDRD) Af Amer 9 L, Est GFR (MDRD) Non-Af 7 L, BUN/Creatinine Ratio 10.6, Glucose 124 H, Calcium 7.2 L, Total Creatine Kinase 161, Triglycerides 300 H Micro: Microbiology 09/26/23 14:55 Blood Culture (Wb) - Pic Blood Culture - Final No growth in 5 days. 09/26/23 14:55 Blood Culture (Wb) - Pic Blood Culture - Final No growth in 5 days. 09/23/23 13:45 Blood Culture (Wb) - Anticubital Right Blood Culture - Final No growth in 5 days. 09/23/23 11:40 Blood Culture (Wb) - Anticubital Right Blood Culture - Final No growth in 5 days. 09/23/23 10:25 Blood Culture (Wb) - Arm Left Blood Culture - Final No growth in 5 days. 09/26/23 07:35 Sputum, Induced/Lukens Gram Stain - Final 09/26/23 07:35 Sputum, Induced/Lukens Respiratory Culture - Final Culture exhibits no growth. 09/23/23 14:00 Wound - Leg, Left Gram Stain - Final 09/23/23 14:00 Wound - Leg, Left Wound Culture - Final Streptococcus dysgalactiae equ Proteus hauseri Alcaligenes faecalis ssp faeca Staphylococcus aureus Radiography Diagnostic Testing: Radiology Impression Chest X-Ray 10/04/23 15:45 IMPRESSION: Support apparatus as above Linear atelectasis in the left lung base. Electronically Signed: Deangelo Oh MD at 17:33 EDT Reading Location ID and State: [facility] / [place] Tel , Service support , Rhythm Strip Rhythm Strip: Sinus Rhythm Rate: 78 Physical Exam Const Constitutional Narrative: Remains intubated and mechanically ventilated. Super morbidly obese. Alert and following commands appropriately. HEENT normocephalic and head/scalp atraumatic Mouth: endotracheal tube in place and OG tube in place Eyes PERRL, EOMs intact bilaterally and conjunctivae normal Neck supple Neck Narrative: Large neck circumference with redundant soft tissue General: trachea midline Resp normal respiratory effort Auscultation: diminished lung sounds Cardio regular rate, regular rhythm, S1 normal heart sound and S2 normal heart sound GI normal to inspection, nondistended, normoactive bowel sounds Extremity Extremity Narrative: Wrapped bilateral lower extremities Skin General Skin Exam: erythema Neuro moves all extremities and no focal motor deficits Charges/Coding Procedures Hospitalists Procedures: 46775 Critical Care 1st Hr
[2023-10-05] MEDS: 0.9% Normal Saline 1,000 ML IV.SOLN. 1000 ML OPERA.SITE (07:38)
[2023-10-05] MEDS: PureFlow B 2K Dialysis Soln 1 BAG 6 BAG PF (07:38)
--- NOTE | 2023-10-05 08:43 | PCM.PN.SRG ---
Subjective Subjective Patient is evaluated resting comfortably in bed. He is now extubated. Patient is POD #1 right tunneled dialysis catheter placement by Dr. Hunter. Patient had dialysis last night successfully without any concern. Patient was on dialysis this morning upon evaluation and was running well. Patient notes minimal amount of discomfort in the right chest otherwise no concerns. Objective Data Objective Data Vital Signs: Vital Signs Temp Pulse Resp BP Pulse Ox O2 Del Method O2 Flow Rate 98.6 F 74 13 130/74 H 100 Bi-pap 70 10/05/23 08:00 10/05/23 08:25 10/05/23 08:25 10/05/23 08:25 10/05/23 08:25 10/05/23 08:25 10/04/23 15:30 FiO2 45 10/05/23 08:25 Oxygen Flow Rate (L/min) 70 Oxygen Delivery Method Bi-pap Weight: 479 lb 8.086 oz Body Mass Index (BMI) 67.1 Intake & Output: Intake and Output for Last 24 Hours 10/03/23 10/04/23 10/05/23 23:59 23:59 23:59 Intake Total 2223.93 / 2326.85 1607.46 / 1620.76 679.53 / 679.53 Output Total 1200 / 1400 4525 / 4725 350 / 350 Balance 1023.93 / 926.85 -2917.54 / -3104.24 329.53 / 329.53 Lab / Micro Data 10/05/23 04:50 10/05/23 04:50 Labs: Laboratory Results - last 24 hr 10/04/23 13:02: POC Glucose 102 10/04/23 17:48: POC Glucose 89 10/04/23 23:34: POC Glucose 89 10/05/23 04:50: WBC 10.8, RBC 4.98, Hgb 11.9 L, Hct 40.0, MCV 80.3, MCH 23.9 L, MCHC 29.8 L, RDW Std Deviation 47.5 H, RDW Coeff of Benedicto 16.2 H, Plt Count 332, MPV 9.2, Sodium 131 L, Potassium 4.7, Chloride 98, Carbon Dioxide 19.0 L, Anion Gap 14, BUN 91 H, Creatinine 8.57 H*, Estim Creat Clear Calc 21.21, Est GFR (MDRD) Af Amer 9 L, Est GFR (MDRD) Non-Af 7 L, BUN/Creatinine Ratio 10.6, Glucose 124 H, Calcium 7.2 L, Total Creatine Kinase 161, Triglycerides 300 H Micro: Microbiology 09/26/23 14:55 Blood Culture (Wb) - Pic Blood Culture - Final No growth in 5 days. 09/26/23 14:55 Blood Culture (Wb) - Pic Blood Culture - Final No growth in 5 days. 09/23/23 13:45 Blood Culture (Wb) - Anticubital Right Blood Culture - Final No growth in 5 days. 09/23/23 11:40 Blood Culture (Wb) - Anticubital Right Blood Culture - Final No growth in 5 days. 09/23/23 10:25 Blood Culture (Wb) - Arm Left Blood Culture - Final No growth in 5 days. 09/26/23 07:35 Sputum, Induced/Lukens Gram Stain - Final 09/26/23 07:35 Sputum, Induced/Lukens Respiratory Culture - Final Culture exhibits no growth. 09/23/23 14:00 Wound - Leg, Left Gram Stain - Final 09/23/23 14:00 Wound - Leg, Left Wound Culture - Final Streptococcus dysgalactiae equ Proteus hauseri Alcaligenes faecalis ssp faeca Staphylococcus aureus Radiography Diagnostic Testing: Radiology Impression Chest X-Ray 10/04/23 15:45 IMPRESSION: Support apparatus as above Linear atelectasis in the left lung base. Electronically Signed: Deangelo Oh MD at 17:33 EDT Reading Location ID and State: [facility] / [place] Tel , Service support , Rhythm Strip Rhythm Strip: Sinus Rhythm Rate: 78 Physical Exam Chest Chest Narrative: Right chest- catheter intact. No active bleeding or oozing. No notable ecchymosis noted. Assessment & Plan Assessment/Plan (1) WINDY (acute kidney injury): PLAN: I am seeing this patient in conjunction with Dr. Hunter. Dialysis catheter appears to be functioning well We will sign off at this time Please reconsult our service if needed Thank you for allowing us to participate in this patient's care Charges/Coding Visit Charges Inpatient E&M: 16833 Subs Hosp L1 (no charge; post-op)
--- NOTE | 2023-10-05 10:00 | WOUNDNOTE ---
In to reassess bilateral lower legs. redness and edema remain improved. patient was extubated this am. legs remain dry. will leave RADHA wraps off and monitor since patient is requesting they are left CLARY. will continue to moisturize the legs.
--- NOTE | 2023-10-05 10:17 | PCM.PN.REN ---
Subjective Subjective Follow-up on acute kidney injury requiring hemodialysis. Came over during dialysis session to supervise. Patient is doing much better, he is extubated, on BiPAP. No pressors, hemodynamically stable. Dialysis catheter looks great, blood flow 400 cc/min. Tolerates ultrafiltration of 1.4 L. Has Waters catheter in but good amount of clear urine Objective Data Objective Data Vital Signs: Vital Signs Temp Pulse Resp BP Pulse Ox O2 Del Method O2 Flow Rate 98.6 F 74 17 128/76 H 100 Bi-pap 70 10/05/23 08:00 10/05/23 10:00 10/05/23 10:00 10/05/23 10:00 10/05/23 10:00 10/05/23 10:00 10/04/23 15:30 FiO2 35 10/05/23 10:00 Oxygen Flow Rate (L/min) 70 Oxygen Delivery Method Bi-pap Weight: 217.5 kg Body Mass Index (BMI) 67.1 Intake & Output: Intake and Output for Last 24 Hours 10/03/23 10/04/23 10/05/23 23:59 23:59 23:59 Intake Total 2223.93 / 2326.85 1607.46 / 1620.76 679.53 / 679.53 Output Total 1200 / 1400 4525 / 4725 350 / 350 Balance 1023.93 / 926.85 -2917.54 / -3104.24 329.53 / 329.53 Lab / Micro Data Attestation: I reviewed the patient's lab results. 10/05/23 04:50 10/05/23 04:50 Labs: Laboratory Results - last 24 hr 10/04/23 13:02: POC Glucose 102 10/04/23 17:48: POC Glucose 89 10/04/23 23:34: POC Glucose 89 10/05/23 04:50: WBC 10.8, RBC 4.98, Hgb 11.9 L, Hct 40.0, MCV 80.3, MCH 23.9 L, MCHC 29.8 L, RDW Std Deviation 47.5 H, RDW Coeff of Benedicto 16.2 H, Plt Count 332, MPV 9.2, Sodium 131 L, Potassium 4.7, Chloride 98, Carbon Dioxide 19.0 L, Anion Gap 14, BUN 91 H, Creatinine 8.57 H*, Estim Creat Clear Calc 21.21, Est GFR (MDRD) Af Amer 9 L, Est GFR (MDRD) Non-Af 7 L, BUN/Creatinine Ratio 10.6, Glucose 124 H, Calcium 7.2 L, Total Creatine Kinase 161, Triglycerides 300 H Micro: Microbiology 09/26/23 14:55 Blood Culture (Wb) - Pic Blood Culture - Final No growth in 5 days. 09/26/23 14:55 Blood Culture (Wb) - Pic Blood Culture - Final No growth in 5 days. 09/23/23 13:45 Blood Culture (Wb) - Anticubital Right Blood Culture - Final No growth in 5 days. 09/23/23 11:40 Blood Culture (Wb) - Anticubital Right Blood Culture - Final No growth in 5 days. 09/23/23 10:25 Blood Culture (Wb) - Arm Left Blood Culture - Final No growth in 5 days. 09/26/23 07:35 Sputum, Induced/Lukens Gram Stain - Final 09/26/23 07:35 Sputum, Induced/Lukens Respiratory Culture - Final Culture exhibits no growth. 09/23/23 14:00 Wound - Leg, Left Gram Stain - Final 09/23/23 14:00 Wound - Leg, Left Wound Culture - Final Streptococcus dysgalactiae equ Proteus hauseri Alcaligenes faecalis ssp faeca Staphylococcus aureus Radiography Diagnostic Testing: Radiology Impression Chest X-Ray 10/04/23 15:45 IMPRESSION: Support apparatus as above Linear atelectasis in the left lung base. Electronically Signed: Deangelo Oh MD at 17:33 EDT , Rhythm Strip Rhythm Strip: Sinus Rhythm Rate: 78 Physical Exam Const alert, oriented x3 and no apparent distress General Appearance: on BiPAP Orientation / Consciousness: oriented to person and oriented to place Nutritional Appearance: morbidly obese HEENT normocephalic Head and Scalp: atraumatic Neck no lymphadenopathy Resp Auscultation: rhonchi Cardio regular rate GI non-tender Palpation: soft external exam normal Bladder / Kidney Exam: catheter in place Skin no rashes or lesions noted Neuro Sensorium / Orientation: awake and alert Psych cooperative Assessment & Plan Assessment/Plan (1) WINDY (acute kidney injury): PLAN: While patient is making urine, clearance is quite poor, was acidotic, started on for dialysis yesterday, today is his second session. He tolerates dialysis well. Acidosis is better, potassium has improved. Mildly fluid overloaded, but difficult to establish his volume status due to morbid obesity. Plan Will dialyze him tomorrow again to optimize metabolic parameters and improve volume status as tolerates
[2023-10-05] MEDS: Heparin 10,000 UNITS/10 ML Vial IV (10:35)
[2023-10-05] MEDS: Menthol/Lanolin/Calamine/Znox 113 GM Tube 1 APPLIC TOPICAL ×2 (11:26→21:28)
[2023-10-05] MEDS: Polyethylene Glycol 3350 17 GM PACKET PO (11:27)
[2023-10-05] MEDS: Senna/Docusate Sodium 1 Tablet 2 TABLET PO (11:28)
--- NOTE | 2023-10-05 12:09 | PCM.PN.HOSP ---
Reason for Visit Reason for Visit: Diagnoses Sepsis, unspecified organism (09/23/23) Morbid (severe) obesity due to excess calories (09/23/23) Hypo-osmolality and hyponatremia (09/23/23) Acute and chronic respiratory failure with hypoxia (09/23/23) Acute and chronic respiratory failure with hypercapnia (09/23/23) Cellulitis, unspecified (09/23/23) Acute kidney failure, unspecified (09/23/23) Severe sepsis with septic shock (09/23/23) Subjective Subjective Patient had tunneled HD line placed yesterday afternoon and had HD done after that. Patient was successfully extubated to BiPAP this morning. He had just been switched over to nasal cannula when I saw him in the mid morning. He was breathing comfortably on 4 L nasal cannula with good oxygen saturations. He was speaking with a soft voice but answering all questions appropriately. Main concern was that he was hungry and hoping to eat soon. He otherwise denied any acute concerns at this time. Objective Data Objective Data Vital Signs: Vital Signs Temp Pulse Resp BP Pulse Ox O2 Del Method O2 Flow Rate 99.1 F 83 12 124/71 H 94 Nasal Cannula 3 10/05/23 11:00 10/05/23 11:00 10/05/23 11:00 10/05/23 11:00 10/05/23 12:04 10/05/23 12:04 10/05/23 12:04 FiO2 98 10/05/23 11:00 Oxygen Flow Rate (L/min) 3 Oxygen Delivery Method Nasal Cannula Weight: 213.3 kg Body Mass Index (BMI) 65.8 Intake & Output: Intake and Output for Last 24 Hours 10/03/23 10/04/23 10/05/23 23:59 23:59 23:59 Intake Total 2223.93 / 2326.85 1607.46 / 1620.76 679.53 / 679.53 Output Total 1200 / 1400 4525 / 4725 4200 / 4200 Balance 1023.93 / 926.85 -2917.54 / -3104.24 -3520.47 / -3520.47 Lab / Micro Data 10/05/23 04:50 10/05/23 04:50 Labs: Laboratory Results - last 24 hr 10/04/23 13:02: POC Glucose 102 10/04/23 17:48: POC Glucose 89 10/04/23 23:34: POC Glucose 89 10/05/23 04:50: WBC 10.8, RBC 4.98, Hgb 11.9 L, Hct 40.0, MCV 80.3, MCH 23.9 L, MCHC 29.8 L, RDW Std Deviation 47.5 H, RDW Coeff of Benedicto 16.2 H, Plt Count 332, MPV 9.2, Sodium 131 L, Potassium 4.7, Chloride 98, Carbon Dioxide 19.0 L, Anion Gap 14, BUN 91 H, Creatinine 8.57 H*, Estim Creat Clear Calc 21.21, Est GFR (MDRD) Af Amer 9 L, Est GFR (MDRD) Non-Af 7 L, BUN/Creatinine Ratio 10.6, Glucose 124 H, Calcium 7.2 L, Total Creatine Kinase 161, Triglycerides 300 H Micro: Microbiology 09/26/23 14:55 Blood Culture (Wb) - Pic Blood Culture - Final No growth in 5 days. 09/26/23 14:55 Blood Culture (Wb) - Pic Blood Culture - Final No growth in 5 days. 09/23/23 13:45 Blood Culture (Wb) - Anticubital Right Blood Culture - Final No growth in 5 days. 09/23/23 11:40 Blood Culture (Wb) - Anticubital Right Blood Culture - Final No growth in 5 days. 09/23/23 10:25 Blood Culture (Wb) - Arm Left Blood Culture - Final No growth in 5 days. 09/26/23 07:35 Sputum, Induced/Lukens Gram Stain - Final 09/26/23 07:35 Sputum, Induced/Lukens Respiratory Culture - Final Culture exhibits no growth. 09/23/23 14:00 Wound - Leg, Left Gram Stain - Final 09/23/23 14:00 Wound - Leg, Left Wound Culture - Final Streptococcus dysgalactiae equ Proteus hauseri Alcaligenes faecalis ssp faeca Staphylococcus aureus Radiography Diagnostic Testing: Radiology Impression Chest X-Ray 10/04/23 15:45 IMPRESSION: Support apparatus as above Linear atelectasis in the left lung base. Electronically Signed: Deangelo Oh MD at 17:33 EDT , Rhythm Strip Rhythm Strip: Sinus Rhythm Rate: 78 Physical Exam Const alert, oriented x3 and no apparent distress Constitutional Narrative: Pleasant younger male, morbidly obese, laying comfortably in bed, conversing normally, in no acute distress. General Appearance: cooperative and comfortable HEENT normocephalic, head/scalp atraumatic, hearing grossly normal bilaterally and nasal mucous membranes and turbinates normal Mouth: dry mucous membranes Eyes PERRL, EOMs intact bilaterally and conjunctivae normal Neck full ROM Chest inspection of chest normal Resp normal respiratory effort and no use of accessory muscles Resp Narrative: Breathing comfortably on 3 L nasal cannula. Mildly decreased breath sounds bilaterally throughout, no wheezing or crackles noted. Exam limited by body habitus. Cardio regular rate, regular rhythm, no murmurs and peripheral pulses 2+ throughout GI normal to inspection, nondistended, normoactive bowel sounds, soft to palpation, non-tender and non-distended Back/Spine normal ROM Extremity Extremity Narrative: Bilateral lower extremity lymphedema noted, stable from previous. LLE cellulitis from admission has resolved. Skin no rashes or lesions noted Neuro no focal motor deficits and no sensory deficits noted Speech: speech normal Psych mental status grossly normal Assessment & Plan Assessment/Plan (1) Acute on chronic respiratory failure with hypoxia and hypercapnia: (2) Septic shock: (3) WINDY (acute kidney injury): PLAN: Plan Patient is a 43-year-old male who presented to [facility] ED on 09/23/2023 with worsening left lower extremity swelling and pain with ambulation. 1. Acute on chronic combined respiratory failure, history of SUNG with CPAP nonadherence Has known history of SUNG with CPAP nonadherence. Suspected to have underlying OHS as well. Severe hypercapnia noted overnight on 09/24, did not improve much with and required intubation with mechanical ventilation. ? Director Nicu following. Patient successfully extubated to BiPAP on 10/04, then transitioned to nasal cannula without issue. Continue BiPAP at night. Continue to monitor daily labs as noted below. 2. Septic shock secondary to left lower extremity cellulitis, resolved; chronic lower extremity lipedema Wound cultures from left lower extremity on 09/22 grew Strep dysgalactiae, Proteus, Staph aureus and Alcalignenes. Blood cultures from 09/22 negative x 2, repeat blood cultures from 09/25 again with no growth after 48 hours. Initially treated with vancomycin and meropenem, however vancomycin discontinued due to elevated troughs and severe WINDY as noted below. ? Infectious disease followed. Wound care following. Completed course of antibiotics with very good improvement in left lower extremity cellulitis. Stable off pressors since 09/27. Continue wound care management. 3. Severe WINDY Creatinine 0.91 on admission, likely baseline. Had significant uptrend in creatinine with very minimal urine output for first several days admission. Given patient's worsening volume overload and minimal urine output, decision was made to initiate dialysis on 09/27. Completed 3 rounds of HD from 09/27 to 09/29. However, had difficulty with the right IJ HD line frequently becoming blocked. Surgery followed, tunneled HD line placed on 10/03. ? Nephrology following. Had HD on 10/03 after tunneled catheter placement and then had HD again on morning of 10/04. Patient is starting to make urine but his clearance remains poor. Planning to dialyze again tomorrow. Appreciate further nephrology recs. 4. Type 2 diabetes mellitus ? A1c 10.1% on admit. Not on any home diabetic medications. Unclear if patient was previously diagnosed with diabetes or not. Continue Lantus 20 units at night. Will switch to sliding-scale insulin with meals once patient is cleared for a diet. 5. Hyponatremia, stable ? Nephrology following as above. Sodium 128 on admit, remained stable around 126-129 for several days. Now slowly improving with volume removal with hemodialysis. Continue to monitor BMP daily. 6. Super morbid obesity ? BMI 66 on admit. Complicates hospital course, care and prognosis. DVT prophylaxis: Heparin subcu CODE STATUS: Full code, verified Expected disposition: SNF, TBD Total clinical time spent by myself addressing the patient's medical issues, reviewing all the data, and collaborating with patient's care team: 35 minutes. Charges/Coding Visit Charges Inpatient E&M: 97749 Subs Hosp L2
[2023-10-05 13:02] LABS: Bedside Glucose 101 mg/dL (74-106)
[2023-10-05] MEDS: Insulin Glargine-YFGN 100 UNIT/ML Pen 10 UNIT SC (13:55)
[2023-10-05] MEDS: Heparin Injection (Vial) 5,000 UNIT/ML VIAL 5000 UNIT SC ×2 (13:56→21:28)
[2023-10-05 15:29] LABS: Bedside Glucose 125 mg/dL (74-106)
[2023-10-05 15:29] LABS: Bedside Glucose 104 mg/dL (74-106)
--- NOTE | 2023-10-05 15:42 | CASEMGMT ---
Social Work Pt extubated today. OMI reached out to [facility] to assess pt for Medicaid eligibility. OMI spoke with Terri at [facility]. Pt was assessed however pt had some confusion and was not appropriate to sign papers today for application process. Terri to follow up tomorrow. OMI will follow up for SNF placement when appropriate. JARAD Jordan
[2023-10-05 17:24] LABS: Bedside Glucose 97 mg/dL (74-106)
[2023-10-05 21:54] LABS: Bedside Glucose 96 mg/dL (74-106)
--- NOTE | 2023-10-05 22:58 | NURSING ---
Issues with patient's PICC today. Cath flow was performed, dressing changed, caps changed, flushed and still not giving blood return from any lumen. healthcare facility administrator was in the unit and stated that she could place a new PICC if needed. This RN spoke with Dr. Pastrana if this was okay to switch them out since healthcare facility administrator was here and she said yes. New order was placed and consent was received from patient by healthcare facility administrator and this RN.
[2023-10-06] VITALS (31 sets, daily range): BP systolic 82–290; BP diastolic 49–99; PULSE 65–83; RESP 11–22; TEMP 36.7–37.2; O2SAT 93–100; BMI 65.0; BMI 64.7
[2023-10-06] MEDS: Furosemide 40 MG/4 ML Vial IV ×3 (05:03→22:19)
[2023-10-06] MEDS: Heparin Injection (Vial) 5,000 UNIT/ML VIAL 5000 UNIT SC ×3 (05:04→22:19)
[2023-10-06] MEDS: Nystatin Powder 15gm Bottle 1 APPLIC TOPICAL ×3 (05:04→22:19)
[2023-10-06 05:51] LABS: Anion Gap 11 (5-15); BUN 82 mg/dL (7-18); BUN/Creat Ratio 10.6 RATIO (10-20); Calcium,Total 7.7 mg/dL (8.5-10.1); Chloride 100 mmol/L (98-107); Creatinine, Serum 7.75 mg/dL (0.70-1.30); EST Glomerular Filtration Rate 8 mL/min (>60); Est Glom Filt Rate - Afr Amer 10 mL/min (>60); Estimated Creatinine Clearance 23.15 ml/min; Glucose 102 mg/dL (74-106); Potassium 4.1 mmol/L (3.5-5.1); Sodium Level 134 mmol/L (136-145)
--- NOTE | 2023-10-06 06:52 | PCM.PN.INT ---
Assessment & Plan Assessment/Plan (1) Cellulitis: QUALIFIERS: Site of cellulitis: unspecified site Qualified Code(s): L03.90 - Cellulitis, unspecified (2) Septic shock: (3) WINDY (acute kidney injury): (4) Acute on chronic respiratory failure with hypoxia and hypercapnia: PLAN: Plan RECOMMENDATIONS: 1. Supplemental oxygen for saturations greater than 90%. 2. Continue AVAPS therapy with naps and nightly. 3. Ongoing Lasix therapy as tolerated by hemodynamics and renal function. 4. Dialysis support per nephrology recommendations. 5. Encourage incentive spirometer use and mobilize patient as tolerated. 6. The patient is medically stable for transfer out of the intensive care unit. Will sign off from a critical care perspective. Please call with any additional questions. IMPRESSIONS: 1. Acute on chronic combined respiratory failure Unclear etiology. The patient may have an element of OHS at baseline and has been noncompliant with CPAP therapy. The patient has improved from a respiratory perspective and was able to be extubated on the morning of October 2. Plan to continue AVAPS therapy with naps and nightly. Otherwise, wean supplemental oxygen to maintain saturations at or above 90%. Encourage incentive spirometer use and mobilize patient as tolerated. 2. Septic shock secondary to cellulitis of left lower extremity Resolved. The patient has completed a treatment course of antimicrobials under the discretion of infectious diseases. 3. Acute kidney injury secondary to problem #2 and vancomycin Most likely secondary to ischemic ATN in the setting of #2. Nephrology is following to assist with hemodialysis needs. 4. Morbid obesity/poor compliance/poor insight/diabetes mellitus Complicates care, management, recovery and prognosis. Continue sliding scale insulin regimen. This note was generated with [employer] dictation software. It may contain incorrect words, spelling, and punctuation that were not noted in checking the note before signing. Subjective Subjective The patient was seen and examined at the bedside this morning. Events from the last 24 hours have been reviewed. The patient is currently afebrile, hemodynamically stable and maintaining appropriate oxygen saturations on 3 L/min via nasal cannula. The patient has been tolerant of AVAPS therapy when sleeping. He did tolerate dialysis yesterday with 3.8 L of fluid removed. The patient is currently documented to be overall net +3.2 L for the hospitalization. Objective Data Objective Data The patient's most recent lab work, culture data and imaging studies have all been personally reviewed. Vital Signs: Vital Signs Temp Pulse Resp BP Pulse Ox O2 Del Method O2 Flow Rate 98.1 F 76 14 99/54 L 100 Nasal Cannula 6 10/06/23 04:00 10/06/23 06:00 10/06/23 06:00 10/06/23 06:00 10/06/23 06:00 10/06/23 06:00 10/06/23 06:00 FiO2 30 10/06/23 05:00 Oxygen Flow Rate (L/min) 6 Oxygen Delivery Method Nasal Cannula Weight: 464 lb 8.223 oz Body Mass Index (BMI) 65.0 Intake & Output: Intake and Output for Last 24 Hours 10/04/23 10/05/23 10/06/23 23:59 23:59 23:59 Intake Total 1607.46 / 1620.76 679.53 / 679.53 100 / 100 Output Total 4525 / 4725 4400 / 4750 700 / 700 Balance -2917.54 / -3104.24 -3720.47 / -4070.47 -600 / -600 Lab / Micro Data Attestation: I reviewed the patient's lab results. 10/05/23 04:50 10/06/23 05:05 Labs: Laboratory Results - last 24 hr 10/05/23 05:00: POC Glucose 104 10/05/23 05:01: POC Glucose 125 H 10/05/23 11:31: POC Glucose 101 10/05/23 17:02: POC Glucose 97 10/05/23 21:31: POC Glucose 96 10/06/23 05:05: Sodium 134 L, Potassium 4.1, Chloride 100, Carbon Dioxide 23.0, Anion Gap 11, BUN 82 H, Creatinine 7.75 H*, Estim Creat Clear Calc 23.15, Est GFR (MDRD) Af Amer 10 L, Est GFR (MDRD) Non-Af 8 L, BUN/Creatinine Ratio 10.6, Glucose 102, Calcium 7.7 L Micro: Microbiology 09/26/23 14:55 Blood Culture (Wb) - Pic Blood Culture - Final No growth in 5 days. 09/26/23 14:55 Blood Culture (Wb) - Pic Blood Culture - Final No growth in 5 days. 09/23/23 13:45 Blood Culture (Wb) - Anticubital Right Blood Culture - Final No growth in 5 days. 09/23/23 11:40 Blood Culture (Wb) - Anticubital Right Blood Culture - Final No growth in 5 days. 09/23/23 10:25 Blood Culture (Wb) - Arm Left Blood Culture - Final No growth in 5 days. 09/26/23 07:35 Sputum, Induced/Lukens Gram Stain - Final 09/26/23 07:35 Sputum, Induced/Lukens Respiratory Culture - Final Culture exhibits no growth. 09/23/23 14:00 Wound - Leg, Left Gram Stain - Final 09/23/23 14:00 Wound - Leg, Left Wound Culture - Final Streptococcus dysgalactiae equ Proteus hauseri Alcaligenes faecalis ssp faeca Staphylococcus aureus Radiography Diagnostic Testing: Radiology Impression Chest X-Ray 10/04/23 15:45 IMPRESSION: Support apparatus as above Linear atelectasis in the left lung base. Electronically Signed: Deangelo Oh MD at 17:33 EDT , Rhythm Strip Rhythm Strip: Sinus Rhythm Rate: 78 Physical Exam Const alert and no apparent distress Constitutional Narrative: Super morbidly obese. General Appearance: cooperative HEENT normocephalic and head/scalp atraumatic Eyes PERRL, EOMs intact bilaterally and conjunctivae normal Neck supple Neck Narrative: Large neck circumference with redundant soft tissue General: trachea midline Resp normal respiratory effort Auscultation: diminished lung sounds Cardio regular rate, regular rhythm, S1 normal heart sound and S2 normal heart sound GI normal to inspection, nondistended, normoactive bowel sounds Extremity Extremity Narrative: Wrapped bilateral lower extremities Skin General Skin Exam: erythema Neuro oriented x3, moves all extremities and no focal motor deficits Psych cooperative and affect normal Charges/Coding Visit Charges Inpatient E&M: 03604 Subs Hosp L3
[2023-10-06] MEDS: Budesonide Respules 0.5 MG/2 ML AMPUL.NEB. INHALATION ×2 (07:14→19:03)
[2023-10-06] MEDS: 0.9% Normal Saline 1,000 ML IV.SOLN. 1000 ML OPERA.SITE (08:05)
[2023-10-06] MEDS: PureFlow B 3K Dialysis Soln 1 BAG 6 BAG PF (08:05)
[2023-10-06 10:12] LABS: Bedside Glucose 72 mg/dL (74-106)
[2023-10-06] MEDS: 0.9% Saline Lock 10 ML Syringe IV (11:26)
[2023-10-06] MEDS: Heparin 10,000 UNITS/10 ML Vial IV (11:27)
[2023-10-06] MEDS: Menthol/Lanolin/Calamine/Znox 113 GM Tube 1 APPLIC TOPICAL ×2 (12:00→22:20)
[2023-10-06] MEDS: 0.9 % NaCl (Sterile) Posiflush 10 mL IV ×2 (12:12→22:19)
--- NOTE | 2023-10-06 12:21 | PN.HOSP_ITS ---
Reason for Visit Reason for Visit: Diagnoses Sepsis, unspecified organism (09/23/23) Morbid (severe) obesity due to excess calories (09/23/23) Hypo-osmolality and hyponatremia (09/23/23) Acute and chronic respiratory failure with hypoxia (09/23/23) Acute and chronic respiratory failure with hypercapnia (09/23/23) Cellulitis, unspecified (09/23/23) Acute kidney failure, unspecified (09/23/23) Severe sepsis with septic shock (09/23/23) Subjective Subjective No acute events overnight. Patient seen at bedside this morning. Patient was sitting up comfortably in bed, in no acute distress. Was breathing comfortably on 3 L nasal cannula. He was making appropriate eye contact with me and answer questions appropriately. He felt hungry this morning and did eat most of his breakfast. He did note that he feels significantly weaker than his baseline and was agreeable to planning for SNF on discharge. No other acute concerns at this time. Objective Data Objective Data Vital Signs: Vital Signs Temp Pulse Resp BP Pulse Ox O2 Del Method O2 Flow Rate 98.4 F 76 16 104/58 L 98 Nasal Cannula 3 10/06/23 11:51 10/06/23 11:51 10/06/23 11:51 10/06/23 11:51 10/06/23 11:51 10/06/23 11:51 10/06/23 11:51 FiO2 30 10/06/23 05:00 Oxygen Flow Rate (L/min) 3 Oxygen Delivery Method Nasal Cannula Weight: 209.6 kg Body Mass Index (BMI) 64.7 Intake & Output: Intake and Output for Last 24 Hours 10/04/23 10/05/23 10/06/23 23:59 23:59 23:59 Intake Total 1607.46 / 1620.76 679.53 / 679.53 100 / 100 Output Total 4525 / 4725 4400 / 4750 1999 Balance -2917.54 / -3104.24 -3720.47 / -4070.47 -1900 / -1900 Lab / Micro Data 10/05/23 04:50 10/06/23 05:05 Labs: Laboratory Results - last 24 hr 10/05/23 05:00: POC Glucose 104 10/05/23 05:01: POC Glucose 125 H 10/05/23 11:31: POC Glucose 101 10/05/23 17:02: POC Glucose 97 10/05/23 21:31: POC Glucose 96 10/06/23 05:05: Sodium 134 L, Potassium 4.1, Chloride 100, Carbon Dioxide 23.0, Anion Gap 11, BUN 82 H, Creatinine 7.75 H*, Estim Creat Clear Calc 23.15, Est GFR (MDRD) Af Amer 10 L, Est GFR (MDRD) Non-Af 8 L, BUN/Creatinine Ratio 10.6, Glucose 102, Calcium 7.7 L 10/06/23 09:53: POC Glucose 72 L Micro: Microbiology 09/26/23 14:55 Blood Culture (Wb) - Pic Blood Culture - Final No growth in 5 days. 09/26/23 14:55 Blood Culture (Wb) - Pic Blood Culture - Final No growth in 5 days. 09/23/23 13:45 Blood Culture (Wb) - Anticubital Right Blood Culture - Final No growth in 5 days. 09/23/23 11:40 Blood Culture (Wb) - Anticubital Right Blood Culture - Final No growth in 5 days. 09/23/23 10:25 Blood Culture (Wb) - Arm Left Blood Culture - Final No growth in 5 days. 09/26/23 07:35 Sputum, Induced/Lukens Gram Stain - Final 09/26/23 07:35 Sputum, Induced/Lukens Respiratory Culture - Final Culture exhibits no growth. 09/23/23 14:00 Wound - Leg, Left Gram Stain - Final 09/23/23 14:00 Wound - Leg, Left Wound Culture - Final Streptococcus dysgalactiae equ Proteus hauseri Alcaligenes faecalis ssp faeca Staphylococcus aureus Rhythm Strip Rhythm Strip: Sinus Rhythm Rate: 78 Physical Exam Const alert, oriented x3 and no apparent distress Constitutional Narrative: Pleasant younger male, morbidly obese, laying comfortably in bed, conversing normally, in no acute distress. General Appearance: cooperative and comfortable HEENT normocephalic, head/scalp atraumatic, hearing grossly normal bilaterally and nasal mucous membranes and turbinates normal Mouth: dry mucous membranes Eyes PERRL, EOMs intact bilaterally and conjunctivae normal Neck full ROM Chest inspection of chest normal Resp normal respiratory effort and no use of accessory muscles Resp Narrative: Breathing comfortably on 3 L nasal cannula. Mildly decreased breath sounds bilaterally throughout, no wheezing or crackles noted. Exam limited by body habitus. Cardio regular rate, regular rhythm, no murmurs and peripheral pulses 2+ throughout GI normal to inspection, nondistended, normoactive bowel sounds, soft to palpation, non-tender and non-distended Back/Spine normal ROM Extremity Extremity Narrative: Bilateral lower extremity lymphedema noted, stable from previous. LLE cellulitis from admission has resolved. Skin no rashes or lesions noted Neuro no focal motor deficits and no sensory deficits noted Speech: speech normal Psych mental status grossly normal Assessment & Plan Assessment/Plan (1) Acute on chronic respiratory failure with hypoxia and hypercapnia: (2) Septic shock: (3) WINDY (acute kidney injury): PLAN: Plan Patient is a 43-year-old male who presented to [facility] ED on 09/23/2023 with worsening left lower extremity swelling and pain with ambulation. 1. Acute on chronic combined respiratory failure, improving; history of SUNG with CPAP nonadherence Has known history of SUNG with CPAP nonadherence. Suspected to have underlying OHS as well. Severe hypercapnia noted overnight on 09/24, did not improve much with and required intubation with mechanical ventilation. ? Oral Surgery Physician following. Patient successfully extubated to BiPAP on 10/04, then transitioned to nasal cannula without issue. Continue BiPAP at night. Stable for transfer out of the ICU on 10/05. 2. Septic shock secondary to left lower extremity cellulitis, resolved; chronic lower extremity lipedema Wound cultures from left lower extremity on 09/22 grew Strep dysgalactiae, Proteus, Staph aureus and Alcalignenes. Blood cultures from 09/22 negative x 2, repeat blood cultures from 09/25 again with no growth after 48 hours. Initially treated with vancomycin and meropenem, however vancomycin discontinued due to elevated troughs and severe WINDY as noted below. ? Infectious disease followed. Wound care following. Completed course of antib iotics with very good improvement in left lower extremity cellulitis. Stable off pressors since 09/27. Continue wound care management. 3. Severe WINDY Creatinine 0.91 on admission, likely baseline. Had significant uptrend in creatinine with very minimal urine output for first several days admission. Given patient's worsening volume overload and minimal urine output, decision was made to initiate dialysis on 09/27. Completed 3 rounds of HD from 09/27 to 09/29. However, had difficulty with the right IJ HD line frequently becoming blocked. Surgery followed, tunneled HD line placed on 10/03. ? Nephrology following. Continue HD sessions per nephro recs. Continue IV Lasix 40 mg three times daily. Patient is making more urine but clearance remains poor. Presume that patient will need further dialysis on discharge. Appreciate further nephrology recs. 4. Type 2 diabetes mellitus ? A1c 10.1% on admit. Not on any home diabetic medications. Unclear if patient was previously diagnosed with diabetes or not. Continue Lantus 10 units at night and Humalog sliding scale insulin with meals, adjust as needed. 5. Hyponatremia, stable ? Nephrology following as above. Sodium 128 on admit, remained stable around 126-129 for several days. Now slowly improving with volume removal with hemod ialysis. Continue to monitor BMP daily. 6. Super morbid obesity ? BMI 66 on admit. Complicates hospital course, care and prognosis. 7. Debility ? PT/OT/case management following. Planning for SNF on discharge. DVT prophylaxis: Heparin subcu CODE STATUS: Full code, verified Expected disposition: SNF, TBD Total clinical time spent by myself addressing the patient's medical issues, reviewing all the data, and collaborating with patient's care team: 35 minutes. Charges/Coding Visit Charges Inpatient E&M: 50356 Subs Hosp L2
[2023-10-06 12:33] LABS: Bedside Glucose 88 mg/dL (74-106)
--- NOTE | 2023-10-06 13:27 | RAD_ITS ---
STUDY: X-RAY CHEST REASON FOR EXAM: Male, 43 years old. Tunneled Dialysis Catheter placement -- PORTABLE TECHNIQUE: Single AP portable view of the chest. COMPARISON: Comparison is made with prior study of October 04, 2023. FINDINGS: A right-sided dialysis catheter has been placed with the tip in the proximal portion of the superior vena cava. EKG electrodes are seen. A left-sided PICC line catheter seen with the tip at the junction of the superior vena cava and right atrium. Elevation of the right hemidiaphragm There is no demonstrated pleural abnormality. There is mild cardiac enlargement. Normal mediastinum and cirilo. Normal visualized pulmonary arteries. Normal visualized aortic arch and descending thoracic aorta. Normal visualized thoracic spine. Normal visualized ribs, clavicles, and shoulders. There is no demonstrated abnormality of the visualized soft tissue structures of the upper abdomen. RAD/CXR for Line Placement IMPRESSION: The tip of the right-sided dialysis catheter is in the proximal portion of the superior vena cava. A left-sided PICC line catheter is seen with the tip at the junction of the superior vena cava and right atrium. Electronically Signed: Gregg Allen MD at 13:50 EDT ,
--- NOTE | 2023-10-06 14:04 | PCM.PN.REN ---
Subjective Subjective Follow-up on acute kidney injury requiring dialysis, he had third treatment today. Overall doing well, he is off BiPAP, he is on nasal cannula oxygen. Blood pressure is soft but stable. Makes more urine. Objective Data Objective Data Vital Signs: Vital Signs Temp Pulse Resp BP Pulse Ox O2 Del Method O2 Flow Rate 98.4 F 76 16 104/58 L 98 Nasal Cannula 3 10/06/23 11:51 10/06/23 11:51 10/06/23 11:51 10/06/23 11:51 10/06/23 11:51 10/06/23 11:51 10/06/23 11:51 FiO2 30 10/06/23 05:00 Oxygen Flow Rate (L/min) 3 Oxygen Delivery Method Nasal Cannula Weight: 209.6 kg Body Mass Index (BMI) 64.7 Intake & Output: Intake and Output for Last 24 Hours 10/04/23 10/05/23 10/06/23 23:59 23:59 23:59 Intake Total 1607.46 / 1620.76 679.53 / 679.53 100 / 100 Output Total 4525 / 4725 4400 / 4750 1999 Balance -2917.54 / -3104.24 -3720.47 / -4070.47 -1900 / -1900 Lab / Micro Data Attestation: I reviewed the patient's lab results. 10/05/23 04:50 10/06/23 05:05 Labs: Laboratory Results - last 24 hr 10/05/23 05:00: POC Glucose 104 10/05/23 05:01: POC Glucose 125 H 10/05/23 17:02: POC Glucose 97 10/05/23 21:31: POC Glucose 96 10/06/23 05:05: Sodium 134 L, Potassium 4.1, Chloride 100, Carbon Dioxide 23.0, Anion Gap 11, BUN 82 H, Creatinine 7.75 H*, Estim Creat Clear Calc 23.15, Est GFR (MDRD) Af Amer 10 L, Est GFR (MDRD) Non-Af 8 L, BUN/Creatinine Ratio 10.6, Glucose 102, Calcium 7.7 L 10/06/23 09:53: POC Glucose 72 L 10/06/23 12:07: POC Glucose 88 Micro: Microbiology 09/26/23 14:55 Blood Culture (Wb) - Pic Blood Culture - Final No growth in 5 days. 09/26/23 14:55 Blood Culture (Wb) - Pic Blood Culture - Final No growth in 5 days. 09/23/23 13:45 Blood Culture (Wb) - Anticubital Right Blood Culture - Final No growth in 5 days. 09/23/23 11:40 Blood Culture (Wb) - Anticubital Right Blood Culture - Final No growth in 5 days. 09/23/23 10:25 Blood Culture (Wb) - Arm Left Blood Culture - Final No growth in 5 days. 09/26/23 07:35 Sputum, Induced/Lukens Gram Stain - Final 09/26/23 07:35 Sputum, Induced/Lukens Respiratory Culture - Final Culture exhibits no growth. 09/23/23 14:00 Wound - Leg, Left Gram Stain - Final 09/23/23 14:00 Wound - Leg, Left Wound Culture - Final Streptococcus dysgalactiae equ Proteus hauseri Alcaligenes faecalis ssp faeca Staphylococcus aureus Radiography Diagnostic Testing: Radiology Impression Chest X-Ray 10/06/23 13:27 IMPRESSION: The tip of the right-sided dialysis catheter is in the proximal portion of the superior vena cava. A left-sided PICC line catheter is seen with the tip at the junction of the superior vena cava and right atrium. Electronically Signed: Gregg Allen MD at 13:50 EDT , Rhythm Strip Rhythm Strip: Sinus Rhythm Rate: 78 Physical Exam Const alert, oriented x3 and no apparent distress Orientation / Consciousness: oriented to person, oriented to place and oriented to time Nutritional Appearance: obese HEENT normocephalic Head and Scalp: atraumatic Resp no use of accessory muscles and clear to auscultation bilaterally Cardio regular rate GI Auscultation: normoactive bowel sounds Palpation: soft Bladder / Kidney Exam: catheter in place Skin no rashes or lesions noted Neuro Sensorium / Orientation: awake and alert Psych cooperative Assessment & Plan Assessment/Plan (1) WINDY (acute kidney injury): PLAN: Acute kidney injury, started on dialysis day before yesterday good, today's treatment #3. Although he is making urine, I see that there is no clearance so far. Will plan to skip dialysis tomorrow, reassess on Wednesday
--- NOTE | 2023-10-06 15:38 | CASEMGMT ---
Received message that pt sister Mindy would like to speak to RN FOREIGN. RN CM into pt room, he is agreeable to RN CM calling sister. Pt states he will need further rehab after this hospital stay prior to returning home. TC to pt sister, Mindy, she was looking for OMI George. She is aware she is not here today. She states they have an appt tomorrow at 1pm with [facility] and wanted to see if they could speak to OMI regarding this. TC to SW to make aware, she will meet with pt and family after the 1pm meeting.
--- NOTE | 2023-10-06 16:03 | WOUNDNOTE ---
In to reassess bilateral lower legs. wounds have healed. patient does have some dry, flaky skin noted. washed legs and feet with soap and water. pat dry. applied lotion. redness and edema greatly improved. will continue to monitor.
[2023-10-06] MEDS: Mineral Oil/Petrolatum Cr 1.75oz Bottle 1 APPLIC TOPICAL (22:20)
[2023-10-06 22:50] LABS: Bedside Glucose 89 mg/dL (74-106)
[2023-10-07] VITALS (11 sets, daily range): BP systolic 98–118; BP diastolic 59–74; PULSE 67–88; RESP 12–32; TEMP 36.4–36.6; O2SAT 93–97; BMI 64.2
[2023-10-07] MEDS: 0.9 % NaCl (Sterile) Posiflush 10 mL IV (06:12)
[2023-10-07] MEDS: Furosemide 40 MG/4 ML Vial IV ×3 (06:12→22:06)
[2023-10-07] MEDS: Heparin Injection (Vial) 5,000 UNIT/ML VIAL 5000 UNIT SC ×3 (06:12→22:06)
[2023-10-07] MEDS: Nystatin Powder 15gm Bottle 1 APPLIC TOPICAL ×2 (06:13→22:06)
[2023-10-07] MEDS: Mineral Oil/Petrolatum Cr 1.75oz Bottle 1 APPLIC TOPICAL (06:13)
[2023-10-07 06:54] LABS: Bedside Glucose 88 mg/dL (74-106)
[2023-10-07] MEDS: Budesonide Respules 0.5 MG/2 ML AMPUL.NEB. INHALATION ×2 (07:23→19:15)
[2023-10-07 08:25] LABS: Anion Gap 10 (5-15); BUN 68 mg/dL (7-18); BUN/Creat Ratio 9.9 RATIO (10-20); Calcium,Total 8.2 mg/dL (8.5-10.1); Chloride 103 mmol/L (98-107); Creatinine, Serum 6.89 mg/dL (0.70-1.30); EST Glomerular Filtration Rate 9 mL/min (>60); Est Glom Filt Rate - Afr Amer 11 mL/min (>60); Estimated Creatinine Clearance 25.63 ml/min; Glucose 88 mg/dL (74-106); Potassium 3.9 mmol/L (3.5-5.1); Sodium Level 135 mmol/L (136-145)
[2023-10-07] MEDS: Menthol/Lanolin/Calamine/Znox 113 GM Tube 1 APPLIC TOPICAL ×2 (10:12→22:06)
[2023-10-07 12:04] LABS: Bedside Glucose 82 mg/dL (74-106)
--- NOTE | 2023-10-07 12:21 | PN.RENAL_ITS ---
Subjective Subjective Patient is sitting up in bed. Denies any complaints. Reports appetite has improved. Objective Data Objective Data Vital Signs: Vital Signs Temp Pulse Resp BP Pulse Ox O2 Del Method O2 Flow Rate 97.6 F L 80 18 111/64 95 Nasal Cannula 3 10/07/23 10:07 10/07/23 10:07 10/07/23 10:07 10/07/23 10:07 10/07/23 10:07 10/07/23 10:07 10/07/23 10:07 FiO2 35 10/07/23 04:17 Oxygen Flow Rate (L/min) 3 Oxygen Delivery Method Nasal Cannula Weight: 208.1 kg Body Mass Index (BMI) 64.2 Intake & Output: Intake and Output for Last 24 Hours 10/05/23 10/06/23 10/07/23 23:59 23:59 23:59 Intake Total 679.53 / 679.53 100 / 700 600 / 600 Output Total 4400 / 4750 2000 / 2300 900 / 900 Balance -3720.47 / -4070.47 -1900 / -1600 -300 / -300 Lab / Micro Data 10/05/23 04:50 10/07/23 07:25 Labs: Laboratory Results - last 24 hr 10/06/23 12:07: POC Glucose 88 10/06/23 22:17: POC Glucose 89 10/07/23 06:18: POC Glucose 88 10/07/23 07:25: Sodium 135 L, Potassium 3.9, Chloride 103, Carbon Dioxide 22.0, Anion Gap 10, BUN 68 H, Creatinine 6.89 H, Estim Creat Clear Calc 25.63, Est GFR (MDRD) Af Amer 11 L, Est GFR (MDRD) Non-Af 9 L, BUN/Creatinine Ratio 9.9 L, Glucose 88, Calcium 8.2 L 10/07/23 11:45: POC Glucose 82 Micro: Microbiology 09/26/23 14:55 Blood Culture (Wb) - Pic Blood Culture - Final No growth in 5 days. 09/26/23 14:55 Blood Culture (Wb) - Pic Blood Culture - Final No growth in 5 days. 09/23/23 13:45 Blood Culture (Wb) - Anticubital Right Blood Culture - Final No growth in 5 days. 09/23/23 11:40 Blood Culture (Wb) - Anticubital Right Blood Culture - Final No growth in 5 days. 09/23/23 10:25 Blood Culture (Wb) - Arm Left Blood Culture - Final No growth in 5 days. 09/26/23 07:35 Sputum, Induced/Lukens Gram Stain - Final 09/26/23 07:35 Sputum, Induced/Lukens Respiratory Culture - Final Culture exhibits no growth. 09/23/23 14:00 Wound - Leg, Left Gram Stain - Final 09/23/23 14:00 Wound - Leg, Left Wound Culture - Final Streptococcus dysgalactiae equ Proteus hauseri Alcaligenes faecalis ssp faeca Staphylococcus aureus Radiography Diagnostic Testing: Radiology Impression Chest X-Ray 10/06/23 13:27 IMPRESSION: The tip of the right-sided dialysis catheter is in the proximal portion of the superior vena cava. A left-sided PICC line catheter is seen with the tip at the junction of the superior vena cava and right atrium. Electronically Signed: Gregg Allen MD at 13:50 EDT , Rhythm Strip Rhythm Strip: Sinus Rhythm Rate: 78 Physical Exam Narrative Alert and orient x 3, no apparent distress S1, S2, RRR Lung sounds clear anteriorly, diminished breath sounds posterior bases. No wheezes, rhonchi rales noted Abdomen soft, rounded, nontender Trace edema bilateral lower legs [place] with clear yellow urine in bag Right chest tunneled HD catheter dressing clean, dry and intact Assessment & Plan Assessment/Plan (1) WINDY (acute kidney injury): PLAN: - Nonoliguric, hypervolemic WINDY secondary to ischemic ATN from sepsis, hypotension, possible component from supratherapeutic Vanco levels. Patient is dialyzing via tunneled hemodialysis catheter (placed 10/03). This week patient dialyzed Wednesday, Wednesday, Wednesday. No acute indication for [employer] today. Will plan for next dialysis tomorrow with fluid removal. Continue to monitor for re nal recovery. Discharge planning in process. Patient will need outpatient hemodialysis arrangements, diagnosis WINDY
--- NOTE | 2023-10-07 12:32 | PCM.PN.HOSP ---
Reason for Visit Reason for Visit: Diagnoses Sepsis, unspecified organism (09/23/23) Morbid (severe) obesity due to excess calories (09/23/23) Hypo-osmolality and hyponatremia (09/23/23) Acute and chronic respiratory failure with hypoxia (09/23/23) Acute and chronic respiratory failure with hypercapnia (09/23/23) Cellulitis, unspecified (09/23/23) Acute kidney failure, unspecified (09/23/23) Severe sepsis with septic shock (09/23/23) Subjective Subjective No acute events overnight. Patient seen at bedside this morning. Continues to appear improved from previous days, sitting up comfortably in bed, conversing normally and answering questions appropriately. Denies any acute pain or discomfort this morning. Is looking forward to working with therapy more in the coming days to get stronger. No other acute concerns. Objective Data Objective Data Vital Signs: Vital Signs Temp Pulse Resp BP Pulse Ox O2 Del Method O2 Flow Rate 97.6 F L 80 18 111/64 95 Nasal Cannula 3 10/07/23 10:07 10/07/23 10:07 10/07/23 10:07 10/07/23 10:07 10/07/23 10:07 10/07/23 10:07 10/07/23 10:07 FiO2 35 10/07/23 04:17 Oxygen Flow Rate (L/min) 3 Oxygen Delivery Method Nasal Cannula Weight: 208.1 kg Body Mass Index (BMI) 64.2 Intake & Output: Intake and Output for Last 24 Hours 10/05/23 10/06/23 10/07/23 23:59 23:59 23:59 Intake Total 679.53 / 679.53 100 / 700 600 / 600 Output Total 4400 / 4750 2000 / 2300 900 / 900 Balance -3720.47 / -4070.47 -1900 / -1600 -300 / -300 Lab / Micro Data 10/05/23 04:50 10/07/23 07:25 Labs: Laboratory Results - last 24 hr 10/06/23 12:07: POC Glucose 88 10/06/23 22:17: POC Glucose 89 10/07/23 06:18: POC Glucose 88 10/07/23 07:25: Sodium 135 L, Potassium 3.9, Chloride 103, Carbon Dioxide 22.0, Anion Gap 10, BUN 68 H, Creatinine 6.89 H, Estim Creat Clear Calc 25.63, Est GFR (MDRD) Af Amer 11 L, Est GFR (MDRD) Non-Af 9 L, BUN/Creatinine Ratio 9.9 L, Glucose 88, Calcium 8.2 L 10/07/23 11:45: POC Glucose 82 Micro: Microbiology 09/26/23 14:55 Blood Culture (Wb) - Pic Blood Culture - Final No growth in 5 days. 09/26/23 14:55 Blood Culture (Wb) - Pic Blood Culture - Final No growth in 5 days. 09/23/23 13:45 Blood Culture (Wb) - Anticubital Right Blood Culture - Final No growth in 5 days. 09/23/23 11:40 Blood Culture (Wb) - Anticubital Right Blood Culture - Final No growth in 5 days. 09/23/23 10:25 Blood Culture (Wb) - Arm Left Blood Culture - Final No growth in 5 days. 09/26/23 07:35 Sputum, Induced/Lukens Gram Stain - Final 09/26/23 07:35 Sputum, Induced/Lukens Respiratory Culture - Final Culture exhibits no growth. 09/23/23 14:00 Wound - Leg, Left Gram Stain - Final 09/23/23 14:00 Wound - Leg, Left Wound Culture - Final Streptococcus dysgalactiae equ Proteus hauseri Alcaligenes faecalis ssp faeca Staphylococcus aureus Radiography Diagnostic Testing: Radiology Impression Chest X-Ray 10/06/23 13:27 IMPRESSION: The tip of the right-sided dialysis catheter is in the proximal portion of the superior vena cava. A left-sided PICC line catheter is seen with the tip at the junction of the superior vena cava and right atrium. Electronically Signed: Gregg Allen MD at 13:50 EDT , Rhythm Strip Rhythm Strip: Sinus Rhythm Rate: 78 Physical Exam Const alert, oriented x3 and no apparent distress Constitutional Narrative: Pleasant younger male, morbidly obese, laying comfortably in bed, conversing normally, in no acute distress. General Appearance: cooperative and comfortable HEENT normocephalic, head/scalp atraumatic, hearing grossly normal bilaterally and nasal mucous membranes and turbinates normal Mouth: dry mucous membranes Eyes PERRL, EOMs intact bilaterally and conjunctivae normal Neck full ROM Chest inspection of chest normal Resp normal respiratory effort and no use of accessory muscles Resp Narrative: Breathing comfortably on 3 L nasal cannula. Mildly decreased breath sounds bilaterally throughout, no wheezing or crackles noted. Exam limited by body habitus. Cardio regular rate, regular rhythm, no murmurs and peripheral pulses 2+ throughout GI normal to inspection, nondistended, normoactive bowel sounds, soft to palpation, non-tender and non-distended Back/Spine normal ROM Extremity Extremity Narrative: Bilateral lower extremity lymphedema noted, stable from previous. LLE cellulitis from admission has resolved. Skin no rashes or lesions noted Neuro no focal motor deficits and no sensory deficits noted Speech: speech normal Psych mental status grossly normal Assessment & Plan Assessment/Plan (1) Acute on chronic respiratory failure with hypoxia and hypercapnia: (2) Septic shock: (3) WINDY (acute kidney injury): PLAN: Plan Patient is a 43-year-old male who presented to [facility] ED on 09/23/2023 with worsening left lower extremity swelling and pain with ambulation. 1. Acute on chronic combined respiratory failure, improving; history of SUNG with CPAP nonadherence Has known history of SUNG with CPAP nonadherence. Suspected to have underlying OHS as well. Severe hypercapnia noted overnight on 09/24, did not improve much with and required intubation with mechanical ventilation. ? [facility] followed. Patient successfully extubated to BiPAP on 10/04, then transitioned to nasal cannula without issue. Continue to wean supplemental oxygen as able. Continue BiPAP at night. Transferred out of ICU on 10/05. 2. Septic shock secondary to left lower extremity cellulitis, resolved; chronic lower extremity lipedema Wound cultures from left lower extremity on 09/22 grew Strep dysgalactiae, Proteus, Staph aureus and Alcalignenes. Blood cultures from 09/22 negative x 2, repeat blood cultures from 09/25 again with no growth after 48 hours. Initially treated with vancomycin and meropenem, however vancomycin discontinued due to elevated troughs and severe WINDY as noted below. ? Infectious disease followed. Wound care following. Completed course of antibiotics with very good improvement in left lower extremity cellulitis. Stable off pressors since 09/27. Continue wound care management. 3. Severe WINDY Creatinine 0.91 on admission, likely baseline. Had significant uptrend in creatinine with very minimal urine output for first several days admission. Given patient's worsening volume overload and minimal urine output, decision was made to initiate dialysis on 09/27. Completed 3 rounds of HD from 09/27 to 09/29. However, had difficulty with the right IJ HD line frequently becoming blocked. Surgery followed, tunneled HD line placed on 10/03. ? Nephrology following. Continue HD sessions per nephro recs. Continue IV Lasix 40 mg three times daily. Patient is making more urine but clearance remains poor. Presume that patient will need further dialysis on discharge. Appreciate further nephrology recs. 4. Type 2 diabetes mellitus ? A1c 10.1% on admit. Not on any home diabetic medications. Unclear if patient was previously diagnosed with diabetes or not. Continue Lantus 10 units at night and Humalog sliding scale insulin with meals, adjust as needed. 5. Hyponatremia, stable ? Nephrology following as above. Sodium 128 on admit, remained stable around 126-129 for several days. Now slowly improving with volume removal with hemodialysis. Continue to monitor BMP daily. 6. Super morbid obesity ? BMI 66 on admit. Complicates hospital course, care and prognosis. 7. Debility ? PT/OT/case management following. Planning for SNF on discharge. Patient first needs to qualify for Medicaid prior to SNF referrals being sent out, will likely be hospitalized to the weekend with hope for discharge early next week. DVT prophylaxis: Heparin subcu CODE STATUS: Full code, verified Expected disposition: SNF, TBD Total clinical time spent by myself addressing the patient's medical issues, reviewing all the data, and collaborating with patient's care team: 35 minutes. Charges/Coding Visit Charges Inpatient E&M: 40969 Subs Hosp L2
[2023-10-07] MEDS: 0.9% Saline Lock 10 ML Syringe IV ×2 (13:51→22:06)
--- NOTE | 2023-10-07 16:00 | CASEMGMT ---
Social Work Spoke with Terri from [facility] who reports was able to meet with the patient and patient's sister. All necessary paperwork in place to get patient's Medicaid application filed. Terri reports that due to having all necessary information, anticipates that Medicaid will get approved quickly. Let Terri know that will need the Medicaid number or at least depending number in order to work on discharge planning for patient. Plan: social work continuing to follow, waiting for payment source, and will pursue with patient short-term half-way facility. -ALEKSANDR Breaux, SOIL CONSERVATION TEACHER *This note was generated with [employer] dictation software. It may contain incorrect words, spelling, and punctuation that were not noted in review of the chart prior to signing*
[2023-10-07 17:09] LABS: Bedside Glucose 88 mg/dL (74-106)
[2023-10-07] MEDS: Albuterol 2.5 MG/3 ML VIAL.NEB. INHALATION (19:15)
[2023-10-07 23:47] LABS: Bedside Glucose 107 mg/dL (74-106)
[2023-10-08] VITALS (17 sets, daily range): BP systolic 96–288; BP diastolic 46–97; PULSE 70–87; RESP 12–20; TEMP 36.4–36.7; O2SAT 93–98; BMI 64.5; BMI 64.3
[2023-10-08] MEDS: Nystatin Powder 15gm Bottle 1 APPLIC TOPICAL ×3 (06:44→21:41)
[2023-10-08] MEDS: Heparin Injection (Vial) 5,000 UNIT/ML VIAL 5000 UNIT SC ×3 (06:44→21:43)
[2023-10-08] MEDS: Budesonide Respules 0.5 MG/2 ML AMPUL.NEB. INHALATION ×2 (07:02→21:00)
[2023-10-08 07:38] LABS: Hematocrit 40.5 % (40-54); Hemoglobin 11.8 g/dL (13.0-16.5); Mean Corp Hgb Conc 29.1 g/dL (32-36); Mean Corpuscular Hgb 23.7 pg (27.0-32.0); Mean Corpuscular Volume 81.5 fL (80-94); Mean Platelet Vol. 9.4 fl (6.2-12.0); Platelet Count 359 K/mm3 (150-450); RBC Distribution Width CV 15.9 % (11.6-14.6); RBC Distribution Width SD 47.4 fl (35.1-43.9); Red Blood Count 4.97 M/mm3 (4.6-6.2); White Blood Count 7.2 K/mm3 (4.4-11.0)
[2023-10-08] MEDS: PureFlow B 3K Dialysis Soln 1 BAG 6 BAG PF (07:46)
[2023-10-08] MEDS: 0.9% Normal Saline 1,000 ML IV.SOLN. 1000 ML OPERA.SITE (07:46)
[2023-10-08] MEDS: 0.9% Saline Lock 10 ML Syringe IV ×3 (07:47→22:02)
[2023-10-08 08:20] LABS: Anion Gap 11 (5-15); BUN 78 mg/dL (7-18); BUN/Creat Ratio 10.2 RATIO (10-20); Chloride 104 mmol/L (98-107); Creatinine, Serum 7.66 mg/dL (0.70-1.30); EST Glomerular Filtration Rate 8 mL/min (>60); Est Glom Filt Rate - Afr Amer 10 mL/min (>60); Estimated Creatinine Clearance 23.12 ml/min; Glucose 94 mg/dL (74-106); Potassium 3.7 mmol/L (3.5-5.1); Sodium Level 137 mmol/L (136-145)
--- NOTE | 2023-10-08 10:00 | NUR.TO.PHY ---
pt has red itchy rash cici arms, neck, bilat thighs. pt states he feels like rash began near his tdc site, felt it began with itchiness & rash started day after. TDC site has some redness around it, but hard to tell if rash extended from this area. As precaution, chg dressing removed & disinfected with alcohol. Allowed alcohol to dry & dressed site with sterile 2x2 & opsite.
[2023-10-08 10:09] LABS: Bedside Glucose 101 mg/dL (74-106)
[2023-10-08] MEDS: Heparin 10,000 UNITS/10 ML Vial IV (10:59)
--- NOTE | 2023-10-08 11:02 | PCM.PN.REN ---
Subjective Subjective Follow-up on acute kidney injury. Came over to supervise dialysis session. Patient feels much better, he is hemodynamically stable, transferred to regular floor. Using right internal jugular tunneled hemodialysis catheter, blood flow 400 cc/min. He does not tolerate ultrafiltration well, but made 2.7 L over the last 24 hours. Unfortunately his creatinine is still going up, thus we chosen to proceed with hemodialysis today Objective Data Objective Data Vital Signs: Vital Signs Temp Pulse Resp BP Pulse Ox O2 Del Method O2 Flow Rate 98 F 75 14 117/64 94 Nasal Cannula 5 10/08/23 04:00 10/08/23 10:35 10/08/23 09:59 10/08/23 10:35 10/08/23 07:02 10/08/23 10:35 10/08/23 10:35 FiO2 35 10/08/23 04:25 Oxygen Flow Rate (L/min) 5 Oxygen Delivery Method Nasal Cannula Weight: 209 kg Body Mass Index (BMI) 64.5 Intake & Output: Intake and Output for Last 24 Hours 10/06/23 10/07/23 10/08/23 23:59 23:59 23:59 Intake Total 100 / 700 1040 / 1040 Output Total 2000 / 2300 2725 / 2975 600 / 600 Balance -1900 / -1600 -1685 / -1935 -600 / -600 Lab / Micro Data Attestation: I reviewed the patient's lab results. 10/08/23 06:00 10/08/23 06:00 Labs: Laboratory Results - last 24 hr 10/07/23 11:45: POC Glucose 82 10/07/23 16:21: POC Glucose 88 10/07/23 22:02: POC Glucose 107 H 10/08/23 06:00: WBC 7.2, RBC 4.97, Hgb 11.8 L, Hct 40.5, MCV 81.5, MCH 23.7 L, MCHC 29.1 L, RDW Std Deviation 47.4 H, RDW Coeff of Benedicto 15.9 H, Plt Count 359, MPV 9.4, Sodium 137, Potassium 3.7, Chloride 104, Carbon Dioxide 22.0, Anion Gap 11, BUN 78 H, Creatinine 7.66 H*, Estim Creat Clear Calc 23.12, Est GFR (MDRD) Af Amer 10 L, Est GFR (MDRD) Non-Af 8 L, BUN/Creatinine Ratio 10.2, Glucose 94, Calcium 8.0 L 10/08/23 06:10: POC Glucose 101 Micro: Microbiology 09/26/23 14:55 Blood Culture (Wb) - Pic Blood Culture - Final No growth in 5 days. 09/26/23 14:55 Blood Culture (Wb) - Pic Blood Culture - Final No growth in 5 days. 09/23/23 13:45 Blood Culture (Wb) - Anticubital Right Blood Culture - Final No growth in 5 days. 09/23/23 11:40 Blood Culture (Wb) - Anticubital Right Blood Culture - Final No growth in 5 days. 09/23/23 10:25 Blood Culture (Wb) - Arm Left Blood Culture - Final No growth in 5 days. 09/26/23 07:35 Sputum, Induced/Lukens Gram Stain - Final 09/26/23 07:35 Sputum, Induced/Lukens Respiratory Culture - Final Culture exhibits no growth. 09/23/23 14:00 Wound - Leg, Left Gram Stain - Final 09/23/23 14:00 Wound - Leg, Left Wound Culture - Final Streptococcus dysgalactiae equ Proteus hauseri Alcaligenes faecalis ssp faeca Staphylococcus aureus Rhythm Strip Rhythm Strip: Sinus Rhythm Rate: 78 Physical Exam Const alert, oriented x3 and no apparent distress Nutritional Appearance: morbidly obese HEENT normocephalic Head and Scalp: atraumatic Neck no lymphadenopathy Resp no use of accessory muscles Auscultation: diminished lung sounds Cardio regular rate GI non-tender Auscultation: normoactive bowel sounds Palpation: soft external exam normal Skin Skin Narrative: Widespread confluent rash consistent with erythema multiforme General Skin Exam: erythema Rashes: rashes noted Neuro Sensorium / Orientation: awake and alert Psych cooperative Assessment & Plan Assessment/Plan (1) WINDY (acute kidney injury): PLAN: While he has got great urine output, his creatinine continues to rise, he is seen during dialysis today and no ultrafiltration has been ordered due to great urine output. Dialysis being done today mostly for clearance. Will observe him over the weekend and decide if he needs dialysis on Wednesday
[2023-10-08] MEDS: Menthol/Lanolin/Calamine/Znox 113 GM Tube 1 APPLIC TOPICAL ×2 (12:34→21:41)
[2023-10-08] MEDS: Triamcinolone 0.5% Cream 1 APPLIC TOPICAL (12:35)
--- NOTE | 2023-10-08 12:52 | CASEMGMT ---
Social Work SW spoke w/Terri with [facility]. There are some additional documents that it would be helpful if pt signed, however she wanted to make sure pt in agreement w/plan of going somewhere for rehab. SW pt in regard to discharge plan. Pt is in agreement w/needing to go somewhere for rehab. He is agreeable to speak w/[facility] again and complete the needed paperwork. We spoke about both LTACH and SNF levels of care, SW educated the pt on these levels of care. SW explained we can try for LTACH, as they do have dialysis on site, however it would be up to the LTACH to see if this is the appropriate level of care. SW explained that for SNF, we would need to figure out how to get pt back and forth to dialysis. Pt states understanding. SW provided to pt lists from [facility] of both retirement facilities and LTACH in pt's preferred geographic area, that may take pending Medicaid, and complete w/quality and resource use data. Pt wants to speak w/his sisters about what may be the best plan, SW will follow up w/pt again. SW will follow up w/pt regarding choices. SW also left a message for Terri requesting she complete the rest of the paperwork w/pt and let SW know the pending Medicaid number. ALEKSANDR Terry
--- NOTE | 2023-10-08 14:15 | CASEMGMT ---
RN FOREIGN called Inna at [facility] to verify if they can accept patient with pending Medicaid. Per Inna, they are able to accept pending Medicaid but need to complete [employer] which consist of call to patient or family to discuss finances. CORTEZ CARRASQUILLO called Destiny at [facility] to see if they accept pending Medicaid for outpatient HD. Per Destiny, they are not able to accept pending Medicaid. RN FOREIGN updated SW regarding information. Patient will likely need LTACH at discharge. CM tatiana continue to follow this patient and plan for a safe discharge.
--- NOTE | 2023-10-08 14:29 | CASEMGMT ---
Social Work CM Lay Beck spoke w/[facility], they cannot take Medicaid for an outpt referral. Pt will need to go to an LTACH, as pt cannot go to a long-term under pending Medicaid as would need outpt dialysis. Pt's sister was just here, asked SW to call her. SW called Mindy, explained the above. SW reviewed the [facility] list w/her, [facility] [place] [facility] [place]. SW let the catalytic case operator know. SW also spoke w/pt again, explained the above and let him know spoke w/his sister Mindy. SW let him know her choices, he is in agreement with this. OMI emailed Terri with [facility], asked her to follow up w/pt and let us know the pending number. CM will continue to follow for LTACH referral. ALEKSANDR Terry
--- NOTE | 2023-10-08 16:00 | PCM.PN.HOSP ---
Reason for Visit Reason for Visit: Diagnoses Sepsis, unspecified organism (09/23/23) Morbid (severe) obesity due to excess calories (09/23/23) Hypo-osmolality and hyponatremia (09/23/23) Acute and chronic respiratory failure with hypoxia (09/23/23) Acute and chronic respiratory failure with hypercapnia (09/23/23) Cellulitis, unspecified (09/23/23) Acute kidney failure, unspecified (09/23/23) Severe sepsis with septic shock (09/23/23) Subjective Subjective Patient noted yesterday evening nursing staff that he was developing a rash on his arms and legs. Seen at bedside this morning. Patient does have a rash on his arms and legs and this is expanded onto his chest and abdomen as well. Has appearance of small red bumps that are not raised from skin. Patient notes feeling mildly itchy where the rash is but otherwise is feeling fine. He has never had a rash like this before and is concerned as to what may be causing the rash. Patient otherwise is sitting up in bedside chair comfortably and conversing normally with me this morning, appears to have improved energy and generally appears well. No other acute concerns. Objective Data Objective Data Vital Signs: Vital Signs Temp Pulse Resp BP Pulse Ox O2 Del Method O2 Flow Rate 98.0 F 83 18 114/65 93 Nasal Cannula 3 10/08/23 14:33 10/08/23 14:33 10/08/23 14:33 10/08/23 14:33 10/08/23 14:33 10/08/23 14:33 10/08/23 14:33 FiO2 35 10/08/23 04:25 Oxygen Flow Rate (L/min) 3 Oxygen Delivery Method Nasal Cannula Weight: 208.4 kg Body Mass Index (BMI) 64.3 Intake & Output: Intake and Output for Last 24 Hours 10/06/23 10/07/23 10/08/23 23:59 23:59 23:59 Intake Total 100 / 700 1040 / 1040 Output Total 1999 / 2300 2725 / 2975 1200 / 1200 Balance -1900 / -1600 -1685 / -1935 -1200 / -1200 Lab / Micro Data 10/08/23 06:00 10/08/23 06:00 Labs: Laboratory Results - last 24 hr 10/07/23 16:21: POC Glucose 88 10/07/23 22:02: POC Glucose 107 H 10/08/23 06:00: WBC 7.2, RBC 4.97, Hgb 11.8 L, Hct 40.5, MCV 81.5, MCH 23.7 L, MCHC 29.1 L, RDW Std Deviation 47.4 H, RDW Coeff of Benedicto 15.9 H, Plt Count 359, MPV 9.4, Sodium 137, Potassium 3.7, Chloride 104, Carbon Dioxide 22.0, Anion Gap 11, BUN 78 H, Creatinine 7.66 H*, Estim Creat Clear Calc 23.12, Est GFR (MDRD) Af Amer 10 L, Est GFR (MDRD) Non-Af 8 L, BUN/Creatinine Ratio 10.2, Glucose 94, Calcium 8.0 L 10/08/23 06:10: POC Glucose 101 Micro: Microbiology 09/26/23 14:55 Blood Culture (Wb) - Pic Blood Culture - Final No growth in 5 days. 09/26/23 14:55 Blood Culture (Wb) - Pic Blood Culture - Final No growth in 5 days. 09/23/23 13:45 Blood Culture (Wb) - Anticubital Right Blood Culture - Final No growth in 5 days. 09/23/23 11:40 Blood Culture (Wb) - Anticubital Right Blood Culture - Final No growth in 5 days. 09/23/23 10:25 Blood Culture (Wb) - Arm Left Blood Culture - Final No growth in 5 days. 09/26/23 07:35 Sputum, Induced/Lukens Gram Stain - Final 09/26/23 07:35 Sputum, Induced/Lukens Respiratory Culture - Final Culture exhibits no growth. 09/23/23 14:00 Wound - Leg, Left Gram Stain - Final 09/23/23 14:00 Wound - Leg, Left Wound Culture - Final Streptococcus dysgalactiae equ Proteus hauseri Alcaligenes faecalis ssp faeca Staphylococcus aureus Rhythm Strip Rhythm Strip: Sinus Rhythm Rate: 78 Physical Exam Const alert, oriented x3 and no apparent distress Constitutional Narrative: Pleasant younger male, morbidly obese, sitting up comfortably in bedside chair, conversing normally, in no acute distress. General Appearance: cooperative and comfortable HEENT normocephalic, head/scalp atraumatic, hearing grossly normal bilaterally and nasal mucous membranes and turbinates normal Mouth: dry mucous membranes Eyes PERRL, EOMs intact bilaterally and conjunctivae normal Neck full ROM Chest inspection of chest normal Resp normal respiratory effort and no use of accessory muscles Resp Narrative: Breathing comfortably on 3 L nasal cannula. Mildly decreased breath sounds bilaterally throughout, no wheezing or crackles noted, stable from previous days. Exam limited by body habitus. Cardio regular rate, regular rhythm, no murmurs and peripheral pulses 2+ throughout GI normal to inspection, nondistended, normoactive bowel sounds, soft to palpation, non-tender and non-distended Back/Spine normal ROM Extremity Extremity Narrative: Bilateral lower extremity lymphedema noted, stable from previous. LLE cellulitis from admission has resolved. Skin Skin Narrative: Patient noted to have significant rash on chest and abdomen and bilateral upper extremities on 10/07. Appearance consistent with small red bumps that are not raised. Seems most consistent with a drug related rash. Neuro no focal motor deficits and no sensory deficits noted Speech: speech normal Psych mental status grossly normal Assessment & Plan Assessment/Plan (1) Acute on chronic respiratory failure with hypoxia and hypercapnia: (2) Septic shock: (3) WINDY (acute kidney injury): PLAN: Plan Patient is a 43-year-old male who presented to [facility] ED on 09/23/2023 with worsening left lower extremity swelling and pain with ambulation. 1. Acute on chronic combined respiratory failure, improving; history of SUNG with CPAP nonadherence Has known history of SUNG with CPAP nonadherence. Suspected to have underlying OHS as well. Severe hypercapnia noted overnight on 09/24, did not improve much with and required intubation with mechanical ventilation. ? Financial Agent followed. Patient successfully extubated to BiPAP on 10/04, then transitioned to nasal cannula without issue. Continue to wean supplemental oxygen as able. Continue BiPAP at night. Transferred out of ICU on 10/05. 2. Septic shock secondary to left lower extremity cellulitis, resolved; chronic lower extremity lipedema Wound cultures from left lower extremity on 09/22 grew Strep dysgalactiae, Proteus, Staph aureus and Alcalignenes. Blood cultures from 09/22 negative x 2, repeat blood cultures from 09/25 again with no growth after 48 hours. Initially treated with vancomycin and meropenem, however vancomycin discontinued due to elevated troughs and severe WINDY as noted below. ? Infectious disease followed. Wound care following. Completed course of antibiotics with very good improvement in left lower extremity cellulitis. Stable off pressors since 09/27. Continue wound care management. 3. Severe WINDY Creatinine 0.91 on admission, likely baseline. Had significant uptrend in creatinine with very minimal urine output for first several days admission. Given patient's worsening volume overload and minimal urine output, decision was made to initiate dialysis on 09/27. Completed 3 rounds of HD from 09/27 to 09/29. However, had difficulty with the right IJ HD line frequently becoming blocked. Surgery followed, tunneled HD line placed on 10/03. ? Nephrology following. Continue HD sessions per nephro recs. IV Lasix was started on 10/02 and patient has been making good urine, but clearance remains poor. Unfortunately, had to discontinue IV Lasix on 10/07 given concern that this may be the offending drug causing his rash as noted below. Will discuss with nephrology on further recommendations regarding diuretic management moving forward. 4. Type 2 diabetes mellitus ? A1c 10.1% on admit. Not on any home diabetic medications. Unclear if patient was previously diagnosed with diabetes or not. Continue Lantus 10 units at night and Humalog sliding scale insulin with meals, adjust as needed. 5. Hyponatremia, stable ? Nephrology following as above. Sodium 128 on admit, remained stable around 126-129 for several days. Now slowly improving with volume removal with hemodialysis. Continue to monitor BMP daily. 6. Super morbid obesity ? BMI 66 on admit. Complicates hospital course, care and prognosis. 7. Debility ? PT/OT/case management following. Planning for SNF on discharge. Patient first needs to qualify for Medicaid prior to SNF referrals being sent out, will likely be hospitalized to the weekend with hope for discharge early next week. 8. Diffuse rash ? Patient noted start of rash on upper extremities on 10/06, then noted to be fairly widespread on chest, abdomen and upper extremities on 10/07. Mildly pruritic per patient. Seems most consistent with drug-related reaction. Only new medication recently was IV Lasix started on 10/02; on literature search, Lasix has been indicated in hypersensitivity reactions, both immediate and delayed. Lasix discontinued on 10/07. Given 2 doses of IV Solu-Medrol 40 mg on 10/07. Will continue to monitor closely. DVT prophylaxis: Heparin subcu CODE STATUS: Full code, verified Expected disposition: SNF, TBD Total clinical time spent by myself addressing the patient's medical issues, reviewing all the data, and collaborating with patient's care team: 35 minutes. Charges/Coding Visit Charges Inpatient E&M: 48335 Subs Hosp L2
[2023-10-08 16:43] LABS: Bedside Glucose 128 mg/dL (74-106)
[2023-10-08] MEDS: Insulin Lispro 100 UNIT/ML INSULN.PEN SC (21:44)
[2023-10-08 23:21] LABS: Bedside Glucose 234 mg/dL (74-106)
[2023-10-09 00:05] VITALS: PULSE 56; RESP 12; RESP 18; O2SAT 94
[2023-10-09 02:51] VITALS: BP 122/83; PULSE 73; RESP 16; TEMP 36.5; O2SAT 98
[2023-10-09 03:35] VITALS: BMI 64.3
[2023-10-09] MEDS: Heparin Injection (Vial) 5,000 UNIT/ML VIAL 5000 UNIT SC ×3 (06:37→20:41)
[2023-10-09] MEDS: Nystatin Powder 15gm Bottle 1 APPLIC TOPICAL ×3 (06:37→20:41)
[2023-10-09] MEDS: Insulin Lispro 100 UNIT/ML INSULN.PEN SC ×2 (06:38→10:58)
[2023-10-09 07:06] LABS: Bedside Glucose 166 mg/dL (74-106)
[2023-10-09] MEDS: Budesonide Respules 0.5 MG/2 ML AMPUL.NEB. INHALATION ×2 (07:21→20:00)
[2023-10-09 07:22] VITALS: PULSE 75; RESP 20; O2SAT 96
[2023-10-09 07:46] VITALS: BP 130/74; PULSE 52; RESP 14; TEMP 36.5; O2SAT 98
[2023-10-09 08:38] LABS: Anion Gap 8 (5-15); BUN 75 mg/dL (7-18); BUN/Creat Ratio 11.7 RATIO (10-20); Chloride 107 mmol/L (98-107); Creatinine, Serum 6.43 mg/dL (0.70-1.30); EST Glomerular Filtration Rate 10 mL/min (>60); Est Glom Filt Rate - Afr Amer 12 mL/min (>60); Estimated Creatinine Clearance 27.54 ml/min; Glucose 181 mg/dL (74-106); Potassium 4.6 mmol/L (3.5-5.1); Sodium Level 136 mmol/L (136-145)
[2023-10-09] MEDS: Insulin Glargine-YFGN 100 UNIT/ML Pen 10 UNIT SC (09:22)
[2023-10-09] MEDS: Menthol/Lanolin/Calamine/Znox 113 GM Tube 1 APPLIC TOPICAL ×2 (09:48→20:40)
[2023-10-09 11:27] LABS: Bedside Glucose 158 mg/dL (74-106)
--- NOTE | 2023-10-09 11:33 | PCM.PN.HOSP ---
Reason for Visit Reason for Visit: Diagnoses Sepsis, unspecified organism (09/23/23) Morbid (severe) obesity due to excess calories (09/23/23) Hypo-osmolality and hyponatremia (09/23/23) Acute and chronic respiratory failure with hypoxia (09/23/23) Acute and chronic respiratory failure with hypercapnia (09/23/23) Cellulitis, unspecified (09/23/23) Acute kidney failure, unspecified (09/23/23) Severe sepsis with septic shock (09/23/23) Subjective Subjective No acute events overnight. Patient seen at bedside this morning. Patient's rash is moderately improved from yesterday. He reports that any pruritus with rash has resolved today. He otherwise sitting up fairly comfortably in bed and feels well this morning. Had not been out of bed to work with physical therapy yet today. No other acute concerns morning. Objective Data Objective Data Vital Signs: Vital Signs Temp Pulse Resp BP Pulse Ox O2 Del Method O2 Flow Rate 97.7 F L 52 L 14 130/74 H 98 Nasal Cannula 3 10/09/23 07:46 10/09/23 07:46 10/09/23 07:46 10/09/23 07:46 10/09/23 07:46 10/09/23 07:46 10/09/23 07:46 FiO2 35 10/09/23 00:05 Oxygen Flow Rate (L/min) 3 Oxygen Delivery Method Nasal Cannula Weight: 209 kg Body Mass Index (BMI) 64.3 Intake & Output: Intake and Output for Last 24 Hours 10/07/23 10/08/23 10/09/23 23:59 23:59 23:59 Intake Total 1040 / 1040 Output Total 2725 / 2975 2700 / 2700 350 / 350 Balance -1685 / -1935 -2700 / -2700 -350 / -350 Lab / Micro Data 10/08/23 06:00 10/09/23 07:20 Labs: Laboratory Results - last 24 hr 10/08/23 16:21: POC Glucose 128 H 10/08/23 21:38: POC Glucose 234 H 10/09/23 06:36: POC Glucose 166 H 10/09/23 07:20: Sodium 136, Potassium 4.6, Chloride 107, Carbon Dioxide 21.0, Anion Gap 8, BUN 75 H, Creatinine 6.43 H, Estim Creat Clear Calc 27.54, Est GFR (MDRD) Af Amer 12 L, Est GFR (MDRD) Non-Af 10 L, BUN/Creatinine Ratio 11.7, Glucose 181 H, Calcium 9.0 10/09/23 10:56: POC Glucose 158 H Micro: Microbiology 09/26/23 14:55 Blood Culture (Wb) - Pic Blood Culture - Final No growth in 5 days. 09/26/23 14:55 Blood Culture (Wb) - Pic Blood Culture - Final No growth in 5 days. 09/23/23 13:45 Blood Culture (Wb) - Anticubital Right Blood Culture - Final No growth in 5 days. 09/23/23 11:40 Blood Culture (Wb) - Anticubital Right Blood Culture - Final No growth in 5 days. 09/23/23 10:25 Blood Culture (Wb) - Arm Left Blood Culture - Final No growth in 5 days. 09/26/23 07:35 Sputum, Induced/Lukens Gram Stain - Final 09/26/23 07:35 Sputum, Induced/Lukens Respiratory Culture - Final Culture exhibits no growth. 09/23/23 14:00 Wound - Leg, Left Gram Stain - Final 09/23/23 14:00 Wound - Leg, Left Wound Culture - Final Streptococcus dysgalactiae equ Proteus hauseri Alcaligenes faecalis ssp faeca Staphylococcus aureus Rhythm Strip Rhythm Strip: Sinus Rhythm Rate: 78 Physical Exam Const alert, oriented x3 and no apparent distress Constitutional Narrative: Pleasant younger male, morbidly obese, sitting up comfortably in bedside chair, conversing normally, in no acute distress. General Appearance: cooperative and comfortable HEENT normocephalic, head/scalp atraumatic, hearing grossly normal bilaterally and nasal mucous membranes and turbinates normal Mouth: dry mucous membranes Eyes PERRL, EOMs intact bilaterally and conjunctivae normal Neck full ROM Chest inspection of chest normal Resp normal respiratory effort and no use of accessory muscles Resp Narrative: Breathing comfortably on 3 L nasal cannula. Mildly decreased breath sounds bilaterally throughout, no wheezing or crackles noted, stable from previous days. Exam limited by body habitus. Cardio regular rate, regular rhythm, no murmurs and peripheral pulses 2+ throughout GI normal to inspection, nondistended, normoactive bowel sounds, soft to palpation, non-tender and non-distended Back/Spine normal ROM Extremity Extremity Narrative: Bilateral lower extremity lymphedema noted, stable from previous. LLE cellulitis from admission has resolved. Skin Skin Narrative: Patient noted to have significant rash on chest and abdomen and bilateral upper extremities on 10/07. Appearance consistent with small red bumps that are not raised. Seems most consistent with a drug related rash. Moderately improved on 10/08. Neuro no focal motor deficits and no sensory deficits noted Speech: speech normal Psych mental status grossly normal Assessment & Plan Assessment/Plan (1) Acute on chronic respiratory failure with hypoxia and hypercapnia: (2) Septic shock: (3) WINDY (acute kidney injury): PLAN: Plan Patient is a 43-year-old male who presented to [facility] ED on 09/23/2023 with worsening left lower extremity swelling and pain with ambulation. 1. Acute on chronic combined respiratory failure, improving; history of SUNG with CPAP nonadherence Has known history of SUNG with CPAP nonadherence. Suspected to have underlying OHS as well. Severe hypercapnia noted overnight on 09/24, did not improve much with and required intubation with mechanical ventilation. ? Therapeutic Recreation Director followed. Patient successfully extubated to BiPAP on 10/04, then transitioned to nasal cannula without issue. Continue to wean supplemental oxygen as able. Continue BiPAP at night. Transferred out of ICU on 10/05. 2. Septic shock secondary to left lower extremity cellulitis, resolved; chronic lower extremity lipedema Wound cultures from left lower extremity on 09/22 grew Strep dysgalactiae, Proteus, Staph aureus and Alcalignenes. Blood cultures from 09/22 negative x 2, repeat blood cultures from 09/25 again with no growth after 48 hours. Initially treated with vancomycin and meropenem, however vancomycin discontinued due to elevated troughs and severe WINDY as noted below. ? Infectious disease followed. Wound care following. Completed course of antibiotics with very good improvement in left lower extremity cellulitis. Stable off pressors since 09/27. Continue wound care management. 3. Severe WINDY Creatinine 0.91 on admission, likely baseline. Had significant uptrend in creatinine with very minimal urine output for first several days admission. Given patient's worsening volume overload and minimal urine output, decision was made to initiate dialysis on 09/27. Completed 3 rounds of HD from 09/27 to 09/29. However, had difficulty with the right IJ HD line frequently becoming blocked. Surgery followed, tunneled HD line placed on 10/03. ? Nephrology following. Continue HD sessions per nephro recs. IV Lasix was started on 10/02 and patient has been making good urine, but clearance remains poor. Unfortunately, had to discontinue IV Lasix on 10/07 given concern that this may be the offending drug causing his rash as noted below. Will discuss with nephrology on further recommendations regarding diuretic management moving forward. 4. Type 2 diabetes mellitus ? A1c 10.1% on admit. Not on any home diabetic medications. Unclear if patient was previously diagnosed with diabetes or not. Continue Lantus 10 units at night and Humalog sliding scale insulin with meals, adjust as needed. 5. Hyponatremia, stable ? Nephrology following as above. Sodium 128 on admit, remained stable around 126-129 for several days. Now slowly improving with volume removal with hemodialysis. Continue to monitor BMP daily. 6. Super morbid obesity ? BMI 66 on admit. Complicates hospital course, care and prognosis. 7. Debility ? PT/OT/case management following. Planning for SNF on discharge. Patient first needs to qualify for Medicaid prior to SNF referrals being sent out, will likely be hospitalized to the weekend with hope for discharge early next week. 8. Diffuse rash, improving ? Patient noted start of rash on upper extremities on 10/06, then noted to be fairly widespread on chest, abdomen and upper extremities on 10/07. Mildly pruritic per patient. Seems most consistent with drug-related reaction. Only new medication recently was IV Lasix started on 10/02; on literature search, Lasix has been indicated in hypersensitivity reactions, both immediate and delayed. Lasix discontinued on 10/07. Given 2 doses of IV Solu-Medrol 40 mg on 10/07. Rash appears moderately improved on 10/08. Will continue to monitor for now. DVT prophylaxis: Heparin subcu CODE STATUS: Full code, verified Expected disposition: SNF, TBD Total clinical time spent by myself addressing the patient's medical issues, reviewing all the data, and collaborating with patient's care team: 35 minutes. Charges/Coding Visit Charges Inpatient E&M: 30527 Subs Hosp L2
[2023-10-09 14:35] VITALS: BP 115/63; PULSE 56; RESP 20; TEMP 36.3; O2SAT 93
--- NOTE | 2023-10-09 16:03 | CASEMGMT ---
Social Work Upon admission, pt informed admitting RN does not have LW/POA and declined further information. ALEKSANDR Terry
[2023-10-09 16:44] LABS: Bedside Glucose 140 mg/dL (74-106)
--- NOTE | 2023-10-09 17:43 | PCM.PN.REN ---
Subjective Subjective Following for WINDY. The patient denies chest pain, shortness of breath, nausea, or diarrhea. Objective Data Objective Data Vital Signs: Vital Signs Temp Pulse Resp BP Pulse Ox O2 Del Method O2 Flow Rate 97.4 F L 56 L 20 H 115/63 93 Nasal Cannula 3 10/09/23 14:35 10/09/23 14:35 10/09/23 14:35 10/09/23 14:35 10/09/23 14:35 10/09/23 14:35 10/09/23 14:35 FiO2 35 10/09/23 00:05 Oxygen Flow Rate (L/min) 3 Oxygen Delivery Method Nasal Cannula Weight: 209 kg Body Mass Index (BMI) 64.3 Intake & Output: Intake and Output for Last 24 Hours 10/07/23 10/08/23 10/09/23 23:59 23:59 23:59 Intake Total 1040 / 1040 240 / 240 Output Total 2725 / 2975 2700 / 2700 600 / 600 Balance -1685 / -1935 -2700 / -2700 -360 / -360 Lab / Micro Data 10/08/23 06:00 10/09/23 07:20 Labs: Laboratory Results - last 24 hr 10/08/23 21:38: POC Glucose 234 H 10/09/23 06:36: POC Glucose 166 H 10/09/23 07:20: Sodium 136, Potassium 4.6, Chloride 107, Carbon Dioxide 21.0, Anion Gap 8, BUN 75 H, Creatinine 6.43 H, Estim Creat Clear Calc 27.54, Est GFR (MDRD) Af Amer 12 L, Est GFR (MDRD) Non-Af 10 L, BUN/Creatinine Ratio 11.7, Glucose 181 H, Calcium 9.0 10/09/23 10:56: POC Glucose 158 H 10/09/23 16:26: POC Glucose 140 H Micro: Microbiology 09/26/23 14:55 Blood Culture (Wb) - Pic Blood Culture - Final No growth in 5 days. 09/26/23 14:55 Blood Culture (Wb) - Pic Blood Culture - Final No growth in 5 days. 09/23/23 13:45 Blood Culture (Wb) - Anticubital Right Blood Culture - Final No growth in 5 days. 09/23/23 11:40 Blood Culture (Wb) - Anticubital Right Blood Culture - Final No growth in 5 days. 09/23/23 10:25 Blood Culture (Wb) - Arm Left Blood Culture - Final No growth in 5 days. 09/26/23 07:35 Sputum, Induced/Lukens Gram Stain - Final 09/26/23 07:35 Sputum, Induced/Lukens Respiratory Culture - Final Culture exhibits no growth. 09/23/23 14:00 Wound - Leg, Left Gram Stain - Final 09/23/23 14:00 Wound - Leg, Left Wound Culture - Final Streptococcus dysgalactiae equ Proteus hauseri Alcaligenes faecalis ssp faeca Staphylococcus aureus Rhythm Strip Rhythm Strip: Sinus Rhythm Rate: 78 Physical Exam Narrative Alert and orient x 3, no apparent distress S1, S2, RRR Lung sounds clear anteriorly, diminished breath sounds posterior bases. No wheezes, rhonchi rales noted Abdomen soft, rounded, nontender 1+ lower extremity edema. Legs are wrapped in Mono bandage [place] with clear yellow urine in bag Right chest tunneled HD catheter dressing clean, dry and intact Assessment & Plan Assessment/Plan (1) WINDY (acute kidney injury): PLAN: Plan Impression/Plan: The patient is a 43-year-old man with past history of morbid obesity. He presented to hospital on 09/23/2023 with complaints of lower extremity swelling and pain with ambulation. The patient was admitted to hospital for treatment of septic shock attributed to left lower extremity cellulitis. Nephrology is following for dialysis plan and WINDY. Acute kidney injury. The patient has no prior history of CKD. Prior to admission, serum creatinine was normal. In fact, serum creatinine was 0.91 mg/dL on the day of presentation (09/23/2023). WINDY secondary to ischemic ATN related to septic shock. The patient was started on hemodialysis on 10/04/2023. He has been on MWF dialysis schedule. The patient was dialyzed yesterday on 10/08/2023. There is no need for dialysis today. Urine output has been adequate. No need for dialysis today. We are monitoring the patient for renal recovery. Continue keep MAP above 65 mmHg. Recheck renal function, volume status, acid-base, and electrolytes tomorrow.
[2023-10-09 20:00] VITALS: BP 107/70; PULSE 70; PULSE 77; RESP 16; RESP 18; TEMP 37; O2SAT 95
[2023-10-09 21:19] LABS: Bedside Glucose 145 mg/dL (74-106)
[2023-10-10] VITALS (11 sets, daily range): BP systolic 104–128; BP diastolic 58–72; PULSE 57–89; RESP 12–20; TEMP 36.4–36.7; O2SAT 92–100; BMI 63.0
--- NOTE | 2023-10-10 04:50 | CPS ---
pt wasn't quite ready for bipap yet.
[2023-10-10] MEDS: Nystatin Powder 15gm Bottle 1 APPLIC TOPICAL ×2 (06:34→21:53)
[2023-10-10] MEDS: Heparin Injection (Vial) 5,000 UNIT/ML VIAL 5000 UNIT SC ×3 (06:34→21:52)
[2023-10-10 06:44] LABS: Bedside Glucose 107 mg/dL (74-106)
[2023-10-10] MEDS: Budesonide Respules 0.5 MG/2 ML AMPUL.NEB. INHALATION ×2 (06:44→19:54)
[2023-10-10 07:00] LABS: Hemoglobin 11.9 g/dL (13.0-16.5); Mean Corpuscular Volume 82.8 fL (80-94); Mean Platelet Vol. 9.2 fl (6.2-12.0); Platelet Count 323 K/mm3 (150-450); RBC Distribution Width CV 15.8 % (11.6-14.6); Red Blood Count 4.95 M/mm3 (4.6-6.2); White Blood Count 9.1 K/mm3 (4.4-11.0)
[2023-10-10 08:18] LABS: Anion Gap 8 (5-15); BUN 93 mg/dL (7-18); BUN/Creat Ratio 14.6 RATIO (10-20); Calcium,Total 8.6 mg/dL (8.5-10.1); Chloride 107 mmol/L (98-107); Creatinine, Serum 6.38 mg/dL (0.70-1.30); EST Glomerular Filtration Rate 10 mL/min (>60); Est Glom Filt Rate - Afr Amer 12 mL/min (>60); Estimated Creatinine Clearance 27.41 ml/min; Glucose 113 mg/dL (74-106); Potassium 4.1 mmol/L (3.5-5.1); Sodium Level 138 mmol/L (136-145)
--- NOTE | 2023-10-10 08:58 | NURSING ---
Bilateral lower extremities washed with S&W and dried. Applied gauze to ankles and blackmon area, wrapped with kerlix and RADHA. Tolerated well.
[2023-10-10] MEDS: Insulin Glargine-YFGN 100 UNIT/ML Pen 10 UNIT SC (10:23)
[2023-10-10] MEDS: Menthol/Lanolin/Calamine/Znox 113 GM Tube 1 APPLIC TOPICAL ×2 (10:24→21:53)
--- NOTE | 2023-10-10 11:00 | PCM.PN.HOSP ---
Reason for Visit Reason for Visit: Diagnoses Sepsis, unspecified organism (09/23/23) Morbid (severe) obesity due to excess calories (09/23/23) Hypo-osmolality and hyponatremia (09/23/23) Acute and chronic respiratory failure with hypoxia (09/23/23) Acute and chronic respiratory failure with hypercapnia (09/23/23) Cellulitis, unspecified (09/23/23) Acute kidney failure, unspecified (09/23/23) Severe sepsis with septic shock (09/23/23) Subjective Subjective No acute events overnight. Patient seen at bedside this morning. Sitting up comfortably in bed, conversing normally, no acute distress. Rash continues to appear improved today. No other acute concerns this morning. Objective Data Objective Data Vital Signs: Vital Signs Temp Pulse Resp BP Pulse Ox O2 Del Method O2 Flow Rate 97.5 F L 69 20 H 113/71 99 Nasal Cannula 3 10/10/23 08:31 10/10/23 08:31 10/10/23 08:31 10/10/23 08:31 10/10/23 08:31 10/10/23 08:31 10/10/23 08:31 FiO2 35 10/10/23 04:50 Oxygen Flow Rate (L/min) 3 Oxygen Delivery Method Nasal Cannula Weight: 205 kg Body Mass Index (BMI) 63.0 Intake & Output: Intake and Output for Last 24 Hours 10/08/23 10/09/23 10/10/23 23:59 23:59 23:59 Intake Total 360 / 360 Output Total 2700 / 2700 800 / 1500 1200 / 1200 Balance -2700 / -2700 -440 / -1140 -1200 / -1200 Lab / Micro Data 10/10/23 05:25 10/10/23 05:20 Labs: Laboratory Results - last 24 hr 10/09/23 10:56: POC Glucose 158 H 10/09/23 16:26: POC Glucose 140 H 10/09/23 20:35: POC Glucose 145 H 10/10/23 05:20: Sodium 138, Potassium 4.1, Chloride 107, Carbon Dioxide 23.0, Anion Gap 8, BUN 93 H, Creatinine 6.38 H, Estim Creat Clear Calc 27.41, Est GFR (MDRD) Af Amer 12 L, Est GFR (MDRD) Non-Af 10 L, BUN/Creatinine Ratio 14.6, Glucose 113 H, Calcium 8.6 10/10/23 05:25: WBC 9.1, RBC 4.95, Hgb 11.9 L, Hct 41.0, MCV 82.8, MCH 24.0 L, MCHC 29.0 L, RDW Std Deviation 48.0 H, RDW Coeff of Benedicto 15.8 H, Plt Count 323, MPV 9.2 10/10/23 06:21: POC Glucose 107 H Micro: Microbiology 09/26/23 14:55 Blood Culture (Wb) - Pic Blood Culture - Final No growth in 5 days. 09/26/23 14:55 Blood Culture (Wb) - Pic Blood Culture - Final No growth in 5 days. 09/23/23 13:45 Blood Culture (Wb) - Anticubital Right Blood Culture - Final No growth in 5 days. 09/23/23 11:40 Blood Culture (Wb) - Anticubital Right Blood Culture - Final No growth in 5 days. 09/23/23 10:25 Blood Culture (Wb) - Arm Left Blood Culture - Final No growth in 5 days. 09/26/23 07:35 Sputum, Induced/Lukens Gram Stain - Final 09/26/23 07:35 Sputum, Induced/Lukens Respiratory Culture - Final Culture exhibits no growth. 09/23/23 14:00 Wound - Leg, Left Gram Stain - Final 09/23/23 14:00 Wound - Leg, Left Wound Culture - Final Streptococcus dysgalactiae equ Proteus hauseri Alcaligenes faecalis ssp faeca Staphylococcus aureus Rhythm Strip Rhythm Strip: Sinus Rhythm Rate: 78 Physical Exam Const alert, oriented x3 and no apparent distress Constitutional Narrative: Pleasant younger male, morbidly obese, sitting up comfortably in bedside chair, conversing normally, in no acute distress. General Appearance: cooperative and comfortable HEENT normocephalic, head/scalp atraumatic, hearing grossly normal bilaterally and nasal mucous membranes and turbinates normal Mouth: dry mucous membranes Eyes PERRL, EOMs intact bilaterally and conjunctivae normal Neck full ROM Chest inspection of chest normal Resp normal respiratory effort and no use of accessory muscles Resp Narrative: Breathing comfortably on 3 L nasal cannula. Mildly decreased breath sounds bilaterally throughout, no wheezing or crackles noted, stable from previous days. Exam limited by body habitus. Cardio regular rate, regular rhythm, no murmurs and peripheral pulses 2+ throughout GI normal to inspection, nondistended, normoactive bowel sounds, soft to palpation, non-tender and non-distended Back/Spine normal ROM Extremity Extremity Narrative: Bilateral lower extremity lymphedema noted, stable from previous. LLE cellulitis from admission has resolved. Skin Skin Narrative: Patient noted to have significant rash on chest and abdomen and bilateral upper extremities on 10/07. Appearance consistent with small red bumps that are not raised. Seems most consistent with a drug related rash. Moderately improved on 10/08, stable on 10/09. Neuro no focal motor deficits and no sensory deficits noted Speech: speech normal Psych mental status grossly normal Assessment & Plan Assessment/Plan (1) Acute on chronic respiratory failure with hypoxia and hypercapnia: (2) Septic shock: (3) WINDY (acute kidney injury): PLAN: Plan Patient is a 43-year-old male who presented to [facility] ED on 09/23/2023 with worsening left lower extremity swelling and pain with ambulation. 1. Acute on chronic combined respiratory failure, improving; history of SUNG with CPAP nonadherence Has known history of SUNG with CPAP nonadherence. Suspected to have underlying OHS as well. Severe hypercapnia noted overnight on 09/24, did not improve much with and required intubation with mechanical ventilation. ? [employer] followed. Patient successfully extubated to BiPAP on 10/04, then transitioned to nasal cannula without issue. Continue to wean supplemental oxygen as able. Continue BiPAP at night. Transferred out of ICU on 10/05. 2. Septic shock secondary to left lower extremity cellulitis, resolved; chronic lower extremity lipedema Wound cultures from left lower extremity on 09/22 grew Strep dysgalactiae, Proteus, Staph aureus and Alcalignenes. Blood cultures from 09/22 negative x 2, repeat blood cultures from 09/25 again with no growth after 48 hours. Initially treated with vancomycin and meropenem, however vancomycin discontinued due to elevated troughs and severe WINDY as noted below. ? Infectious disease followed. Wound care following. Completed course of antibiotics with very good improvement in left lower extremity cellulitis. Stable off pressors since 09/27. Continue wound care management. 3. Severe WINDY Creatinine 0.91 on admission, likely baseline. Had significant uptrend in creatinine with very minimal urine output for first several days admission. Given patient's worsening volume overload and minimal urine output, decision was made to initiate dialysis on 09/27. Completed 3 rounds of HD from 09/27 to 09/29. However, had difficulty with the right IJ HD line frequently becoming blocked. Surgery followed, tunneled HD line placed on 10/03. ? Nephrology following. Last HD session was on 10/07. Appreciate nephrology recs regarding further need for HD moving forward. IV Lasix was started on 10/02 and patient has been making good urine, but clearance remains poor. Unfortunately, had to discontinue IV Lasix on 10/07 given concern that this may be the offending drug causing his rash as noted below. Continues to have good urine output off of diuresis. Appreciate nephro recs regarding diuresis moving forward as well. 4. Type 2 diabetes mellitus ? A1c 10.1% on admit. Not on any home diabetic medications. Unclear if patient was previously diagnosed with diabetes or not. Continue Lantus 10 units at night and Humalog sliding scale insulin with meals, adjust as needed. 5. Hyponatremia, stable ? Nephrology following as above. Sodium 128 on admit, remained stable around 126-129 for several days. Now slowly improving with volume removal with hemodialysis. Continue to monitor BMP daily. 6. Super morbid obesity ? BMI 66 on admit. Complicates hospital course, care and prognosis. 7. Debility ? PT/OT/case management following. Planning for SNF on discharge. Patient first needs to qualify for Medicaid prior to SNF referrals being sent out, will likely be hospitalized to the weekend with hope for discharge early next week. 8. Diffuse rash, improving ? Patient noted start of rash on upper extremities on 10/06, then noted to be fairly widespread on chest, abdomen and upper extremities on 10/07. Mildly pruritic per patient. Seems most consistent with drug-related reaction. Only new medication recently was IV Lasix started on 10/02; on literature search, Lasix has been indicated in hypersensitivity reactions, both immediate and delayed. Lasix discontinued on 10/07. Given 2 doses of IV Solu-Medrol 40 mg on 10/07. Rash appears moderately improved on 10/08, stable on 10/09. Will continue to monitor for now. DVT prophylaxis: Heparin subcu CODE STATUS: Full code, verified Expected disposition: SNF, TBD Total clinical time spent by myself addressing the patient's medical issues, reviewing all the data, and collaborating with patient's care team: 35 minutes. Charges/Coding Visit Charges Inpatient E&M: 66335 Subs Hosp L2
[2023-10-10 11:25] LABS: Bedside Glucose 110 mg/dL (74-106)
[2023-10-10 16:40] LABS: Bedside Glucose 126 mg/dL (74-106)
[2023-10-11] VITALS (9 sets, daily range): BP systolic 107–124; BP diastolic 62–73; PULSE 55–87; RESP 12–24; TEMP 35.9–36.8; O2SAT 93–100; BMI 62.8
[2023-10-11 04:49] LABS: Anion Gap 8 (5-15); BUN 95 mg/dL (7-18); Calcium,Total 8.1 mg/dL (8.5-10.1); Chloride 109 mmol/L (98-107); Creatinine, Serum 5.93 mg/dL (0.70-1.30); EST Glomerular Filtration Rate 11 mL/min (>60); Est Glom Filt Rate - Afr Amer 14 mL/min (>60); Estimated Creatinine Clearance 29.44 ml/min; Glucose 125 mg/dL (74-106); Potassium 3.8 mmol/L (3.5-5.1); Sodium Level 141 mmol/L (136-145)
[2023-10-11] MEDS: Nystatin Powder 15gm Bottle 1 APPLIC TOPICAL ×3 (06:18→22:22)
[2023-10-11] MEDS: Heparin Injection (Vial) 5,000 UNIT/ML VIAL 5000 UNIT SC ×3 (06:19→22:22)
[2023-10-11 06:55] LABS: Bedside Glucose 143 mg/dL (74-106)
[2023-10-11 07:07] LABS: Bedside Glucose 115 mg/dL (74-106)
[2023-10-11] MEDS: Budesonide Respules 0.5 MG/2 ML AMPUL.NEB. INHALATION ×2 (07:42→20:13)
--- NOTE | 2023-10-11 09:46 | PN.RENAL_ITS ---
Subjective Subjective Following for dialysis requiring WINDY Sitting up in bed eating breakfast. Reports appetite has improved. Denies any nausea or vomiting. Objective Data Objective Data Vital Signs: Vital Signs Temp Pulse Resp BP Pulse Ox O2 Del Method O2 Flow Rate 98.2 F 71 18 107/65 95 Nasal Cannula 2 10/11/23 03:13 10/11/23 07:30 10/11/23 07:30 10/11/23 03:13 10/11/23 08:36 10/11/23 08:36 10/11/23 08:36 FiO2 30 10/11/23 00:31 Oxygen Flow Rate (L/min) 2 Oxygen Delivery Method Nasal Cannula Weight: 204.5 kg Body Mass Index (BMI) 62.8 Intake & Output: Intake and Output for Last 24 Hours 10/09/23 10/10/23 10/11/23 23:59 23:59 23:59 Intake Total 360 / 360 740 / 740 Output Total 800 / 1500 2200 / 3200 1550 / 1550 Balance -440 / -1140 -1460 / -2460 -1550 / -1550 Lab / Micro Data 10/10/23 05:25 10/11/23 03:25 Labs: Laboratory Results - last 24 hr 10/10/23 11:08: POC Glucose 110 H 10/10/23 16:18: POC Glucose 126 H 10/10/23 21:41: POC Glucose 143 H 10/11/23 03:25: Sodium 141, Potassium 3.8, Chloride 109 H, Carbon Dioxide 24.0, Anion Gap 8, BUN 95 H, Creatinine 5.93 H, Estim Creat Clear Calc 29.44, Est GFR (MDRD) Af Amer 14 L, Est GFR (MDRD) Non-Af 11 L, BUN/Creatinine Ratio 16.0, Glucose 125 H, Calcium 8.1 L 10/11/23 06:20: POC Glucose 115 H Micro: Microbiology 09/26/23 14:55 Blood Culture (Wb) - Pic Blood Culture - Final No growth in 5 days. 09/26/23 14:55 Blood Culture (Wb) - Pic Blood Culture - Final No growth in 5 days. 09/23/23 13:45 Blood Culture (Wb) - Anticubital Right Blood Culture - Final No growth in 5 days. 09/23/23 11:40 Blood Culture (Wb) - Anticubital Right Blood Culture - Final No growth in 5 days. 09/23/23 10:25 Blood Culture (Wb) - Arm Left Blood Culture - Final No growth in 5 days. 09/26/23 07:35 Sputum, Induced/Lukens Gram Stain - Final 09/26/23 07:35 Sputum, Induced/Lukens Respiratory Culture - Final Culture exhibits no growth. 09/23/23 14:00 Wound - Leg, Left Gram Stain - Final 09/23/23 14:00 Wound - Leg, Left Wound Culture - Final Streptococcus dysgalactiae equ Proteus hauseri Alcaligenes faecalis ssp faeca Staphylococcus aureus Rhythm Strip Rhythm Strip: Sinus Rhythm Rate: 78 Physical Exam Narrative Alert and orient x 3, no apparent distress S1, S2, RRR Lung sounds clear anteriorly. No wheezes, rhonchi rales noted Abdomen soft, rounded, nontender No pitting edema Indwelling Waters with clear yellow urine in bag Right chest tunneled HD catheter dressing clean, dry and intact Assessment & Plan Assessment/Plan (1) WINDY (acute kidney injury): PLAN: Plan Impression/Plan: The patient is a 43-year-old man with past history of morbid obesity. He presented to hospital on 09/23/2023 with complaints of lower extremity swelling and pain with ambulation. The patient was admitted to hospital for treatment of septic shock attributed to left lower extremity cellulitis. Nephrology is following for dialysis plan and WINDY. - Nonoliguric, mildly hypervolemic acute kidney injury. The patient has no prior history of CKD. Prior to admission, serum creatinine w as normal. WINDY secondary to ischemic ATN related to septic shock. The patient was started on hemodialysis on 10/04/2023. The patient was last dialyzed on 10/08/2023. Urine output has been adequate even off of diuretic. Creatinine 7.66 mg/dL pre-HD on 10/07. Today creatinine is 5.93 mg/dL. Patient may be showing some signs of renal recovery. Bicarb and potassium are normal. Good urine output. Therefore we will not to hemodialysis today. We will continue monitoring the patient for renal recovery. Labs ordered for am.
[2023-10-11] MEDS: Menthol/Lanolin/Calamine/Znox 113 GM Tube 1 APPLIC TOPICAL ×2 (10:34→22:22)
[2023-10-11] MEDS: Insulin Glargine-YFGN 100 UNIT/ML Pen 10 UNIT SC (10:35)
[2023-10-11 10:58] LABS: Bedside Glucose 128 mg/dL (74-106)
[2023-10-11 17:22] LABS: Bedside Glucose 115 mg/dL (74-106)
--- NOTE | 2023-10-11 18:26 | PN.HOSP_ITS ---
Reason for Visit Reason for Visit: Diagnoses Sepsis, unspecified organism (09/23/23) Morbid (severe) obesity due to excess calories (09/23/23) Hypo-osmolality and hyponatremia (09/23/23) Acute and chronic respiratory failure with hypoxia (09/23/23) Acute and chronic respiratory failure with hypercapnia (09/23/23) Cellulitis, unspecified (09/23/23) Acute kidney failure, unspecified (09/23/23) Severe sepsis with septic shock (09/23/23) Subjective Subjective Patient was seen and examined today, he is on room air currently, patient will not be dialyzed at the present time, I received a call from nephrology who stated they felt the patient's kidney function was returning and they were going to hold dialysis. Objective Data Objective Data Vital Signs: Vital Signs Temp Pulse Resp BP Pulse Ox O2 Del Method O2 Flow Rate 96.6 F L 72 16 124/73 H 96 Room Air 2 10/11/23 15:08 10/11/23 15:08 10/11/23 15:08 10/11/23 15:08 10/11/23 15:08 10/11/23 15:08 10/11/23 12:04 FiO2 30 10/11/23 00:31 Oxygen Flow Rate (L/min) 2 Oxygen Delivery Method Room Air Weight: 204.5 kg Body Mass Index (BMI) 62.8 Intake & Output: Intake and Output for Last 24 Hours 10/09/23 10/10/23 10/11/23 23:59 23:59 23:59 Intake Total 360 / 360 740 / 740 Output Total 800 / 1500 2200 / 3200 3625 / 3625 Balance -440 / -1140 -1460 / -2460 -3625 / -3625 Lab / Micro Data 10/10/23 05:25 10/11/23 03:25 Labs: Laboratory Results - last 24 hr 10/10/23 21:41: POC Glucose 143 H 10/11/23 03:25: Sodium 141, Potassium 3.8, Chloride 109 H, Carbon Dioxide 24.0, Anion Gap 8, BUN 95 H, Creatinine 5.93 H, Estim Creat Clear Calc 29.44, Est GFR (MDRD) Af Amer 14 L, Est GFR (MDRD) Non-Af 11 L, BUN/Creatinine Ratio 16.0, Glucose 125 H, Calcium 8.1 L 10/11/23 06:20: POC Glucose 115 H 10/11/23 10:32: POC Glucose 128 H 10/11/23 16:38: POC Glucose 115 H Micro: Microbiology 09/26/23 14:55 Blood Culture (Wb) - Pic Blood Culture - Final No growth in 5 days. 09/26/23 14:55 Blood Culture (Wb) - Pic Blood Culture - Final No growth in 5 days. 09/23/23 13:45 Blood Culture (Wb) - Anticubital Right Blood Culture - Final No growth in 5 days. 09/23/23 11:40 Blood Culture (Wb) - Anticubital Right Blood Culture - Final No growth in 5 days. 09/23/23 10:25 Blood Culture (Wb) - Arm Left Blood Culture - Final No growth in 5 days. 09/26/23 07:35 Sputum, Induced/Lukens Gram Stain - Final 09/26/23 07:35 Sputum, Induced/Lukens Respiratory Culture - Final Culture exhibits no growth. 09/23/23 14:00 Wound - Leg, Left Gram Stain - Final 09/23/23 14:00 Wound - Leg, Left Wound Culture - Final Streptococcus dysgalactiae equ Proteus hauseri Alcaligenes faecalis ssp faeca Staphylococcus aureus Rhythm Strip Rhythm Strip: Sinus Rhythm Rate: 78 Physical Exam Const alert, oriented x3 and no apparent distress Constitutional Narrative: Patient is morbidly obese General Appearance: cooperative and well developed Orientation / Consciousness: awake, oriented to person, oriented to place and oriented to time HEENT normocephalic and moist oral mucous membranes Eyes PERRL, EOMs intact bilaterally and conjunctivae normal Neck supple, no JVD, thyroid normal and no carotid bruits General: trachea midline Resp normal respiratory effort, no retractions, no use of accessory muscles and clear to auscultation bilaterally Auscultation: Negative for rales, rhonchi or wheezes Cardio regular rate, regular rhythm, S1 normal heart sound, S2 normal heart sound, no murmurs, no rub and no gallops GI normal to inspection, nondistended, normoactive bowel sounds, soft to palpation, non-tender and non-distended Extremity no clubbing, cyanosis or edema Skin no rashes or lesions noted General Skin Exam: no breakdown Neuro oriented x3, CN's II-XII intact bilaterally, moves all extremities, no focal motor deficits and no sensory deficits noted Sensorium / Orientation: awake, alert, oriented to person, oriented to place and oriented to time Speech: speech normal Psych affect normal Assessment & Plan Assessment/Plan (1) Acute on chronic respiratory failure with hypoxia and hypercapnia: PLAN: Plan 1. Acute on chronic combined respiratory failure-patient is currently on room air at this time, pulse ox will be monitored #2 acute kidney injury-requiring acute dialysis, most likely secondary to ischemic ATN secondary to septic shock and vancomycin administration-again nephrology states that the patient will not undergo dialysis for now #3 septic shock secondary to acute cellulitis of the left lower extremity- patient has completed a course of antibiotics #4 type 2 diabetes-patient is on basal insulin as well as sliding scale insulin, blood sugars will be monitored #5 morbid obesity-complicates care, management, recovery, and prognosis #6 acute debility secondary to multiple medical problems-it is probable the patient will need to go to an extended care facility for short-term inpatient skilled services, plans are pending at this time because we are currently waiting to see if the patient will require ongoing dialysis. If he does, patient will need to go to an LTAC Total clinical time spent by myself addressing the patient's medical issues, reviewing all of his data, and collaborating with patient's care team: 35-minute Charges/Coding Visit Charges Inpatient E&M: 42661 Subs Hosp L2
[2023-10-11 22:44] LABS: Bedside Glucose 112 mg/dL (74-106)
[2023-10-12] VITALS (9 sets, daily range): BP systolic 127–133; BP diastolic 71–83; PULSE 57–88; RESP 12–20; TEMP 35.9–36.8; O2SAT 92–96; BMI 61.6
[2023-10-12] MEDS: Heparin Injection (Vial) 5,000 UNIT/ML VIAL 5000 UNIT SC ×3 (06:30→22:46)
[2023-10-12] MEDS: Nystatin Powder 15gm Bottle 1 APPLIC TOPICAL ×3 (06:31→22:46)
[2023-10-12 06:46] LABS: Bedside Glucose 123 mg/dL (74-106)
[2023-10-12] MEDS: Budesonide Respules 0.5 MG/2 ML AMPUL.NEB. INHALATION ×2 (07:16→20:15)
[2023-10-12] MEDS: Menthol/Lanolin/Calamine/Znox 113 GM Tube 1 APPLIC TOPICAL ×2 (10:06→22:45)
[2023-10-12 10:33] LABS: Bedside Glucose 105 mg/dL (74-106)
--- NOTE | 2023-10-12 11:41 | WOUNDNOTE ---
removed RADHA wraps and dressings from bilateral lower legs. wounds remain healed. washed legs and feet with soap and water. pat dry. applied lotion and wrapped with kerlix. reapplied the RADHA wraps. pt tolerated well.
[2023-10-12 11:59] LABS: Bedside Glucose 99 mg/dL (74-106)
[2023-10-12 15:49] LABS: Anion Gap 6 (5-15); BUN 86 mg/dL (7-18); BUN/Creat Ratio 18.5 RATIO (10-20); Calcium,Total 8.2 mg/dL (8.5-10.1); Chloride 112 mmol/L (98-107); Creatinine, Serum 4.66 mg/dL (0.70-1.30); EST Glomerular Filtration Rate 15 mL/min (>60); Est Glom Filt Rate - Afr Amer 18 mL/min (>60); Estimated Creatinine Clearance 36.99 ml/min; Glucose 124 mg/dL (74-106); Potassium 3.9 mmol/L (3.5-5.1); Sodium Level 143 mmol/L (136-145)
--- NOTE | 2023-10-12 16:18 | PCM.PN.HOSP ---
Reason for Visit Reason for Visit: Diagnoses Sepsis, unspecified organism (09/23/23) Morbid (severe) obesity due to excess calories (09/23/23) Hypo-osmolality and hyponatremia (09/23/23) Acute and chronic respiratory failure with hypoxia (09/23/23) Acute and chronic respiratory failure with hypercapnia (09/23/23) Cellulitis, unspecified (09/23/23) Acute kidney failure, unspecified (09/23/23) Severe sepsis with septic shock (09/23/23) Subjective Subjective Patient was seen and examined today, he was placed back on oxygen today, patient does not complain of any shortness of breath. Creatinine today was improved, it is unlikely that he will need dialysis from this point on, social services director will have to put in request for an extended care facility, he will not need an LTAC at this time. Objective Data Objective Data Vital Signs: Vital Signs Temp Pulse Resp BP Pulse Ox O2 Del Method O2 Flow Rate 97.1 F L 81 16 133/83 H 94 Nasal Cannula 1 10/12/23 14:35 10/12/23 14:35 10/12/23 14:35 10/12/23 14:35 10/12/23 14:35 10/12/23 14:35 10/12/23 15:34 FiO2 30 10/12/23 01:43 Oxygen Flow Rate (L/min) 1 Oxygen Delivery Method Nasal Cannula Weight: 200.488 kg Body Mass Index (BMI) 61.6 Intake & Output: Intake and Output for Last 24 Hours 10/10/23 10/11/23 10/12/23 23:59 23:59 23:59 Intake Total 740 / 740 Output Total 2200 / 3200 5125 / 5125 1500 / 1500 Balance -1460 / -2460 -5125 / -5125 -1500 / -1500 Lab / Micro Data 10/10/23 05:25 10/12/23 15:15 Labs: Laboratory Results - last 24 hr 10/11/23 16:38: POC Glucose 115 H 10/11/23 22:21: POC Glucose 112 H 10/12/23 06:26: POC Glucose 123 H 10/12/23 10:04: POC Glucose 105 10/12/23 11:37: POC Glucose 99 10/12/23 15:15: Sodium 143, Potassium 3.9, Chloride 112 H, Carbon Dioxide 25.0, Anion Gap 6, BUN 86 H, Creatinine 4.66 H, Estim Creat Clear Calc 36.99, Est GFR (MDRD) Af Amer 18 L, Est GFR (MDRD) Non-Af 15 L, BUN/Creatinine Ratio 18.5, Glucose 124 H, Calcium 8.2 L Micro: Microbiology 09/26/23 14:55 Blood Culture (Wb) - Pic Blood Culture - Final No growth in 5 days. 09/26/23 14:55 Blood Culture (Wb) - Pic Blood Culture - Final No growth in 5 days. 09/23/23 13:45 Blood Culture (Wb) - Anticubital Right Blood Culture - Final No growth in 5 days. 09/23/23 11:40 Blood Culture (Wb) - Anticubital Right Blood Culture - Final No growth in 5 days. 09/23/23 10:25 Blood Culture (Wb) - Arm Left Blood Culture - Final No growth in 5 days. 09/26/23 07:35 Sputum, Induced/Lukens Gram Stain - Final 09/26/23 07:35 Sputum, Induced/Lukens Respiratory Culture - Final Culture exhibits no growth. 09/23/23 14:00 Wound - Leg, Left Gram Stain - Final 09/23/23 14:00 Wound - Leg, Left Wound Culture - Final Streptococcus dysgalactiae equ Proteus hauseri Alcaligenes faecalis ssp faeca Staphylococcus aureus Rhythm Strip Rhythm Strip: Sinus Rhythm Rate: 78 Physical Exam Narrative alert, oriented x3 and no apparent distress Constitutional Narrative: Patient is morbidly obese General Appearance: cooperative and well developed Orientation / Consciousness: awake, oriented to person, oriented to place and oriented to time HEENT normocephalic and moist oral mucous membranes Eyes PERRL, EOMs intact bilaterally and conjunctivae normal Neck supple, no JVD, thyroid normal and no carotid bruits General: trachea midline Resp normal respiratory effort, no retractions, no use of accessory muscles and clear to auscultation bilaterally Auscultation: Negative for rales, rhonchi or wheezes Cardio regular rate, regular rhythm, S1 normal heart sound, S2 normal heart sound, no murmurs, no rub and no gallops GI normal to inspection, nondistended, normoactive bowel sounds, soft to palpation, non-tender and non-distended Extremity no clubbing, cyanosis or edema Skin no rashes or lesions noted General Skin Exam: no breakdown Neuro oriented x3, CN's II-XII intact bilaterally, moves all extremities, no focal motor deficits and no sensory deficits noted Sensorium / Orientation: awake, alert, oriented to person, oriented to place and oriented to time Speech: speech normal Psych affect normal Assessment & Plan Assessment/Plan (1) Septic shock: (2) Acute on chronic respiratory failure with hypoxia and hypercapnia: PLAN: Plan 1. Acute on chronic combined respiratory failure-patient is currently on low-flow nasal cannula oxygen #2 acute kidney injury-requiring acute dialysis, most likely secondary to ischemic ATN secondary to septic shock and vancomycin administration-it appears patient will not need ongoing dialysis as his kidney function is improving. #3 septic shock secondary to acute cellulitis of the left lower extremity-patient has completed a course of antibiotics #4 type 2 diabetes-patient is on basal insulin as well as sliding scale insulin, blood sugars will be monitored #5 morbid obesity-complicates care, management, recovery, and prognosis #6 acute debility secondary to multiple medical problems-it is probable the patient will need to go to an extended care facility for short-term inpatient skilled services Total clinical time spent by myself addressing the patient's medical issues, reviewing all of his data, and collaborating with patient's care team: 35-minute Charges/Coding Visit Charges Inpatient E&M: [id number] Subs Hosp L2
[2023-10-12 17:47] LABS: Bedside Glucose 115 mg/dL (74-106)
--- NOTE | 2023-10-12 19:32 | PN.RENAL_ITS ---
Subjective Subjective No new complaints Objective Data Objective Data Vital Signs: Vital Signs Temp Pulse Resp BP Pulse Ox O2 Del Method O2 Flow Rate 97.1 F L 81 16 133/83 H 94 Nasal Cannula 1 10/12/23 14:35 10/12/23 14:35 10/12/23 14:35 10/12/23 14:35 10/12/23 14:35 10/12/23 14:35 10/12/23 15:34 FiO2 30 10/12/23 01:43 Oxygen Flow Rate (L/min) 1 Oxygen Delivery Method Nasal Cannula Weight: 200.488 kg Body Mass Index (BMI) 61.6 Intake & Output: Intake and Output for Last 24 Hours 10/10/23 10/11/23 10/12/23 23:59 23:59 23:59 Intake Total 740 / 740 Output Total 2200 / 3200 5125 / 5125 1900 / 1900 Balance -1460 / -2460 -5125 / -5125 -1900 / -1900 Lab / Micro Data 10/10/23 05:25 10/12/23 15:15 Labs: Laboratory Results - last 24 hr 10/11/23 22:21: POC Glucose 112 H 10/12/23 06:26: POC Glucose 123 H 10/12/23 10:04: POC Glucose 105 10/12/23 11:37: POC Glucose 99 10/12/23 15:15: Sodium 143, Potassium 3.9, Chloride 112 H, Carbon Dioxide 25.0, Anion Gap 6, BUN 86 H, Creatinine 4.66 H, Estim Creat Clear Calc 36.99, Est GFR (MDRD) Af Amer 18 L, Est GFR (MDRD) Non-Af 15 L, BUN/Creatinine Ratio 18.5, Glucose 124 H, Calcium 8.2 L 10/12/23 16:52: POC Glucose 115 H Micro: Microbiology 09/26/23 14:55 Blood Culture (Wb) - Pic Blood Culture - Final No growth in 5 days. 09/26/23 14:55 Blood Culture (Wb) - Pic Blood Culture - Final No growth in 5 days. 09/23/23 13:45 Blood Culture (Wb) - Anticubital Right Blood Culture - Final No growth in 5 days. 09/23/23 11:40 Blood Culture (Wb) - Anticubital Right Blood Culture - Final No growth in 5 days. 09/23/23 10:25 Blood Culture (Wb) - Arm Left Blood Culture - Final No growth in 5 days. 09/26/23 07:35 Sputum, Induced/Lukens Gram Stain - Final 09/26/23 07:35 Sputum, Induced/Lukens Respiratory Culture - Final Culture exhibits no growth. 09/23/23 14:00 Wound - Leg, Left Gram Stain - Final 09/23/23 14:00 Wound - Leg, Left Wound Culture - Final Streptococcus dysgalactiae equ Proteus hauseri Alcaligenes faecalis ssp faeca Staphylococcus aureus Rhythm Strip Rhythm Strip: Sinus Rhythm Rate: 78 Physical Exam Narrative Alert and orient x 3, no apparent distress S1, S2, RRR Lung sounds clear anteriorly. No wheezes, rhonchi rales noted Abdomen soft, rounded, nontender No pitting edema Indwelling Waters with clear yellow urine in bag Right chest tunneled HD catheter dressing clean, dry and intact Const alert, oriented x3 and no apparent distress General Appearance: patient mechanically ventilated and on BiPAP Orientation / Consciousness: oriented to person, oriented to place and oriented to time Nutritional Appearance: obese and morbidly obese HEENT normocephalic Neck no lymphadenopathy Resp no use of accessory muscles and clear to auscultation bilaterally Auscultation: rhonchi and diminished lung sounds Cardio regular rate and no murmurs GI non-tender Auscultation: normoactive bowel sounds Palpation: soft external exam normal Bladder / Kidney Exam: catheter in place Skin no rashes or lesions noted Skin Narrative: Widespread confluent rash consistent with erythema multiforme General Skin Exam: erythema Rashes: rashes noted Neuro Neuro Narrative: Wakes up and moves all 4 extremities Sensorium / Orientation: awake and alert Psych cooperative Assessment & Plan Assessment/Plan (1) WINDY (acute kidney injury): PLAN: Plan Impression/Plan: The patient is a 43-year-old man with past history of morbid obesity. He presented to hospital on 09/23/2023 with complaints of lower extremity swelling and pain with ambulation. The patient was admitted to hospital for treatment of septic shock attributed to left lower extremity cellulitis. Nephrology is following for dialysis plan and WINDY. Acute renal failure. Normal baseline creatinine. Likely due to ATN in the sett ing of sepsis. Volume overload. Required few sessions of dialysis. Good urine output now. Creatinine steadily trending down. Electrolytes are acceptable. Volume status has improved. Hold dialysis.
[2023-10-13] VITALS (10 sets, daily range): BP systolic 113–141; BP diastolic 61–81; PULSE 58–82; RESP 12–21; TEMP 36.1–36.7; O2SAT 93–97; BMI 62.0
[2023-10-13 03:13] LABS: Bedside Glucose 139 mg/dL (74-106)
[2023-10-13] MEDS: Nystatin Powder 15gm Bottle 1 APPLIC TOPICAL ×3 (06:20→21:10)
[2023-10-13] MEDS: Heparin Injection (Vial) 5,000 UNIT/ML VIAL 5000 UNIT SC ×3 (06:20→21:11)
[2023-10-13 06:43] LABS: Bedside Glucose 127 mg/dL (74-106)
[2023-10-13] MEDS: Budesonide Respules 0.5 MG/2 ML AMPUL.NEB. INHALATION (07:22)
[2023-10-13 08:34] LABS: Anion Gap 6 (5-15); BUN 81 mg/dL (7-18); BUN/Creat Ratio 18.9 RATIO (10-20); Calcium,Total 8.5 mg/dL (8.5-10.1); Chloride 113 mmol/L (98-107); Creatinine, Serum 4.28 mg/dL (0.70-1.30); EST Glomerular Filtration Rate 16 mL/min (>60); Est Glom Filt Rate - Afr Amer 20 mL/min (>60); Estimated Creatinine Clearance 40.45 ml/min; Glucose 134 mg/dL (74-106); Potassium 3.8 mmol/L (3.5-5.1); Sodium Level 143 mmol/L (136-145)
[2023-10-13] MEDS: Menthol/Lanolin/Calamine/Znox 113 GM Tube 1 APPLIC TOPICAL ×2 (09:45→21:10)
[2023-10-13] MEDS: Insulin Glargine-YFGN 100 UNIT/ML Pen 10 UNIT SC (09:47)
--- NOTE | 2023-10-13 09:49 | CASEMGMT ---
SW was informed patient will not need dialysis at discharge. Therefore, patient will not need to go to an LTACH and he can go to a local alf. SW met with patient. Introduced self and role at [facility]. Patient had the list of [facility] facilities and patient stated he and his sister would like [facility]. SW sent a referral to [facility] via [facility]. Yesica Rodriguez MSW [place]
[2023-10-13 11:39] LABS: Bedside Glucose 120 mg/dL (74-106)
--- NOTE | 2023-10-13 13:03 | WOUNDNOTE ---
Removed the RADHA wraps and dressings. wounds remain healed. much less edema noted to legs. washed legs and feet with soap and water. pat dry. applied lotion and reapplied kerlix and RADHA wraps. pt tolerated well. will continue to monitor.
--- NOTE | 2023-10-13 15:10 | PCM.PN.REN ---
Subjective Subjective Resting in bed. Denies any complaints. No overnight events. Objective Data Objective Data Vital Signs: Vital Signs Temp Pulse Resp BP Pulse Ox O2 Del Method O2 Flow Rate 98.0 F 63 18 115/61 95 Nasal Cannula 2 10/13/23 09:45 10/13/23 09:45 10/13/23 09:45 10/13/23 09:45 10/13/23 10:10 10/13/23 14:10 10/13/23 14:10 FiO2 30 10/13/23 07:10 Oxygen Flow Rate (L/min) 2 Oxygen Delivery Method Nasal Cannula Weight: 201.8 kg Body Mass Index (BMI) 62.0 Intake & Output: Intake and Output for Last 24 Hours 10/11/23 10/12/23 10/13/23 23:59 23:59 23:59 Intake Total 930 / 930 Output Total 5125 / 5125 3100 / 3100 1500 / 1500 Balance -5125 / -5125 -3100 / -3100 -570 / -570 Lab / Micro Data 10/10/23 05:25 10/13/23 07:32 Labs: Laboratory Results - last 24 hr 10/12/23 15:15: Sodium 143, Potassium 3.9, Chloride 112 H, Carbon Dioxide 25.0, Anion Gap 6, BUN 86 H, Creatinine 4.66 H, Estim Creat Clear Calc 36.99, Est GFR (MDRD) Af Amer 18 L, Est GFR (MDRD) Non-Af 15 L, BUN/Creatinine Ratio 18.5, Glucose 124 H, Calcium 8.2 L 10/12/23 16:52: POC Glucose 115 H 10/12/23 22:44: POC Glucose 139 H 10/13/23 06:19: POC Glucose 127 H 10/13/23 07:32: Sodium 143, Potassium 3.8, Chloride 113 H, Carbon Dioxide 24.0, Anion Gap 6, BUN 81 H, Creatinine 4.28 H, Estim Creat Clear Calc 40.45, Est GFR (MDRD) Af Amer 20 L, Est GFR (MDRD) Non-Af 16 L, BUN/Creatinine Ratio 18.9, Glucose 134 H, Calcium 8.5 10/13/23 11:10: POC Glucose 120 H Micro: Microbiology 09/26/23 14:55 Blood Culture (Wb) - Pic Blood Culture - Final No growth in 5 days. 09/26/23 14:55 Blood Culture (Wb) - Pic Blood Culture - Final No growth in 5 days. 09/23/23 13:45 Blood Culture (Wb) - Anticubital Right Blood Culture - Final No growth in 5 days. 09/23/23 11:40 Blood Culture (Wb) - Anticubital Right Blood Culture - Final No growth in 5 days. 09/23/23 10:25 Blood Culture (Wb) - Arm Left Blood Culture - Final No growth in 5 days. 09/26/23 07:35 Sputum, Induced/Lukens Gram Stain - Final 09/26/23 07:35 Sputum, Induced/Lukens Respiratory Culture - Final Culture exhibits no growth. 09/23/23 14:00 Wound - Leg, Left Gram Stain - Final 09/23/23 14:00 Wound - Leg, Left Wound Culture - Final Streptococcus dysgalactiae equ Proteus hauseri Alcaligenes faecalis ssp faeca Staphylococcus aureus Rhythm Strip Rhythm Strip: Sinus Rhythm Rate: 78 Physical Exam Narrative alert and orient x 3, no apparent distress S1, S2, RRR Lung sounds clear anteriorly. Abdomen soft, rounded, nontender No pitting edema Indwelling Waters with clear yellow urine in bag Right chest tunneled HD catheter dressing clean, dry and intact Assessment & Plan Assessment/Plan (1) WINDY (acute kidney injury): PLAN: Plan Impression/Plan: The patient is a 43-year-old man with past history of morbid obesity. He presented to hospital on 09/23/2023 with complaints of lower extremity swelling and pain with ambulation. The patient was admitted to hospital for treatment of septic shock attributed to left lower extremity cellulitis. Nephrology is following for WINDY. Acute renal failure. Normal baseline creatinine. Likely due to ATN in the setting of sepsis. Initially patient was volume overload. Required few sessions of dialysis. Last dialysis was on 10/07. Good urine output now. Creatinine steadily trending down, 4.28 mg/dL today. Potassium and bicarb are normal. 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 Surgery team consulted for tunneled catheter removal. Discussed nephrology plan with Dr. Snider and discharge planning team.
[2023-10-13 16:58] LABS: Bedside Glucose 92 mg/dL (74-106)
--- NOTE | 2023-10-13 17:21 | PN.HOSP_ITS ---
Reason for Visit Reason for Visit: Diagnoses Sepsis, unspecified organism (09/23/23) Morbid (severe) obesity due to excess calories (09/23/23) Hypo-osmolality and hyponatremia (09/23/23) Acute and chronic respiratory failure with hypoxia (09/23/23) Acute and chronic respiratory failure with hypercapnia (09/23/23) Cellulitis, unspecified (09/23/23) Acute kidney failure, unspecified (09/23/23) Severe sepsis with septic shock (09/23/23) Subjective Subjective Patient was seen and examined today, I talked with nephrology and they recommended removing the patient's tunneled catheter, his creatinine is improved today. We are currently awaiting a senior care to agree to take the patient for skilled services. Objective Data Objective Data Vital Signs: Vital Signs Temp Pulse Resp BP Pulse Ox O2 Del Method O2 Flow Rate 97.7 F L 72 18 122/64 H 96 Nasal Cannula 2 10/13/23 15:45 10/13/23 15:45 10/13/23 15:45 10/13/23 15:45 10/13/23 15:45 10/13/23 15:45 10/13/23 15:45 FiO2 30 10/13/23 07:10 Oxygen Flow Rate (L/min) 2 Oxygen Delivery Method Nasal Cannula Weight: 201.8 kg Body Mass Index (BMI) 62.0 Intake & Output: Intake and Output for Last 24 Hours 10/11/23 10/12/23 10/13/23 23:59 23:59 23:59 Intake Total 930 / 930 Output Total 5125 / 5125 3100 / 3100 1500 / 1500 Balance -5125 / -5125 -3100 / -3100 -570 / -570 Lab / Micro Data 10/10/23 05:25 10/13/23 07:32 Labs: Laboratory Results - last 24 hr 10/12/23 16:52: POC Glucose 115 H 10/12/23 22:44: POC Glucose 139 H 10/13/23 06:19: POC Glucose 127 H 10/13/23 07:32: Sodium 143, Potassium 3.8, Chloride 113 H, Carbon Dioxide 24.0, Anion Gap 6, BUN 81 H, Creatinine 4.28 H, Estim Creat Clear Calc 40.45, Est GFR (MDRD) Af Amer 20 L, Est GFR (MDRD) Non-Af 16 L, BUN/Creatinine Ratio 18.9, Glucose 134 H, Calcium 8.5 10/13/23 11:10: POC Glucose 120 H 10/13/23 16:34: POC Glucose 92 Micro: Microbiology 09/26/23 14:55 Blood Culture (Wb) - Pic Blood Culture - Final No growth in 5 days. 09/26/23 14:55 Blood Culture (Wb) - Pic Blood Culture - Final No growth in 5 days. 09/23/23 13:45 Blood Culture (Wb) - Anticubital Right Blood Culture - Final No growth in 5 days. 09/23/23 11:40 Blood Culture (Wb) - Anticubital Right Blood Culture - Final No growth in 5 days. 09/23/23 10:25 Blood Culture (Wb) - Arm Left Blood Culture - Final No growth in 5 days. 09/26/23 07:35 Sputum, Induced/Lukens Gram Stain - Final 09/26/23 07:35 Sputum, Induced/Lukens Respiratory Culture - Final Culture exhibits no growth. 09/23/23 14:00 Wound - Leg, Left Gram Stain - Final 09/23/23 14:00 Wound - Leg, Left Wound Culture - Final Streptococcus dysgalactiae equ Proteus hauseri Alcaligenes faecalis ssp faeca Staphylococcus aureus Rhythm Strip Rhythm Strip: Sinus Rhythm Rate: 78 Physical Exam Narrative alert, oriented x3 and no apparent distress Constitutional Narrative: Patient is morbidly obese General Appearance: cooperative and well developed Orientation / Consciousness: awake, oriented to person, oriented to place and oriented to time HEENT normocephalic and moist oral mucous membranes Eyes PERRL, EOMs intact bilaterally and conjunctivae normal Neck supple, no JVD, thyroid normal and no carotid bruits General: trachea midline Resp normal respiratory effort, no retractions, no use of accessory muscles and clear to auscultation bilaterally Auscultation: Negative for rales, rhonchi or wheezes Cardio regular rate, regular rhythm, S1 normal heart sound, S2 normal heart sound, no murmurs, no rub and no gallops GI normal to inspection, nondistended, normoactive bowel sounds, soft to palpation, non-tender and non-distended Extremity no clubbing, cyanosis or edema Skin no rashes or lesions noted General Skin Exam: no breakdown Neuro oriented x3, CN's II-XII intact bilaterally, moves all extremities, no focal motor deficits and no sensory deficits noted Sensorium / Orientation: awake, alert, oriented to person, oriented to place and oriented to time Speech: speech normal Psych affect normal Assessment & Plan Assessment/Plan (1) Septic shock: (2) Acute on chronic respiratory failure with hypoxia and hypercapnia: PLAN: Plan 1. Acute on chronic combined respiratory failure-patient is currently on low- flow nasal cannula oxygen, he is currently on 2 L/min #2 acute kidney injury-requiring acute dialysis, most likely secondary to isch emic ATN secondary to septic shock and vancomycin administration-patient's creatinine has improved, there are no plans for ongoing dialysis at this time, I contacted Dr. Hunter and she will remove the patient's dialysis catheter. #3 septic shock secondary to acute cellulitis of the left lower extremity- patient has completed a course of antibiotics #4 type 2 diabetes-patient is on basal insulin as well as sliding scale insulin, blood sugars will be monitored #5 morbid obesity-complicates care, management, recovery, and prognosis #6 acute debility secondary to multiple medical problems-it is probable the patient will need to go to an extended care facility for short-term inpatient skilled services Total clinical time spent by myself addressing the patient's medical issues, reviewing all of his data, and collaborating with patient's care team: 35-minute Charges/Coding Visit Charges Inpatient E&M: [id number] Subs Hosp L2
[2023-10-14 01:28] LABS: Bedside Glucose 130 mg/dL (74-106)
[2023-10-14 01:45] VITALS: PULSE 61; RESP 12; RESP 20; O2SAT 92; O2SAT 93
[2023-10-14 03:45] VITALS: BP 125/64; PULSE 70; RESP 16; TEMP 36.6; O2SAT 97
[2023-10-14 06:00] VITALS: BMI 61.3
[2023-10-14] MEDS: Nystatin Powder 15gm Bottle 1 APPLIC TOPICAL (06:05)
[2023-10-14 06:30] LABS: Bedside Glucose 108 mg/dL (74-106)
[2023-10-14 07:02] VITALS: PULSE 85; RESP 20; O2SAT 93
[2023-10-14] MEDS: Budesonide Respules 0.5 MG/2 ML AMPUL.NEB. INHALATION (07:02)
[2023-10-14 09:25] VITALS: BP 119/76; PULSE 70; RESP 18; TEMP 36.6; O2SAT 96
[2023-10-14] MEDS: Menthol/Lanolin/Calamine/Znox 113 GM Tube 1 APPLIC TOPICAL (09:26)
[2023-10-14] MEDS: Insulin Glargine-YFGN 100 UNIT/ML Pen 10 UNIT SC (09:27)
[2023-10-14 09:34] LABS: Anion Gap 4 (5-15); BUN 65 mg/dL (7-18); BUN/Creat Ratio 19.1 RATIO (10-20); Calcium,Total 8.7 mg/dL (8.5-10.1); Chloride 114 mmol/L (98-107); EST Glomerular Filtration Rate 21 mL/min (>60); Est Glom Filt Rate - Afr Amer 26 mL/min (>60); Estimated Creatinine Clearance 50.54 ml/min; Glucose 117 mg/dL (74-106); Potassium 4.1 mmol/L (3.5-5.1); Sodium Level 142 mmol/L (136-145)
--- NOTE | 2023-10-14 10:13 | PN.RENAL_ITS ---
Subjective Subjective Sitting in chair. Denies any complaints. Objective Data Objective Data Vital Signs: Vital Signs Temp Pulse Resp BP Pulse Ox O2 Del Method O2 Flow Rate 97.9 F 70 18 119/76 96 Nasal Cannula 2 10/14/23 09:25 10/14/23 09:25 10/14/23 09:25 10/14/23 09:25 10/14/23 09:25 10/14/23 09:25 10/14/23 08:24 FiO2 30 10/14/23 01:45 Oxygen Flow Rate (L/min) 2 Oxygen Delivery Method Nasal Cannula Weight: 199.5 kg Body Mass Index (BMI) 61.3 Intake & Output: Intake and Output for Last 24 Hours 10/12/23 10/13/23 10/14/23 23:59 23:59 23:59 Intake Total 1410 / 1410 120 / 120 Output Total 3100 / 3100 2750 / 3250 850 / 850 Balance -3100 / -3100 -1340 / -1840 -730 / -730 Lab / Micro Data 10/10/23 05:25 10/14/23 07:20 Labs: Laboratory Results - last 24 hr 10/13/23 11:10: POC Glucose 120 H 10/13/23 16:34: POC Glucose 92 10/13/23 21:16: POC Glucose 130 H 10/14/23 06:06: POC Glucose 108 H 10/14/23 07:20: Sodium 142, Potassium 4.1, Chloride 114 H, Carbon Dioxide 24.0, Anion Gap 4 L, BUN 65 H, Creatinine 3.40 H, Estim Creat Clear Calc 50.54, Est GFR (MDRD) Af Amer 26 L, Est GFR (MDRD) Non-Af 21 L, BUN/Creatinine Ratio 19.1, Glucose 117 H, Calcium 8.7 Micro: Microbiology 09/26/23 14:55 Blood Culture (Wb) - Pic Blood Culture - Final No growth in 5 days. 09/26/23 14:55 Blood Culture (Wb) - Pic Blood Culture - Final No growth in 5 days. 09/23/23 13:45 Blood Culture (Wb) - Anticubital Right Blood Culture - Final No growth in 5 days. 09/23/23 11:40 Blood Culture (Wb) - Anticubital Right Blood Culture - Final No growth in 5 days. 09/23/23 10:25 Blood Culture (Wb) - Arm Left Blood Culture - Final No growth in 5 days. 09/26/23 07:35 Sputum, Induced/Lukens Gram Stain - Final 09/26/23 07:35 Sputum, Induced/Lukens Respiratory Culture - Final Culture exhibits no growth. 09/23/23 14:00 Wound - Leg, Left Gram Stain - Final 09/23/23 14:00 Wound - Leg, Left Wound Culture - Final Streptococcus dysgalactiae equ Proteus hauseri Alcaligenes faecalis ssp faeca Staphylococcus aureus Rhythm Strip Rhythm Strip: Sinus Rhythm Rate: 78 Physical Exam Narrative alert and oriented x 3 S1, S2, RRR Lung sounds clear Abdomen soft, rounded, nontender No pitting edema. RADHA wraps to b/l legs Right chest tunneled HD catheter dressing clean, dry and intact Assessment & Plan Assessment/Plan (1) WINDY (acute kidney injury): PLAN: Plan Impression/Plan: The patient is a 43-year-old man with past history of morbid obesity. He presented to hospital on 09/23/2023 with complaints of lower extremity swelling and pain with ambulation. The patient was admitted to hospital for treatment of septic shock attributed to left lower extremity cellulitis. Nephrology is following for WINDY. Acute renal failure with normal baseline creatinine. WINDY likely due to ATN in the setting of sepsis. Initially patient was volume overload. Required few sessions of dialysis. Non-tunneled HD catheter sluggish, low blood flow rate and did not run well for dialysis therefore patient had tunneled HD catheter placed. Last dialysis was on 10/07. Good urine output now. Creatinine steadily trending down, 3.40 mg/dL today. Potassium and bicarb are normal. 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 Surgery team consulted for tunneled HD catheter removal. Discussed nephrology plan with Dr. Snider and discharge planning team. [facility] after tunneled dialysis catheter removed. Reviewed with patient importance of avoiding NSAIDs. Will arrange for hospital follow-up.
--- NOTE | 2023-10-14 10:44 | CASEMGMT ---
[facility] is able to take patient on pending Medicaid. MOI notified physician. Patient will go today after he has his dialysis catheter removed. OMI spoke with patient's sister Mindy letting her know this information. OMI also notified patient and [facility]. Plan: d/c to [facility] under intermediate level of care. Yesica SCHULTZ
--- NOTE | 2023-10-14 11:24 | TREXTCAR_ITS ---
Diet Diet Order/Speech Therapy: 10/13/23 15:29 Diet: Cardiac: Calorie-Controlled Is pt able to select menu?: Yes How many daily calories?: 2200 calorie Routine Orders/Code Status O2 Liters per Minute: 2 O2 Frequency: Continuous Keep PO Greater than or Equal to (%): 90 Routine Lab Work: BMP (On 10/18/2023) and - (Fingerstick blood sugars AC nightly, Humalog subcu per sliding scale: 200-250: 5 units, 251-300: 8 units, 301-350: 12 units) Code Status: Full Code Wound(s) left lateral lower leg: Wound Type: healed stasis ulcer Dressing Change: dry dressings/RADHA wraps left medial lower leg: Wound Type: cluster of superficial blisters Dressing Change: AntiMicrobial (Aquacel AG, etc) rt buttock: Wound Type: blister cici lips: Wound Type: scabbed blisters right neck: Wound Type: Puncture Therapies Weight Bearing: Full weight bearing Physical Therapy: Eval and Treat Occupational Therapy: Eval and Treat Problem/Diagnosis (1) WINDY (acute kidney injury): Status: Acute Code(s): N17.9 - Acute kidney failure, unspecified Plan 1. Acute on chronic combined respiratory failure-patient is currently on low- flow nasal cannula oxygen, he is currently on 2 L/min #2 acute kidney injury-requiring acute dialysis, most likely secondary to ischemic ATN secondary to septic shock and vancomycin administration-patient's creatinine has improved, there are no plans for ongoing dialysis at this time, I contacted Dr. Hunter and she will remove the patient's dialysis catheter. #3 septic shock secondary to acute cellulitis of the left lower extremity- patient has completed a course of antibiotics #4 type 2 diabetes-patient is on basal insulin as well as sliding scale insulin, blood sugars will be monitored #5 morbid obesity-complicates care, management, recovery, and prognosis #6 acute debility secondary to multiple medical problems-it is probable the patient will need to go to an extended care facility for short-term inpatient skilled services Total clinical time spent by myself addressing the patient's medical issues, reviewing all of his data, and collaborating with patient's care team: 35-minute Allergies/Procedures Done in Hospital Allergies No Known Allergies Allergy (Verified 09/23/23 09:27) Procedures: Dialysis and - (Temporary hemodialysis catheter placement, tunneled hemodialysis catheter placement) Type of Care/Length of Stay Estimated LOS: Convalescent Care Less Than 30 days Type of Care Needed: Intermediate Rehab Potential: Good Prognosis: Good Additional Orders/Day of Discharge H&P will serve as current which was dated: 09/23/23 Day of Discharge: 10/14/23 Dietary and Speech Recommendations Dietitian Recommendations/Changes: will adjust diet to 2200 calorie controlled/consistent CHO, cardiac diet Discharge Plan Admission Admit Date/Time: 09/23/23 11:35 Primary Reason for Your Visit: Sepsis, acute renal failure requiring dialysis Attending Provider: Shravan Snider Primary Care Provider: Care Physician,No Primary Consulting Providers: Sulema Godoy; Moody Amos; Shravan Snider; Mary Jane Hunter; Zeke Nicholson; Ced Guerrero Discharge Orders/Prescriptions Prescriptions: New acetaminophen 325 mg Tablet 650 mg PO Q6H PRN PRN (Reason: Pain 1-10 Or Fever >100.7) Qty: 0 0RF albuterol sulfate 2.5 mg /3 mL (0.083 %) Solution For Nebulization 2.5 mg inhalation Q2H PRN PRN (Reason: Dyspnea, wheezing) Qty: 0 0RF sennosides-docusate sodium [Stool Softener-Stimulant Laxat] 8.6-50 mg Tablet 2 tab PO DAILY Qty: 0 0RF nystatin [Nyamyc] 100,000 unit/gram Powder 1 applic topical TID Qty: 0 0RF Protocol: *Topical Application Instructions APPLICATION INSTRUCTIONS: abd folds and groin menthol-zinc oxide [Calmoseptine] 0.44-20.6 % Ointment 1 applic topical BID Qty: 0 0RF Protocol: *Topical Application Instructions APPLICATION INSTRUCTIONS: apply to coccyx insulin glargine-yfgn 100 unit/mL (3 mL) Insulin Pen 10 unit subcut DAILY Qty: 0 0RF polyethylene glycol 3350 [Miralax] 17 gram/dose powder 17 g PO DAILY Qty: 119 0RF Referrals / Follow Up: Ced Guerrero MD [Med Staff - Consulting] - Within 2 Weeks (call for appointment) Care Physician,No Primary [Primary Care Provider] - Disposition Disposition (needs filled in before D/C Order can be placed): [facility]
[2023-10-14 11:42] LABS: Bedside Glucose 128 mg/dL (74-106)
--- NOTE | 2023-10-14 11:50 | PCM.DC.SUM ---
Providers Date of Admission: 09/23/23 Date of Discharge: 10/14/23 Primary Care Physician: Bhavna Primary Care Phys Consultations 09/23/23 13:10 Consult: Onc/Wound/senior manufacturing engineer Routine Comment: 09/26/23 03:11 Consult: Complaint Investigations Officer / Pulmonary Medicine Routine Consulting Provider: Intensivists/Pulmonary Med Reason for Consult: Encephalopathy, hypercapnia EMERGENT Consult: No MD Notified: Yes Date Notified: 09/26/23 Time Notified: 02:23 Method of Notification: Text 09/26/23 07:28 Consult: Nephrology Routine Consulting Provider: Ced Guerrero Reason for Consult: WINDY EMERGENT Consult: No MD Notified: Yes Date Notified: 09/26/23 Time Notified: 07:28 Method of Notification: Text 09/28/23 07:20 Consult: Infectious Disease Routine Consulting Provider: Zeke Nicholson Reason for Consult: LLE cellulitis, polymicrobial cx from wound EMERGENT Consult: No MD Notified: Yes Date Notified: 09/28/23 Time Notified: 07:20 Method of Notification: Text 09/30/23 11:40 Consult: General Surgery Routine Consulting Provider: Mayr Jane Hunter Reason for Consult: likely will eventually need tunneled HD catheter EMERGENT Consult: No Notified: Yes Date Notified: 09/30/23 Time Notified: 11:40 Method of Notification: Verbal 10/13/23 12:06 Consult: General Surgery Routine Consulting Provider: Mary Jane Hunter Reason for Consult: Removal of tunneled dialysis catheter EMERGENT Consult: No Notified: Yes Date Notified: 10/13/23 Time Notified: 12:06 Method of Notification: Verbal Reason For Visit: CELLULITIS OF THE LLE Diagnosis Discharge Diagnosis (1) WINDY (acute kidney injury): Status: Acute Code(s): N17.9 - Acute kidney failure, unspecified Plan 1. Acute on chronic combined respiratory failure-patient is currently on low-flow nasal cannula oxygen, he is currently on 2 L/min #2 acute kidney injury-requiring acute dialysis, most likely secondary to ischemic ATN secondary to septic shock and vancomycin administration-patient's creatinine has improved, there are no plans for ongoing dialysis at this time, I contacted Dr. Hunter and she will remove the patient's dialysis catheter. #3 septic shock secondary to acute cellulitis of the left lower extremity-patient has completed a course of antibiotics #4 type 2 diabetes-patient is on basal insulin as well as sliding scale insulin, blood sugars will be monitored #5 morbid obesity-complicates care, management, recovery, and prognosis #6 acute debility secondary to multiple medical problems-it is probable the patient will need to go to an extended care facility for short-term inpatient skilled services Total clinical time spent by myself addressing the patient's medical issues, reviewing all of his data, and collaborating with patient's care team: 35-minute Medications at Discharge Home Medications acetaminophen 325 mg tablet 650 mg (2 x 325 mg) PO Q6H PRN PRN Pain 1-10 Or Fever >100.7 #0 tabs 10/14/23 albuterol sulfate 2.5 mg/3 mL (0.083 %) solution for nebulization 2.5 mg (3 mL) inhalation Q2H PRN PRN Dyspnea, wheezing #0 mL 10/14/23 insulin glargine-yfgn 100 unit/mL (3 mL) subcutaneous pen 10 unit (0.1 mL) subcut DAILY #0 mL 10/14/23 menthol 0.44 %-zinc oxide 20.6 % topical ointment (Calmoseptine) 1 applic topical BID #0 grams 10/14/23 nystatin 100,000 unit/gram topical powder (Nyamyc) 1 applic topical TID #0 grams 10/14/23 polyethylene glycol 3350 17 gram/dose oral powder (Miralax) 17 g PO DAILY #119 grams 10/14/23 sennosides 8.6 mg-docusate sodium 50 mg tablet (Stool Softener-Stimulant Laxative) 2 tab PO DAILY #0 tabs 10/14/23 Hospital Course Operations - (Insertion of tunneled dialysis catheter) Procedures PICC line placement Summary of Care Provided Minutes Spent on Discharge: 33 Hospital Course: This 43-year-old white male was seen in the emergency room at [facility] complaining of increased swelling of the left lower extremity. Workup in the emergency room showed an elevated white blood cell count of 15,000, patient's sodium was low at 128, glucose was 195. Patient was given IV Zosyn and he was admitted for treatment of cellulitis. On 09/25/23 patient was noted to be lethargic and somnolent, he was placed on BiPAP but ultimately the patient was found to be hypercapnic and had to be intubated and was admitted to the ICU. Patient had acute kidney injury, he was seen by nephrology and required dialysis. Tunneled dialysis catheter was placed, patient was felt to have septic shock and was seen by the intensive care physician. Patient continued on broad-spectrum antibiotics. Patient was dialyzed several times, ultimately patient was extubated and transferred to PCU, he ultimately was taken off dialysis and his dialysis catheter was removed. Patient was seen by PT and OT, it was felt that the patient would benefit from short-term placement in a [facility] facility for rehab services. On 10/14/2023, patient was seen and examined:alert, oriented x3 and no apparent distress Constitutional Narrative: Patient is morbidly obese General Appearance: cooperative and well developed Orientation / Consciousness: awake, oriented to person, oriented to place and oriented to time HEENT normocephalic and moist oral mucous membranes Eyes PERRL, EOMs intact bilaterally and conjunctivae normal Neck supple, no JVD, thyroid normal and no carotid bruits General: trachea midline Resp normal respiratory effort, no retractions, no use of accessory muscles and clear to auscultation bilaterally Auscultation: Negative for rales, rhonchi or wheezes Cardio regular rate, regular rhythm, S1 normal heart sound, S2 normal heart sound, no murmurs, no rub and no gallops GI normal to inspection, nondistended, normoactive bowel sounds, soft to palpation, non-tender and non-distended Extremity no clubbing, cyanosis or edema Skin no rashes or lesions noted General Skin Exam: no breakdown Neuro oriented x3, CN's II-XII intact bilaterally, moves all extremities, no focal motor deficits and no sensory deficits noted Sensorium / Orientation: awake, alert, oriented to person, oriented to place and oriented to time Speech: speech normal Psych affect normal Patient was discharged to an extended care facility in stable condition on 10/14/2023 Weight / BMI Weight Weight: 199.5 kg Body Mass Index (BMI) 61.3 ABG / Lab / Microbiology Data 10/10/23 05:25 10/14/23 07:20 Laboratory: Laboratory Results - last 24 hr 10/13/23 16:34: POC Glucose 92 10/13/23 21:16: POC Glucose 130 H 10/14/23 06:06: POC Glucose 108 H 10/14/23 07:20: Sodium 142, Potassium 4.1, Chloride 114 H, Carbon Dioxide 24.0, Anion Gap 4 L, BUN 65 H, Creatinine 3.40 H, Estim Creat Clear Calc 50.54, Est GFR (MDRD) Af Amer 26 L, Est GFR (MDRD) Non-Af 21 L, BUN/Creatinine Ratio 19.1, Glucose 117 H, Calcium 8.7 10/14/23 11:18: POC Glucose 128 H Microbiology: Microbiology 09/26/23 14:55 Blood Culture (Wb) - Pic Blood Culture - Final No growth in 5 days. 09/26/23 14:55 Blood Culture (Wb) - Pic Blood Culture - Final No growth in 5 days. 09/23/23 13:45 Blood Culture (Wb) - Anticubital Right Blood Culture - Final No growth in 5 days. 09/23/23 11:40 Blood Culture (Wb) - Anticubital Right Blood Culture - Final No growth in 5 days. 09/23/23 10:25 Blood Culture (Wb) - Arm Left Blood Culture - Final No growth in 5 days. 09/26/23 07:35 Sputum, Induced/Lukens Gram Stain - Final 09/26/23 07:35 Sputum, Induced/Lukens Respiratory Culture - Final Culture exhibits no growth. 09/23/23 14:00 Wound - Leg, Left Gram Stain - Final 09/23/23 14:00 Wound - Leg, Left Wound Culture - Final Streptococcus dysgalactiae equ Proteus hauseri Alcaligenes faecalis ssp faeca Staphylococcus aureus Meaningful Use Info Meaningful Use Diagnoses (Choose all that apply): None applicable Discharge Plan Admission Admit Date/Time: 09/23/23 11:35 Primary Reason for Your Visit: Sepsis, acute renal failure requiring dialysis Attending Provider: Shravan Snider Primary Care Provider: Care Physician,No Primary Consulting Providers: Sulema Godoy; Moody Amos; Shravan Snider; Mary Jane Hunter; Zeke Nicholson; Ced Guerrero Discharge Orders/Prescriptions Prescriptions: New acetaminophen 325 mg Tablet 650 mg PO Q6H PRN PRN (Reason: Pain 1-10 Or Fever >100.7) Qty: 0 0RF albuterol sulfate 2.5 mg /3 mL (0.083 %) Solution For Nebulization 2.5 mg inhalation Q2H PRN PRN (Reason: Dyspnea, wheezing) Qty: 0 0RF sennosides-docusate sodium [Stool Softener-Stimulant Laxat] 8.6-50 mg Tablet 2 tab PO DAILY Qty: 0 0RF nystatin [Nyamyc] 100,000 unit/gram Powder 1 applic topical TID Qty: 0 0RF Protocol: *Topical Application Instructions APPLICATION INSTRUCTIONS: abd folds and groin menthol-zinc oxide [Calmoseptine] 0.44-20.6 % Ointment 1 applic topical BID Qty: 0 0RF Protocol: *Topical Application Instructions APPLICATION INSTRUCTIONS: apply to coccyx insulin glargine-yfgn 100 unit/mL (3 mL) Insulin Pen 10 unit subcut DAILY Qty: 0 0RF polyethylene glycol 3350 [Miralax] 17 gram/dose powder 17 g PO DAILY Qty: 119 0RF Referrals / Follow Up: Ced Guerrero MD [Med Staff - Consulting] - Within 2 Weeks (call for appointment) Care Physician,No Primary [Primary Care Provider] - Disposition Disposition (needs filled in before D/C Order can be placed): [facility] Charges/Coding Visit Charges Inpatient E&M: 98486 Disch Hosp >30min
[2023-10-14 11:56] VITALS: BP 119/76; PULSE 70; RESP 18; TEMP 36.6; O2SAT 96
--- NOTE | 2023-10-14 12:21 | PHA.DC.MR.R ---
Pharmacy [place] Med Reconciliation Pharmacy Service has performed discharge medication reconciliation for this patient. The patient's discharge medication list was reviewed for discrepancies and discrepancies were resolved. Medications at Discharge Home Medications acetaminophen 325 mg tablet 650 mg (2 x 325 mg) PO Q6H PRN PRN Pain 1-10 Or Fever >100.7 #0 tabs 10/14/23 albuterol sulfate 2.5 mg/3 mL (0.083 %) solution for nebulization 2.5 mg (3 mL) inhalation Q2H PRN PRN Dyspnea, wheezing #0 mL 10/14/23 insulin glargine-yfgn 100 unit/mL (3 mL) subcutaneous pen 10 unit (0.1 mL) subcut DAILY #0 mL 10/14/23 menthol 0.44 %-zinc oxide 20.6 % topical ointment (Calmoseptine) 1 applic topical BID #0 grams 10/14/23 nystatin 100,000 unit/gram topical powder (Nyamyc) 1 applic topical TID #0 grams 10/14/23 polyethylene glycol 3350 17 gram/dose oral powder (Miralax) 17 g PO DAILY #119 grams 10/14/23 sennosides 8.6 mg-docusate sodium 50 mg tablet (Stool Softener-Stimulant Laxative) 2 tab PO DAILY #0 tabs 10/14/23
--- NOTE | 2023-10-14 12:59 | PCM.PN.SRG ---
Subjective Subjective Came today to remove the patient's tunneled dialysis catheter. Objective Data Objective Data Vital Signs: Vital Signs Temp Pulse Resp BP Pulse Ox O2 Del Method O2 Flow Rate 97.9 F 70 18 119/76 96 Nasal Cannula 2 10/14/23 11:56 10/14/23 11:56 10/14/23 11:56 10/14/23 11:56 10/14/23 11:56 10/14/23 11:56 10/14/23 11:56 FiO2 30 10/14/23 01:45 Oxygen Flow Rate (L/min) 2 Oxygen Delivery Method Nasal Cannula Weight: 439 lb 13.155 oz Body Mass Index (BMI) 61.3 Intake & Output: Intake and Output for Last 24 Hours 10/12/23 10/13/23 10/14/23 23:59 23:59 23:59 Intake Total 1410 / 1410 360 / 360 Output Total 3100 / 3100 2750 / 3250 850 / 850 Balance -3100 / -3100 -1340 / -1840 -490 / -490 Lab / Micro Data 10/10/23 05:25 10/14/23 07:20 Labs: Laboratory Results - last 24 hr 10/13/23 16:34: POC Glucose 92 10/13/23 21:16: POC Glucose 130 H 10/14/23 06:06: POC Glucose 108 H 10/14/23 07:20: Sodium 142, Potassium 4.1, Chloride 114 H, Carbon Dioxide 24.0, Anion Gap 4 L, BUN 65 H, Creatinine 3.40 H, Estim Creat Clear Calc 50.54, Est GFR (MDRD) Af Amer 26 L, Est GFR (MDRD) Non-Af 21 L, BUN/Creatinine Ratio 19.1, Glucose 117 H, Calcium 8.7 10/14/23 11:18: POC Glucose 128 H Micro: Microbiology 09/26/23 14:55 Blood Culture (Wb) - Pic Blood Culture - Final No growth in 5 days. 09/26/23 14:55 Blood Culture (Wb) - Pic Blood Culture - Final No growth in 5 days. 09/23/23 13:45 Blood Culture (Wb) - Anticubital Right Blood Culture - Final No growth in 5 days. 09/23/23 11:40 Blood Culture (Wb) - Anticubital Right Blood Culture - Final No growth in 5 days. 09/23/23 10:25 Blood Culture (Wb) - Arm Left Blood Culture - Final No growth in 5 days. 09/26/23 07:35 Sputum, Induced/Lukens Gram Stain - Final 09/26/23 07:35 Sputum, Induced/Lukens Respiratory Culture - Final Culture exhibits no growth. 09/23/23 14:00 Wound - Leg, Left Gram Stain - Final 09/23/23 14:00 Wound - Leg, Left Wound Culture - Final Streptococcus dysgalactiae equ Proteus hauseri Alcaligenes faecalis ssp faeca Staphylococcus aureus Rhythm Strip Rhythm Strip: Sinus Rhythm Rate: 78 Physical Exam Const oriented x3 and no apparent distress Resp normal respiratory effort GI soft to palpation and non-tender Assessment & Plan Assessment/Plan (1) WINDY (acute kidney injury): PLAN: The patient was planning on having his tunneled dialysis catheter removed today. Doctor Dale was unable to come in today. I discussed catheter removal with him. I discussed the risks of bleeding and infection. The patient decided to proceed. The right chest was prepped and draped. The sutures were cut. The catheter slid out easily as the cuff had not ingrown yet. There was no bleeding. An OpSite was placed over the exit site. Patient tolerated the procedure well. Murray Maradiaga MD Pager: [facility] [address] [place] [address], [address] [place] [address] Office:
--- NOTE | 2023-10-14 13:13 | CASEMGMT ---
OMI sent orders to [facility] via [employer]. OMI called [facility] and arranged for patient to get picked up at 1530 via wheelchair van. MOI completed a 7000 in HENS system. A level of care is not needed since patient will only be at [facility] for 30 days or less. OMI notified RN, confidential secretary, patient, and his sister Mindy of fern picker time. Plan: d/c to [facility] under intermediate level of care on a convalescent stay. [facility] will transport patient via wheelchair van. Yesica Rodriguez MATERIAL CONTROLLER IMPORT EXPORT COORDINATOR
--- NOTE | 2023-10-14 13:38 | NURSING ---
Attempted to call report to [facility] for pt to be d/c. Talked to person who could not find pt on their list, sent to [employer]. Will try again later.
--- NOTE | 2023-10-14 14:56 | NURSING ---
Report called to nurse Gallo for pt to be d/c to [facility] at 1530.
--- NOTE | 2023-10-14 15:48 | CASEMGMT ---
CC asked about bipap for patient. RN said in report patient was wearing bipap at night. SW reviewed chart and it looked like patient would wear bipap for a little bit each night. SW asked physician and physician wrote orders for bipap and settings on d/c orders. SW then scanned the orders and sent them to [facility] via [employer]. Yesica SCHULTZ
== END 2023-10-14 16:31 | disposition skilled nursing facility (03) | DRG 981 ==
LOC: ED 11:20 → MS3 11:51 → ICU 09-26 03:02 → PCU 10-06 18:26
PROVIDERS: Family Medicine; Hospitalist; Internal Medicine; Internal Medicine Critical Care Medicine; Internal Medicine Nephrology; Nurse Practitioner Adult Health; Surgery; Admitting Provider Student in an Organized Health Care Education/Training Program; Emergency Provider Emergency Medicine; Visit Provider Internal Medicine
DX: L03.116 Cellulitis of left lower limb (principal); A41.9 Sepsis, unspecified organism; J96.22 Acute and chronic respiratory failure with hypercapnia; N17.0 Acute kidney failure with tubular necrosis; R65.21 Severe sepsis with septic shock; G93.41 Metabolic encephalopathy; Z68.44 Body mass index [BMI] 60.0-69.9, adult; L97.221 Non-pressure chronic ulcer of left calf limited to breakdown of skin; E66.2 Morbid (severe) obesity with alveolar hypoventilation; Z99.11 Dependence on respirator [ventilator] status; E87.1 Hypo-osmolality and hyponatremia; E87.29 Other acidosis; E11.65 Type 2 diabetes mellitus with hyperglycemia; E11.622 Type 2 diabetes mellitus with other skin ulcer; Z79.4 Long term (current) use of insulin; I89.0 Lymphedema, not elsewhere classified; E87.5 Hyperkalemia; E87.70 Fluid overload, unspecified; Z91.199 Patient's noncompliance with other medical treatment and regimen due to unspecified reason; R53.81 Other malaise
CPT/HCPCS: 31500; 31720; 36415; 36569; 36600; 71045; 73700; 74018; 77001; 80048; 80053; 80202; 82550; 82803; 82962; 83036; 83930; 83935; 84300; 84478; 85025; 85027; 85610; 85730; 87040; 87070; 87077; 87186; 87205; 87340; 90937; 93971; 94002; 94003; 94640; 94660; 94762; 94799; 97110; 97116; 97162; 97166; 97530; 97535; 97802; 97803; 99252; 99283; J2185; J2997; J7030; J7040; J7050; A4216; C1752; G0257; G0463; J1940; J2405

== ENCOUNTER → 2023-10-15 06:22 | Outpatient (REF) | payer MEDICAID, SELFPAY ==
[2023-10-15 08:54] LABS: Absolute Neutrophil Count 4.2 X10^3/uL (2.0-7.7); Basophil# 0.06 X10^3/uL; Basophil% 0.8 % (0-1); Eosinophil# 0.46 X10^3/uL; Eosinophils% 6.4 % (0-5); Hematocrit 42.3 % (40-54); Lymphocyte % 23.6 % (19-41); Mean Corp Hgb Conc 28.4 g/dL (32-36); Mean Corpuscular Hgb 23.7 pg (27.0-32.0); Mean Corpuscular Volume 83.4 fL (80-94); Mean Platelet Vol. 10.3 fl (6.2-12.0); Monocyte# 0.73 X10^3/uL; Monocyte% 10.1 % (0-10); NRBC Flagged by Analyzer 0 % (0-5); Neutrophil # 4.22 X10^3/uL (2.7-7.7); Neutrophil % 58.5 % (47-70); Platelet Count 220 K/mm3 (150-450); RBC Distribution Width CV 15.6 % (11.6-14.6); RBC Distribution Width SD 46.8 fl (35.1-43.9); Red Blood Count 5.07 M/mm3 (4.6-6.2); White Blood Count 7.2 K/mm3 (4.4-11.0)
[2023-10-15 09:29] LABS: Vitamin B12 726 pg/mL (211-911); Vitamin D,25 Hydroxy 8.2 ng/mL
[2023-10-15 09:40] LABS: Anion Gap 4 (5-15); BUN 55 mg/dL (7-18); BUN/Creat Ratio 18.5 RATIO (10-20); Calcium,Total 9.5 mg/dL (8.5-10.1); Chloride 113 mmol/L (98-107); Cholesterol 140 mg/dL (200); Creatinine, Serum 2.98 mg/dL (0.70-1.30); EST Glomerular Filtration Rate 25 mL/min (>60); Est Glom Filt Rate - Afr Amer 30 mL/min (>60); Glucose 116 mg/dL (74-106); High Density Lipoprotein 31 mg/dL; Magnesium 2.1 mg/dL (1.6-2.6); Potassium 3.7 mmol/L (3.5-5.1); Sodium Level 142 mmol/L (136-145); Thyroid Stim Hormone (TSH) 3.05 uIU/mL (0.358-3.74); Triglycerides 134 mg/dL; Very Low Density Lipoprotein 27 mg/dL (5-40)
[2023-10-15 09:58] LABS: Hemoglobin A1c 9.4 % (3.8-5.6)
== END ==
LOC: OLS.SW 06:22
PROVIDERS: Visit Provider Internal Medicine
DX: N17.9 Acute kidney failure, unspecified (principal); J96.21 Acute and chronic respiratory failure with hypoxia; E11.9 Type 2 diabetes mellitus without complications
CPT/HCPCS: 36415; 80048; 80061; 82306; 82607; 83036; 83735; 84443; 85025

== ENCOUNTER → 2023-10-19 05:00 | Outpatient (REF) | payer MEDICAID, SELFPAY ==
[2023-10-19 08:46] LABS: Absolute Lymphocyte Count 1.89 X10^3/uL (0.83-4.51); Basophil# 0.05 X10^3/uL; Basophil% 0.7 % (0-1); Eosinophil# 0.56 X10^3/uL; Eosinophils% 7.6 % (0-5); Hematocrit 44.7 % (40-54); Hemoglobin 12.8 g/dL (13.0-16.5); Lymphocyte # 1.89 X10^3/ul (0.83-4.51); Lymphocyte % 25.6 % (19-41); Mean Corp Hgb Conc 28.6 g/dL (32-36); Mean Corpuscular Hgb 24.1 pg (27.0-32.0); Mean Corpuscular Volume 84.2 fL (80-94); Mean Platelet Vol. 10.7 fl (6.2-12.0); Monocyte# 0.81 X10^3/uL; NRBC Flagged by Analyzer 0 % (0-5); Neutrophil # 4.04 X10^3/uL (2.7-7.7); Neutrophil % 54.8 % (47-70); POSITIVE COUNT YES; Platelet Count 215 K/mm3 (150-450); RBC Distribution Width CV 15.9 % (11.6-14.6); RBC Distribution Width SD 48.2 fl (35.1-43.9); Red Blood Count 5.31 M/mm3 (4.6-6.2); White Blood Count 7.4 K/mm3 (4.4-11.0)
[2023-10-19 08:58] LABS: Differential Indicated SCAN CRITERIA MET
[2023-10-19 09:01] LABS: Anion Gap 6 (5-15); BUN 24 mg/dL (7-18); BUN/Creat Ratio 11.5 RATIO (10-20); Calcium,Total 9.5 mg/dL (8.5-10.1); Chloride 109 mmol/L (98-107); Creatinine, Serum 2.08 mg/dL (0.70-1.30); EST Glomerular Filtration Rate 38 mL/min (>60); Est Glom Filt Rate - Afr Amer 45 mL/min (>60); Glucose 128 mg/dL (74-106); Magnesium 2.2 mg/dL (1.6-2.6); Potassium 3.3 mmol/L (3.5-5.1); Sodium Level 142 mmol/L (136-145)
[2023-10-19 09:05] LABS: Differential Comment SCANNED
== END ==
LOC: OLS.SW 05:00
PROVIDERS: Visit Provider Internal Medicine
DX: J96.22 Acute and chronic respiratory failure with hypercapnia (principal); N17.9 Acute kidney failure, unspecified
CPT/HCPCS: 36415; 80048; 83735; 84100; 85025

== ENCOUNTER 2023-10-21 11:38 | Inpatient (IN) | payer MEDICAID, SELFPAY ==
[2023-10-21] VITALS (11 sets, daily range): BP systolic 105–152; BP diastolic 73–117; PULSE 90–118; RESP 12–30; TEMP 36.4–37; O2SAT 87–100; BMI 57.8; BMI 57.9
--- NOTE | 2023-10-21 11:47 | EKG12_ITS ---
Test Reason : SOB Blood Pressure : / mmHG Vent. Rate : 112 BPM Atrial Rate : 112 BPM P-R Int : 222 ms QRS Dur : 088 ms QT Int : 278 ms P-R-T Axes : 049 111 022 degrees QTc Int : 379 ms Sinus tachycardia with 1st degree A-V block with Fusion complexes Right axis deviation ST & T wave abnormality, consider anterior ischemia Abnormal ECG Confirmed by YARIEL PATTERSON, GEREMIAS ([id number]), state editor TRESA MONSIVAIS ([id number]) on 11/01/2023 1:17:47 PM Referred By: DUONG Confirmed By:MAILE SALDIVAR MD
--- NOTE | 2023-10-21 12:01 | ED.VIS.DYS ---
HPI <ALEXIA Hermosillo - Last Filed: 10/21/23 14:30> History of Present Illness Chief Complaint: Shortness of Breath Narrative Narrative: 43-year-old male with past medical history of DM2, CKD, chronic combined respiratory failure on baseline 2 L O2, morbid obesity states last night he started to feel more short of breath and had to sleep upright in a recliner. He also has noted a productive cough over the last few days. [facility] due to left leg cellulitis and septic shock. He states he was newly diagnosed with diabetes during admission. He went back to the [facility] for rehab and had been getting up and walking a few steps to the bathroom and doing physical therapy in bed. This morning when the shortness of breath started EMS noted he was 80% on his 2 L and increased to nonrebreather at 10 L. Patient denies chest pain. He has no fever, chills, or GI symptoms. He states he has a new rash all over his body today. He is not currently on antibiotics. PFS <ALEXIA Hermosillo - Last Filed: 10/21/23 14:30> [facility] Medical History (Updated 10/21/23 @ 14:23 by ALEXIA Hermosillo) Diabetes mellitus, type 2 History of ATN History of renal dialysis Lymphedema Morbid obesity Home Medications insulin glargine-yfgn 100 unit/mL (3 mL) subcutaneous pen 10 unit (0.1 mL) subcut DAILY #0 mL 10/14/23 [Rx Last Taken Unknown] menthol 0.44 %-zinc oxide 20.6 % topical ointment (Calmoseptine) 1 applic topical BID #0 grams 10/14/23 [Rx Last Taken Unknown] nystatin 100,000 unit/gram topical powder (Nyamyc) 1 applic topical TID #0 grams 10/14/23 [Rx Last Taken Unknown] polyethylene glycol 3350 17 gram/dose oral powder (Miralax) 17 g PO DAILY #119 grams 10/14/23 [Rx Last Taken Unknown] sennosides 8.6 mg-docusate sodium 50 mg tablet (Stool Softener-Stimulant Laxative) 2 tab PO DAILY #0 tabs 10/14/23 [Rx Last Taken Unknown] acetaminophen 325 mg tablet 650 mg PO Q6H PRN Pain 1-10 Or Fever >100.7 10/21/23 [History Last Taken Unknown] acetaminophen 650 mg rectal suppository 650 mg NH Q4H PRN fever or pain 10/21/23 [History Last Taken Unknown] albuterol sulfate 2.5 mg/3 mL (0.083 %) solution for nebulization 2.5 mg inhalation Q2H PRN Dyspnea, wheezing 10/21/23 [History Last Taken Unknown] bisacodyl 10 mg rectal suppository 10 mg NH DAILY PRN constipation 10/21/23 [History Last Taken Unknown] cholecalciferol (vitamin D3) 1,250 mcg (50,000 unit) capsule 1,250 mcg PO BARNES 10/21/23 [History Last Taken Unknown] dextrose 40 % oral gel (Glucose Gel) 10 g PO Q15M PRN hypoglycemia 10/21/23 [History Last Taken Unknown] diphenhydramine HCl 25 mg capsule (Banophen) 25 mg PO QHS RASH 10/21/23 [History Last Taken Unknown] glucagon HCl 1 mg solution for injection (Glucagon (HCl) Emergency Kit) 1 mg IM Q20M PRN hypoglycemia 10/21/23 [History Last Taken Unknown] guaifenesin 100 mg/5 mL oral liquid 200 mg PO Q4H PRN congestion 10/21/23 [History Last Taken Unknown] insulin lispro 100 unit/mL subcutaneous pen 1 sliding scale dose subcut 4X/DAY 10/21/23 [History Last Taken Unknown] magnesium hydroxide 400 mg/5 mL oral suspension (Milk of Magnesia) 30 ml PO DAILY PRN constipation 10/21/23 [History Last Taken Unknown] prednisone 20 mg tablet 20 mg PO DAILY 10/21/23 [History Last Taken Unknown] sodium phosphates 19 gram-7 gram/118 mL enema (Fleet Enema) 118 ml NH DAILY PRN constipation 10/21/23 [History Last Taken Unknown] Allergy/AdvReac Type Severity Reaction Status Date / Time No Known Allergies Allergy Verified 09/23/23 09:27 Family History Other Obesity Social History Smoking Status: Never smoker ROS <ALEXIA Hermosillo - Last Filed: 10/21/23 14:30> ROS ED ROS Narrative Constitutional: Negative for fever, chills. CVS: Negative for chest pain, syncope. Respiratory: Positive for shortness of breath, cough. GI: Negative for abdominal pain, nausea, vomiting, diarrhea. Skin: Positive for rash. EXAM <ALEXIA Hermosillo - Last Filed: 10/21/23 14:30> Physical Exam Narrative Exam Narrative: CONST: Patient sitting in no acute distress. EYES: Normal inspection. NECK: Normal inspection. RESP: No respiratory distress, CTAB. CVS: Tachycardic with regular rhythm, no murmur, no gallop. ABD: Soft and nontender, no guarding or rebound, nondistended. SKIN: Scattered rash with red sandpaperlike rash on chest, back, and lower extremities. EXTREMITIES: Chronic bilateral lower extremity edema and venous stasis changes, slight warmth and erythema of the upper shins. No open wounds, no seeping, no crepitus or fluctuance. NEURO: Alert and answering questions appropriately. PSYCH: Normal affect. Const Vital Signs: 10/21/23 11:40 10/21/23 11:43 10/21/23 11:45 Temperature 98.1 F 98.1 F Temperature Source Temporal Temporal Pulse Rate 113 H 118 H Respiratory Rate 20 H 15 Respiratory Effort Short of Breath Labored Respiratory Depth Normal Respiratory Pattern Tachypnea Blood Pressure 152/117 H 152/117 H Blood Pressure Mean 128 128 Pulse Ox 95 95 Oxygen Delivery Method Non-Rebreather Non-Rebreather High Flow Oxygen Flow Rate (L/min) 10 10 10/21/23 13:43 10/21/23 14:00 Temperature 97.8 F 98.6 F Temperature Source Temporal Temporal Pulse Rate 113 H 104 H Respiratory Rate 18 16 Respiratory Effort Respiratory Depth Respiratory Pattern Blood Pressure 126/86 H 105/73 Blood Pressure Mean 99 83 Pulse Ox 93 96 Oxygen Delivery Method Nasal Cannula Nasal Cannula Oxygen Flow Rate (L/min) 10 <Dr. Gaetano Diamond DO - Last Filed: 10/21/23 14:48> Physical Exam Const Vital Signs: 10/21/23 11:40 10/21/23 11:43 10/21/23 11:45 Temperature 98.1 F 98.1 F Temperature Source Temporal Temporal Pulse Rate 113 H 118 H Respiratory Rate 20 H 15 Respiratory Effort Short of Breath Labored Respiratory Depth Normal Respiratory Pattern Tachypnea Blood Pressure 152/117 H 152/117 H Blood Pressure Mean 128 128 Pulse Ox 95 95 Oxygen Delivery Method Non-Rebreather Non-Rebreather High Flow Oxygen Flow Rate (L/min) 10 10 10/21/23 13:43 10/21/23 14:00 Temperature 97.8 F 98.6 F Temperature Source Temporal Temporal Pulse Rate 113 H 104 H Respiratory Rate 18 16 Respiratory Effort Respiratory Depth Respiratory Pattern Blood Pressure 126/86 H 105/73 Blood Pressure Mean 99 83 Pulse Ox 93 96 Oxygen Delivery Method Nasal Cannula Nasal Cannula Oxygen Flow Rate (L/min) 10 [facility] <ALEXIA Hermosillo - Last Filed: 10/21/23 14:30> [facility] Narrative Medical decision making narrative: Differential includes viral URI, pneumonia, DVT/PE Patient presents with acute dyspnea. He was on 2 L O2 at baseline at the SNF and is now requiring 10 L. He is tachycardic in the 120s, afebrile, blood pressure 150s/110s. He is speaking full sentences in no distress. Lungs are clear. Lower extremities have mild edema and chronic venous stasis which he states is similar to the last week. The upper shins are still warm and red and he was recently treated for left lower extremity cellulitis. Wound culture results are below. He is not currently on antibiotics. Labs show normal white count of 8.6. Electrolytes are within normal limits and creatinine is 1.92. Chest x-ray shows limited inspiratory effort but no obvious infiltrate. COVID/flu/RSV is negative. Bilateral leg ultrasounds show left leg positive for DVT. CTA shows extensive bilateral pulmonary embolism with no evidence of right heart strain. Troponin and BNP are also unremarkable. It notes a right left upper lobe infiltrate. He also has a UTI. Initially had ordered heparin but discussed the case with the hospitalist and they would prefer Eliquis. He was also covered with broad-spectrum vancomycin and Zosyn. Patient was admitted to the ICU and still remains on 10 L nasal cannula. External records reviewed: Left leg wound cultures from 09/23/23 Streptococcus dysgalactiae Proteus hauseri Alcaligenes faecalis ssp faeca Staphylococcus aureus Lab Data Attestation: I reviewed the patient's lab results. Labs: Laboratory Results - last 24 hr 10/21/23 10/21/23 12:00 13:14 WBC 8.6 RBC 6.01 Hgb 14.2 Hct 50.4 MCV 83.9 MCH 23.6 L MCHC 28.2 L RDW Std Deviation 47.9 H RDW Coeff of Benedicto 16.4 H Plt Count 266 MPV 11.2 Immature Gran % (Auto) 0.600 Neut % (Auto) 82.5 H Lymph % (Auto) 12.5 L Chicot % (Auto) 3.0 Eos % (Auto) 0.8 Baso % (Auto) 0.6 Absolute Neuts (auto) 7.1 Absolute Lymphs (auto) 1.08 Nucleated RBC % 0 PT 15.3 H INR 1.2 APTT 27.4 Sodium 139 Potassium 4.0 Chloride 106 Carbon Dioxide 28.0 Anion Gap 5 BUN 21 H Creatinine 1.92 H Estim Creat Clear Calc 86.24 Est GFR (MDRD) Af Amer 50 L Est GFR (MDRD) Non-Af 41 L BUN/Creatinine Ratio 10.9 Glucose 164 H Lactic Acid 1.9 Calcium 9.6 Total Bilirubin 0.60 AST 26 ALT 20 Alkaline Phosphatase 106 Troponin I High Sens 41 B-Natriuretic Peptide 273.1 H Total Protein 9.1 H Albumin 3.3 Globulin 5.8 H Albumin/Globulin Ratio 0.6 L Urine Color Yellow Urine Clarity Sl. Cloudy Urine pH 6.0 Ur Specific Tracy 1.015 Urine Protein 100 H Urine Glucose (UA) Normal Urine Ketones 5 H Urine Occult Blood 50 H Urine Nitrite Positive H Urine Bilirubin Negative Urine Urobilinogen Normal Ur Leukocyte Esterase 500 H Urine RBC 0 SEEN Urine WBC 50-100 SEEN Ur Squamous Epith Cells 0-5 SEEN Urine Bacteria 2+ Urine Mucus 0 SEEN ABG Data ABG results: ABG 10/21/23 10/21/23 10/21/23 12:24 12:24 12:24 Specimen Type ART Cancelled Sample Site L Radial Cancelled pH 7.33 L Bicarbonate Actual Total CO2 Base Excess O2 Saturation O2 % ABG pCO2 ABG pO2 Cleve Test Respiration Rate O2 Delivery Device Liter Flow Minute Volume Vent Mode Inspiratory Time Expiratory Time Tidal Volume Mean Airway Pressure POC PEEP Peak Inspir Pressure POC Pressure Suppt Pressure Control Pressure High Pressure Low Time High Time Low EPAP IPAP Blood Gas Comments Crit Call To/Read Back Blood Gas Notified Whom Blood Gas Notified Time Clinical Comments 10/21/23 10/21/23 10/21/23 12:24 12:24 12:24 Specimen Type Sample Site pH Cancelled Bicarbonate Actual 23.8 Cancelled Total CO2 25 Cancelled Base Excess -2 O2 Saturation O2 % ABG pCO2 ABG pO2 Cleve Test Respiration Rate O2 Delivery Device Liter Flow Minute Volume Vent Mode Inspiratory Time Expiratory Time Tidal Volume Mean Airway Pressure POC PEEP Peak Inspir Pressure POC Pressure Suppt Pressure Control Pressure High Pressure Low Time High Time Low EPAP IPAP Blood Gas Comments Crit Call To/Read Back Blood Gas Notified Whom Blood Gas Notified Time Clinical Comments 10/21/23 10/21/23 10/21/23 12:24 12:24 12:24 Specimen Type Sample Site pH Bicarbonate Actual Total CO2 Base Excess Cancelled O2 Saturation 93 L Cancelled O2 % Cancelled ABG pCO2 45.0 Cancelled ABG pO2 74 L Cleve Test Respiration Rate O2 Delivery Device Liter Flow Minute Volume Vent Mode Inspiratory Time Expiratory Time Tidal Volume Mean Airway Pressure POC PEEP Peak Inspir Pressure POC Pressure Suppt Pressure Control Pressure High Pressure Low Time High Time Low EPAP IPAP Blood Gas Comments Crit Call To/Read Back Blood Gas Notified Whom Blood Gas Notified Time Clinical Comments 10/21/23 10/21/23 10/21/23 12:24 12:24 12:24 Specimen Type Sample Site pH Bicarbonate Actual Total CO2 Base Excess O2 Saturation O2 % ABG pCO2 ABG pO2 Cancelled Cleve Test Y Cancelled Respiration Rate Cancelled O2 Delivery Device HFNC Cancelled Liter Flow 10.0 Minute Volume Vent Mode Inspiratory Time Expiratory Time Tidal Volume Mean Airway Pressure POC PEEP Peak Inspir Pressure POC Pressure Suppt Pressure Control Pressure High Pressure Low Time High Time Low EPAP IPAP Blood Gas Comments Crit Call To/Read Back Blood Gas Notified Whom Blood Gas Notified Time Clinical Comments 10/21/23 12:24 Specimen Type Sample Site pH Bicarbonate Actual Total CO2 Base Excess O2 Saturation O2 % ABG pCO2 ABG pO2 Celve Test Respiration Rate O2 Delivery Device Liter Flow Cancelled Minute Volume Cancelled Vent Mode Cancelled Inspiratory Time Cancelled Expiratory Time Cancelled Tidal Volume Cancelled Mean Airway Pressure Cancelled POC PEEP Cancelled Peak Inspir Pressure Cancelled POC Pressure Suppt Cancelled Pressure Control Cancelled Pressure High Cancelled Pressure Low Cancelled Time High Cancelled Time Low Cancelled EPAP Cancelled IPAP Cancelled Blood Gas Comments Cancelled Crit Call To/Read Back Cancelled Blood Gas Notified Whom Cancelled Blood Gas Notified Time Cancelled Clinical Comments Cancelled Radiography Diagnostic Testing: Clinical Impression(s) from Imaging Studies Chest X-Ray 10/21/23 13:04 IMPRESSION: Mild cardiomegaly and vascular congestion. Electronically Signed: Gregg Allen MD at 13:15 EDT , Chest CTA 10/21/23 13:14 IMPRESSION: Extensive bilateral pulmonary embolism as described. No evidence of right heart strain at this time. Focal infiltrate in the medial aspect of the left upper lobe. Radiographic follow-up recommended. Electronically Signed: Gregg Allen MD at 14:07 EDT , EKG Initial EKG: Attestation: I personally reviewed and interpreted this EKG as follows: Comments: Sinus tachycardia at 112 bpm Right axis deviation Read as ST abnormality in anterior leads, however there is very poor baseline <Dr. Gaetano Diamond, DO - Last Filed: 10/21/23 14:48> MDM MDM Narrative Medical decision making narrative: Differential includes viral URI, pneumonia, DVT/PE Patient presents with acute dyspnea. He was on 2 L O2 at baseline at the SNF and is now requiring 10 L. He is tachycardic in the 120s, afebrile, blood pressure 150s/110s. He is speaking full sentences in no distress. Lungs are clear. Lower extremities have mild edema and chronic venous stasis which he states is similar to the last week. The upper shins are still warm and red and he was recently treated for left lower extremity cellulitis. Wound culture results are below. He is not currently on antibiotics. Labs show normal white count of 8.6. Electrolytes are within normal limits and creatinine is 1.92. Chest x-ray shows limited inspiratory effort but no obvious infiltrate. COVID/flu/RSV is negative. Bilateral leg ultrasounds show left leg positive for DVT. CTA shows extensive bilateral pulmonary embolism with no evidence of right heart strain. Troponin and BNP are also unremarkable. It notes a right left upper lobe infiltrate. He also has a UTI. Initially had ordered heparin but discussed the case with the hospitalist and they would prefer Eliquis. He was also covered with broad-spectrum vancomycin and Zosyn. Patient was admitted to the ICU and still remains on 10 L nasal cannula. External records reviewed: Left leg wound cultures from 09/23/23 Streptococcus dysgalactiae Proteus hauseri Alcaligenes faecalis ssp faeca Staphylococcus aureus I have personally performed a face to face assessment of the patient and have reviewed the TRACY Note. I performed a substantive portion of the visit including all aspects of the following. My wilkerson findings include: History is 33-year-old male significant medical history of mechanical ventilation and septic shock. Patient notes difficulty breathing worsening hypoxia. Notes left leg pain he notes that his cough is not any different than normal. No reported fever. He notes a rash on his body is starting to spread. Exam is left greater than right leg swelling. Patient appears slightly tachypneic. He is. There is a rash that is not blanching slightly palpable with discrete lesions of 1 mm seen best on torso legs right arm. Medical Decison Making CTA with bilateral pulmonary embolism possible infarction versus pneumonia. White count 8.6. Hemoglobin 14.2. Platelet count of 266. Troponin is normal. BNP 273 he has evidence of UTI. Prior wound culture shows multiple organisms including strep. Case was discussed with hospitalist. Will begin anticoagulation with Eliquis as well as antibiotics. Other additions or changes: [None] History & Record Review Discussion w/independent historian: EMS personnel and Patient Additional record(s) reviewed:: Prior inpatient record, Prior ED visit and Prior labs Lab Data Attestation: I reviewed the patient's lab results. Labs: Laboratory Results - last 24 hr 10/21/23 10/21/23 12:00 13:14 WBC 8.6 RBC 6.01 Hgb 14.2 Hct 50.4 MCV 83.9 MCH 23.6 L MCHC 28.2 L RDW Std Deviation 47.9 H RDW Coeff of Benedicto 16.4 H Plt Count 266 MPV 11.2 Immature Gran % (Auto) 0.600 Neut % (Auto) 82.5 H Lymph % (Auto) 12.5 L Chicot % (Auto) 3.0 Eos % (Auto) 0.8 Baso % (Auto) 0.6 Absolute Neuts (auto) 7.1 Absolute Lymphs (auto) 1.08 Nucleated RBC % 0 PT 15.3 H INR 1.2 APTT 27.4 Sodium 139 Potassium 4.0 Chloride 106 Carbon Dioxide 28.0 Anion Gap 5 BUN 21 H Creatinine 1.92 H Estim Creat Clear Calc 86.24 Est GFR (MDRD) Af Amer 50 L Est GFR (MDRD) Non-Af 41 L BUN/Creatinine Ratio 10.9 Glucose 164 H Lactic Acid 1.9 Calcium 9.6 Total Bilirubin 0.60 AST 26 ALT 20 Alkaline Phosphatase 106 Troponin I High Sens 41 B-Natriuretic Peptide 273.1 H Total Protein 9.1 H Albumin 3.3 Globulin 5.8 H Albumin/Globulin Ratio 0.6 L Urine Color Yellow Urine Clarity Sl. Cloudy Urine pH 6.0 Ur Specific Tracy 1.015 Urine Protein 100 H Urine Glucose (UA) Normal Urine Ketones 5 H Urine Occult Blood 50 H Urine Nitrite Positive H Urine Bilirubin Negative Urine Urobilinogen Normal Ur Leukocyte Esterase 500 H Urine RBC 0 SEEN Urine WBC 50-100 SEEN Ur Squamous Epith Cells 0-5 SEEN Urine Bacteria 2+ Urine Mucus 0 SEEN ABG Data ABG results: ABG 10/21/23 10/21/23 10/21/23 12:24 12:24 12:24 Specimen Type ART Cancelled Sample Site L Radial Cancelled pH 7.33 L Bicarbonate Actual Total CO2 Base Excess O2 Saturation O2 % ABG pCO2 ABG pO2 Cleve Test Respiration Rate O2 Delivery Device Liter Flow Minute Volume Vent Mode Inspiratory Time Expiratory Time Tidal Volume Mean Airway Pressure POC PEEP Peak Inspir Pressure POC Pressure Suppt Pressure Control Pressure High Pressure Low Time High Time Low EPAP IPAP Blood Gas Comments Crit Call To/Read Back Blood Gas Notified Whom Blood Gas Notified Time Clinical Comments 10/21/23 10/21/23 10/21/23 12:24 12:24 12:24 Specimen Type Sample Site pH Cancelled Bicarbonate Actual 23.8 Cancelled Total CO2 25 Cancelled Base Excess -2 O2 Saturation O2 % ABG pCO2 ABG pO2 Cleve Test Respiration Rate O2 Delivery Device Liter Flow Minute Volume Vent Mode Inspiratory Time Expiratory Time Tidal Volume Mean Airway Pressure POC PEEP Peak Inspir Pressure POC Pressure Suppt Pressure Control Pressure High Pressure Low Time High Time Low EPAP IPAP Blood Gas Comments Crit Call To/Read Back Blood Gas Notified Whom Blood Gas Notified Time Clinical Comments 10/21/23 10/21/23 10/21/23 12:24 12:24 12:24 Specimen Type Sample Site pH Bicarbonate Actual Total CO2 Base Excess Cancelled O2 Saturation 93 L Cancelled O2 % Cancelled ABG pCO2 45.0 Cancelled ABG pO2 74 L Cleve Test Respiration Rate O2 Delivery Device Liter Flow Minute Volume Vent Mode Inspiratory Time Expiratory Time Tidal Volume Mean Airway Pressure POC PEEP Peak Inspir Pressure POC Pressure Suppt Pressure Control Pressure High Pressure Low Time High Time Low EPAP IPAP Blood Gas Comments Crit Call To/Read Back Blood Gas Notified Whom Blood Gas Notified Time Clinical Comments 10/21/23 10/21/23 10/21/23 12:24 12:24 12:24 Specimen Type Sample Site pH Bicarbonate Actual Total CO2 Base Excess O2 Saturation O2 % ABG pCO2 ABG pO2 Cancelled Cleve Test Y Cancelled Respiration Rate Cancelled O2 Delivery Device HFNC Cancelled Liter Flow 10.0 Minute Volume Vent Mode Inspiratory Time Expiratory Time Tidal Volume Mean Airway Pressure POC PEEP Peak Inspir Pressure POC Pressure Suppt Pressure Control Pressure High Pressure Low Time High Time Low EPAP IPAP Blood Gas Comments Crit Call To/Read Back Blood Gas Notified Whom Blood Gas Notified Time Clinical Comments 10/21/23 12:24 Specimen Type Sample Site pH Bicarbonate Actual Total CO2 Base Excess O2 Saturation O2 % ABG pCO2 ABG pO2 Cleve Test Respiration Rate O2 Delivery Device Liter Flow Cancelled Minute Volume Cancelled Vent Mode Cancelled Inspiratory Time Cancelled Expiratory Time Cancelled Tidal Volume Cancelled Mean Airway Pressure Cancelled POC PEEP Cancelled Peak Inspir Pressure Cancelled POC Pressure Suppt Cancelled Pressure Control Cancelled Pressure High Cancelled Pressure Low Cancelled Time High Cancelled Time Low Cancelled EPAP Cancelled IPAP Cancelled Blood Gas Comments Cancelled Crit Call To/Read Back Cancelled Blood Gas Notified Whom Cancelled Blood Gas Notified Time Cancelled Clinical Comments Cancelled Radiography Diagnostic Testing: Clinical Impression(s) from Imaging Studies Chest X-Ray 10/21/23 13:04 IMPRESSION: Mild cardiomegaly and vascular congestion. Electronically Signed: Gregg Allen MD at 13:15 EDT , Chest CTA 10/21/23 13:14 IMPRESSION: Extensive bilateral pulmonary embolism as described. No evidence of right heart strain at this time. Focal infiltrate in the medial aspect of the left upper lobe. Radiographic follow-up recommended. Electronically Signed: Gregg Allen MD at 14:07 EDT , Discharge Plan Dx/Rx/DC Orders Clinical Impression: Acute deep vein thrombosis (DVT) of left lower extremity, Acute respiratory failure with hypoxia, Rash, Acute UTI, Pulmonary embolism, Morbid obesity, Chronic kidney disease Disposition Disposition: Acute Care Hospital [facility]
--- NOTE | 2023-10-21 12:03 | VDLE_ITS ---
Reason For Study: SOB RIGHT LEFT GSV is normal. GSV is normal. CFV is compressible, spontaneous, competent CFV is compressible, spontaneous, competent, and demonstrates pulsatile venous flow. and demonstrates pulsatile venous flow. FV is compressible, spontaneous, phasic, FV prox is compressible with venous flow competent and demonstrates normal noted. augmentation. Acute deep vein thrombosis is noted in the POP V is compressible, spontaneous, phasic, left FV mid-distal, PopV, T/P Trunk, competent and demonstrates normal GastrocV, PTV, PeroV. It is is augmentation. NONCOMPRESSIBLE and dilated. T/P Trunk is compressible. PTV is compressible. RT PerV is compressible. Procedure This is a venous duplex using B-mode, color flow and spectral Doppler. Exam performed portable in ED. The study was technically difficult. A preliminary report was called and/or faxed to Dr. Diamond. VL/Venous Duplex US - Kevin Extrem Interpretation Summary Acute deep vein thrombosis is noted in the left femoral vein, popliteal vein, t ibioperoneal trunk vein, gastrocnemius vein, posterior tibial vein, peroneal vein. Deep veins of the right lower extremity are patent and compressible segmentally . There is no evidence of right lower extremity deep vein thrombosis. The right great sapheno us veins appear patent and compressible segmentally. Ordering Physician: Светлана Wright Performed By: Lay Marie RVT
[2023-10-21 12:23] LABS: Absolute Lymphocyte Count 1.08 X10^3/uL (0.83-4.51); Absolute Neutrophil Count 7.1 X10^3/uL (2.0-7.7); Basophil# 0.05 X10^3/uL; Basophil% 0.6 % (0-1); Eosinophil# 0.07 X10^3/uL; Eosinophils% 0.8 % (0-5); Hematocrit 50.4 % (40-54); Hemoglobin 14.2 g/dL (13.0-16.5); Lymphocyte # 1.08 X10^3/ul (0.83-4.51); Lymphocyte % 12.5 % (19-41); Mean Corp Hgb Conc 28.2 g/dL (32-36); Mean Corpuscular Hgb 23.6 pg (27.0-32.0); Mean Corpuscular Volume 83.9 fL (80-94); Mean Platelet Vol. 11.2 fl (6.2-12.0); Monocyte# 0.26 X10^3/uL; NRBC Flagged by Analyzer 0 % (0-5); Neutrophil # 7.13 X10^3/uL (2.7-7.7); Neutrophil % 82.5 % (47-70); Platelet Count 266 K/mm3 (150-450); RBC Distribution Width CV 16.4 % (11.6-14.6); RBC Distribution Width SD 47.9 fl (35.1-43.9); Red Blood Count 6.01 M/mm3 (4.6-6.2); White Blood Count 8.6 K/mm3 (4.4-11.0)
[2023-10-21 12:33] LABS: International Normalized Ratio 1.2; Partial Thromboplast Time 27.4 Seconds (24.1-36.2); Prothrombin Time (Protime)PT. 15.3 SECONDS (11.7-14.9)
[2023-10-21 12:35] LABS: Allen Test Y; Blood Gas Specimen Type ART; O2 Delivery Device HFNC; SITE L Radial
[2023-10-21 12:36] LABS: Base Excess -2 mmol/L (-2 to +2); Bicarbonate 23.8 mmol/L (22-26); PO2 74 mmHG (75-100); SO2 93 % (95-99); Total Carbon Dioxide 25 mmol/L; pH 7.33 (7.35-7.45)
[2023-10-21 12:41] LABS: ALB/GLOB Ratio 0.6 RATIO (0.9-2.4); AST(SGOT) 26 U/L (15-37); Alanine Aminotransfer ALT/SGPT 20 U/L (16-61); Albumin, Serum 3.3 g/dL (3.2-5.0); Alkaline Phosphatase 106 U/L (45-117); Anion Gap 5 (5-15); BUN 21 mg/dL (7-18); BUN/Creat Ratio 10.9 RATIO (10-20); Calcium,Total 9.6 mg/dL (8.5-10.1); Chloride 106 mmol/L (98-107); Creatinine, Serum 1.92 mg/dL (0.70-1.30); EST Glomerular Filtration Rate 41 mL/min (>60); Est Glom Filt Rate - Afr Amer 50 mL/min (>60); Estimated Creatinine Clearance 86.24 ml/min; Globulin 5.8 g/dL (2.2-4.2); Glucose 164 mg/dL (74-106); Protein, Total 9.1 g/dL (6.4-8.2); Sodium Level 139 mmol/L (136-145); Troponin-I HS 41 pg/mL (3.0-78.0)
[2023-10-21 12:48] LABS: Lactic Acid 1.9 mmol/L (0.4-1.9)
--- NOTE | 2023-10-21 13:04 | RAD_ITS ---
STUDY: X-RAY CHEST REASON FOR EXAM: Male, 43 years old. Dyspnea TECHNIQUE: Single AP portable view of the chest. COMPARISON: Comparison is made with prior study dated October 06, 2023. FINDINGS: EKG electrodes are seen. The right-sided double-lumen catheter has been removed. Mild degree of vascular congestion. There is no demonstrated pleural abnormality. Mild cardiomegaly. Normal mediastinum and cirilo. Normal visualized pulmonary arteries. Normal visualized aortic arch and descending thoracic aorta. Normal visualized thoracic spine. Normal visualized ribs, clavicles, and shoulders. There is no demonstrated abnormality of the visualized soft tissue structures of the upper abdomen. RAD/Chest 1 View (Portable) IMPRESSION: Mild cardiomegaly and vascular congestion. Electronically Signed: Gregg Allen MD at 13:15 EDT ,
--- NOTE | 2023-10-21 13:14 | CT_ITS ---
STUDY: CTA CHEST REASON FOR EXAM: Male, 43 years old. Dyspnea and shortness of breath. RADIATION DOSAGE (If Supplied By Facility): CTDIvol = ( 20.72 ) mGy, DLP = ( 644.9 ) mGycm TECHNIQUE: The examination was performed with the intravenous administration of IV 100mL Isovue-370. Post-processing of the angiographic images was performed, with multiplanar reformation and 3D reconstruction. Individualized dose optimization techniques were used for this CT. COMPARISON: None. FINDINGS: Large thrombus is seen in the right main pulmonary artery just distal to the bifurcation. This extends into branches of the upper and lower pulmonary arteries. There is also evidence of a moderate amount of thrombus in the distal portion of the left main pulmonary artery with the involvement of both upper and lower pulmonary arterial branches. Normal thoracic aorta and visualized great vessels. There is no demonstrated aortic dissection. Normal heart and pericardium. Normal mediastinum. Normal hilar regions. Normal visualized trachea and bronchi. The lungs are well expanded. Focal infiltrate in the anterior medial aspect of the left upper lobe. Radiographic follow-up is recommended until clearing. Normal pleura. Normal chest wall structures. Normal osseous structures. Normal visualized upper abdomen. CT/CTA Chest W/WO Contrast IMPRESSION: Extensive bilateral pulmonary embolism as described. No evidence of right heart strain at this time. Focal infiltrate in the medial aspect of the left upper lobe. Radiographic follow-up recommended. Electronically Signed: Gregg Allen MD at 14:07 EDT ,
[2023-10-21 13:19] LABS: Mucous, Urine 0 SEEN /hpf (<or=2+); Red Blood Cells-Urine 0 SEEN /hpf (0-5)
[2023-10-21 13:23] LABS: Color, Urine Yellow (Yellow); Glucose, Dipstick Normal (Normal); Ketone-Dipstick 5 mg/dl (Negative); Leukocyte Esterase-Dipstick 500 /ul (Negative); Nitrite-Dipstick Positive (Negative); Occult Blood-Urine 50 /ul (Negative); Protein-Dipstick 100 mg/dl (Negative); Specific Gravity, Urine 1.015 (1.002-1.030); Urine Bilirubin Dipstick Negative (Negative); Urine Clarity Sl. Cloudy (Clear); Urine Urobilinogen Normal (Normal)
[2023-10-21 13:29] LABS: BNP,B-Type NATRIURETIC PEPTIDE 273.1 pg/mL (0-100)
[2023-10-21 13:38] LABS: Bacteria 2+ /hpf (None Seen); White Blood Cells 50-100 SEEN /hpf (0-5)
[2023-10-21 13:39] LABS: Squamous Epithelial Cells - UA 0-5 SEEN /hpf (0-5)
--- NOTE | 2023-10-21 14:25 | HP.PCM.HOS_ITS ---
HPI - General General Date of Admission: 10/21/23 Date of Service: 10/21/23 Chief Complaint: Dyspnea, cough, hypoxia, recurrent rash. HPI Narrative The patient is a 43 y/o M w/ PMHx: Morbid Obesity, Chronic BL LE Edema/Lymphedema, Diabetes mellitus type II, SUNG with noncompliance with PAP therapy, Obesity Hyperventilation Syndrome with Chronic Hypoxic and Hypercapnic Respiratory Failure (2L NC), recent prolonged hospitalization from 09/23/2023- 10/14/2023 with acute on chronic combined respiratory failure, acute kidney injury requiring acute dialysis felt likely secondary to ischemic ATN secondary to septic shock and vancomycin, septic shock secondary to acute cellulitis left lower extremity with wound with polymicrobial culture compounded by underlying significant medical history who now represents to the [facility] ED on 10/21/2023 with w orsening dyspnea over the last 24 hours reportedly having to sleep upright in a recliner with onset of a productive cough for the last few days prompting EMS call with oxygenation noted to be 80% on 2 L eventually increasing requiring a nonrebreather at 10 L prompting transition to the ED for evaluation. During his recent admission patient did have a whole-body rash of note and it was felt likely consistent with a drug-related reaction noted to be widespread on the chest, abdomen, upper extremities starting on 10/08/2023 possibly secondary to diuretic Lasix therapy with a hypersensitivity reaction which could be immediate and delayed eventually discontinued with administration of Solu-Medrol 40 mg IV x 2 doses with moderate improvement. Workup in the ED included T98.1, heart rate 113, BP 152/117, respiratory rate 20, 95% on 2 L nonrebreather with most recent discharge oxygenation on 10/14/2495% on 2 L nasal cannula, CBC with WC 8.6, hemoglobin 14.2, MCV 83.9, platelet 266 without marked shift, unremarkable coags aside PT 15.3, ABG with pH 7.33, oxygen saturation 93%, pO2 74, pCO2 45 on 10 L flow, CMP with BUN/creatinine 21/1.92, GFR 41, glucose 164, lactic acid 1.9, troponin 41, BNP 273.1, urinalysis with protein 100, ketone 5, occult blood 50, positive nitrate, leukocyte Estrace 500 with urine WBCs 50-100 with 2+ urine bacteria, blood culture x 2 pending per ED, urine culture pending per ED, SARS COVID/influenza/RSV PCR negative, chest x-ray with mild cardiomegaly and vascular congestion, CTA chest with extensive bilateral pulmonary emboli with no evidence of right heart strain, focal infiltrate medial aspect left upper lobe, LLE Duplex with LLE positive DVT with femoral and distal involvement noted. In the ED patient administered IV vancomycin, IV Zosyn and oral Eliquis as discussed with ED staff. [facility] Medical History Diabetes mellitus, type 2 History of ATN History of renal dialysis Lymphedema Morbid obesity Home Medications insulin glargine-yfgn 100 unit/mL (3 mL) subcutaneous pen 10 unit (0.1 mL) subcut DAILY #0 mL 10/14/23 [Rx Last Taken Unknown] menthol 0.44 %-zinc oxide 20.6 % topical ointment (Calmoseptine) 1 applic topical BID #0 grams 10/14/23 [Rx Last Taken Unknown] nystatin 100,000 unit/gram topical powder (Nyamyc) 1 applic topical TID #0 grams 10/14/23 [Rx Last Taken Unknown] polyethylene glycol 3350 17 gram/dose oral powder (Miralax) 17 g PO DAILY #119 grams 10/14/23 [Rx Last Taken Unknown] sennosides 8.6 mg-docusate sodium 50 mg tablet (Stool Softener-Stimulant Laxative) 2 tab PO DAILY #0 tabs 10/14/23 [Rx Last Taken Unknown] acetaminophen 325 mg tablet 650 mg PO Q6H PRN Pain 1-10 Or Fever >100.7 10/21/23 [History Last Taken Unknown] acetaminophen 650 mg rectal suppository 650 mg NM Q4H PRN fever or pain 10/21/23 [History Last Taken Unknown] albuterol sulfate 2.5 mg/3 mL (0.083 %) solution for nebulization 2.5 mg inhalation Q2H PRN Dyspnea, wheezing 10/21/23 [History Last Taken Unknown] bisacodyl 10 mg rectal suppository 10 mg NM DAILY PRN constipation 10/21/23 [History Last Taken Unknown] cholecalciferol (vitamin D3) 1,250 mcg (50,000 unit) capsule 1,250 mcg PO BARNES 10/21/23 [History Last Taken Unknown] dextrose 40 % oral gel (Glucose Gel) 10 g PO Q15M PRN hypoglycemia 10/21/23 [History Last Taken Unknown] diphenhydramine HCl 25 mg capsule (Banophen) 25 mg PO QHS RASH 10/21/23 [History Last Taken Unknown] glucagon HCl 1 mg solution for injection (Glucagon (HCl) Emergency Kit) 1 mg IM Q20M PRN hypoglycemia 10/21/23 [History Last Taken Unknown] guaifenesin 100 mg/5 mL oral liquid 200 mg PO Q4H PRN congestion 10/21/23 [History Last Taken Unknown] insulin lispro 100 unit/mL subcutaneous pen 1 sliding scale dose subcut 4X/DAY 10/21/23 [History Last Taken Unknown] magnesium hydroxide 400 mg/5 mL oral suspension (Milk of Magnesia) 30 ml PO DAILY PRN constipation 10/21/23 [History Last Taken Unknown] prednisone 20 mg tablet 20 mg PO DAILY 10/21/23 [History Last Taken Unknown] sodium phosphates 19 gram-7 gram/118 mL enema (Fleet Enema) 118 ml NM DAILY PRN constipation 10/21/23 [History Last Taken Unknown] Allergy/AdvReac Type Severity Reaction Status Date / Time No Known Allergies Allergy Verified 09/23/23 09:27 Family History (Updated 10/21/23 @ 17:[address] Julia Pastrana MD) Mother Diabetes Obesity other (Patient does not know his paternal family history.) Surgical History (Updated 10/21/23 @ 17:[address] Julia Pastrana MD) History of vascular access device Social History (Updated 10/21/23 @ 17:[address] Julia Pastrana MD) household members: none housing: long term pets and animals: No Smoking Status: Never smoker alcohol intake: never substance use type: does not use ROS ROS Narrative Admission Review of Systems: CONSTITUTIONAL: No weight loss, fever, chills, + weakness or fatigue. HEENT: Eyes: No visual loss, blurred vision, double vision or yellow sclerae. Ears, Nose, Throat: No hearing loss, sneezing, congestion, runny nose or sore throat. SKIN: No itching, lesions, wounds except significant + bilateral lower extremity venous stasis skin changes, stasis wounds, diffuse thorax as well as upper and lower extremity small petechial rash similar to previous admission. CARDIOVASCULAR: + Edema, orthopnea, intermittent palpitations no chest pain, chest pressure or chest discomfort, syncopal events. RESPIRATORY: + Dyspnea, intermittent cough, reportedly productive sputum. No s pecific wheezing or hemoptysis noted. GASTROINTESTINAL: No anorexia, nausea, vomiting or diarrhea, abdominal pain, melena, BRBPR. GENITOURINARY: No dysuria, frequency, urgency or retention. NEUROLOGICAL: No headache, dizziness, syncope, paralysis, ataxia, numbness or tingling in the extremities, focal weakness, change in bowel or bladder control, seizure. MUSCULOSKELETAL: + muscle, back pain, joint pain or stiffness. HEMATOLOGIC: No anemia, bleeding or bruising. LYMPHATICS: No enlarged nodes. No history of splenectomy. PSYCHIATRIC: No history of depression or anxiety. ENDOCRINOLOGIC: + reports of sweating, cold or heat intolerance. No polyuria or polydipsia. ALLERGIES: No history of asthma, hives, eczema or rhinitis. Vital Signs Vital Signs Vital Signs: 10/21/23 11:40 10/21/23 11:43 10/21/23 11:45 Temperature 98.1 F 98.1 F Temperature Source Temporal Temporal Pulse Rate 113 H 118 H Respiratory Rate 20 H 15 Respiratory Effort Short of Breath Labored Respiratory Depth Normal Respiratory Pattern Tachypnea Blood Pressure 152/117 H 152/117 H Blood Pressure Mean 128 128 Pulse Ox 95 95 Oxygen Delivery Method Non-Rebreather Non-Rebreather High Flow Oxygen Flow Rate (L/min) 10 10 10/21/23 13:43 Temperature 97.8 F Temperature Source Temporal Pulse Rate 113 H Respiratory Rate 18 Respiratory Effort Respiratory Depth Respiratory Pattern Blood Pressure 126/86 H Blood Pressure Mean 99 Pulse Ox 93 Oxygen Delivery Method Nasal Cannula Oxygen Flow Rate (L/min) 10 Weight Weight: 414 lb 11.032 oz Body Mass Index (BMI) 57.8 Physical Exam Narrative Physical Examination: General: Awake, alert, oriented x 3 and cooperative, seated upright in the ED bed, fatigued, still mildly increased respiratory rate but more comfortable isrrael earing and feels improved he notes since initial ED arrival, mildly disheveled appearance. Skin: Normal color, normal turgor, no icterus, no cyanosis except significant bilateral lower extremity venous stasis skin changes, stasis blisters, occasional very staged ecchymoses as well as thorax and upper and lower extremity petechial rash similar to previous presentation. HEENT: AT/NC, EOMI, PERRLA, mildly dry MM, no carotid bruits, difficult to discern JVD given very thickened neck. Lungs: Significantly diminished, greater bases, mildly rhonchorous, very distant but no discerned rales, no current wheezing, increased respiratory rate and some accessory muscle usage noted. Heart: Tachycardic with regular rhythm; no gallop, rub audible. Abdomen: Soft, morbidly obese, NTTP, distant BS, difficult to discern distention and HSM given habitus. Extremities: No cyanosis, no clubbing, significant bilateral lower extremity venous stasis skin changes, stasis wounds, poor self-care evident. Neurological: Patient awake, alert, oriented as noted, cognitive function appears baseline intact; pupils equally reactive to light and accommodation, cranial nerves grossly normal, moving all 4 extremities, no focal deficits, strength severely globally decreased secondary to acute presentation compounded by underlying comorbidities. Psychiatric: Affect appears fatigued, increased work of breathing but no overt distress, no acute evidence of depressive or anxiety feelings. Results Lab / Micro Data 10/21/23 12:00 10/21/23 12:00 Labs: Laboratory Results - last 24 hr 10/21/23 12:00: WBC 8.6, RBC 6.01, Hgb 14.2, Hct 50.4, MCV 83.9, MCH 23.6 L, MCHC 28.2 L, RDW Std Deviation 47.9 H, RDW Coeff of Benedicto 16.4 H, Plt Count 266, MPV 11.2, Immature Gran % (Auto) 0.600, Neut % (Auto) 82.5 H, Lymph % (Auto) 12.5 L, [place] % (Auto) 3.0, Eos % (Auto) 0.8, Baso % (Auto) 0.6, Absolute Neuts (auto) 7.1, Absolute Lymphs (auto) 1.08, Nucleated RBC % 0, PT 15.3 H, INR 1.2, APTT 27.4, Sodium 139, Potassium 4.0, Chloride 106, Carbon Dioxide 28.0, Anion Gap 5, BUN 21 H, Creatinine 1.92 H, Estim Creat Clear Calc 86.24, Est GFR (MDRD) Af Amer 50 L, Est GFR (MDRD) Non-Af 41 L, BUN/Creatinine Ratio 10.9, Glucose 164 H, Lactic Acid 1.9, Calcium 9.6, Total Bilirubin 0.60, AST 26, ALT 20, Alkaline Phosphatase 106, Troponin I High Sens 41, B-Natriuretic Peptide 273.1 H, Total Protein 9.1 H, Albumin 3.3, Globulin 5.8 H, Albumin/Globulin Ratio 0.6 L 10/21/23 13:14: Urine Color Yellow, Urine Clarity Sl. Cloudy, Urine pH 6.0, Ur Specific [place] 1.015, Urine Protein 100 H, Urine Glucose (UA) Normal, Urine Ketones 5 H, Urine Occult Blood 50 H, Urine Nitrite Positive H, Urine Bilirubin Negative, Urine Urobilinogen Normal, Ur Leukocyte Esterase 500 H, Urine RBC 0 SEEN, Urine WBC 50-100 SEEN, Ur Squamous Epith Cells 0-5 SEEN, Urine Bacteria 2 +, Urine Mucus 0 SEEN Micro: Microbiology 10/21/23 12:00 Mucosa - Nose SARS-CoV-2, Influenza & RSV (PCR) - Final ABG Data ABG results: ABG 10/21/23 10/21/23 10/21/23 12:24 12:24 12:24 Specimen Type ART Cancelled Sample Site L Radial Cancelled pH 7.33 L Bicarbonate Actual Total CO2 Base Excess O2 Saturation O2 % ABG pCO2 ABG pO2 Cleve Test Respiration Rate O2 Delivery Device Liter Flow Minute Volume Vent Mode Inspiratory Time Expiratory Time Tidal Volume Mean Airway Pressure POC PEEP Peak Inspir Pressure POC Pressure Suppt Pressure Control Pressure High Pressure Low Time High Time Low EPAP IPAP Blood Gas Comments Crit Call To/Read Back Blood Gas Notified Whom Blood Gas Notified Time Clinical Comments 10/21/23 10/21/23 10/21/23 12:24 12:24 12:24 Specimen Type Sample Site pH Cancelled Bicarbonate Actual 23.8 Cancelled Total CO2 25 Cancelled Base Excess -2 O2 Saturation O2 % ABG pCO2 ABG pO2 Cleve Test Respiration Rate O2 Delivery Device Liter Flow Minute Volume Vent Mode Inspiratory Time Expiratory Time Tidal Volume Mean Airway Pressure POC PEEP Peak Inspir Pressure POC Pressure Suppt Pressure Control Pressure High Pressure Low Time High Time Low EPAP IPAP Blood Gas Comments Crit Call To/Read Back Blood Gas Notified Whom Blood Gas Notified Time Clinical Comments 10/21/23 10/21/23 10/21/23 12:24 12:24 12:24 Specimen Type Sample Site pH Bicarbonate Actual Total CO2 Base Excess Cancelled O2 Saturation 93 L Cancelled O2 % Cancelled ABG pCO2 45.0 Cancelled ABG pO2 74 L Cleve Test Respiration Rate O2 Delivery Device Liter Flow Minute Volume Vent Mode Inspiratory Time Expiratory Time Tidal Volume Mean Airway Pressure POC PEEP Peak Inspir Pressure POC Pressure Suppt Pressure Control Pressure High Pressure Low Time High Time Low EPAP IPAP Blood Gas Comments Crit Call To/Read Back Blood Gas Notified Whom Blood Gas Notified Time Clinical Comments 10/21/23 10/21/23 10/21/23 12:24 12:24 12:24 Specimen Type Sample Site pH Bicarbonate Actual Total CO2 Base Excess O2 Saturation O2 % ABG pCO2 ABG pO2 Cancelled Cleve Test Y Cancelled Respiration Rate Cancelled O2 Delivery Device HFNC Cancelled Liter Flow 10.0 Minute Volume Vent Mode Inspiratory Time Expiratory Time Tidal Volume Mean Airway Pressure POC PEEP Peak Inspir Pressure POC Pressure Suppt Pressure Control Pressure High Pressure Low Time High Time Low EPAP IPAP Blood Gas Comments Crit Call To/Read Back Blood Gas Notified Whom Blood Gas Notified Time Clinical Comments 10/21/23 12:24 Specimen Type Sample Site pH Bicarbonate Actual Total CO2 Base Excess O2 Saturation O2 % ABG pCO2 ABG pO2 Cleve Test Respiration Rate O2 Delivery Device Liter Flow Cancelled Minute Volume Cancelled Vent Mode Cancelled Inspiratory Time Cancelled Expiratory Time Cancelled Tidal Volume Cancelled Mean Airway Pressure Cancelled POC PEEP Cancelled Peak Inspir Pressure Cancelled POC Pressure Suppt Cancelled Pressure Control Cancelled Pressure High Cancelled Pressure Low Cancelled Time High Cancelled Time Low Cancelled EPAP Cancelled IPAP Cancelled Blood Gas Comments Cancelled Crit Call To/Read Back Cancelled Blood Gas Notified Whom Cancelled Blood Gas Notified Time Cancelled Clinical Comments Cancelled Imaging Radiology Impression Chest X-Ray 10/21/23 13:04 IMPRESSION: Mild cardiomegaly and vascular congestion. Electronically Signed: Gregg Allen MD at 13:15 EDT , Chest CTA 10/21/23 13:14 IMPRESSION: Extensive bilateral pulmonary embolism as described. No evidence of right heart strain at this time. Focal infiltrate in the medial aspect of the left upper lobe. Radiographic follow-up recommended. Electronically Signed: Gregg Allen MD at 14:07 EDT , Assessment & Plan Assessment/Plan (1) Acute UTI: PLAN: Plan The patient is a 43 y/o M w/ PMHx: Morbid Obesity, Chronic BL LE Edema/Lymphedema, Diabetes mellitus type II, SUNG with noncompliance with PAP therapy, Obesity Hyperventilation Syndrome with Chronic Hypoxic and Hypercapnic Respiratory Failure (2L NC), recent prolonged hospitalization from 09/23/2023- 10/14/2023 with acute on chronic combined respiratory failure, acute kidney injury requiring acute dialysis felt likely secondary to ischemic ATN secondary to septic shock and vancomycin, septic shock secondary to acute cellulitis left lower extremity with wound with polymicrobial culture compounded by underlying significant medical history who now represents to the [facility] ED on 10/21/2023 with worsening dyspnea over the last 24 hours reportedly having to sleep upright in a recliner with onset of a productive cough for the last few days prompting EMS call with oxygenation noted to be 80% on 2 L eventually increasing requiring a nonrebreather at 10 L prompting transition to the ED for evaluation. #1. Acute on Chronic Hypoxic and Hypercarbic Respiratory Failure, Multifactorial, secondary to Suspected Acute Decompensated HF, unclear type, Acute Extensive Pulmonary Emboli with LLE + DVT with femoral and distal involvement, PUSHPA Pneumonia, Possible GN/GP organism noted in addition to Obesity Hyperventilation Syndrome, SUNG noncompliant with PAP therapy: Will admit to the PCU given improvement in the ED, will maintain on cardiac telemetry, obtain cardiac enzyme series, obtain serial EKGs, pulse dose IV bumex diuresis given inpatient recent admission with rash following lasix usage potentially, maintain on ATC budesonide PRN albuterol, maintain on IV Zosyn and Vancomycin very cautiously given elevated trough during prior admission with WINDY with de- escalation off as able, requested MRSA screen, HOB, IS parameters w/ pending sputum cultures, full respiratory viral panel and urine antigens, monitor I/Os, continue medical therapy, obtain TSH and magnesium level. Bld cx x 2 obtained in the ED. ECHO requested. Maintain on oral eliquis but threshold to transition to heparin drip if oral intake unsafe. Mono wraps to BL LE. BIPAP as needed and q HS. PT/OT/CM consultation for discharge planning. #2. Acute Complicated Urinary Tract Infection: UA upon ED evaluation remarkable, pending UCx, monitor I/Os, given #1 diuresing, continue IV Vanc and Zosyn cautious as noted #1 w/ transition as able pending sensitivities and speci ation. Bld cx x 2 obtained in the ED. #3. Recurrent Diffuse Rash, Unclear etiology, previous admission with similar: During his recent admission patient did have a whole-body rash of note and it was felt likely consistent with a drug-related reaction noted to be widespread on the chest, abdomen, upper extremities starting on 10/08/2023 possibly secondary to diuretic Lasix therapy with a hypersensitivity reaction which could be immediate and delayed eventually discontinued with administration of Solu-Medrol 40 mg IV x 2 doses with moderate improvement. Will continue as noted trial of bumex to be cautious. Will administer famotidine, benadryl and solumedrol x 2 doses each and continue to monitor. Unclear exact source. #4. Recent Hx of Septic shock secondary to LLE cellulitis, wound complicated by underlying Chronic BL LE Lymphedema, polymicrobial: Wound Cx LLE 09/22 w/ Strep dysgalactiae, Proteus, Staph aureus and Alcalignenes. Bld Cx 09/22 negative x 2, repeat blood cultures 09/25 negative x 2. Initially treated with vancomycin and meropenem, however vancomycin discontinued due to elevated troughs and severe WINDY, transient pressor usage and intubation during prior admission, completed abx therapy, resolved. #5. Recent admission with WINDY secondary to ATN, vancomycin, improving w/ GFR currently consistent with CKD stage III unclear subtype but of note prior to his recent admission had normal renal function without CKD: Admission BUN/creatinine 25/07.92, recent discharge with creatinine 3.40 steadily improving fortunately with WINDY during admission secondary to suspected ATN as well as medications including vancomycin requiring several rounds of dialysis with creatinine mary vated up to 9.61 on 10/04/2023, continue to trend CMP and monitor for any reoccurrence acute kidney injury. Will continue to aggressive avoid NSAID therapies. #6. Diabetes mellitus type II: Hold oral home regimen, continue home insulin regimen, once oral intake safe will allow ADA diet, accu checks w/ ISS. #7. Morbid Obesity: Weight loss and lifestyle changes encouraged, nutrition consulted. #8. DVT prophylaxis: Eliquis as noted. #9. CODE status: Patient HCPOA and living will are not in place but he notes that he would want his sister to be his medical decision-maker if necessary. Discussed CODE status at length including difference between FULL code, DNR-CCA and DNR-CC status. Following discussions about the differences in these status, requested Full Code status. Advanced Care Planning Face to Face Time: 16 minutes. Charges/Coding Visit Charges Inpatient E&M: 03862 Init Hosp L3 Procedures Hospitalists Procedures: 64553 Advncd Care Plan 30 Min
[2023-10-21] MEDS: Piperacil/Tazobactam 3.375 GM in 0.9% Normal Saline (50mL MB+) 50 ML IV ×2 (15:00→23:13)
[2023-10-21 15:02] LABS: Magnesium 1.7 mg/dL (1.6-2.6); Phosphorus 3.8 mg/dL (2.5-4.9)
[2023-10-21] MEDS: Vancomycin HCl 2,000 MG in 0.9% Normal Saline (500mL Bag) 500 ML 250 MG IV (15:04)
[2023-10-21] MEDS: APIXABAN 5 MG TABLET 10 MG PO ×2 (15:08→23:20)
[2023-10-21 15:18] LABS: International Normalized Ratio 1.2; Prothrombin Time (Protime)PT. 15.1 SECONDS (11.7-14.9)
--- NOTE | 2023-10-21 16:33 | ECHOCS_ITS ---
Reason For Study: CHF Procedure This was a 2D Doppler, Color Flow transthoracic echocardiogram. The study was technically difficult. Contrast injection was performed. Exam performed portable in patient room. Left Ventricle Normal LV size. Left ventricular systolic function is normal. The estimated ejection fraction is 65 %. Unable to assess diastolic function based on available data. Right Ventricle Normal RV size. Normal systolic function. Atria Normal left atrium. Normal right atrium. Mitral Valve The mitral valve is structurally normal. No prolapse or stenosis seen. Tricuspid Valve Normal tricuspid valve. Trivial tricuspid valve insufficiency. Unable to estimate RV systolic pressure due to insufficient tricuspid regurgitant envelope. Aortic Valve Trisinus/trileaflet aortic valve. Pulmonic Valve The pulmonic valve is not well visualized. Trivial pulmonic valve insufficiency. Great Vessels Normal aortic root. Pericardium/Pleural Epicardial fat. No pericardial effusion. Medication Diluted definity 4ml given slow IV push to enhance endocardial definition. MMode/2D Measurements & Calculations LVIDd: 4.9 cm IVSd: 0.86 cm Ao root diam: 3.5 cm LVIDs: 3.5 cm LVPWd: 1.0 cm LA dimension: 4.1 cm FS: 30.1 % Doppler Measurements & Calculations MV E max iggy: 95.6 cm/sec Lat Peak E' Iggy: 12.8 cm/sec Med Peak E' Iggy: 10.4 cm/sec E/E' lat: 7.4 E/E' med: 9.2 MV V2 max: 115.5 cm/sec Ao V2 max: 146.3 cm/sec LV V1 max: 90.9 cm/sec MV max P.3 mmHg Ao max P.6 mmHg LV V1 max P.3 mmHg MV V2 mean: 70.3 cm/sec MV mean P.3 mmHg MV V2 VTI: 19.8 cm PA V2 max: 96.1 cm/sec ECHO/Echo Complete W/ Contrast Interpretation Summary The estimated ejection fraction is 65 %. Structually normal valves. The study was technically difficult. Contrast injection was performed. Ordering Physician: Julia Pastrana Performed By: Barry Hendrix RCS
--- NOTE | 2023-10-21 16:53 | PCM.RX.CS ---
Consult Antibiotic Management Pharmacy has been consulted to manage selected antibiotic: Vancomycin Type of Intervention Type of Consult: New start Suspected Infection Suspected Infection: Other (UTI) Prior Doses of Antibiotics Prior Doses of Antibiotics Received/Current Regimen: Vancomycin 2000 mg IV x 1 given 10/21/23 @ 1504, patient is also on piperacillin/tazobactam 3.375 grams Q8H Labs Labs: Sodium 139 mmol/L (136-145) 10/21/23 12:00 Potassium 4.0 mmol/L (3.5-5.1) 10/21/23 12:00 Chloride 106 mmol/L (98-107) 10/21/23 12:00 Carbon Dioxide 28.0 mmol/L (21.0-32.0) 10/21/23 12:00 Anion Gap 5 (5-15) 10/21/23 12:00 BUN 21 mg/dL (7-18) H 10/21/23 12:00 Creatinine 1.92 mg/dL (0.70-1.30) H 10/21/23 12:00 Est GFR (MDRD) Af Amer 50 mL/min (>60) L 10/21/23 12:00 Est GFR (MDRD) Non-Af 41 mL/min (>60) L 10/21/23 12:00 BUN/Creatinine Ratio 10.9 RATIO (10-20) 10/21/23 12:00 Glucose 164 mg/dL (74-106) H 10/21/23 12:00 Microbiology Microbiology: Microbiology 10/21/23 12:00 Mucosa - Nose SARS-CoV-2, Influenza & RSV (PCR) - Final Dosing Weight Weight used for dosin.3 kg Estimated Creatinine Clearance Estimated Creatinine Clearance: ~86 Goal Trough Goal Trough: 15-20 mcg/mL Pharmacy Plan for Drug Dosing Pharmacy Plan for Drug Dosing: Vancomycin 2000 mg IV x 1 followed by 1500 mg Q12H. Patient's recommended dose per dosing chart is 2000 mg IV Q12H, will reduce dose d/t previously elevated vancomycin troughs and suspected vancomycin toxicity last admission. Pharmacy Service will continue to monitor and adjust dosing as required. Follow-Up Labs Follow-Up Labs: Trough: Vancomycin Date/Time Labs Ordered Labs to be done on [date and time ordered]: 10/23/23 @ 7063
[2023-10-21] MEDS: Famotidine 200 MG/20 ML MDV 20 MG in 0.9% Normal Saline (Pres. free 8 ML 300 MG IV (17:33)
[2023-10-21] MEDS: Menthol/Lanolin/Calamine/Znox 113 GM Tube 1 APPLIC TOPICAL ×2 (17:33→23:21)
[2023-10-21] MEDS: MethylPREDNISolone 125 MG/2 ML Vial 40 MG IV ×2 (17:33→23:22)
[2023-10-21] MEDS: Bumetanide 1 MG/4 ML Vial IV (17:33)
[2023-10-21 17:47] LABS: Troponin-I HS 42 pg/mL (3.0-78.0)
[2023-10-21] MEDS: DiphenhydrAMINE 50 MG/ML Syringe 25 MG IV ×2 (17:52→23:35)
[2023-10-21 18:19] LABS: Bedside Glucose 121 mg/dL (74-106)
[2023-10-21 20:01] LABS: Troponin-I HS 36 pg/mL (3.0-78.0)
[2023-10-21 22:42] LABS: Bedside Glucose 179 mg/dL (74-106)
[2023-10-21 23:06] LABS: M R Staph aureus DNA By PCR Negative (Negative); Probe Check PASS; Specimen Processing Control PASS
[2023-10-21] MEDS: 0.9% Saline Lock 10 ML Syringe IV (23:13)
[2023-10-21] MEDS: Nystatin Powder 15gm Bottle 1 APPLIC TOPICAL (23:21)
[2023-10-22] VITALS (8 sets, daily range): BP systolic 111–136; BP diastolic 77–91; PULSE 59–103; RESP 12–19; TEMP 36.3–36.9; O2SAT 92–98; BMI 59.2
[2023-10-22 00:07] LABS: Troponin-I HS 26 pg/mL (3.0-78.0)
[2023-10-22] MEDS: Vancomycin HCl 1,500 MG in 0.9% Normal Saline (500mL Bag) 500 ML 250 MG IV ×2 (03:37→15:41)
[2023-10-22] MEDS: Piperacil/Tazobactam 3.375 GM in 0.9% Normal Saline (50mL MB+) 50 ML IV ×3 (06:32→21:35)
[2023-10-22] MEDS: Nystatin Powder 15gm Bottle 1 APPLIC TOPICAL ×2 (06:36→21:35)
[2023-10-22] MEDS: Insulin Lispro 100 UNIT/ML INSULN.PEN SC ×4 (06:36→21:34)
[2023-10-22 06:38] LABS: Absolute Lymphocyte Count 0.82 X10^3/uL (0.83-4.51); Absolute Neutrophil Count 4.7 X10^3/uL (2.0-7.7); Basophil# 0.01 X10^3/uL; Basophil% 0.2 % (0-1); Hematocrit 46.1 % (40-54); Hemoglobin 13.1 g/dL (13.0-16.5); Lymphocyte # 0.82 X10^3/ul (0.83-4.51); Lymphocyte % 14.6 % (19-41); Mean Corp Hgb Conc 28.4 g/dL (32-36); Mean Corpuscular Volume 84.4 fL (80-94); Mean Platelet Vol. 11.3 fl (6.2-12.0); Monocyte# 0.09 X10^3/uL; Monocyte% 1.6 % (0-10); NRBC Flagged by Analyzer 0 % (0-5); Neutrophil # 4.66 X10^3/uL (2.7-7.7); Neutrophil % 83.2 % (47-70); Platelet Count 242 K/mm3 (150-450); RBC Distribution Width SD 48.7 fl (35.1-43.9); Red Blood Count 5.46 M/mm3 (4.6-6.2); White Blood Count 5.6 K/mm3 (4.4-11.0)
[2023-10-22 07:10] LABS: ALB/GLOB Ratio 0.5 RATIO (0.9-2.4); AST(SGOT) 15 U/L (15-37); Alanine Aminotransfer ALT/SGPT 16 U/L (16-61); Albumin, Serum 2.7 g/dL (3.2-5.0); Alkaline Phosphatase 89 U/L (45-117); Anion Gap 8 (5-15); BUN 23 mg/dL (7-18); BUN/Creat Ratio 13.1 RATIO (10-20); Calcium,Total 8.8 mg/dL (8.5-10.1); Chloride 107 mmol/L (98-107); Cholesterol 126 mg/dL (200); Creatinine, Serum 1.76 mg/dL (0.70-1.30); EST Glomerular Filtration Rate 45 mL/min (>60); Est Glom Filt Rate - Afr Amer 55 mL/min (>60); Glucose 251 mg/dL (74-106); High Density Lipoprotein 33 mg/dL; Potassium 4.3 mmol/L (3.5-5.1); Protein, Total 7.7 g/dL (6.4-8.2); Sodium Level 141 mmol/L (136-145); Thyroid Stim Hormone (TSH) 0.84 uIU/mL (0.358-3.74); Triglycerides 74 mg/dL; Very Low Density Lipoprotein 15 mg/dL (5-40)
[2023-10-22 07:11] LABS: Bedside Glucose 218 mg/dL (74-106)
[2023-10-22] MEDS: Bumetanide 1 MG/4 ML Vial IV ×2 (08:35→17:01)
[2023-10-22] MEDS: Famotidine 200 MG/20 ML MDV 20 MG in 0.9% Normal Saline (Pres. free 8 ML 300 MG IV (08:35)
[2023-10-22] MEDS: APIXABAN 5 MG TABLET 10 MG PO ×2 (08:35→21:34)
[2023-10-22] MEDS: Aspirin E.C. 81 MG Tablet PO (08:35)
[2023-10-22] MEDS: Menthol/Lanolin/Calamine/Znox 113 GM Tube 1 APPLIC TOPICAL ×2 (08:36→21:35)
--- NOTE | 2023-10-22 09:21 | PN.HOSP_ITS ---
Reason for Visit Reason for Visit: Diagnoses Urinary tract infection, site not specified (10/21/23) Subjective Subjective Patient is a 43-year-old gentleman with multiple comorbidities with recent hospitalization who presented to the emergency department with progressive shortness of breath Objective Data Objective Data Vital Signs: Vital Signs Temp Pulse Resp BP Pulse Ox O2 Del Method O2 Flow Rate 98 F 79 16 136/91 H 98 Nasal Cannula 7 10/22/23 08:45 10/22/23 08:45 10/22/23 08:45 10/22/23 08:45 10/22/23 08:45 10/22/23 08:45 10/22/23 08:45 FiO2 30 10/22/23 05:33 Oxygen Flow Rate (L/min) 7 Oxygen Delivery Method Nasal Cannula Weight: 192 kg Body Mass Index (BMI) 59.2 Intake & Output: Intake and Output for Last 24 Hours 10/20/23 10/21/23 10/22/23 23:59 23:59 23:59 Intake Total 1080 / 1080 580 / 580 Output Total 400 / 400 Balance 680 / 680 580 / 580 Lab / Micro Data 10/22/23 06:13 10/22/23 06:13 Labs: Laboratory Results - last 24 hr 10/21/23 12:00: WBC 8.6, RBC 6.01, Hgb 14.2, Hct 50.4, MCV 83.9, MCH 23.6 L, MCHC 28.2 L, RDW Std Deviation 47.9 H, RDW Coeff of Benedicto 16.4 H, Plt Count 266, MPV 11.2, Immature Gran % (Auto) 0.600, Neut % (Auto) 82.5 H, Lymph % (Auto) 12.5 L, [place] % (Auto) 3.0, Eos % (Auto) 0.8, Baso % (Auto) 0.6, Absolute Neuts (auto) 7.1, Absolute Lymphs (auto) 1.08, Nucleated RBC % 0, PT 15.3 H, INR 1.2, APTT 27.4, Sodium 139, Potassium 4.0, Chloride 106, Carbon Dioxide 28.0, Anion Gap 5, BUN 21 H, Creatinine 1.92 H, Estim Creat Clear Calc 86.24, Est GFR (MDRD) Af Amer 50 L, Est GFR (MDRD) Non-Af 41 L, BUN/Creatinine Ratio 10.9, Glucose 164 H, Lactic Acid 1.9, Calcium 9.6, Phosphorus 3.8, Magnesium 1.7, Total Bilirubin 0.60, AST 26, ALT 20, Alkaline Phosphatase 106, Troponin I High Sens 41, B- Natriuretic Peptide 273.1 H, Total Protein 9.1 H, Albumin 3.3, Globulin 5.8 H, Albumin/Globulin Ratio 0.6 L 10/21/23 13:14: Urine Color Yellow, Urine Clarity Sl. Cloudy, Urine pH 6.0, Ur Specific [place] 1.015, Urine Protein 100 H, Urine Glucose (UA) Normal, Urine Ketones 5 H, Urine Occult Blood 50 H, Urine Nitrite Positive H, Urine Bilirubin Negative, Urine Urobilinogen Normal, Ur Leukocyte Esterase 500 H, Urine RBC 0 SEEN, Urine WBC 50-100 SEEN, Ur Squamous Epith Cells 0-5 SEEN, Urine Bacteria 2+, Urine Mucus 0 SEEN 10/21/23 15:00: PT 15.1 H, INR 1.2, APTT 24.0 L, Procalcitonin 0.10 H 10/21/23 17:11: Troponin I High Sens 42 10/21/23 17:23: POC Glucose 121 H 10/21/23 18:50: MRSA (PCR) Negative 10/21/23 19:14: Troponin I High Sens 36 10/21/23 20:47: POC Glucose 179 H 10/21/23 23:38: Troponin I High Sens 26 10/22/23 06:13: WBC 5.6, RBC 5.46, Hgb 13.1, Hct 46.1, MCV 84.4, MCH 24.0 L, MCHC 28.4 L, RDW Std Deviation 48.7 H, RDW Coeff of Benedicto 16.0 H, Plt Count 242, MPV 11.3, Immature Gran % (Auto) 0.400, Neut % (Auto) 83.2 H, Lymph % (Auto) 14.6 L, [place] % (Auto) 1.6, Eos % (Auto) 0.0, Baso % (Auto) 0.2, Absolute Neuts (auto) 4.7, Absolute Lymphs (auto) 0.82 L, Nucleated RBC % 0, Sodium 141, Potassium 4.3, Chloride 107, Carbon Dioxide 26.0, Anion Gap 8, BUN 23 H, Creatinine 1.76 H, Estim Creat Clear Calc 95.30, Est GFR (MDRD) Af Amer 55 L, Est GFR (MDRD) Non-Af 45 L, BUN/Creatinine Ratio 13.1, Glucose 251 H, Calcium 8.8, Total Bilirubin 0.50, AST 15, ALT 16, Alkaline Phosphatase 89, Total Protein 7.7, Albumin 2.7 L, Globulin 5.0 H, Albumin/Globulin Ratio 0.5 L, Triglycerides 74, Cholesterol 126, LDL Cholesterol 78, VLDL Cholesterol 15, HDL Cholesterol 33 L, TSH 0.84 10/22/23 06:35: POC Glucose 218 H Micro: Microbiology 10/21/23 17:58 Mucosa - Nasopharyngeal Respiratory Panel (PCR) - Final 10/21/23 13:14 Urine, Clean Catch Legionella Antigen - Final 10/21/23 13:14 Urine, Clean Catch Streptococcus pneumoniae Antigen (M - Final 10/21/23 12:00 Mucosa - Nose SARS-CoV-2, Influenza & RSV (PCR) - Final ABG Data ABG results: ABG 10/21/23 10/21/23 10/21/23 12:24 12:24 12:24 Specimen Type ART Cancelled Sample Site L Radial Cancelled pH 7.33 L Bicarbonate Actual Total CO2 Base Excess O2 Saturation O2 % ABG pCO2 ABG pO2 Cleve Test Respiration Rate O2 Delivery Device Liter Flow Minute Volume Vent Mode Inspiratory Time Expiratory Time Tidal Volume Mean Airway Pressure POC PEEP Peak Inspir Pressure POC Pressure Suppt Pressure Control Pressure High Pressure Low Time High Time Low EPAP IPAP Blood Gas Comments Crit Call To/Read Back Blood Gas Notified Whom Blood Gas Notified Time Clinical Comments 10/21/23 10/21/23 10/21/23 12:24 12:24 12:24 Specimen Type Sample Site pH Cancelled Bicarbonate Actual 23.8 Cancelled Total CO2 25 Cancelled Base Excess -2 O2 Saturation O2 % ABG pCO2 ABG pO2 Cleve Test Respiration Rate O2 Delivery Device Liter Flow Minute Volume Vent Mode Inspiratory Time Expiratory Time Tidal Volume Mean Airway Pressure POC PEEP Peak Inspir Pressure POC Pressure Suppt Pressure Control Pressure High Pressure Low Time High Time Low EPAP IPAP Blood Gas Comments Crit Call To/Read Back Blood Gas Notified Whom Blood Gas Notified Time Clinical Comments 10/21/23 10/21/23 10/21/23 12:24 12:24 12:24 Specimen Type Sample Site pH Bicarbonate Actual Total CO2 Base Excess Cancelled O2 Saturation 93 L Cancelled O2 % Cancelled ABG pCO2 45.0 Cancelled ABG pO2 74 L Cleve Test Respiration Rate O2 Delivery Device Liter Flow Minute Volume Vent Mode Inspiratory Time Expiratory Time Tidal Volume Mean Airway Pressure POC PEEP Peak Inspir Pressure POC Pressure Suppt Pressure Control Pressure High Pressure Low Time High Time Low EPAP IPAP Blood Gas Comments Crit Call To/Read Back Blood Gas Notified Whom Blood Gas Notified Time Clinical Comments 10/21/23 10/21/23 10/21/23 12: 12:24 12:24 Specimen Type Sample Site pH Bicarbonate Actual Total CO2 Base Excess O2 Saturation O2 % ABG pCO2 ABG pO2 Cancelled Cleve Test Y Cancelled Respiration Rate Cancelled O2 Delivery Device HFNC Cancelled Liter Flow 10.0 Minute Volume Vent Mode Inspiratory Time Expiratory Time Tidal Volume Mean Airway Pressure POC PEEP Peak Inspir Pressure POC Pressure Suppt Pressure Control Pressure High Pressure Low Time High Time Low EPAP IPAP Blood Gas Comments Crit Call To/Read Back Blood Gas Notified Whom Blood Gas Notified Time Clinical Comments 10/21/23 12:24 Specimen Type Sample Site pH Bicarbonate Actual Total CO2 Base Excess O2 Saturation O2 % ABG pCO2 ABG pO2 Cleve Test Respiration Rate O2 Delivery Device Liter Flow Cancelled Minute Volume Cancelled Vent Mode Cancelled Inspiratory Time Cancelled Expiratory Time Cancelled Tidal Volume Cancelled Mean Airway Pressure Cancelled POC PEEP Cancelled Peak Inspir Pressure Cancelled POC Pressure Suppt Cancelled Pressure Control Cancelled Pressure High Cancelled Pressure Low Cancelled Time High Cancelled Time Low Cancelled EPAP Cancelled IPAP Cancelled Blood Gas Comments Cancelled Crit Call To/Read Back Cancelled Blood Gas Notified Whom Cancelled Blood Gas Notified Time Cancelled Clinical Comments Cancelled Radiography Diagnostic Testing: Radiology Impression Venous Doppler Study 10/21/23 12:03 Interpretation Summary Acute deep vein thrombosis is noted in the left femoral vein, popliteal vein, tibioperoneal trunk vein, gastrocnemius vein, posterior tibial vein, peroneal vein. Deep veins of the right lower extremity are patent and compressible segmentally. There is no evidence of right lower extremity deep vein thrombosis. The right great saphenous veins appear patent and compressible segmentally. Ordering Physician: Светлана Wright Performed By: Lay Marie, RVT Chest X-Ray 10/21/23 13:04 IMPRESSION: Mild cardiomegaly and vascular congestion. Electronically Signed: Gregg Allen MD at 13:15 EDT , Chest CTA 10/21/23 13:14 IMPRESSION: Extensive bilateral pulmonary embolism as described. No evidence of right heart strain at this time. Focal infiltrate in the medial aspect of the left upper lobe. Radiographic follow-up recommended. Electronically Signed: Gregg Allen MD at 14:07 EDT , Physical Exam Narrative GENERAL: cooperative HEENT: Atraumatic; EYES; Anicteric, Normal Conjunctiva NECK; supple, normal thyroid, RESPIRATORY: Diminished to auscultation CARDIOVASCULAR: Regular S1 S2, GI: soft, normoactive bowel sounds, : No Renal angle tenderness; EXTREMITIES: Stasis dermatitis involving both lower extremity with erythema MUSCULOSKELETAL: no muscle wasting NEURO: Awake; no lateralizing signs. SKIN: Maculopapular rash on upper and lower extremities as well as trunk PSYCH; Flat affect Assessment & Plan Assessment/Plan (1) Acute UTI: PLAN: Plan Patient is a 43-year-old gentleman with multiple comorbidities with recent hospitalization who presented to the emergency department with progressive shortness of breath 1. Acute on chronic hypoxic and hypercapnic respiratory failure ? Multifactorial including, obesity hypoventilation syndrome, acute extensive pulmonary embolism and suspected right upper lobe pneumonia 2. Acute VTE? Acute pulmonary embolism and left lower extremity extensive DVT ? CTA obtained on admission demonstrated Extensive bilateral pulmonary embolism as described. No evidence of right heart strain at this time. Venous duplex involving the lower extremity demonstrated acute deep vein thrombosis is noted in the left femoral vein, popliteal vein, tibioperoneal trunk vein, gastrocnemius vein, posterior tibial vein, peroneal vein. Patient started on systemic anticoagulation with apixaban. 2D echo ordered for subsequent assessment 3. Healthcare associated pneumonia with suspected multidrug-resistant organisms ? Imaging studies demonstrated focal infiltrate in the middle aspect of the left upper lobe. Patient was started on vancomycin and Zosyn cultures sent we will follow-up on result 4. Acute complicated urinary tract infection ? Patient remains on broad-spectrum antibiotic therapy we will follow-up on culture result 5. Extensive rash ? Suspected to be secondary to drug rash? Lasix. Patient currently on Solu- Medrol 6. Diabetes mellitus type II -patient's oral hypoglycemics held. Placed on long acting insulin, Accu-Cheks a.c. and at bedtime and covered with sliding scale insulin 7. Obstructive sleep apnea ? Patient apparently noncompliant with PAP therapy, consistent use encouraged 8. Class III obesity with BMI of 59 ? Complicating care weight loss advised 9. Obesity hypoventilation syndrome ? On supplemental oxygen 10. Chronic kidney disease stage III ? Kidney function at baseline 11. Physical deconditioning - Requested for PT OT eval and social work case manager to assist with discharge planning Time spent in the patient's overall evaluation,decision-making process, review of diagnostic data, adjustment of management, discussion with other providers, nursing nursing and ancillary staff involved in patient's care documentation, 54 Minutes Charges/Coding Visit Charges Inpatient E&M: 59872 [facility] L3
--- NOTE | 2023-10-22 11:01 | CASEMGMT ---
SW met with patient. Introduced self and role at [facility]. Patient confirmed his plan is to return to [facility] at discharge. SW explained his insurance will have to approve him before he can return. OMI sent updates to [facility] via [employer]. Plan: d/c back to [facility] pending patient being medically ready and insurance approval. Yesica SCHULTZ
[2023-10-22] MEDS: Insulin Glargine-YFGN 100 UNIT/ML Pen 10 UNIT SC (11:32)
[2023-10-22 11:52] LABS: Bedside Glucose 217 mg/dL (74-106)
[2023-10-22 16:46] LABS: Bedside Glucose 196 mg/dL (74-106)
[2023-10-23] VITALS (8 sets, daily range): BP systolic 117–126; BP diastolic 76–85; PULSE 74–86; RESP 12–23; TEMP 36.4–36.9; O2SAT 92–97; BMI 59.5
[2023-10-23 03:18] LABS: Absolute Lymphocyte Count 2.15 X10^3/uL (0.83-4.51); Absolute Neutrophil Count 9.1 X10^3/uL (2.0-7.7); Basophil# 0.05 X10^3/uL; Basophil% 0.4 % (0-1); Eosinophil# 0.04 X10^3/uL; Eosinophils% 0.3 % (0-5); Hematocrit 43.1 % (40-54); Hemoglobin 12.2 g/dL (13.0-16.5); Lymphocyte # 2.15 X10^3/ul (0.83-4.51); Lymphocyte % 17.4 % (19-41); Mean Corp Hgb Conc 28.3 g/dL (32-36); Mean Corpuscular Hgb 23.6 pg (27.0-32.0); Mean Corpuscular Volume 83.5 fL (80-94); Mean Platelet Vol. 11.7 fl (6.2-12.0); Monocyte# 0.99 X10^3/uL; NRBC Flagged by Analyzer 0 % (0-5); Neutrophil # 9.06 X10^3/uL (2.7-7.7); Neutrophil % 73.6 % (47-70); Platelet Count 266 K/mm3 (150-450); RBC Distribution Width SD 48.3 fl (35.1-43.9); Red Blood Count 5.16 M/mm3 (4.6-6.2); White Blood Count 12.3 K/mm3 (4.4-11.0)
[2023-10-23 03:33] LABS: Anion Gap 7 (5-15); BUN 28 mg/dL (7-18); Calcium,Total 8.6 mg/dL (8.5-10.1); Chloride 108 mmol/L (98-107); Creatinine, Serum 1.75 mg/dL (0.70-1.30); EST Glomerular Filtration Rate 46 mL/min (>60); Est Glom Filt Rate - Afr Amer 55 mL/min (>60); Estimated Creatinine Clearance 96.31 ml/min; Glucose 159 mg/dL (74-106); Magnesium 1.5 mg/dL (1.6-2.6); Phosphorus 3.7 mg/dL (2.5-4.9); Potassium 3.5 mmol/L (3.5-5.1); Sodium Level 141 mmol/L (136-145)
[2023-10-23 03:34] LABS: Vancomycin, Trough Level 30.7 ug/mL (5.0-15.0)
--- NOTE | 2023-10-23 03:49 | PCM.RX.CS ---
Consult Antibiotic Management Pharmacy has been consulted to manage selected antibiotic: Vancomycin Type of Intervention Type of Consult: Follow-up Labs Labs: Sodium 141 mmol/L (136-145) 10/23/23 02:40 Potassium 3.5 mmol/L (3.5-5.1) 10/23/23 02:40 Chloride 108 mmol/L (98-107) H 10/23/23 02:40 Carbon Dioxide 26.0 mmol/L (21.0-32.0) 10/23/23 02:40 Anion Gap 7 (5-15) 10/23/23 02:40 BUN 28 mg/dL (7-18) H 10/23/23 02:40 Creatinine 1.75 mg/dL (0.70-1.30) H 10/23/23 02:40 Est GFR (MDRD) Af Amer 55 mL/min (>60) L 10/23/23 02:40 Est GFR (MDRD) Non-Af 46 mL/min (>60) L 10/23/23 02:40 BUN/Creatinine Ratio 16.0 RATIO (10-20) 10/23/23 02:40 Glucose 159 mg/dL (74-106) H 10/23/23 02:40 Vancomycin Trough 30.7 ug/mL (5.0-15.0) H 10/23/23 02:40 Microbiology Microbiology: Microbiology 10/21/23 13:14 Urine, Clean Catch Urine Culture - Preliminary GNR lactose staging technician 10/21/23 17:58 Mucosa - Nasopharyngeal Respiratory Panel (PCR) - Final 10/21/23 13:14 Urine, Clean Catch Legionella Antigen - Final 10/21/23 13:14 Urine, Clean Catch Streptococcus pneumoniae Antigen (M - Final 10/21/23 12:00 Mucosa - Nose SARS-CoV-2, Influenza & RSV (PCR) - Final Goal Trough Goal Trough: 15-20 mcg/mL Pharmacy Plan for Drug Dosing Pharmacy Plan for Drug Dosing: Pharmacy Service will continue to monitor and adjust dosing as required. TROUGH 30.7 @ 11 HOURS. HOLD DOSE AND DRAW RANDOM LEVEL IN 18 HOURS Follow-Up Labs Follow-Up Labs: Trough: Vancomycin Date/Time Labs Ordered Labs to be done on [date and time ordered]: 10/22 @ 1999
[2023-10-23] MEDS: Piperacil/Tazobactam 3.375 GM in 0.9% Normal Saline (50mL MB+) 50 ML IV ×3 (04:52→22:42)
[2023-10-23 06:56] LABS: Bedside Glucose 163 mg/dL (74-106)
[2023-10-23 06:57] LABS: Bedside Glucose 134 mg/dL (74-106)
--- NOTE | 2023-10-23 07:27 | PCM.PN.HOSP ---
Reason for Visit Reason for Visit: Diagnoses Urinary tract infection, site not specified (10/21/23) Subjective Subjective Patient seen still remains on supplemental oxygen currently on 6 L flow per minute. 2D echo was reported to be technically difficult study. EF was estimated to be 65% with normal valves. Patient was found to have trivial pulmonary valve and tricuspid insufficiency. RV systolic pressure unable to be determined given insufficient tricuspid regurgitant envelope Objective Data Objective Data Vital Signs: Vital Signs Temp Pulse Resp BP Pulse Ox O2 Del Method O2 Flow Rate 97.5 F L 79 19 H 117/84 H 95 CPAP 6 10/23/23 04:30 10/23/23 04:53 10/23/23 04:53 10/23/23 04:30 10/23/23 04:53 10/23/23 04:30 10/22/23 22:48 FiO2 30 10/23/23 04:53 Oxygen Flow Rate (L/min) 6 Oxygen Delivery Method CPAP Weight: 193.5 kg Body Mass Index (BMI) 59.5 Intake & Output: Intake and Output for Last 24 Hours 10/21/23 10/22/23 10/23/23 23:59 23:59 23:59 Intake Total 1080 / 1080 2820 / 2820 50 / 50 Output Total 400 / 400 1300 / 1700 900 / 900 Balance 680 / 680 1520 / 1120 -850 / -850 Lab / Micro Data 10/23/23 02:40 10/23/23 02:40 Labs: Laboratory Results - last 24 hr 10/22/23 11:29: POC Glucose 217 H 10/22/23 16:24: POC Glucose 196 H 10/22/23 21:33: POC Glucose 163 H 10/23/23 02:40: WBC 12.3 H, RBC 5.16, Hgb 12.2 L, Hct 43.1, MCV 83.5, MCH 23.6 L, MCHC 28.3 L, RDW Std Deviation 48.3 H, RDW Coeff of Benedicto 16.0 H, Plt Count 266, MPV 11.7, Immature Gran % (Auto) 0.300, Neut % (Auto) 73.6 H, Lymph % (Auto) 17.4 L, [place] % (Auto) 8.0, Eos % (Auto) 0.3, Baso % (Auto) 0.4, Absolute Neuts (auto) 9.1 H, Absolute Lymphs (auto) 2.15, Nucleated RBC % 0, Sodium 141, Potassium 3.5, Chloride 108 H, Carbon Dioxide 26.0, Anion Gap 7, BUN 28 H, Creatinine 1.75 H, Estim Creat Clear Calc 96.31, Est GFR (MDRD) Af Amer 55 L, Est GFR (MDRD) Non-Af 46 L, BUN/Creatinine Ratio 16.0, Glucose 159 H, Calcium 8.6, Phosphorus 3.7, Magnesium 1.5 L, Vancomycin Trough 30.7 H 10/23/23 06:38: POC Glucose 134 H Micro: Microbiology 10/21/23 12:10 Blood Culture (Wb) - Anticubital Left Blood Culture - Preliminary No growth in 48 hours. 10/21/23 12:00 Blood Culture (Wb) - Anticubital Left Blood Culture - Preliminary No growth in 48 hours. 10/21/23 13:14 Urine, Clean Catch Urine Culture - Final Klebsiella oxytoca 10/21/23 17:58 Mucosa - Nasopharyngeal Respiratory Panel (PCR) - Final 10/21/23 13:14 Urine, Clean Catch Legionella Antigen - Final 10/21/23 13:14 Urine, Clean Catch Streptococcus pneumoniae Antigen (M - Final 10/21/23 12:00 Mucosa - Nose SARS-CoV-2, Influenza & RSV (PCR) - Final Radiography Diagnostic Testing: Radiology Impression Echocardiogram 10/21/23 16:33 Interpretation Summary The estimated ejection fraction is 65 %. Structually normal valves. The study was technically difficult. Contrast injection was performed. Ordering Physician: Julia Pastrana Performed By: Barry Hendrix RCS Physical Exam Narrative GENERAL: cooperative HEENT: Atraumatic; EYES; Anicteric, Normal Conjunctiva NECK; supple, normal thyroid, RESPIRATORY: Diminished to auscultation CARDIOVASCULAR: Regular S1 S2, GI: soft, normoactive bowel sounds, : No Renal angle tenderness; EXTREMITIES: Stasis dermatitis involving both lower extremity with erythema MUSCULOSKELETAL: no muscle wasting NEURO: Awake; no lateralizing signs. SKIN: Maculopapular rash on upper and lower extremities as well as trunk PSYCH; Flat affect Assessment & Plan Assessment/Plan (1) Acute UTI: PLAN: Plan Patient is a 43-year-old gentleman with multiple comorbidities with recent hospitalization who presented to the emergency department with progressive shortness of breath 1. Acute on chronic hypoxic and hypercapnic respiratory failure ? Multifactorial including, obesity hypoventilation syndrome, acute extensive pulmonary embolism and suspected right upper lobe pneumonia ? Patient remains on supplemental oxygen currently at 6 L flow per minute 2. Acute VTE? Acute pulmonary embolism and left lower extremity extensive DVT ? CTA obtained on admission demonstrated Extensive bilateral pulmonary embolism as described. No evidence of right heart strain at this time. Venous duplex involving the lower extremity demonstrated acute deep vein thrombosis is noted in the left femoral vein, popliteal vein, tibioperoneal trunk vein, gastrocnemius vein, posterior tibial vein, peroneal vein. Patient started on systemic anticoagulation with apixaban. 2D echo ordered for subsequent assessment ? 10/23/2023; 2D echo obtained on 10/22/2023 did show partially normal valves with estimated ejection fraction of 65%. The study was reported to be technically difficult. Patient was found to have trivial pulmonary valve and tricuspid insufficiency. RV systolic pressure unable to be determined given insufficient tricuspid regurgitant envelope 3. Healthcare associated pneumonia with suspected multidrug-resistant organisms ? Imaging studies demonstrated focal infiltrate in the middle aspect of the left upper lobe. Patient was started on vancomycin and Zosyn cultures sent we will follow-up on result 4. Acute complicated urinary tract infection ? Patient remains on broad-spectrum antibiotic therapy we will follow-up on culture result 5. Extensive rash ? Suspected to be secondary to drug rash? Lasix. Patient currently on Solu-Medrol 6. Diabetes mellitus type II -patient's oral hypoglycemics held. Placed on long acting insulin, Accu-Cheks a.c. and at bedtime and covered with sliding scale insulin 7. Obstructive sleep apnea ? Patient apparently noncompliant with PAP therapy, consistent use encouraged 8. Class III obesity with BMI of 59 ? Complicating care weight loss advised 9. Obesity hypoventilation syndrome ? On supplemental oxygen 10. Chronic kidney disease stage III ? Kidney function at baseline 11. Physical deconditioning - Requested for PT OT eval and social security benefits interviewer to assist with discharge planning Time spent in the patient's overall evaluation,decision-making process, review of diagnostic data, adjustment of management, discussion with other providers, nursing nursing and ancillary staff involved in patient's care documentation, 37 Minutes Charges/Coding Visit Charges Inpatient E&M: 48468 Subs Hosp L2
[2023-10-23] MEDS: APIXABAN 5 MG TABLET 10 MG PO ×2 (09:33→22:40)
[2023-10-23] MEDS: Menthol/Lanolin/Calamine/Znox 113 GM Tube 1 APPLIC TOPICAL ×4 (09:33→22:40)
[2023-10-23] MEDS: Bumetanide 1 MG/4 ML Vial IV ×2 (09:33→17:32)
[2023-10-23] MEDS: Insulin Glargine-YFGN 100 UNIT/ML Pen 10 UNIT SC (09:33)
[2023-10-23] MEDS: Aspirin E.C. 81 MG Tablet PO (09:33)
[2023-10-23 12:05] LABS: Bedside Glucose 106 mg/dL (74-106)
[2023-10-23] MEDS: Nystatin Powder 15gm Bottle 1 APPLIC TOPICAL ×2 (13:40→22:42)
[2023-10-23 17:19] LABS: Bedside Glucose 114 mg/dL (74-106)
[2023-10-23] MEDS: 0.9% Saline Lock 10 ML Syringe IV (17:32)
[2023-10-23 21:49] LABS: Vancomycin, Random Level 20.5 ug/mL (0.0-15.0)
[2023-10-23 23:18] LABS: Bedside Glucose 131 mg/dL (74-106)
--- NOTE | 2023-10-23 23:28 | PCM.RX.CS ---
Consult Antibiotic Management Pharmacy has been consulted to manage selected antibiotic: Vancomycin Type of Intervention Type of Consult: Follow-up Labs Labs: Sodium 141 mmol/L (136-145) 10/23/23 02:40 Potassium 3.5 mmol/L (3.5-5.1) 10/23/23 02:40 Chloride 108 mmol/L (98-107) H 10/23/23 02:40 Carbon Dioxide 26.0 mmol/L (21.0-32.0) 10/23/23 02:40 Anion Gap 7 (5-15) 10/23/23 02:40 BUN 28 mg/dL (7-18) H 10/23/23 02:40 Creatinine 1.75 mg/dL (0.70-1.30) H 10/23/23 02:40 Est GFR (MDRD) Af Amer 55 mL/min (>60) L 10/23/23 02:40 Est GFR (MDRD) Non-Af 46 mL/min (>60) L 10/23/23 02:40 BUN/Creatinine Ratio 16.0 RATIO (10-20) 10/23/23 02:40 Glucose 159 mg/dL (74-106) H 10/23/23 02:40 Vancomycin Trough 30.7 ug/mL (5.0-15.0) H 10/23/23 02:40 Random Vancomycin 20.5 ug/mL (0.0-15.0) H 10/23/23 21:14 Microbiology Microbiology: Microbiology 10/21/23 12:10 Blood Culture (Wb) - Anticubital Left Blood Culture - Preliminary No growth in 48 hours. 10/21/23 12:00 Blood Culture (Wb) - Anticubital Left Blood Culture - Preliminary No growth in 48 hours. 10/21/23 13:14 Urine, Clean Catch Urine Culture - Final Klebsiella oxytoca 10/21/23 17:58 Mucosa - Nasopharyngeal Respiratory Panel (PCR) - Final 10/21/23 13:14 Urine, Clean Catch Legionella Antigen - Final 10/21/23 13:14 Urine, Clean Catch Streptococcus pneumoniae Antigen (M - Final 10/21/23 12:00 Mucosa - Nose SARS-CoV-2, Influenza & RSV (PCR) - Final Pharmacy Plan for Drug Dosing Pharmacy Plan for Drug Dosing: Pharmacy Service will continue to monitor and adjust dosing as required. RANDOM LEVEL 20.5, DRAW AGAIN IN 8 HOURS Follow-Up Labs Follow-Up Labs: Trough: Vancomycin Date/Time Labs Ordered Labs to be done on [date and time ordered]: 10/23 @ 0600
[2023-10-23] MEDS: DiphenhydrAMINE 25 MG Capsule PO (23:41)
[2023-10-23] MEDS: Hydrocortisone 2.5% Crm 1 APPLIC TOPICAL (23:41)
[2023-10-24] VITALS (7 sets, daily range): BP systolic 115–123; BP diastolic 68–77; PULSE 76–89; RESP 12–19; TEMP 36.3–36.6; O2SAT 93–96; BMI 59.1
[2023-10-24 06:02] LABS: Absolute Lymphocyte Count 2.53 X10^3/uL (0.83-4.51); Basophil# 0.11 X10^3/uL; Basophil% 1.3 % (0-1); Eosinophil# 0.44 X10^3/uL; Hematocrit 43.9 % (40-54); Hemoglobin 12.4 g/dL (13.0-16.5); Lymphocyte # 2.53 X10^3/ul (0.83-4.51); Lymphocyte % 28.8 % (19-41); Mean Corp Hgb Conc 28.2 g/dL (32-36); Mean Corpuscular Hgb 23.6 pg (27.0-32.0); Mean Corpuscular Volume 83.5 fL (80-94); Mean Platelet Vol. 11.1 fl (6.2-12.0); Monocyte# 0.72 X10^3/uL; Monocyte% 8.2 % (0-10); NRBC Flagged by Analyzer 0 % (0-5); Neutrophil # 4.97 X10^3/uL (2.7-7.7); Neutrophil % 56.4 % (47-70); Platelet Count 260 K/mm3 (150-450); RBC Distribution Width CV 16.1 % (11.6-14.6); RBC Distribution Width SD 48.7 fl (35.1-43.9); Red Blood Count 5.26 M/mm3 (4.6-6.2); White Blood Count 8.8 K/mm3 (4.4-11.0)
[2023-10-24 06:17] LABS: Anion Gap 6 (5-15); BUN 29 mg/dL (7-18); BUN/Creat Ratio 17.6 RATIO (10-20); Calcium,Total 8.3 mg/dL (8.5-10.1); Chloride 106 mmol/L (98-107); Creatinine, Serum 1.65 mg/dL (0.70-1.30); EST Glomerular Filtration Rate 49 mL/min (>60); Est Glom Filt Rate - Afr Amer 59 mL/min (>60); Estimated Creatinine Clearance 102.15 ml/min; Glucose 145 mg/dL (74-106); Potassium 3.1 mmol/L (3.5-5.1); Sodium Level 140 mmol/L (136-145)
[2023-10-24] MEDS: Piperacil/Tazobactam 3.375 GM in 0.9% Normal Saline (50mL MB+) 50 ML IV ×3 (06:26→20:50)
[2023-10-24] MEDS: Nystatin Powder 15gm Bottle 1 APPLIC TOPICAL ×3 (06:26→20:48)
[2023-10-24 06:28] LABS: Vancomycin, Random Level 16.3 ug/mL (0.0-15.0)
[2023-10-24 06:40] LABS: Bedside Glucose 142 mg/dL (74-106)
--- NOTE | 2023-10-24 08:09 | PN.HOSP_ITS ---
Reason for Visit Reason for Visit: Diagnoses Urinary tract infection, site not specified (10/21/23) Subjective Subjective Patient seen has no new complaints. Diagnostic data reviewed Signifor potassium of 3.3 corrected per protocol Objective Data Objective Data Vital Signs: Vital Signs Temp Pulse Resp BP Pulse Ox O2 Del Method O2 Flow Rate 97.3 F L 81 19 H 115/73 93 Bi-pap 5 10/24/23 03:39 10/24/23 05:05 10/24/23 05:05 10/24/23 03:39 10/24/23 05:05 10/24/23 03:39 10/23/23 22:00 FiO2 30 10/24/23 05:05 Oxygen Flow Rate (L/min) 5 Oxygen Delivery Method Bi-pap Weight: 192.1 kg Body Mass Index (BMI) 59.1 Intake & Output: Intake and Output for Last 24 Hours 10/22/23 10/23/23 10/24/23 23:59 23:59 23:59 Intake Total 2820 / 2820 750 / 1250 550 / 550 Output Total 1300 / 1700 2725 / 4250 1525 / 1525 Balance 1520 / 1120 -1975 / -3000 -975 / -975 Lab / Micro Data 10/24/23 05:45 10/24/23 05:45 Labs: Laboratory Results - last 24 hr 10/23/23 11:38: POC Glucose 106 10/23/23 16:31: POC Glucose 114 H 10/23/23 20:24: POC Glucose 131 H 10/23/23 21:14: Random Vancomycin 20.5 H 10/24/23 05:45: WBC 8.8, RBC 5.26, Hgb 12.4 L, Hct 43.9, MCV 83.5, MCH 23.6 L, MCHC 28.2 L, RDW Std Deviation 48.7 H, RDW Coeff of Benedicto 16.1 H, Plt Count 260, MPV 11.1, Immature Gran % (Auto) 0.300, Neut % (Auto) 56.4, Lymph % (Auto) 28.8, [place] % (Auto) 8.2, Eos % (Auto) 5.0, Baso % (Auto) 1.3 H, Absolute Neuts (auto) 5.0, Absolute Lymphs (auto) 2.53, Nucleated RBC % 0, Sodium 140, Potassium 3.1 L , Chloride 106, Carbon Dioxide 28.0, Anion Gap 6, BUN 29 H, Creatinine 1.65 H, Estim Creat Clear Calc 102.15, Est GFR (MDRD) Af Amer 59 L, Est GFR (MDRD) Non- Af 49 L, BUN/Creatinine Ratio 17.6, Glucose 145 H, Calcium 8.3 L, Random Vancomycin 16.3 H 10/24/23 06:20: POC Glucose 142 H Micro: Microbiology 10/21/23 12:10 Blood Culture (Wb) - Anticubital Left Blood Culture - Preliminary No growth in 48 hours. 10/21/23 12:00 Blood Culture (Wb) - Anticubital Left Blood Culture - Preliminary No growth in 48 hours. 10/21/23 13:14 Urine, Clean Catch Urine Culture - Final Klebsiella oxytoca 10/21/23 17:58 Mucosa - Nasopharyngeal Respiratory Panel (PCR) - Final 10/21/23 13:14 Urine, Clean Catch Legionella Antigen - Final 10/21/23 13:14 Urine, Clean Catch Streptococcus pneumoniae Antigen (M - Final 10/21/23 12:00 Mucosa - Nose SARS-CoV-2, Influenza & RSV (PCR) - Final Physical Exam Narrative GENERAL: cooperative HEENT: Atraumatic; EYES; Anicteric, Normal Conjunctiva NECK; supple, normal thyroid, RESPIRATORY: Diminished to auscultation CARDIOVASCULAR: Regular S1 S2, GI: soft, normoactive bowel sounds, : No Renal angle tenderness; EXTREMITIES: Stasis dermatitis involving both lower extremity with erythema MUSCULOSKELETAL: no muscle wasting NEURO: Awake; no lateralizing signs. SKIN: Maculopapular rash on upper and lower extremities as well as trunk PSYCH; Flat affect Assessment & Plan Assessment/Plan (1) Acute UTI: PLAN: Plan Patient is a 43-year-old gentleman with multiple comorbidities with recent hospitalization who presented to the emergency department with progressive shortness of breath 1. Acute on chronic hypoxic and hypercapnic respiratory failure ? Multifactorial including, obesity hypoventilation syndrome, acute extensive pulmonary embolism and suspected right upper lobe pneumonia ? Patient remains on supplemental oxygen currently at 6 L flow per minute 2. Acute VTE? Acute pulmonary embolism and left lower extremity extensive DVT ? CTA obtained on admission demonstrated Extensive bilateral pulmonary embolism as described. No evidence of right heart strain at this time. Venous duplex involving the lower extremity demonstrated acute deep vein thrombosis is noted in the left femoral vein, popliteal vein, tibioperoneal trunk vein, gastrocnemius vein, posterior tibial vein, peroneal vein. Patient started on systemic anticoagulation with apixaban. 2D echo ordered for subsequent assessment ? 10/23/2023; 2D echo obtained on 10/22/2023 did show partially normal valves with estimated ejection fraction of 65%. The study was reported to be technically difficult. Patient was found to have trivial pulmonary valve and tricuspid insufficiency. RV systolic pressure unable to be determined given insufficient tricuspid regurgitant envelope 3. Healthcare associated pneumonia with suspected multidrug-resistant organisms ? Imaging studies demonstrated focal infiltrate in the middle aspect of the left upper lobe. Patient was started on vancomycin and Zosyn cultures sent we will follow-up on result ? 10/24/2023; de-escalated patient antibiotic therapy with discontinuation of va ncomycin 4. Acute complicated urinary tract infection with Klebsiella oxytoca ? Patient remains on broad-spectrum antibiotic therapy we will follow-up on culture result ? 10/24/2023 patient on appropriate antibiotic 5. Extensive rash ? Suspected to be secondary to drug rash? Lasix. Patient currently on Solu- Medrol 6. Diabetes mellitus type II -patient's oral hypoglycemics held. Placed on long acting insulin, Accu-Cheks a.c. and at bedtime and covered with sliding scale insulin 7. Obstructive sleep apnea ? Patient apparently noncompliant with PAP therapy, consistent use encouraged 8. Class III obesity with BMI of 59 ? Complicating care weight loss advised 9. Obesity hypoventilation syndrome ? On supplemental oxygen 10. Chronic kidney disease stage III ? Kidney function at baseline 11. Physical deconditioning - Requested for PT OT eval and social services designee to assist with discharge planning Time spent in the patient's overall evaluation,decision-making process, review o f diagnostic data, adjustment of management, discussion with other providers, nursing nursing and ancillary staff involved in patient's care documentation, 37 Minutes Charges/Coding Visit Charges Inpatient E&M: 89566 Subs Hosp L2
[2023-10-24] MEDS: Bumetanide 1 MG/4 ML Vial IV ×2 (08:24→17:10)
[2023-10-24] MEDS: APIXABAN 5 MG TABLET 10 MG PO ×2 (08:24→20:48)
[2023-10-24] MEDS: 0.9% Saline Lock 10 ML Syringe IV ×3 (08:24→20:47)
[2023-10-24] MEDS: Aspirin E.C. 81 MG Tablet PO (08:24)
[2023-10-24] MEDS: Menthol/Lanolin/Calamine/Znox 113 GM Tube 1 APPLIC TOPICAL ×3 (08:25→20:49)
[2023-10-24] MEDS: Insulin Glargine-YFGN 100 UNIT/ML Pen 10 UNIT SC (08:25)
[2023-10-24] MEDS: Hydrocortisone 2.5% Crm 1 APPLIC TOPICAL (08:31)
[2023-10-24] MEDS: Vancomycin IV 1,000 MG/200 ML BAG 200 MG IV (08:42)
[2023-10-24] MEDS: Potassium Chloride Oral Tablet 20 MEQ 40 MEQ PO (10:03)
[2023-10-24 11:50] LABS: Bedside Glucose 137 mg/dL (74-106)
[2023-10-24 16:27] LABS: Bedside Glucose 125 mg/dL (74-106)
[2023-10-24] MEDS: Potassium Chloride Oral Tablet 20 MEQ PO (17:10)
[2023-10-24] MEDS: DiphenhydrAMINE 25 MG Capsule PO (20:47)
[2023-10-24 21:11] LABS: Bedside Glucose 137 mg/dL (74-106)
[2023-10-25] VITALS (7 sets, daily range): BP systolic 104–120; BP diastolic 66–84; PULSE 72–91; RESP 12–20; TEMP 36.3–36.5; O2SAT 91–100; BMI 58.8
[2023-10-25] MEDS: Hydrocortisone 2.5% Crm 1 APPLIC TOPICAL (05:25)
[2023-10-25] MEDS: Nystatin Powder 15gm Bottle 1 APPLIC TOPICAL ×2 (05:26→21:41)
[2023-10-25] MEDS: Piperacil/Tazobactam 3.375 GM in 0.9% Normal Saline (50mL MB+) 50 ML IV ×2 (05:28→13:50)
[2023-10-25 06:55] LABS: Bedside Glucose 135 mg/dL (74-106)
[2023-10-25 07:06] LABS: Absolute Lymphocyte Count 1.95 X10^3/uL (0.83-4.51); Absolute Neutrophil Count 4.7 X10^3/uL (2.0-7.7); Basophil# 0.07 X10^3/uL; Basophil% 0.9 % (0-1); Eosinophil# 0.52 X10^3/uL; Eosinophils% 6.6 % (0-5); Hematocrit 44.1 % (40-54); Hemoglobin 12.8 g/dL (13.0-16.5); Lymphocyte # 1.95 X10^3/ul (0.83-4.51); Lymphocyte % 24.7 % (19-41); Mean Corpuscular Volume 82.6 fL (80-94); Mean Platelet Vol. 11.1 fl (6.2-12.0); Monocyte# 0.66 X10^3/uL; Monocyte% 8.4 % (0-10); NRBC Flagged by Analyzer 0 % (0-5); Neutrophil # 4.67 X10^3/uL (2.7-7.7); Platelet Count 259 K/mm3 (150-450); RBC Distribution Width SD 47.6 fl (35.1-43.9); Red Blood Count 5.34 M/mm3 (4.6-6.2); White Blood Count 7.9 K/mm3 (4.4-11.0)
[2023-10-25 07:33] LABS: Anion Gap 6 (5-15); BUN 27 mg/dL (7-18); BUN/Creat Ratio 17.2 RATIO (10-20); Calcium,Total 8.7 mg/dL (8.5-10.1); Chloride 105 mmol/L (98-107); Creatinine, Serum 1.57 mg/dL (0.70-1.30); EST Glomerular Filtration Rate 52 mL/min (>60); Est Glom Filt Rate - Afr Amer 63 mL/min (>60); Estimated Creatinine Clearance 106.65 ml/min; Glucose 141 mg/dL (74-106); Potassium 3.3 mmol/L (3.5-5.1); Sodium Level 138 mmol/L (136-145)
[2023-10-25] MEDS: Bumetanide 1 MG/4 ML Vial IV ×2 (08:30→17:01)
[2023-10-25] MEDS: Potassium Chloride Oral Tablet 20 MEQ PO ×2 (08:30→17:36)
[2023-10-25] MEDS: APIXABAN 5 MG TABLET 10 MG PO ×2 (08:30→21:42)
[2023-10-25] MEDS: Aspirin E.C. 81 MG Tablet PO (08:30)
[2023-10-25] MEDS: 0.9% Saline Lock 10 ML Syringe IV (08:31)
[2023-10-25] MEDS: Insulin Glargine-YFGN 100 UNIT/ML Pen 10 UNIT SC (08:31)
--- NOTE | 2023-10-25 09:21 | CASEMGMT ---
SW sent updates to [facility] and asked that they start pre-cert. Plan: d/c back to [facility] pending pre-cert. Yesica LYW
[2023-10-25] MEDS: Menthol/Lanolin/Calamine/Znox 113 GM Tube 1 APPLIC TOPICAL ×3 (11:15→21:41)
[2023-10-25 11:23] LABS: Bedside Glucose 143 mg/dL (74-106)
--- NOTE | 2023-10-25 16:22 | PN.HOSP_ITS ---
Reason for Visit Reason for Visit: Shortness of breath/cough/hypoxia Subjective Subjective Mr. Zhang is a 43-year-old white male who had a recent admission here from 09/23/2023 through 10/14/2023 for acute on chronic combined respiratory failure, WINDY requiring acute dialysis, septic shock and acute cellulitis of the left lower extremity with polymicrobial culture. He was discharged to [facility] on the and developed shortness of breath, cough, and hypoxia requiring increasing amounts of oxygen. His symptoms started about 24 hours prior to presentation and he reported having to sleep upright in a clot recliner with the onset of a productive cough and shortness of breath. His oxygen saturations were noted to be in the 80s on 2 L nasal cannula eventually requiring a nonrebreather at 10 L and transfer the emergency department. He also had a whole-body rash at his last admission of unknown etiology that was felt to be most consistent with drug reaction was placed on steroids. They thought maybe it was related to diuretic therapy and he was given 2 doses of Solu-Medrol with moderate improvement. The rash has returned just prior to presentation. Vital signs on presentation showed temperature of 98.1, heart rate 113, blood pressure 152/117, respiratory rate was 20 and oxygen saturations were 95% on a nonrebreather. At discharge she was requiring 2 L [id number] for supplemental oxygen. His CBC showed a white count of 8.6 with a hemoglobin of 14.2 and a platelet count of 266,000 without any significant left shift. Coags were unremarkable. ABG showed a pH of 7.33/pCO2 of 45/pO2 of 74 on 10 L high flow nasal cannula. His CMP showed a serum creatinine of 1.92 and a lactic acid of 1.9. Troponin was unremarkable. BNP was slightly elevated at 273 but the significant of this is unclear with his baseline renal dysfunction. His UA was suggestive of infection. Blood cultures and urine cultures were obtained and sent he was started on antibiotics. COVID/flu/RSV was unremarkable. Chest x-ray showed mild cardiomegaly with vascular congestion and CTA of the chest was performed and showed extensive bilateral pulmonary emboli with no evidence of right heart strain as well as a focal infiltrate in the medial aspect of the left upper lobe. Lower extremity DVT was present in the left side. He was started on vancomycin, Zosyn and Eliquis was initiated. Overall he is doing much better since he was admitted. His oxygen has been weaned to 4 L. He does complain of significant exertional dyspnea still however he states that this is probably to be expected given the PE and was told this would take time to resolve. His blood cultures show no growth and his urine culture shows Klebsiella with colony counts greater than 100,000. His respiratory viral panel is unremarkable. Objective Data Objective Data Vital Signs: Vital Signs Temp Pulse Resp BP Pulse Ox O2 Del Method O2 Flow Rate 97.7 F L 78 18 104/66 94 Nasal Cannula 4 10/25/23 14:30 10/25/23 14:30 10/25/23 14:30 10/25/23 14:30 10/25/23 14:30 10/25/23 14:30 10/25/23 14:30 FiO2 30 10/25/23 07:33 Oxygen Flow Rate (L/min) 4 Oxygen Delivery Method Nasal Cannula Weight: 191.5 kg Body Mass Index (BMI) 58.8 Intake & Output: Intake and Output for Last 24 Hours 10/23/23 10/24/23 10/25/23 23:59 23:59 23:59 Intake Total 750 / 1250 1730 / 1730 100 / 100 Output Total 2725 / 4250 4475 / 4475 2100 / 2100 Balance -1974 / -3000 -2745 / -2745 -1999 / Lab / Micro Data 10/25/23 06:35 10/25/23 06:35 Labs: Laboratory Results - last 24 hr 10/24/23 16:00: POC Glucose 125 H 10/24/23 20:44: POC Glucose 137 H 10/25/23 06:25: POC Glucose 135 H 10/25/23 06:35: WBC 7.9, RBC 5.34, Hgb 12.8 L, Hct 44.1, MCV 82.6, MCH 24.0 L, MCHC 29.0 L, RDW Std Deviation 47.6 H, RDW Coeff of Benedicto 16.0 H, Plt Count 259, MPV 11.1, Immature Gran % (Auto) 0.400, Neut % (Auto) 59.0, Lymph % (Auto) 24.7, [place] % (Auto) 8.4, Eos % (Auto) 6.6 H, Baso % (Auto) 0.9, Absolute Neuts (auto) 4.7, Absolute Lymphs (auto) 1.95, Nucleated RBC % 0, Sodium 138, Potassium 3.3 L , Chloride 105, Carbon Dioxide 27.0, Anion Gap 6, BUN 27 H, Creatinine 1.57 H, Estim Creat Clear Calc 106.65, Est GFR (MDRD) Af Amer 63, Est GFR (MDRD) Non-Af 52 L, BUN/Creatinine Ratio 17.2, Glucose 141 H, Calcium 8.7 10/25/23 11:05: POC Glucose 143 H Micro: Microbiology 10/21/23 12:10 Blood Culture (Wb) - Anticubital Left Blood Culture - Preliminary No growth in 48 hours. 10/21/23 12:00 Blood Culture (Wb) - Anticubital Left Blood Culture - Preliminary No growth in 48 hours. 10/21/23 13:14 Urine, Clean Catch Urine Culture - Final Klebsiella oxytoca 10/21/23 17:58 Mucosa - Nasopharyngeal Respiratory Panel (PCR) - Final 10/21/23 13:14 Urine, Clean Catch Legionella Antigen - Final 10/21/23 13:14 Urine, Clean Catch Streptococcus pneumoniae Antigen (M - Fi nal 10/21/23 12:00 Mucosa - Nose SARS-CoV-2, Influenza & RSV (PCR) - Final Physical Exam Const alert, oriented x3, no apparent distress and well nourished; Negative for average body habitus or healthy appearing Constitutional Narrative: Super morbidly obese, white male, sitting up in a chair at the bedside, appears comfortable and nontoxic, very pleasant HEENT head/scalp atraumatic and moist oral mucous membranes HEENT Narrative: Mallampati 4, no thrush Head and Scalp: normocephalic Eyes PERRL, EOMs intact bilaterally and conjunctivae normal Eyes Narrative: No scleral icterus Neck no lymphadenopathy and supple Neck Narrative: Trachea midline, no thyroid enlargement, neck is short and thick Resp normal respiratory effort, no retractions, no use of accessory muscles and clear to auscultation bilaterally Resp Narrative: Diminished diffusely however body habitus Auscultation: Negative for rales, rhonchi or wheezes Cardio regular rate, regular rhythm, S1 normal heart sound, S2 normal heart sound, no murmurs, no rub, no gallops and no clicks Cardio Narrative: Distant heart tones secondary to body habitus GI normal to inspection, nondistended, normoactive bowel sounds, soft to palpation and non-tender GI Narrative: Large protuberant abdomen Extremity Extremity Narrative: Trace bilateral lower extremity edema that appears to be stable, Mono bandages in place, skin is somewhat dry, no cyanosis or clubbing Skin No no rashes or lesions noted, No no wounds, skin turgor normal, no jaundice, no petechiae and no mottling Skin Narrative: Diffuse macular rash all over her chest, trunk, legs and arms/back, pruritic and erythematous Neuro oriented x3, moves all extremities and no focal motor deficits Neuro Narrative: Generalized weakness noted but no focal deficits Speech: speech normal Psych affect normal Psych Narrative: Eye contact is good, patient is very pleasant and interacts appropriately Assessment & Plan Assessment/Plan (1) UTI due to Klebsiella species: (2) Pulmonary embolism: (3) Acute on chronic respiratory failure with hypoxia and hypercapnia: (4) Hypokalemia: (5) Rash: PLAN: Plan Acute on chronic hypoxic and hypercapnic respiratory failure secondary to acute pulmonary embolus/+-HAP -Was discharged on 2 L and was requiring upwards of 10 to 15 L on presentation -Currently weaned to 4 L at rest -Will need ambulatory pulse ox prior to discharge -Respiratory viral panel and COVID/flu/RSV are unremarkable -Patient unable to produce a sputum culture to be sent -CTA of the chest did show infiltrate and with recent hospitalization is at risk for HAP -MRSA PCR is negative -With rash will discontinue penicillin and avoid beta-lactam's with transition to Levaquin to cover both pneumonia and urine -Day 4 of 7 for antibiotics -Continue Eliquis 10 mg p.o. twice daily with stop date on 10/28/2023 then transition to Eliquis 5 mg p.o. twice daily -CTA of the chest on presentation showed extensive bilateral pulmonary emboli with no evidence of right heart strain however he did have a large thrombus in the right main pulmonary artery just distal to the bifurcation -Echocardiogram was done and demonstrated a normal EF with no signs of RV dysfunction -BNP was slightly elevated on admission at 273 however baseline is unclear and troponins were normal Acute pulmonary embolism -See above Klebsiella urinary tract infection -Stop beta-lactam due to rash -Organism is pansensitive -Will switch to Levaquin to cover both suspected pneumonia and urinary tract infection Hypokalemia -40 mill COVID's p.o. potassium given -Repeat in a.m. Rash -Suspect antimicrobial induced -Discontinue beta-lactam and will avoid -Transition to Levaquin -Start prednisone 40 mg daily -Continue Benadryl -continue topical steroid CKD stage IIIb -Creatinine admission was 1.92 and now down to 1.57 -Recent admission did require dialysis however renal function seems to be improving -Kidney function is stable -Will monitor closely -Levaquin was renally dosed but required no adjustment due to GFR being 52 at this time DM-2 -Hold oral regimen -Continue insulin -Continue ADA diet -Accu-Cheks as ordered with as needed SSI Constipation -Continue MiraLAX -As needed enema SUNG -Continue nocturnal BiPAP Morbid obesity -BMI is 58.9 -Complicates treatment, prognosis, outcomes -Recommend weight loss DVT prophylaxis -Eliquis as noted above CODE STATUS -Full code Disposition: -Plan is for discharge back to [facility] at discharge next- patient is close to being medically stabilized -Pre-CERT was started and anticipate discharge in the next 24 to 48 hours depending on pre-CERT Charges/Coding Visit Charges Inpatient E&M: 43707 Subs Hosp L2
[2023-10-25 16:45] LABS: Bedside Glucose 142 mg/dL (74-106)
[2023-10-25] MEDS: predniSONE 20 MG Tablet 40 MG PO (17:02)
[2023-10-25] MEDS: DiphenhydrAMINE 25 MG Capsule PO (17:02)
[2023-10-25] MEDS: Potassium Chloride Oral Tablet 20 MEQ 60 MEQ PO (17:04)
[2023-10-25] MEDS: Insulin Lispro 100 UNIT/ML INSULN.PEN SC (21:46)
[2023-10-25 22:10] LABS: Bedside Glucose 263 mg/dL (74-106)
[2023-10-26] VITALS (8 sets, daily range): BP systolic 128–132; BP diastolic 78–91; PULSE 64–80; RESP 12–22; TEMP 36.2–36.9; O2SAT 80–96; BMI 58.9
[2023-10-26] MEDS: levoFLOXacin 750 MG Tablet PO (06:07)
[2023-10-26] MEDS: Insulin Lispro 100 UNIT/ML INSULN.PEN SC (06:11)
[2023-10-26 06:33] LABS: Bedside Glucose 174 mg/dL (74-106)
--- NOTE | 2023-10-26 07:43 | CASEMGMT ---
OMI received a voice mail from [facility] that patient was approved to return. OMI will notify physician. Yesica SCHULTZ
[2023-10-26 08:32] LABS: Hematocrit 45.6 % (40-54); Hemoglobin 13.2 g/dL (13.0-16.5); Mean Corp Hgb Conc 28.9 g/dL (32-36); Mean Corpuscular Hgb 23.8 pg (27.0-32.0); Mean Corpuscular Volume 82.2 fL (80-94); Mean Platelet Vol. 11.2 fl (6.2-12.0); Platelet Count 281 K/mm3 (150-450); RBC Distribution Width CV 15.9 % (11.6-14.6); RBC Distribution Width SD 47.4 fl (35.1-43.9); Red Blood Count 5.55 M/mm3 (4.6-6.2); White Blood Count 8.9 K/mm3 (4.4-11.0)
[2023-10-26] MEDS: APIXABAN 5 MG TABLET 10 MG PO (08:50)
[2023-10-26] MEDS: Aspirin E.C. 81 MG Tablet PO (08:50)
[2023-10-26] MEDS: Potassium Chloride Oral Tablet 20 MEQ PO (08:50)
[2023-10-26 08:52] LABS: Anion Gap 5 (5-15); BUN 22 mg/dL (7-18); BUN/Creat Ratio 14.2 RATIO (10-20); Calcium,Total 9.1 mg/dL (8.5-10.1); Chloride 100 mmol/L (98-107); Creatinine, Serum 1.55 mg/dL (0.70-1.30); EST Glomerular Filtration Rate 53 mL/min (>60); Est Glom Filt Rate - Afr Amer 64 mL/min (>60); Estimated Creatinine Clearance 108.14 ml/min; Glucose 158 mg/dL (74-106); Magnesium 1.7 mg/dL (1.6-2.6); Potassium 4.3 mmol/L (3.5-5.1); Sodium Level 136 mmol/L (136-145)
[2023-10-26] MEDS: Hydrocortisone 2.5% Crm 1 APPLIC TOPICAL (08:52)
[2023-10-26] MEDS: Menthol/Lanolin/Calamine/Znox 113 GM Tube 1 APPLIC TOPICAL ×2 (08:52→13:18)
[2023-10-26] MEDS: predniSONE 20 MG Tablet 40 MG PO (08:56)
[2023-10-26] MEDS: Insulin Glargine-YFGN 100 UNIT/ML Pen 10 UNIT SC (08:56)
[2023-10-26] MEDS: Bumetanide 1 MG/4 ML Vial IV (09:46)
--- NOTE | 2023-10-26 10:46 | NURSING ---
Patient noted to be hypoxic w/ movement on 4L NC O2 via finger pulse ox, earlobe pulse ox checked and showed patient only requiring 4L NC of O2 with exertion with saturations of 94-97%.
[2023-10-26 11:42] LABS: Bedside Glucose 124 mg/dL (74-106)
--- NOTE | 2023-10-26 12:30 | TREXTCAR_ITS ---
Diet Diet Order/Speech Therapy: 10/22/23 16:26 Diet: Carbohydrate Controlled Dietary Modifications:: Cardiac / Heart Healthy Is pt able to select menu?: Yes Routine Orders/Code Status O2 Liters per Minute: 4L and wean as able O2 Frequency: Continuous Keep PO Greater than or Equal to (%): 89 Routine Lab Work: CBC (1 week) and BMP (1 week) Code Status: Full Code Wound(s) coccyx: Wound Type: Pressure Injury Therapies Weight Bearing: Full weight bearing Physical Therapy: Eval and Treat Occupational Therapy: Eval and Treat Problem/Diagnosis (1) UTI due to Klebsiella species: Status: Acute Code(s): N39.0 - Urinary tract infection, site not specified; B96.89 - Other specified bacterial agents as the cause of diseases classified elsewhere (2) Pulmonary embolism: Status: Acute Code(s): I26.99 - Other pulmonary embolism without acute cor pulmonale (3) Acute on chronic respiratory failure with hypoxia and hypercapnia: Status: Chronic Code(s): J96.21 - Acute and chronic respiratory failure with hypoxia; J96.22 - Acute and chronic respiratory failure with hypercapnia (4) Hypokalemia: Status: Acute Code(s): E87.6 - Hypokalemia (5) Rash: Status: Acute Code(s): R21 - Rash and other nonspecific skin eruption Plan Rash-etiology is unknown however suspect either drug or contact -Patient to complete methylprednisolone taper and if no improvement will need to be evaluated by dermatology -We did switch antibiotics to avoid beta-lactam's Allergies/Procedures Done in Hospital Allergies No Known Allergies Allergy (Verified 09/23/23 09:27) Procedures: 2-D Echocardiogram and - (CTA chest/lower extremity Doppler/chest x- ray) Type of Care/Length of Stay Estimated LOS: Convalescent Care Less Than 30 days Type of Care Needed: Skilled Rehab Potential: Good Prognosis: Fair Additional Orders/Day of Discharge Day of Discharge: 10/26/23 Dietary and Speech Recommendations Dietitian Recommendations/Changes: will adjust diet to CHO controlled, cardiac Discharge Plan Admission Admit Date/Time: 10/21/23 14:26 Attending Provider: Teresa Montano Primary Care Provider: Care Physician,No Primary Consulting Providers: Julia Pastrana; Rufino Jeter Discharge Orders/Prescriptions Prescriptions: No Action sennosides-docusate sodium [Stool Softener-Stimulant Laxat] 8.6-50 mg Tablet 2 tab PO DAILY Qty: 0 0RF nystatin [Nyamyc] 100,000 unit/gram Powder 1 applic topical TID Qty: 0 0RF Protocol: *Topical Application Instructions APPLICATION INSTRUCTIONS: abd folds and groin menthol-zinc oxide [Calmoseptine] 0.44-20.6 % Ointment 1 applic topical BID Qty: 0 0RF Protocol: *Topical Application Instructions APPLICATION INSTRUCTIONS: apply to coccyx insulin glargine-yfgn 100 unit/mL (3 mL) Insulin Pen 10 unit subcut DAILY Qty: 0 0RF polyethylene glycol 3350 [Miralax] 17 gram/dose powder 17 g PO DAILY Qty: 119 0RF prednisone 20 mg tablet 20 mg PO DAILY diphenhydramine HCl [Banophen] 25 mg capsule 25 mg PO QHS cholecalciferol (vitamin D3) 1,250 mcg (50,000 unit) capsule 1,250 mcg PO BARNES insulin lispro 100 unit/mL insulin pen 1 sliding scale dose subcut 4X/DAY Protocol: 6. Sliding Scale Insulin Custom Condition: mg/dl range Dose/Route: Number of Units Condition: 180-200 Dose/Route: 2 Condition: 201-250 Dose/Route: 3 Condition: 251-300 Dose/Route: 4 Condition: 301-350 Dose/Route: 5 Condition: 351-400 Dose/Route: 6 Condition: 401-450 Dose/Route: 7 Condition: 450+ Dose/Route: NOTIFY MD Protocol Text: Custom Sliding Scale- GIVE BEFORE MEALS AND BEDTIME glucagon HCl [Glucagon (HCl) Emergency Kit] 1 mg recon soln 1 mg IM Q20M PRN (Reason: hypoglycemia) Rx Instructions: until target blood sugar attained dextrose [Glucose Gel] 40 % gel 10 g PO Q15M PRN (Reason: hypoglycemia) Rx Instructions: until symptoms of low blood sugar are controlled guaifenesin 100 mg/5 mL liquid 200 mg PO Q4H PRN (Reason: congestion) magnesium hydroxide [Milk of Magnesia] 400 mg/5 mL suspension 30 ml PO DAILY PRN (Reason: constipation) Rx Instructions: GIVE 30ML BY MOUTH NEEDED FOR CONSTIPATION X1 EPISODE. NOTIFY MD IF NO BM IN 4 DAYS acetaminophen 650 mg suppository 650 mg MA Q4H PRN (Reason: fever or pain) bisacodyl 10 mg suppository 10 mg MA DAILY PRN (Reason: constipation) Rx Instructions: USE NEEDED FOR CONSTIPATION X1 EPISODE. IF MILK OF MAG IS INEFFECTIVE. BRAIN PATTERSON IF NO BM IN 4 DAYS Fleet Enema 19-7 gram/118 mL enema 118 ml MA DAILY PRN (Reason: constipation) Rx Instructions: USE IF DULCOLAX SUPPOSITORY IS INEFFECTIVE. CALL MD IF NO BM IN 4 DAYS acetaminophen 325 mg Tablet 650 mg PO Q6H PRN (Reason: Pain 1-10 Or Fever >100.7) albuterol sulfate 2.5 mg /3 mL (0.083 %) Solution For Nebulization 2.5 mg inhalation Q2H PRN (Reason: Dyspnea, wheezing) Referrals / Follow Up: Care Physician,No Primary [Primary Care Provider] -
--- NOTE | 2023-10-26 12:32 | DS.PCM_ITS ---
Providers Date of Admission: 10/21/23 Date of Discharge: 10/26/23 Primary Care Physician: No Primary Care Phys Reason For Visit: RESP FAILURE, PNA, UTI, BL PE DVT Diagnosis Discharge Diagnosis (1) UTI due to Klebsiella species: Status: Acute Code(s): N39.0 - Urinary tract infection, site not specified; B96.89 - Other specified bacterial agents as the cause of diseases classified elsewhere (2) Pulmonary embolism: Status: Acute Code(s): I26.99 - Other pulmonary embolism without acute cor pulmonale (3) Acute on chronic respiratory failure with hypoxia and hypercapnia: Status: Chronic Code(s): J96.21 - Acute and chronic respiratory failure with hypoxia; J96.22 - Acute and chronic respiratory failure with hypercapnia (4) Hypokalemia: Status: Acute Code(s): E87.6 - Hypokalemia (5) Rash: Status: Acute Code(s): R21 - Rash and other nonspecific skin eruption Medications at Discharge Home Medications insulin glargine-yfgn 100 unit/mL (3 mL) subcutaneous pen 10 unit (0.1 mL) subcut DAILY #0 mL 10/14/23 menthol 0.44 %-zinc oxide 20.6 % topical ointment (Calmoseptine) 1 applic topical BID #0 grams 10/14/23 nystatin 100,000 unit/gram topical powder (Nyamyc) 1 applic topical TID #0 grams 10/14/23 polyethylene glycol 3350 17 gram/dose oral powder (Miralax) 17 g PO DAILY #119 grams 10/14/23 sennosides 8.6 mg-docusate sodium 50 mg tablet (Stool Softener-Stimulant Laxative) 2 tab PO DAILY #0 tabs 10/14/23 acetaminophen 325 mg tablet 650 mg PO Q6H PRN Pain 1-10 Or Fever >100.7 10/21/23 albuterol sulfate 2.5 mg/3 mL (0.083 %) solution for nebulization 2.5 mg inhalation Q2H PRN Dyspnea, wheezing 10/21/23 bisacodyl 10 mg rectal suppository 10 mg VA DAILY PRN constipation 10/21/23 cholecalciferol (vitamin D3) 1,250 mcg (50,000 unit) capsule 1,250 mcg PO BARNES 04/18/24 dextrose 40 % oral gel (Glucose Gel) 10 g PO Q15M PRN hypoglycemia 10/21/23 diphenhydramine HCl 25 mg capsule (Banophen) 25 mg PO QHS RASH 10/21/23 glucagon HCl 1 mg solution for injection (Glucagon (HCl) Emergency Kit) 1 mg IM Q20M PRN hypoglycemia 10/21/23 guaifenesin 100 mg/5 mL oral liquid 200 mg PO Q4H PRN congestion 10/21/23 insulin lispro 100 unit/mL subcutaneous pen 1 sliding scale dose subcut 4X/DAY 10/21/23 magnesium hydroxide 400 mg/5 mL oral suspension (Milk of Magnesia) 30 ml PO DAILY PRN constipation 10/21/23 sodium phosphates 19 gram-7 gram/118 mL enema (Fleet Enema) 118 ml VA DAILY PRN constipation 10/21/23 apixaban 5 mg tablet (Eliquis) 10 mg (2 x 5 mg) PO BID #0 tabs 10/26/23 bumetanide 1 mg tablet 1 mg PO BID #1 TAB 10/26/23 hydrocortisone 2.5 % topical cream 1 applic topical BID PRN PRN RASH/TOPICAL IRRITATION #0 grams 10/26/23 levofloxacin 750 mg tablet 750 mg PO DAILY@0600 #0 tabs 10/26/23 menthol 0.44 %-zinc oxide 20.6 % topical ointment (Calmoseptine) 1 applic topical 4X/DAY #0 grams 10/26/23 methylprednisolone 4 mg tablets in a dose pack (Medrol (Lb)) See Rx Instructions PO .COMPLEX #21 tabs 10/26/23 Hospital Course Summary of Care Provided Hospital Course: Mr. Zhang is a 43-year-old white male who had a recent admission here from 09/23/2023 through 10/14/2023 for acute on chronic combined respiratory failure, WINDY requiring acute dialysis, septic shock and acute cellulitis of the left lower extremity with polymicrobial culture. He was discharged to [facility] on the and developed shortness of breath, cough, and hypoxia requiring increasing amounts of oxygen. His symptoms started about 24 hours prior to presentation and he reported having to sleep upright in a clot recliner with the onset of a productive cough and shortness of breath. His oxygen saturations were noted to be in the 80s on 2 L nasal cannula eventually requiring a nonrebreather at 10 L and transfer the emergency department. He also had a whole-body rash at his last admission of unknown etiology that was felt to be most consistent with drug reaction was placed on steroids. They thought maybe it was related to diuretic therapy and he was given 2 doses of Solu-Medrol with moderate improvement. The rash has returned just prior to presentation. Vital signs on presentation showed temperature of 98.1, heart ra te 113, blood pressure 152/117, respiratory rate was 20 and oxygen saturations were 95% on a nonrebreather. At discharge she was requiring 2 L mprhcc-erg-rcdim for supplemental oxygen. His CBC showed a white count of 8.6 with a hemoglobin of 14.2 and a platelet count of 266,000 without any signifi cant left shift. Coags were unremarkable. ABG showed a pH of 7.33/pCO2 of 45/pO2 of 74 on 10 L high flow nasal cannula. His CMP showed a serum creatinine of 1.92 and a lactic acid of 1.9. Troponin was unremarkable. BNP was slightly elevated at 273 but the significant of this is unclear with his baseline renal dysfunction. His UA was suggestive of infection. Blood cultures and urine cultures were obtained and sent he was started on antibiotics. COVID/flu/RSV was unremarkable. Chest x-ray showed mild cardiomegaly with vascular congestion and CTA of the chest was performed and showed extensive bilateral pulmonary emboli with no evidence of right heart strain as well as a focal infiltrate in the medial aspect of the left upper lobe. Lower extremity DVT was present in the left side. He was started on vancomycin, Zosyn and Eliquis was initiated. He had no sign of right heart strain on his echocardiogram or CTA of the chest, his troponins were cycled and normal despite a mildly elevated BNP however we do not have a baseline and this may be close to his baseline. He was placed on Bumex 1 mg IV twice daily and at discharge we transition him to 1 mg oral twice daily. His renal function was stable with this type of diuresis. His urine antigens for strep pneumo and Legionella were unremarkable. Blood cultures were no growth at 48 hours and his respiratory viral panel was normal. He did have a urinary tract infection and his urine culture showed Klebsiella oxytoca for whi ch she was treated with initially Zosyn but he developed a rash that worsened during his admission. He states it was actually started prior to admission but definitely got worse while he was hospitalized so we transition him from a beta- lactam to Levaquin at the time of discharge. The Levaquin should cover his urine plus any pneumonia that he may have as he is not able to produce a sputum culture for us to verify actual pneumonia however there was a possible infiltrate on the CT of his chest. His oxygen was slowly able to be weaned at the time of discharge she was needing 4 L continuous at rest and with exertion. It is appropriate to wean this as able. For his rash she was placed on a Medrol Dosepak at the time of discharge along with Benadryl and topical hydrocortisone. If he does not improve he will need to follow-up as an outpatient with dermatology for possible biopsy and alternate routes of treatment. Etiology is unclear but unable to rule out drug rash versus contact dermatitis. He was concerned that maybe it was related to the linen at the nursing facility. He states it was there prior to coming the hospital. At the time of discharge she had 2 more days of Levaquin and prescription for this was sent. He was also sent with Medrol Dosepak as noted above. He is to be on Eliquis 10 mg p.o. twice daily until 10/28/2023 and at that time transition to 5 mg p.o. twice daily. He will need Eliquis indefinitely at this point. I strongly recommend outpatient follow-up with pulmonary medicine in the future. I also recommend that he find a primary care physician to follow-up with after discharge from the nursing facility. He was expected back at [facility] and pre-CERT was obtained on 10/26/2023. He was discharged in stable condition on this date. Discharge diagnoses: Acute on chronic hypoxic and hypercapnic respiratory failure Acute pulmonary embolism Possible healthcare acquired pneumonia--> unable to prove with culture Klebsiella urinary tract infection Hypokalemia-resolved Diffuse rash CKD stage IIIb DM-2 Constipation SUNG Morbid obesity Physical Exam Const alert, oriented x3, no apparent distress, no limitations and well nourished; Negative for average body habitus or healthy appearing Constitutional Narrative: Super morbidly obese, white male, sitting up in bed watching television, appears comfortable and nontoxic, very pleasant General Appearance: cooperative, comfortable, well kempt and well developed Orientation / Consciousness: awake, oriented to person, oriented to place and oriented to time Exam Limitations: no limitations Nutritional Appearance: morbidly obese HEENT normocephalic, head/scalp atraumatic, hearing grossly normal bilaterally and moist oral mucous membranes HEENT Narrative: Mallampati 4, no thrush Eyes PERRL, EOMs intact bilaterally and conjunctivae normal Eyes Narrative: No scleral icterus Neck no lymphadenopathy and supple Neck Narrative: Trachea midline, no thyroid enlargement, neck is short and thick Resp normal respiratory effort, no retractions, no use of accessory muscles and clear to auscultation bilaterally Resp Narrative: Diminished diffusely however body habitus Auscultation: Negative for rales, rhonchi or wheezes Cardio regular rate, regular rhythm, S1 normal heart sound, S2 normal heart sound, no murmurs, no rub, no gallops and no clicks Cardio Narrative: Distant heart tones secondary to body habitus GI normal to inspection, nondistended, normoactive bowel sounds, soft to palpation and non-tender GI Narrative: Large protuberant abdomen Extremity Extremity Narrative: Trace bilateral lower extremity edema that appears to be stable, Mono bandages in place, skin is somewhat dry, no cyanosis or clubbing Skin No no rashes or lesions noted, No no wounds, skin turgor normal, no jaundice, no petechiae and no mottling Skin Narrative: Diffuse macular rash all over her chest, trunk, legs and arms/back, pruritic and erythematous Neuro oriented x3, CN's II-XII intact bilaterally, moves all extremities and no focal motor deficits Neuro Narrative: Generalized weakness noted but no focal deficits Speech: speech normal Psych affect normal Psych Narrative: Eye contact is good, patient is very pleasant and interacts appropriately Weight / BMI Weight Weight: 191.8 kg Body Mass Index (BMI) 58.9 ABG / Lab / Microbiology Data 10/26/23 07:55 10/26/23 07:55 Laboratory: Laboratory Results - last 24 hr 10/25/23 15:31: POC Glucose 142 H 10/25/23 21:45: POC Glucose 263 H 10/26/23 06:10: POC Glucose 174 H 10/26/23 07:55: WBC 8.9, RBC 5.55, Hgb 13.2, Hct 45.6, MCV 82.2, MCH 23.8 L, MCHC 28.9 L, RDW Std Deviation 47.4 H, RDW Coeff of Benedicto 15.9 H, Plt Count 281, MPV 11.2, Sodium 136, Potassium 4.3, Chloride 100, Carbon Dioxide 31.0, Anion Gap 5, BUN 22 H, Creatinine 1.55 H, Estim Creat Clear Calc 108.14, Est GFR (MDRD) Af Amer 64, Est GFR (MDRD) Non-Af 53 L, BUN/Creatinine Ratio 14.2, Glucose 158 H, Calcium 9.1, Magnesium 1.7 10/26/23 11:19: POC Glucose 124 H Microbiology: Microbiology 10/21/23 12:10 Blood Culture (Wb) - Anticubital Left Blood Culture - Preliminary No growth in 48 hours. 10/21/23 12:00 Blood Culture (Wb) - Anticubital Left Blood Culture - Preliminary No growth in 48 hours. 10/21/23 13:14 Urine, Clean Catch Urine Culture - Final Klebsiella oxytoca 10/21/23 17:58 Mucosa - Nasopharyngeal Respiratory Panel (PCR) - Final 10/21/23 13:14 Urine, Clean Catch Legionella Antigen - Final 10/21/23 13:14 Urine, Clean Catch Streptococcus pneumoniae Antigen (M - Final 10/21/23 12:00 Mucosa - Nose SARS-CoV-2, Influenza & RSV (PCR) - Final Meaningful Use Info Meaningful Use Meaningful Use Diagnoses (Choose all that apply): VTE Ischemic Stroke Statin Dosing Therapy Reference: STATIN DOSE THERAPY REFERENCE: * Patients > 75 years receive moderate or high dose statin therapy. * Patients 75 years or YOUNGER should receive HIGH intensity statin dose unless contraindicated. You will be required to document reason for non-treatment if statin daily dose does not meet guidelines. HIGH DOSE STATIN THERAPY DAILY Atorvastatin > than or = to 40 mg Rosuvastatin > than or = to 20 mg Amlodipine + Atorvastatin > than or = to 2.5/40 mg Ezetimibe + Simvastatin 10/80 mg Simvastatin 80mg VTE Anticoag overlap given w/in hospital stay or rx'd at dc?: No Pt receive overlap for 5 days?: No Reason overlap not ordered, prescribed, or given for 5 days: Treatment Not Indicated Discharge Plan Admission Admit Date/Time: 10/21/23 14:26 Primary Reason for Your Visit: Shortness of breath/cough/hypoxia Attending Provider: Teresa Montano Primary Care Provider: Care Physician,No Primary Consulting Providers: Julia Pastrana; Kittoe,Rufino Instructions Additional Instructions / Restrictions: 1. If rash does not go away with steroids and change in antibiotics patient will need to follow-up as an outpatient with dermatology. Discharge Orders/Prescriptions Prescriptions: New menthol-zinc oxide [Calmoseptine] 0.44-20.6 % Ointment 1 applic topical 4X/DAY Qty: 0 0RF Protocol: *Topical Application Instructions APPLICATION INSTRUCTIONS: apply to affected region levofloxacin 750 mg Tablet 750 mg PO DAILY@0600 Qty: 0 0RF Rx Instructions: 2 more days hydrocortisone 2.5 % Cream 1 applic topical BID PRN PRN (Reason: RASH/TOPICAL IRRITATION) Qty: 0 0RF Protocol: *Topical Application Instructions APPLICATION INSTRUCTIONS: apply to affected areas Eliquis 5 mg Tablet 10 mg PO BID Qty: 0 0RF Rx Instructions: 2 tablets p.o. twice daily through 10/28/2023 then transition to Eliquis 5 mg p.o. twice daily indefinitely following bumetanide 1 mg tablet 1 mg PO BID Qty: 1 0RF methylprednisolone [Medrol (Lb)] 4 mg tablets,dose pack See Rx Instructions .ROUTE .COMPLEX Qty: 21 0RF Rx Instructions: for 6 days Continued sennosides-docusate sodium [Stool Softener-Stimulant Laxat] 8.6-50 mg Tablet 2 tab PO DAILY Qty: 0 0RF nystatin [Nyamyc] 100,000 unit/gram Powder 1 applic topical TID Qty: 0 0RF Protocol: *Topical Application Instructions APPLICATION INSTRUCTIONS: abd folds and groin menthol-zinc oxide [Calmoseptine] 0.44-20.6 % Ointment 1 applic topical BID Qty: 0 0RF Protocol: *Topical Application Instructions APPLICATION INSTRUCTIONS: apply to coccyx insulin glargine-yfgn 100 unit/mL (3 mL) Insulin Pen 10 unit subcut DAILY Qty: 0 0RF polyethylene glycol 3350 [Miralax] 17 gram/dose powder 17 g PO DAILY Qty: 119 0RF diphenhydramine HCl [Banophen] 25 mg capsule 25 mg PO QHS cholecalciferol (vitamin D3) 1,250 mcg (50,000 unit) capsule 1,250 mcg PO BARNES insulin lispro 100 unit/mL insulin pen 1 sliding scale dose subcut 4X/DAY Protocol: 6. Sliding Scale Insulin Custom Condition: mg/dl range Dose/Route: Number of Units Condition: 180-200 Dose/Route: 2 Condition: 201-250 Dose/Route: 3 Condition: 251-300 Dose/Route: 4 Condition: 301-350 Dose/Route: 5 Condition: 351-400 Dose/Route: 6 Condition: 401-450 Dose/Route: 7 Condition: 450+ Dose/Route: NOTIFY MD Protocol Text: Custom Sliding Scale- GIVE BEFORE MEALS AND BEDTIME glucagon HCl [Glucagon (HCl) Emergency Kit] 1 mg recon soln 1 mg IM Q20M PRN (Reason: hypoglycemia) Rx Instructions: until target blood sugar attained dextrose [Glucose Gel] 40 % gel 10 g PO Q15M PRN (Reason: hypoglycemia) Rx Instructions: until symptoms of low blood sugar are controlled guaifenesin 100 mg/5 mL liquid 200 mg PO Q4H PRN (Reason: congestion) magnesium hydroxide [Milk of Magnesia] 400 mg/5 mL suspension 30 ml PO DAILY PRN (Reason: constipation) Rx Instructions: GIVE 30ML BY MOUTH NEEDED FOR CONSTIPATION X1 EPISODE. NOTIFY MD IF NO BM IN 4 DAYS bisacodyl 10 mg suppository 10 mg VA DAILY PRN (Reason: constipation) Rx Instructions: USE NEEDED FOR CONSTIPATION X1 EPISODE. IF MILK OF MAG IS INEFFECTIVE. NOAZAR MD IF NO BM IN 4 DAYS Fleet Enema 19-7 gram/118 mL enema 118 ml VA DAILY PRN (Reason: constipation) Rx Instructions: USE IF DULCOLAX SUPPOSITORY IS INEFFECTIVE. CALL MD IF NO BM IN 4 DAYS acetaminophen 325 mg Tablet 650 mg PO Q6H PRN (Reason: Pain 1-10 Or Fever >100.7) albuterol sulfate 2.5 mg /3 mL (0.083 %) Solution For Nebulization 2.5 mg inhalation Q2H PRN (Reason: Dyspnea, wheezing) Discontinued prednisone 20 mg tablet 20 mg PO DAILY acetaminophen 650 mg suppository 650 mg VA Q4H PRN (Reason: fever or pain) Referrals / Follow Up: Care Physician,No Primary [Primary Care Provider] - Disposition Disposition (needs filled in before D/C Order can be placed): Shelter Facility Charges/Coding Visit Charges Inpatient E&M: 96035 SNF Disch >30 Min
[2023-10-26] MEDS: Nystatin Powder 15gm Bottle 1 APPLIC TOPICAL (13:17)
--- NOTE | 2023-10-26 13:20 | CASEMGMT ---
Patient is ready for discharge back to [facility]. OMI called Physicians and arranged for patient to get picked up at [facility] via wheelchair. SW sent orders, med list, and slate picker time to [facility] via [employer]. OMI notified engineering secretary, RN, and patient. OMI asked patient if he would like SW to call his sister. Patient declined stating his sister told him to call her when he gets back to [facility]. Plan: d/c back to [facility] under skilled level of care. Physicians will transport patient via wheelchair. Yesica SCHULTZ
--- NOTE | 2023-10-26 13:34 | NURSING ---
Report called to Doris at [facility]. Patient notified of pickup time of 1630
--- NOTE | 2023-10-26 13:46 | PHA.DC.MR.R ---
Pharmacy [place] Med Reconciliation Pharmacy Service has performed discharge medication reconciliation for this patient. The patient's discharge medication list was reviewed for discrepancies and discrepancies were resolved. Medications at Discharge Home Medications insulin glargine-yfgn 100 unit/mL (3 mL) subcutaneous pen 10 unit (0.1 mL) subcut DAILY #0 mL 10/14/23 menthol 0.44 %-zinc oxide 20.6 % topical ointment (Calmoseptine) 1 applic topical BID #0 grams 10/14/23 nystatin 100,000 unit/gram topical powder (Nyamyc) 1 applic topical TID #0 grams 10/14/23 polyethylene glycol 3350 17 gram/dose oral powder (Miralax) 17 g PO DAILY #119 grams 10/14/23 sennosides 8.6 mg-docusate sodium 50 mg tablet (Stool Softener-Stimulant Laxative) 2 tab PO DAILY #0 tabs 10/14/23 acetaminophen 325 mg tablet 650 mg PO Q6H PRN Pain 1-10 Or Fever >100.7 10/21/23 albuterol sulfate 2.5 mg/3 mL (0.083 %) solution for nebulization 2.5 mg inhalation Q2H PRN Dyspnea, wheezing 10/21/23 bisacodyl 10 mg rectal suppository 10 mg FL DAILY PRN constipation 10/21/23 cholecalciferol (vitamin D3) 1,250 mcg (50,000 unit) capsule 1,250 mcg PO BARNES 10/21/23 dextrose 40 % oral gel (Glucose Gel) 10 g PO Q15M PRN hypoglycemia 10/21/23 diphenhydramine HCl 25 mg capsule (Banophen) 25 mg PO QHS RASH 10/21/23 glucagon HCl 1 mg solution for injection (Glucagon (HCl) Emergency Kit) 1 mg IM Q20M PRN hypoglycemia 10/21/23 guaifenesin 100 mg/5 mL oral liquid 200 mg PO Q4H PRN congestion 10/21/23 insulin lispro 100 unit/mL subcutaneous pen 1 sliding scale dose subcut 4X/DAY 10/21/23 magnesium hydroxide 400 mg/5 mL oral suspension (Milk of Magnesia) 30 ml PO DAILY PRN constipation 10/21/23 sodium phosphates 19 gram-7 gram/118 mL enema (Fleet Enema) 118 ml FL DAILY PRN constipation 10/21/23 apixaban 5 mg tablet (Eliquis) 10 mg (2 x 5 mg) PO BID #0 tabs 10/26/23 bumetanide 1 mg tablet 1 mg PO BID #1 TAB 10/26/23 hydrocortisone 2.5 % topical cream 1 applic topical BID PRN PRN RASH/TOPICAL IRRITATION #0 grams 10/26/23 levofloxacin 750 mg tablet 750 mg PO DAILY@0600 #0 tabs 10/26/23 menthol 0.44 %-zinc oxide 20.6 % topical ointment (Calmoseptine) 1 applic topical 4X/DAY #0 grams 10/26/23 methylprednisolone 4 mg tablets in a dose pack (Medrol (Lb)) See Rx Instructions PO .COMPLEX #21 tabs 10/26/23
== END 2023-10-26 16:51 | disposition skilled nursing facility (03) | DRG 134 ==
LOC: ED 14:23 → PCU 21:27
PROVIDERS: Internal Medicine; Physician Assistant; Admitting Provider Family Medicine; Emergency Provider Emergency Medicine; Visit Provider Internal Medicine
DX: I26.99 Other pulmonary embolism without acute cor pulmonale (principal); J96.21 Acute and chronic respiratory failure with hypoxia; J18.9 Pneumonia, unspecified organism; E66.2 Morbid (severe) obesity with alveolar hypoventilation; Z68.43 Body mass index [BMI] 50.0-59.9, adult; E11.22 Type 2 diabetes mellitus with diabetic chronic kidney disease; N18.32 Chronic kidney disease, stage 3b; I82.413 Acute embolism and thrombosis of femoral vein, bilateral; Z79.4 Long term (current) use of insulin; J96.22 Acute and chronic respiratory failure with hypercapnia; I82.443 Acute embolism and thrombosis of tibial vein, bilateral; I07.1 Rheumatic tricuspid insufficiency; E87.6 Hypokalemia; K59.00 Constipation, unspecified; B96.1 Klebsiella pneumoniae [K. pneumoniae] as the cause of diseases classified elsewhere; N39.0 Urinary tract infection, site not specified; R21 Rash and other nonspecific skin eruption; Z79.01 Long term (current) use of anticoagulants
CPT/HCPCS: 36415; 36600; 71045; 71275; 80048; 80053; 80061; 80202; 81001; 82803; 82962; 83605; 83735; 83880; 84100; 84145; 84443; 84484; 85025; 85027; 85610; 85730; 87040; 87077; 87086; 87088; 87186; 87449; 87631; 87633; 87641; 93005; 93306; 93970; 94002; 94003; 94668; 94762; 97110; 97162; 97166; 97535; 97802; 99283; J7040; Q9957; Q9967; A4216; C8929; J3490

== ENCOUNTER → 2023-10-27 04:30 | Outpatient (REF) | payer MEDICAID, SELFPAY ==
[2023-10-27 06:59] LABS: Absolute Neutrophil Count 7.7 X10^3/uL (2.0-7.7); Basophil# 0.02 X10^3/uL; Basophil% 0.2 % (0-1); Eosinophil# 0.06 X10^3/uL; Eosinophils% 0.6 % (0-5); Hematocrit 45.4 % (40-54); Hemoglobin 13.3 g/dL (13.0-16.5); Mean Corp Hgb Conc 29.3 g/dL (32-36); Mean Corpuscular Volume 81.8 fL (80-94); Mean Platelet Vol. 11.3 fl (6.2-12.0); Monocyte# 0.67 X10^3/uL; Monocyte% 6.7 % (0-10); NRBC Flagged by Analyzer 0 % (0-5); Neutrophil # 7.69 X10^3/uL (2.7-7.7); Neutrophil % 77.1 % (47-70); Platelet Count 304 K/mm3 (150-450); RBC Distribution Width CV 15.9 % (11.6-14.6); RBC Distribution Width SD 47.2 fl (35.1-43.9); Red Blood Count 5.55 M/mm3 (4.6-6.2)
[2023-10-27 07:26] LABS: Anion Gap 5 (5-15); BUN 29 mg/dL (7-18); BUN/Creat Ratio 19.1 RATIO (10-20); Calcium,Total 9.4 mg/dL (8.5-10.1); Chloride 100 mmol/L (98-107); Creatinine, Serum 1.52 mg/dL (0.70-1.30); EST Glomerular Filtration Rate 54 mL/min (>60); Est Glom Filt Rate - Afr Amer 65 mL/min (>60); Glucose 279 mg/dL (74-106); Potassium 4.2 mmol/L (3.5-5.1); Sodium Level 133 mmol/L (136-145)
== END ==
LOC: OLS.SW 04:30
PROVIDERS: Visit Provider Internal Medicine
DX: Z02.2 Encounter for examination for admission to residential institution (principal)
CPT/HCPCS: 36415; 80048; 85025

== ENCOUNTER → 2023-11-03 04:40 | Outpatient (REF) | payer MEDICAID, SELFPAY ==
[2023-11-03 07:45] LABS: Absolute Lymphocyte Count 2.78 X10^3/uL (0.83-4.51); Basophil# 0.07 X10^3/uL; Basophil% 0.4 % (0-1); Eosinophil# 0.38 X10^3/uL; Eosinophils% 2.4 % (0-5); Hematocrit 45.4 % (40-54); Hemoglobin 12.9 g/dL (13.0-16.5); Lymphocyte # 2.78 X10^3/ul (0.83-4.51); Lymphocyte % 17.8 % (19-41); Mean Corp Hgb Conc 28.4 g/dL (32-36); Mean Corpuscular Hgb 23.7 pg (27.0-32.0); Mean Corpuscular Volume 83.3 fL (80-94); Mean Platelet Vol. 11.1 fl (6.2-12.0); Monocyte# 1.27 X10^3/uL; Monocyte% 8.1 % (0-10); NRBC Flagged by Analyzer 0 % (0-5); Neutrophil # 11.03 X10^3/uL (2.7-7.7); Neutrophil % 70.8 % (47-70); Platelet Count 254 K/mm3 (150-450); RBC Distribution Width CV 16.5 % (11.6-14.6); Red Blood Count 5.45 M/mm3 (4.6-6.2); White Blood Count 15.6 K/mm3 (4.4-11.0)
[2023-11-03 08:37] LABS: ALB/GLOB Ratio 0.7 RATIO (0.9-2.4); AST(SGOT) 23 U/L (15-37); Alanine Aminotransfer ALT/SGPT 30 U/L (16-61); Albumin, Serum 2.9 g/dL (3.2-5.0); Alkaline Phosphatase 109 U/L (45-117); Anion Gap 3 (5-15); BUN 17 mg/dL (7-18); BUN/Creat Ratio 12.8 RATIO (10-20); Calcium,Total 9.4 mg/dL (8.5-10.1); Chloride 99 mmol/L (98-107); Creatinine, Serum 1.33 mg/dL (0.70-1.30); EST Glomerular Filtration Rate 63 mL/min (>60); Est Glom Filt Rate - Afr Amer 76 mL/min (>60); Globulin 4.1 g/dL (2.2-4.2); Glucose 137 mg/dL (74-106); Potassium 2.7 mmol/L (3.5-5.1); Sodium Level 138 mmol/L (136-145)
== END ==
LOC: OLS.SW 04:40
PROVIDERS: Referring Provider Internal Medicine; Visit Provider Internal Medicine
DX: I26.99 Other pulmonary embolism without acute cor pulmonale (principal); E87.6 Hypokalemia; J96.21 Acute and chronic respiratory failure with hypoxia; N17.9 Acute kidney failure, unspecified; L03.116 Cellulitis of left lower limb; I82.409 Acute embolism and thrombosis of unspecified deep veins of unspecified lower extremity; E11.9 Type 2 diabetes mellitus without complications
CPT/HCPCS: 36415; 80053; 85025

== ENCOUNTER → 2023-11-05 05:00 | Outpatient (REF) | payer MEDICAID, SELFPAY ==
[2023-11-05 07:44] LABS: Anion Gap 5 (5-15); BUN 19 mg/dL (7-18); BUN/Creat Ratio 16.4 RATIO (10-20); Chloride 100 mmol/L (98-107); Creatinine, Serum 1.16 mg/dL (0.70-1.30); EST Glomerular Filtration Rate 74 mL/min (>60); Est Glom Filt Rate - Afr Amer 89 mL/min (>60); Glucose 159 mg/dL (74-106); Potassium 3.2 mmol/L (3.5-5.1); Sodium Level 138 mmol/L (136-145)
== END ==
LOC: OLS.SW 05:00
PROVIDERS: Visit Provider Internal Medicine
DX: N17.9 Acute kidney failure, unspecified (principal); I26.99 Other pulmonary embolism without acute cor pulmonale
CPT/HCPCS: 36415; 80048

== ENCOUNTER → 2023-11-22 04:00 | Outpatient (REF) | payer MEDICAID, SELFPAY ==
[2023-11-22 10:02] LABS: Anion Gap 8 (5-15); BUN 14 mg/dL (7-18); BUN/Creat Ratio 13.9 RATIO (10-20); Calcium,Total 9.1 mg/dL (8.5-10.1); Chloride 101 mmol/L (98-107); Creatinine, Serum 1.01 mg/dL (0.70-1.30); EST Glomerular Filtration Rate 86 mL/min (>60); Est Glom Filt Rate - Afr Amer 104 mL/min (>60); Glucose 180 mg/dL (74-106); Magnesium 1.8 mg/dL (1.6-2.6); Potassium 3.7 mmol/L (3.5-5.1); Sodium Level 139 mmol/L (136-145)
== END ==
LOC: OLS.SW 04:00
PROVIDERS: Referring Provider Internal Medicine; Visit Provider Internal Medicine
DX: I26.99 Other pulmonary embolism without acute cor pulmonale (principal); E87.6 Hypokalemia; J96.21 Acute and chronic respiratory failure with hypoxia; N17.9 Acute kidney failure, unspecified; L03.116 Cellulitis of left lower limb
CPT/HCPCS: 36415; 80048; 83735